=== PATIENT | male | born 1940 | race Caucasian/White ===

== ENCOUNTER 2023-01-17 09:03 | Outpatient (OUT) | payer MEDICARE, SELFPAY ==
--- NOTE | 2023-01-17 09:58 | CA_ITS ---
Patient: RADHA WISE Exam Date: 01/17/2023 : 1940 Gender:M Ordering : NUPUR MEJIA Admission #: [id number] Family : MARIBEL YU . Order #: [id number] CLICK HERE TO VIEW EXAM ECHOCARDIOGRAM REPORT PROCEDURE: CA ECHO DOPPLER COMPLETE INDICATIONS: Chronic systolic heart failure, CABGx5, pacemaker, watchman COMPARISON: None. DESCRIPTION: COMPLETE ECHOCARDIOGRAM Real-time transthoracic echocardiography with 2D, M-mode, spectral and color flow Doppler performed. QUALITY: Technical quality was good. LEFT VENTRICLE: Normal chamber size. Thickened septal wall. The septum is abnormal in motion consistent with right ventricular pressure/volume overload. Systolic function is mildly reduced. LV EF: Mildly reduced left ventricular ejection fraction, (45-50%). DIASTOLIC: ATRIAL SEPTUM: Visually appears intact. LEFT ATRIUM: Severe dilatation. RIGHT ATRIUM: Severe dilatation. RIGHT VENTRICLE: Moderate dilatation. Systolic function is mildly reduced. Pacer wire present. TRICUSPID VALVE: Normal mobility and thickness. No stenosis with mild to moderate regurgitation. Doppler studies reveal severely (>60) elevated right sided pressures. RVSP 83 mmHg MITRAL VALVE: Mildly thickened. No evidence of mitral valve stenosis. Mild mitral annular calcification. Mild mitral regurgitation. AORTIC VALVE: Bio-Prosthetic valve appears well seated in the aortic position with normal doppler flow. Mean gradient 9 mmHg. Trivial aortic regurgitation. AORTIC ROOT: Normal diameter and appearance. PULMONIC VALVE: Normal thickness and mobility. No stenosis. Mild regurgitation. PERICARDIUM: No evidence of pericardial effusion. IVC: IVC is dilated (2.6 cm) with no collapse. PLEURA: CONCLUSION: 1. Left ventricular systolic function is mildly reduced. LVEF is 45 to 50%. 2. Right ventricle is moderately dilated with mildly reduced systolic function. 3. Bioprosthetic aortic valve is well-seated with normal Doppler flows and no significant regurgitation. 4. Severe biatrial dilatation. 5. Mild mitral and mild to moderate tricuspid regurgitation. 6. Severely elevated right-sided pressures. RVSP is 83 mmHg. 7. No pericardial effusion. Adult Echocardiography Procedure Report Left Ventricle LVEDD (3.7 - 5.6 cm): 5.37 cm LVESD (2.2 - 4.0 cm): 4.84 cm LVIVS thickness (0.6 - 1.2 cm): 1.41 cm LVPW thickness (0.5 - 1.0 cm): 1.13 cm e': 0.11 m/s E - e': 10.27 LVOT Max Gradient: 1.60 mm[Hg] LVOT Area (cm2): 0.63 m/s Peak Velocity (LVOT): 0.63 m/s Mean Velocity (LVOT): 0.49 m/s LVOT Diameter 2.32 cm Left Atrium LA Volume Index (2D A2C): 61.08 ml/m2 Left Atrium Systolic Dimension: 5.28 cm Mitral Valve Mitral Valve E-Wave Peak Velocity: 1.10 m/s Right Ventricle Aorta AO Root Diam: 3.32 cm Ascending Ao Diam: 3.00 cm Aortic Valve AoV Area (Peak Kristian): 1.34 cm2, 1.34 cm2 AoV Area (VTI): 1.52 cm2, 1.52 cm2 Peak Velocity(Antegrade Flow): 2.00 m/s Peak Gradient(Antegrade Flow): 15.94 mm[Hg] Mean Velocity(Antegrade Flow): 1.45 m/s Mean Gradient(Antegrade Flow): 9.16 mm[Hg] Velocity Time Integral: 44.36 cm Tricuspid Valve Peak Velocity (Regurgitant Flow): 4.11 m/s, 3.23 m/s Pulmonic Valve Peak Velocity: 1.24 m/s Peak Gradient: 6.44 mm[Hg], 5.94 mm[Hg] Right Atrium Right Atrium Systolic Pressure: 88.35 ml, 88.35 ml Dictated by: Vikram Simeon M.D. on 01/17/2023 at 18:40 Approved by: Vikram Simeon M.D. on 01/17/2023 at 18:57
== END 2023-01-17 09:04 | disposition home or self-care (01) ==
PROVIDERS: PCP Family Medicine; Visit Provider Nurse Practitioner
DX: I50.22 Chronic systolic (congestive) heart failure (principal); Z95.2 Presence of prosthetic heart valve; I07.1 Rheumatic tricuspid insufficiency
CPT/HCPCS: 93306

== ENCOUNTER 2023-02-01 06:30 | Outpatient (OUT) | payer MEDICARE, SELFPAY ==
[2023-02-01 08:25] LABS: Anion Gap 14.6; BUN Creatinine Ratio 19.4; Calcium 8.5 mg/dL (8.5-10.1); Chloride 104 mmol/L (98-107); Estimated GFR (African America 45 (>=60); Estimated GFR (Non-African Ame 37 (>=60); Glucose 181 mg/dL (74-106); Potassium 3.6 mmol/L (3.5-5.1); Sodium 144 mmol/L (136-145)
== END 2023-02-01 06:31 | disposition home or self-care (01) ==
LOC: LAB 06:32
PROVIDERS: PCP Family Medicine; Visit Provider Internal Medicine Interventional Cardiology
DX: I50.22 Chronic systolic (congestive) heart failure (principal)
CPT/HCPCS: 36415; 80048

== ENCOUNTER 2023-04-23 07:03 | Outpatient (OUT) | payer MEDICARE, SELFPAY ==
--- OUTSIDE RECORDS SUMMARY | 2023-04-23 07:06 | XMS_ITS | CCD ---
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 Name Role Phone UNKNOWN, PROVIDER Admitting Unavailable UNKNOWN, PROVIDER Attending Unavailable MARIBEL HOGAN Referring Unavailable HOY, MARIBEL Primary Care Unavailable [facility] Procedure Practitioner Unavailab CODY Davis Surgeon Unavailable [facility] Procedure Practitioner Unavailab HANK Garcia Surgeon Unavailable [facility] Procedure Practitioner Unavailab le UNKNOWN, PROVIDER Surgeon Unavailable [place] Procedure Practitioner Unavailab KATHY Palma Surgeon Unavailable ASHLEY CRAIG Admitting Unavailable ASHLEY CRAIG Attending Unavailable MICKYROBIMARIBEL Referring Unavailable HOYMARIBEL Primary Care Unavailable UNKNOWN, PROVIDER Admitting Unavailable HOY, MARIBEL Referring Unavailable HOYMARIBEL Primary Care Unavailable RO LUCAS Attending Unavailable [facility] Procedure Practitioner Unavailab le UNKNOWN, PROVIDER Surgeon Unavailable YANIV, DR SU Admitting Unavailable MOUKARBEL, DR SU Attending Unavailable HOY ., DR LÓPEZ Primary Care Unavailable MOUKARBEL, DR SU Consulting Unavailable HOY ., DR LÓPEZ Admitting Unavailable HOY ., DR LÓPEZ Attending Unavailable HOY ., DR LPÓEZ Primary Care Unavailable HOY ., DR LÓPEZ Consulting Unavailable Cody Camara Consulting Unavailable HOY ., DR LÓPEZ Admitting Unavailable HOY ., DR LÓPEZ Attending Unavailable HOY ., DR LÓPEZ Primary Care Unavailable HOY ., DR LÓPEZ Consulting Unavailable LAURA HERNANDEZ Admitting Unavailable LAURA HERNANDEZ Attending Unavailable HOY ., DR LÓPEZ Primary Care Unavailable LAURA HERNANDEZ Consulting Unavailable LAURA HERNANDEZ Admitting Unavailable LAURA HERNANDEZ Attending Unavailable HOY ., DR LÓPEZ Primary Care Unavailable LAURA HERNANDEZ Consulting Unavailable HOY ., DR LÓPEZ Admitting Unavailable HOY ., DR LÓPEZ Attending Unavailable HOY ., DR LÓPEZ Primary Care Unavailable HOY ., DR ROSENBAUMLAS Consulting Unavailable HANK SMALLWOOD Referring Unavailable HANK SMALLWOOD Referring Unavailable NUPUR MEJIA Attending Unavailable HANK SMALLWOOD Referring Unavailable HANK SMALLWOOD Referring Unavailable GEORGES PURVIS Attending Unavailable Allergies Allergy Classification Reported Allergen(s) Allergy Type Date of Onset Reaction(s) Facility metFORMIN (1 source) metFORMIN Drug Allergy 9 [facility] Repository (1 source) metFORMIN; Translations: [METFORMIN] Drug Allergy 3 [facility] Repository (1 source) ALLERGIES NOT ON FILE; Translations: [ALLERGIES NOT ON FILE] Propensity to adverse reactions (disorder) [facility] Repository Problems Active Problems Problem Classification Problem Date Documented Date Episodic/Chronic Abdominal pain (4 sources) Epigastric pain; Translations: [EPIGASTRIC PAIN] Onset: 05-07-2022 Episodic Biliary tract disease (1 source) Calculus of gallbladder without cholecystitis without obstruction; Translations: [CALCU GB W/O CHOLECYST W/O OBST] Onset: 05-09-2022 Episodic Cardiac dysrhythmias (3 sources) Paroxysmal atrial fibrillation; Translations: [Unspecified atrial fibrillation] Onset: 06-06-2022 Chronic Cataract (8 sources) Age-related nuclear cataract, right eye; Translations: [Age-related nuclear cataract, left eye] Onset: 01-11-2022 Chronic Coagulation and hemorrhagic disorders (2 sources) Thrombocytopenia, unspecified; Translations: [Thrombocytopenia, unspecified] Onset: 06-06-2022 Chronic Conduction disorders (5 sources) Presence of cardiac pacemaker; Translations: [Encounter for adjustment and management of automatic implantable cardiac defibrillator] Onset: 01-17-2022 Chronic Congestive heart failure; nonhypertensive (9 sources) Acute systolic (congestive) heart failure; Translations: [Unspecified diastolic (congestive) heart failure] Onset: 08-09-2021 Chronic Coronary atherosclerosis and other heart disease (3 sources) Atherosclerotic heart disease of three affiliated coronary artery without angina pectoris; Translations: [ASHD [place] W/O ANGINA PECTORIS] Onset: 06-06-2022 Chronic Deficiency and other anemia (5 sources) Anemia, unspecified; Translations: [ANEMIA UNSPECIFIED] Onset: 08-09-2021 Episodic Diabetes mellitus with complications (3 sources) Type 2 diabetes mellitus with unspecified diabetic retinopathy without macular edema; Translations: [Diabetes mellitus due to underlying condition with hyperosmolarity without nonketotic hyperglycemic-hyperos molar coma (NKHHC)] Onset: 01-17-2022 Chronic Diabetes mellitus without complication (1 source) Type 2 diabetes mellitus without complications; Translations: [TYPE 2 DM WITHOUT COMPLICATIONS] Onset: 07-22-2022 Chronic Disorders of lipid metabolism (2 sources) Pure hypercholesterolemia, unspecified; Translations: [Hyperlipidemia, unspecified] Onset: 08-09-2021 Chronic Essential hypertension (3 sources) Essential (primary) hypertension; Translations: [ESSENTIAL PRIMARY HYPERTENSION] Onset: 01-17-2022 Chronic Heart valve disorders (7 sources) Presence of prosthetic heart valve; 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] Onset: 01-17-2022 Chronic Hypertension with complications and secondary hypertension (1 source) Hypertensive heart disease with heart failure; Translations: [HTN HEART DISEASE W/HEART FAIL] Onset: 08-09-2021 Chronic Other circulatory disease (2 sources) Presence of other cardiac implants and grafts; Translations: [Presence of other cardiac implants and grafts] Onset: 01-18-2023 Chronic Other nutritional; endocrine; and metabolic disorders (2 sources) Morbid (severe) obesity due to excess calories; Translations: [Morbid (severe) obesity due to excess calories] Onset: 06-06-2022 Chronic Pulmonary heart disease (2 sources) Pulmonary hypertension, unspecified; Translations: [Pulmonary hypertension, unspecified] Onset: 06-06-2022 Chronic Thyroid disorders (5 sources) Hypothyroidism, unspecified; Translations: [HYPOTHYROIDISM UNSPECIFIED] Onset: 08-04-2021 Chronic Past or Other Problems Problem Classification Problem Date Documented Da te Episodic/Chronic Allergic reactions (4 sources) Other urticaria; Translations: [Generalized skin eruption due to drugs and medicaments taken internally] Onset: 06-06-2022 Episodic Diabetes mellitus without complication (1 source) Other abnormal glucose; Translations: [OTHER ABNORMAL GLUCOSE] Onset: 08-09-2021 Episodic Other aftercare (1 source) USP (current) use of oral hypoglycemic drugs; Translations: [SUPPLY CHAIN SPECIALIST USE ORAL HYPOGLYCEMIC DX] Onset: 01-17-2022 Episodic Other screening for suspected conditions (not mental disorders or infectious disease) (2 sources) Encounter for screening for malignant neoplasm of prostate; Translations: [Encounter for screening for malignant neoplasm of rectum] Onset: 08-09-2021 Episodic Kendal-; endo-; and myocarditis; cardiomyopathy (except that caused by tuberculosis or sexually transmitted disease) (2 sources) Viral cardiomyopathy; 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] Onset: 06-06-2022 Episodic Results Test Name Value Interpretation Reference Range Facility Office Visiton 01-18-2023 Follow-up visit [id number] Tyler Brown 1940 M Date Provider Department Center 01/18/2023 GEORGES JONES [facility] Family History Problem Relation Age of Onset Hypertension Mother Family Status - Relation Status Age at Mother Level of Service:94261 [facility] OFFICE/OUTPATIENT ESTABLISHED MOD MDM 30-39 MIN Reason for Visit and Comments: Valve Disorder [3372] Congestive Heart Failure [127] Pulmonary Hypertension [818] Normal [facility] INSULINon 07-14-2022 Insulin 7.9 uIU/mL Normal 2.6-24.9 [facility] Comment on above: Performed By: #### A 1C #### [facility] [address] [address] [address] Pattie Torres CBC AUTO DIFFon 07-13-2022 BASO # 0.0 103/ul Normal 0.0-0.1 [facility] Comment on above: Performed By: #### C BC ####[facility] [address] [place] [address] [address]Dr. Pattie Torres Basophils/100 WBC (Bld) 0.5 % Normal 0.2-2.0 [facility] Comment on above: Performed By: #### C BC ####[facility] [address] [address]DrLeticia Torres EO # 0.4 103/ul Normal 0.0-0.7 [facility] Comment on above: Performed By: #### C BC ####[facility] [address] [address]DrLeticia Torres Eosinophils/100 WBC (Bld) 5.5 % Normal 0.9-7.0 [facility] Comment on above: Performed By: #### C BC ####[facility] [address] [place], [place] [address]Dr. Pattie Torres Erythrocyte distribution width (RBC) [Ratio] 13.0 % Normal 11.0-15.0 [facility] Comment on above: Performed By: #### C BC ####[facility] [address] [place], [place] [address]Dr. Pattie Torres Hematocrit (Bld) [Volume fraction] 36.1 % Critically low 42.0-54.0 [facility] Comment on above: Performed By: #### C BC ####[facility] [address] [place], [place] [address]Dr. Pattie Torres Hemoglobin (Bld) [Mass/Vol] 11.8 g/dL Critically low 14.0-18.0 [facility] Comment on above: Performed By: #### C BC ####[facility] [address] [place], [place] [address]Dr. Pattie Torres IG # 0.02 10e3/ul Normal 0.00-0.03 [facility] Comment on above: Performed By: #### C BC ####[facility] [address] [place], [place] [address]Dr. Pattie Brian IG % 0.3 % Normal 0.0-0.5 [facility] Comment on above: Performed By: #### C BC ####[facility] [address] [place], [place] [address]Dr. Pattie Torres LYMPH # 1.8 103/ul Normal 1.2-3.8 [facility] Comment on above: Performed By: #### C BC ####[facility] [address] [place], [place] [address]Dr. Merlenery Torres Lymphocytes/100 WBC (Bld) 23.5 % Normal 20.5-60.0 [facility] Comment on above: Performed By: #### C BC ####[facility] [address] [place], [place] [address]Dr. Merlenery Torres MANUAL DIFF REQ NO Normal [facility] Comment on above: Performed By: #### C BC ####[facility] [address] [place], [place] [address]Dr. Pattie Torres MCH (RBC) [Entitic mass] 30.3 pg Normal 25.9-34.0 [facility] Comment on above: Performed By: #### C BC ####[facility] [address] [address]Dr. Pattie Torres MCHC (RBC) [Mass/Vol] 32.7 g/dL Normal 29.9-35.2 [facility] Comment on above: Performed By: #### C BC ####[facility] [address] [address]Dr. Pattie Torres MCV (RBC) [Entitic vol] 92.6 fL Normal 80.0-94.0 [facility] Comment on above: Performed By: #### C BC ####[facility] [address] [address]Dr. Pattie Brian MONO # 0.6 103/ul Normal 0.3-0.8 [facility] Comment on above: Performed By: #### C BC ####[facility] [address] [address]Dr. Pattie Brian Monocytes/100 WBC (Bld) 8.0 % Normal 1.7-12.0 [facility] Comment on above: Performed By: #### C BC ####[facility] [address] [address]Dr. Pattie Torres NEUT # 4.7 103/ul Normal 1.4-6.5 [facility] Comment on above: Performed By: #### C BC ####[facility] [address] [address]Dr. Pattie Brian Neutrophils/100 WBC (Bld) 62.2 % Normal 43.0-75.0 [facility] Comment on above: Performed By: #### C BC ####[facility] [address] [address]Dr. Pattie Brian Platelet mean volume (Bld) [Entitic vol] 12.9 fL Normal 9.5-13.5 [facility] Comment on above: Performed By: #### C BC ####[facility] [address] [place], [place] [address]Da. Pattie Torres PLT 127 103/ul Critically low 150-[address] [facility] Comment on above: Performed By: #### C BC ####[facility] [address] [place], [place] [address]Pm. Pattie Torres RBC 3.90 106/ul Critically low 4.70-6.10 [facility] Comment on above: Performed By: #### C BC ####[facility] [address] [place], [place] [address]Zd. Pattie Torres WBC 7.6 103/ul Normal 4.0-11.0 [facility] Comment on above: Performed By: #### C BC ####[facility] [address] [place], [place] [address]Ox. Pattie Torres FREE THYROXINE INDEX T7on FTI 3.66 Normal 1.30-4.50 [facility] Comment on above: Performed By: #### T 7, CMP, LIPID, TSH ####[facility] [address] [place], [place] [address]Sa. Pattie Torres T3U 37.0 % Normal 33.0-40.0 [facility] Comment on above: Performed By: #### T 7, CMP, LIPID, TSH ####[facility] [address] [place], [place] [address]QbLeticia Torres T4 [Mass/Vol] 9.90 ug/dL Normal 4.50-12.[address] [facility] Comment on above: Performed By: #### T 7, CMP, LIPID, TSH ####[facility] [address] [place], [place] [address]FuLeticia Torres GLYCOHEMOGLOBIN A1Con 2022 ADA RECOMMENDATION SEE BELOW Normal [facility] Comment on above: Result Comment: ADA RECOMMENDED LIMIT 4.0 - 6.0 ADA THERAPEUTIC TARGET < 7.0 ACTION SUGGESTED > 7.0 Performed By: #### A 1C #### [facility] [address] [place], [place] [address] Dr. Pattie Torres Glucose [Mass/Vol] 148 mg/dL Normal [facility] Comment on above: Performed By: #### A 1C #### [facility] [address] [place], [place] [address] Dr. Pattie Torres HbA1c (Bld) [Mass fraction] 6.8 % Critically high 4.5-6.2 [facility] Comment on above: Performed By: #### A 1C #### [facility] [address] [place], [place] [address] Dr. Pattie Torres LIPID PROFILEon 07-13-2022 CHOL-HDL RATIO NORM SEE BELOW Normal [facility] Comment on above: Result Comment: 3.3 - 4.4 LOW RISK 4.4 - 7.1 AVERAGE RISK 7.1 - 11.0 MODERATE RISK >11.0 HIGH RISK Performed By: #### T 7, CMP, LIPID, TSH ####[facility] [address] [place] [address]DrLeticia Torres Cholesterol [Mass/Vol] 114 mg/dL Normal <=200 [facility] Comment on above: Performed By: #### T 7, CMP, LIPID, TSH ####[facility] [address] [place] [address]DrLeticia Torres Cholesterol in HDL [Mass/Vol] 32 mg/dL Critically low 40-60 [facility] Comment on above: Performed By: #### T 7, CMP, LIPID, TSH ####[facility] [address] [place], [place] [address]QxLeticia Torres Cholesterol in LDL [Mass/Vol] 60.0 mg/dL Normal [facility] Comment on above: Performed By: #### T 7, CMP, LIPID, TSH ####[facility] [address] [place], [place] [address]AiLeticia Torres Cholesterol.total/Cho lesterol in HDL [Mass ratio] 3.6 {ratio} Normal [facility] Comment on above: Performed By: #### T 7, CMP, LIPID, TSH ####[facility] [address] [place], [place] [address]MsLeticia Torres HDL NORMAL > or = 60 mg/dl - LO W CARDIOVASCULAR RISK <40 mg/dl - HIGH CARDIOVASCULAR RISK Normal [facility] Comment on above: Performed By: #### T 7, CMP, LIPID, TSH ####[facility] [address] [place] [address] [address]Dr. Pattie Torres LDL CALC NORMAL SEE BELOW Normal [facility] Comment on above: Result Comment: <100 mg/dl OPTIMAL 100 - 129 mg/dl NEAR OR ABOVE OPTIMAL 130 - 159 mg/dl BORDERLINE HIGH 160 - 189 mg/dl HIGH >190 mg/dl VERY HIGH Performed By: #### T 7, CMP, LIPID, TSH ####[facility] [address] [place] [address] [address]Dr. Pattie Torres Triglyceride [Mass/Vol] 110 mg/dL Normal <=150 [facility] Comment on above: Performed By: #### T 7, CMP, LIPID, TSH ####[facility] [address] [address]Dr. Pattie Torres VLDL CALC 22.0 mg/dL Normal [facility] Comment on above: Performed By: #### T 7, CMP, LIPID, TSH ####[facility] [address] [place] [address]Dr. Pattie Torres PROF 14(COMP METB)on 023 Albumin [Mass/Vol] 3.4 g/dL Normal 3.4-5.0 [facility] Comment on above: Performed By: #### T 7, CMP, LIPID, TSH ####[facility] [address] [address]Dr. Pattie Torres Albumin/Globulin [Mass ratio] 0.9 {ratio} Normal [facility] Comment on above: Performed By: #### T 7, CMP, LIPID, TSH ####[facility] [address] [address]Dr. Pattie Torres ALP [Catalytic activity/Vol] 68 U/L Normal 46-116 [facility] Comment on above: Performed By: #### T 7, CMP, LIPID, TSH ####[facility] [address] [place] [address]Dr. Pattie Torres ALT [Catalytic activity/Vol] 20 U/L Normal 16-63 [facility] Comment on above: Performed By: #### T 7, CMP, LIPID, TSH ####[facility] [address] [place] [address]Dr. Pattie Torres Anion gap [Moles/Vol] 11.0 mmol/L Normal [facility] Comment on above: Performed By: #### T 7, CMP, LIPID, TSH ####[facility] [address] [place] [address]Dr. Pattie Torres AST [Catalytic activity/Vol] 12 U/L Critically low 15-37 [facility] Comment on above: Performed By: #### T 7, CMP, LIPID, TSH ####[facility] [address] [address]Dr. Pattie Torres Bilirubin [Mass/Vol] 1.0 mg/dL Normal 0.2-1.0 [facility] Comment on above: Performed By: #### T 7, CMP, LIPID, TSH ####[facility] [address] [place] [address]Dr. Pattie Torres Calcium [Mass/Vol] 8.6 mg/dL Normal 8.5-10.1 [facility] Comment on above: Performed By: #### T 7, CMP, LIPID, TSH ####[facility] [address] [place] [address]Dr. Pattie Torres Chloride [Moles/Vol] 107 mmol/L Normal 98-107 [facility] Comment on above: Performed By: #### T 7, CMP, LIPID, TSH ####[facility] [address] [place] [address]Dr. Pattie Torres CO2 [Moles/Vol] 28.6 mmol/L Normal 21.0-32.0 [facility] Comment on above: Performed By: #### T 7, CMP, LIPID, TSH ####[facility] [address] [place] [address]Dr. Pattie Torres Creatinine [Mass/Vol] 1.25 mg/dL Normal 0.70-1.30 [facility] Comment on above: Performed By: #### T 7, CMP, LIPID, TSH ####[facility] [address] [address]Dr. Pattie Torres EGFR-AF MALAYSIAN >60 Normal >=60 [facility] Comment on above: Performed By: #### T 7, CMP, LIPID, TSH ####[facility] [address] [place] [address]Dr. Pattie Torres EGFR-NON AF MALAYSIAN 55 mL/min/1.73m2 Critically low >=60 [facility] Comment on above: Performed By: #### T 7, CMP, LIPID, TSH ####[facility] [address] [place] [address]Dr. Pattie Torres Globulin (S) [Mass/Vol] 3.7 g/dL Normal [facility] Comment on above: Performed By: #### T 7, CMP, LIPID, TSH ####[facility] [address] [address]Dr. Merlenrey Brian Glucose [Mass/Vol] 151 mg/dL Critically high 74-106 [facility] Comment on above: Performed By: #### T 7, CMP, LIPID, TSH ####[facility] [address] [place], [place] [address]Dr. Merlenery Torres Potassium [Moles/Vol] 3.6 mmol/L Normal 3.5-5.1 [facility] Comment on above: Performed By: #### T 7, CMP, LIPID, TSH ####[facility] [address] [address]Dr. Pattie Torres Protein [Mass/Vol] 7.1 g/dL Normal 6.4-8.2 [facility] Comment on above: Performed By: #### T 7, CMP, LIPID, TSH ####[facility] [address] [place], [place] [address]Dr. Pattie Torres Sodium [Moles/Vol] 143 mmol/L Normal 136-145 [facility] Comment on above: Performed By: #### T 7, CMP, LIPID, TSH ####[facility] [address] [place], [place] [address]Dr. Pattie Torres Urea nitrogen [Mass/Vol] 22.0 mg/dL Critically high 7.0-18.0 [facility] Comment on above: Performed By: #### T 7, CMP, LIPID, TSH ####[facility] [address] [place], [place] [address]Bg. Pattie Torres Urea nitrogen/Creatinine [Mass ratio] 17.6 mg/mg Normal [facility] Comment on above: Performed By: #### T 7, CMP, LIPID, TSH ####[facility] [address] [place], [place] [address]Zj. Pattie Torres TSHon 07-13-2022 TSH 1.869 uIU/mL Normal 0.358-3.740 [facility] Comment on above: Performed By: #### T 7, CMP, LIPID, TSH ####[facility] [address] [place], [place] [address]Xw. Pattie Torres Orders Onlyon 06-08-2022 Orders Only [id number] Tyler Brown 1940 M Date Provider Department Center 06/08/2022 GONSALO MALONE SAWYER [facility] Family History Problem Relation Age of Onset Hypertension Mother Family Status - Relation Status Age at Mother Normal [facility] Office Visiton 06-06-2022 Follow-up visit [id number] Tyler Brown 1940 M Date Provider Department Center 06/06/2022 NUPUR GEORGE SAWY[facility] Family History Problem Relation Age of Onset Hypertension Mother Family Status - Relation Status Age at Mother Level of Service:52013 [facility] OFFICE/OUTPATIENT ESTABLISHED LOW MDM 20-29 MIN Reason for Visit and Comments: Follow-up [059420] - 6 month follow up Normal [facility] US SINGLE QUAD RT UPPERon US SINGLE QUAD RT UPPER EXAMINATION: US SINGLE QUAD RT UPPER HISTORY: Epigastric pain , occasional vomiting COMPARISON: No relevant comparison available. TECHNIQUE: Transabdominal evaluation of the right upper quadrant. FINDINGS: LIVER: Normal size and echotexture. Color Doppler demonstrates patent hepatic veins. PORTAL VEIN: Duplex Doppler demonstrates normal hepatopetal flow pattern with flow velocity averaging 20 cm/s. GALLBLADDER: Contains multiple stones up to 1.8 cm in size. No gallbladder wall thickening or free fluid. Negative sonographic Sahni's sign. BILIARY: No abnormal dilation or stones. Common bile duct diameter is within normal limits. PANCREASE: No visible mass, abnormal atrophy, or duct dilation. KIDNEY: No hydronephrosis. No visible mass or stones. Size: 11.9 x 5.0 x 5.2 cm IMPRESSION: 1. Cholelithiasis without ultrasound evidence of acute cholecystitis. Electronically authenticated by: CODY CAMARA Date: 2022-05-07 16:34 Normal [facility] ECHOCARDIO M/2D COMPLETEon 0 10-11-2021 ECHOCARDIO M/2D COMPLETE Patient: RADHA BROWN Exam Date: 10/11/2021 : 1940 Gender:M Ordering : DR GEORGES PURVIS M.D. Admission #: [id number] Family : Order #: [id number] CLICK HERE TO VIEW EXAM ECHOCARDIOGRAM REPORT PROCEDURE: CARDIO PULMONARY ECHOCARDIO M/2D COMP INDICATIONS: Acute systolic heart failure, S/P TAVR; 29 mm Coby S3 (10/11/2020), H/O CABG AND Pacemaker 2020 COMPARISON: None. DESCRIPTION: COMPLETE ECHOCARDIOGRAM Real-time transthoracic echocardiography with 2D, M-mode, spectral and color flow Doppler performed. QUALITY: Technical quality was adequate. 74 285# 128/82 HR 68 LEFT VENTRICLE: Mild dilatation. Mild eccentric left ventricular hypertrophy. The interventricular septum is abnormal in it's mobility as commonly seen in open heart patients. Left ventricular systolic function is at lower limits of normal. LV EF: Lower limits of normal left ventricular ejection fraction, (50-55%). DIASTOLIC: ATRIAL SEPTUM: LEFT ATRIUM: Severe dilatation. RIGHT ATRIUM: Severe dilatation. RIGHT VENTRICLE: Mild dilatation. Normal right ventricular systolic function. Pacer wire present. TRICUSPID VALVE: Normal mobility and thickness. No stenosis with trivial regurgitation. Doppler studies reveal moderately (45-60) elevated right sided pressures. RVSP is 48 mmHg MITRAL VALVE: No evidence of mitral valve stenosis. Moderate mitral annular calcification. Trivial mitral regurgitation.The mitral valve opens well. AORTIC VALVE: Bio-Prosthetic valve appears well seated in the aortic position with normal doppler flow. Mean gradient 11 mmHg. Peak gradient 21 mmHg. Normal leaflet mobility. Mild perivalvular insufficiency. No aortic regurgitation. AORTIC ROOT: Aortic sinuses are normal in size for BSA. The ascending aorta is mildly enlarged measuring 3.7 cm. PULMONIC VALVE: Normal thickness and mobility. No stenosis. Trivial regurgitation. PERICARDIUM: No evidence of pericardial effusion. IVC: Collapses with inspirations. IVC is dilated. PLEURA: CONCLUSION: 1. The left ventricle is mildly dilated with mild eccentric hypertrophy. Left ventricular systolic function is at the lower limits of normal, LVEF is 50 to 55%. 2. Normal right ventricular systolic function. 3. Severe biatrial dilatation. 4. Bioprosthetic aortic valve is seen with normal Doppler flows, no valvular or perivalvular regurgitation seen. 5. Moderately dilated right-sided pressures. 6. No pericardial effusion. 7. The ascending aorta is mildly enlarged. Adult Echocardiography Procedure Report Left Ventricle Left Atrium Mitral Valve Right Ventricle Aorta Aortic Valve Peak Velocity (Antegrade Flow): 2.29 m/s, 2.29 m/s AoV Area (Peak Kristian): 1.83 cm2, 1.83 cm2, 1.83 cm2, 1.83 cm2, 1.83 cm2, 1.83 cm2, 1.83 cm2, 1.83 cm2 AoV Area (VTI): 1.72 cm2, 1.72 cm2 Peak Velocity(Antegrade Flow): 2.29 m/s, 2.29 m/s Peak Gradient(Antegrade Flow): 20.90 mm[Hg], 20.90 mm[Hg] Mean Velocity(Antegrade Flow): 1.57 m/s Mean Gradient(Antegrade Flow): 11.22 mm[Hg] Velocity Time Integral: 56.91 cm Tricuspid Valve Peak Velocity (Regurgitant Flow): 3.12 m/s, 3.12 m/s, 3.15 m/s Peak Velocity: 0.57 m/s Pulmonic Valve PV Max Kristian (0.6 - 0.9 m per sec): 1.16 m/s PV Max Gradient: 5.37 mm[Hg] Right Atrium Dictated by: Georges Purvis M.D. on 10/11/2021 at 20:27 Approved by: Georges Purvis M.D. on 10/11/2021 at 20:32 Normal [facility] INSULINon 08-05-2021 Insulin 12.2 uIU/mL Normal 2.6-24.9 [facility] Comment on above: Performed By: #### I NSULIN ####[facility] [address] [place] [address]DrLeticia Torres BNPon 08-04-2021 Natriuretic peptide B (Bld) [Mass/Vol] 1018.0 pg/mL Normal <=1,800.0 [facility] Comment on above: Performed By: #### B RACKING MACHINE OPERATOR, URIC, TSH, T7, LIPID, CMP #### [facility] [address] [address] [address] Pattie Torres CBC AUTO DIFFon 08-04-2021 BASO # 0.0 103/ul Normal 0.0-0.1 [facility] Comment on above: Performed By: #### C BC ####[facility] [address] [place], [place] [address]DrLeticia Torres Basophils/100 WBC (Bld) 0.4 % Normal 0.2-2.0 [facility] Comment on above: Performed By: #### C BC ####[facility] [address] [place] [address] [address]DrLeticia Torres EO # 0.5 103/ul Normal 0.0-0.7 [facility] Comment on above: Performed By: #### C BC ####[facility] [address] [place] [address]DrLeticia Torres Eosinophils/100 WBC (Bld) 7.1 % Critically high 0.9-7.0 [facility] Comment on above: Performed By: #### C BC ####[facility] [address] [place], [place] [address]DrLeticia Torres Erythrocyte distribution width (RBC) [Ratio] 13.1 % Normal 11.0-15.0 [facility] Comment on above: Performed By: #### C BC ####[facility] [address] [place], [place] [address]DrLeticia Torres Hematocrit (Bld) [Volume fraction] 39.2 % Critically low 42.0-54.0 [facility] Comment on above: Performed By: #### C BC ####[facility] [address] [place] [id number]. Pattie Torres Hemoglobin (Bld) [Mass/Vol] 12.6 g/dL Critically low 14.0-18.0 [facility] Comment on above: Performed By: #### C BC ####[facility] [address] [place] [id number]. Pattie Torres IG # 0.03 10e3/ul Normal 0.00-0.03 [facility] Comment on above: Performed By: #### C BC ####[facility] [address] [place] [id number]. Pattie Torres IG % 0.4 % Normal 0.0-0.5 [facility] Comment on above: Performed By: #### C BC ####[facility] [address] [place], [place] [address]Dr. Pattie Torres LYMPH # 2.3 103/ul Normal 1.2-3.8 [facility] Comment on above: Performed By: #### C BC ####[facility] [address] [place] [id number]. Pattie Torres Lymphocytes/100 WBC (Bld) 31.7 % Normal 20.5-60.0 [facility] Comment on above: Performed By: #### C BC ####[facility] [address] [place] [id number]. Pattie Torres MANUAL DIFF REQ NO Normal [facility] Comment on above: Performed By: #### C BC ####[facility] [address] [place] [id number]. Pattie Torres MCH (RBC) [Entitic mass] 30.5 pg Normal 25.9-34.0 [facility] Comment on above: Performed By: #### C BC ####[facility] [address] [place] [id number]. Pattie Torres MCHC (RBC) [Mass/Vol] 32.1 g/dL Normal 29.9-35.2 [facility] Comment on above: Performed By: #### C BC ####[facility] [address] [place] [id number]. Pattie Torres MCV (RBC) [Entitic vol] 94.9 fL Critically high 80.0-94.0 [facility] Comment on above: Performed By: #### C BC ####[facility] [address] [place] [id number]. Pattie Torres MONO # 0.6 103/ul Normal 0.3-0.8 [facility] Comment on above: Performed By: #### C BC ####[facility] [address]vir[address] [place] [id number]. Pattie Torres Monocytes/100 WBC (Bld) 9.0 % Normal 1.7-12.0 [facility] Comment on above: Performed By: #### C BC ####[facility] [address] [place], [place] [address]Dr. Pattie Torres NEUT # 3.7 103/ul Normal 1.4-6.5 [facility] Comment on above: Performed By: #### C BC ####[facility] [address] [place] [id number]. Pattie Torres Neutrophils/100 WBC (Bld) 51.4 % Normal 43.0-75.0 [facility] Comment on above: Performed By: #### C BC ####[facility] [address] [place], [place] [id number]. Pattie Torres Platelet mean volume (Bld) [Entitic vol] 12.3 fL Normal 9.5-13.5 [facility] Comment on above: Performed By: #### C BC ####[facility] [address] [place] [id number]. Pattie Torres PLT 143 103/ul Critically low 150-[address] [facility] Comment on above: Performed By: #### C BC ####[facility] [address] [place] [id number]. Pattie Brian RBC 4.13 106/ul Critically low 4.70-6.10 [facility] Comment on above: Performed By: #### C BC ####[facility] [address] [place], [place] [address]XsDr. Pattie Torres WBC 7.1 103/ul Normal 4.0-11.0 [facility] Comment on above: Performed By: #### C BC ####[facility] [address] [place], [place] [address]Dr. Pattie Torres FREE THYROXINE INDEX T7on FTI 3.33 Normal [facility] Comment on above: Performed By: #### B RACKING MACHINE OPERATOR, URIC, TSH, T7, LIPID, CMP #### [facility] [address] [address] [address] Pattie Torres T3U 35.0 % Normal 23.5-40.5 [facility] Comment on above: Performed By: #### B RACKING MACHINE OPERATOR, URIC, TSH, T7, LIPID, CMP #### [facility] [address] [place] [address] Dr. Pattie Torres T4 [Mass/Vol] 9.50 ug/dL Normal 4.50-12.[address] [facility] Comment on above: Performed By: #### B RACKING MACHINE OPERATOR, URIC, TSH, T7, LIPID, CMP #### [facility] [address] [place] [address] Dr. Pattie Torres GLYCOHEMOGLOBIN A1Con 2021 ADA RECOMMENDATION SEE BELOW Normal [facility] Comment on above: Result Comment: ADA RECOMMENDED LIMIT 4.0 - 6.0 ADA THERAPEUTIC TARGET < 7.0 ACTION SUGGESTED > 7.0 Performed By: #### A 1C #### [facility] [address] [place] [address] Dr. Pattie Torres Glucose [Mass/Vol] 140 mg/dL Normal [facility] Comment on above: Performed By: #### A 1C #### [facility] [address] [place] [address] Dr. Pattie Torres HbA1c (Bld) [Mass fraction] 6.5 % Critically high 4.5-6.2 [facility] Comment on above: Performed By: #### A 1C #### [facility] [address] [place] [address] Dr. Pattie Torres LIPID PROFILEon 08-04-2021 CHOL-HDL RATIO NORM SEE BELOW Normal [facility] Comment on above: Result Comment: 3.3 - 4.4 LOW RISK 4.4 - 7.1 AVERAGE RISK 7.1 - 11.0 MODERATE RISK >11.0 HIGH RISK Performed By: #### B RACKING MACHINE OPERATOR, URIC, TSH, T7, LIPID, CMP #### [facility] [address] [address] [address] Pattie Torres Cholesterol [Mass/Vol] 143 mg/dL Normal <=200 [facility] Comment on above: Performed By: #### B RACKING MACHINE OPERATOR, URIC, TSH, T7, LIPID, CMP #### [facility] [address] [place] [address] Dr. Pattie Torres Cholesterol in HDL [Mass/Vol] 42 mg/dL Normal 40-60 [facility] Comment on above: Performed By: #### B RACKING MACHINE OPERATOR, URIC, TSH, T7, LIPID, CMP #### [facility] [address] [place] [address] Dr. Pattie Torres Cholesterol in LDL [Mass/Vol] 76.0 mg/dL Normal [facility] Comment on above: Performed By: #### B RACKING MACHINE OPERATOR, URIC, TSH, T7, LIPID, CMP #### [facility] [address] [place] [address] Dr. Pattie Torres Cholesterol.total/Cho lesterol in HDL [Mass ratio] 3.4 {ratio} Normal [facility] Comment on above: Performed By: #### B RACKING MACHINE OPERATOR, URIC, TSH, T7, LIPID, CMP #### [facility] [address] [place] [address] Dr. Pattie Torres HDL NORMAL > or = 60 mg/dl - LO W CARDIOVASCULAR RISK <40 mg/dl - HIGH CARDIOVASCULAR RISK Normal [facility] Comment on above: Performed By: #### B RACKING MACHINE OPERATOR, URIC, TSH, T7, LIPID, CMP #### [facility] [address] [place] [address] Dr. Pattie Torres LDL CALC NORMAL SEE BELOW Normal [facility] Comment on above: Result Comment: <100 mg/dl OPTIMAL 100 - 129 mg/dl NEAR OR ABOVE OPTIMAL 130 - 159 mg/dl BORDERLINE HIGH 160 - 189 mg/dl HIGH >190 mg/dl VERY HIGH Performed By: #### B RACKING MACHINE OPERATOR, URIC, TSH, T7, LIPID, CMP #### [facility] [address] [address] [address] Pattie Torres Triglyceride [Mass/Vol] 125 mg/dL Normal <=150 [facility] Comment on above: Performed By: #### B RACKING MACHINE OPERATOR, URIC, TSH, T7, LIPID, CMP #### [facility] [address] [address] [address] Pattie Torres VLDL CALC 25.0 mg/dL Normal [facility] Comment on above: Performed By: #### B RACKING MACHINE OPERATOR, URIC, TSH, T7, LIPID, CMP #### [facility] [address] [place] [address] Dr. Pattie Torres PROF 14(COMP METB)on 022 Albumin [Mass/Vol] 3.8 g/dL Normal 3.4-5.0 [facility] Comment on above: Performed By: #### B RACKING MACHINE OPERATOR, URIC, TSH, T7, LIPID, CMP #### [facility] [address] [address] [address] Pattie Torres Albumin/Globulin [Mass ratio] 1.0 {ratio} Normal [facility] Comment on above: Performed By: #### B RACKING MACHINE OPERATOR, URIC, TSH, T7, LIPID, CMP #### [facility] [address] [address] [address] Pattie Torres ALP [Catalytic activity/Vol] 86 U/L Normal 46-116 [facility] Comment on above: Performed By: #### B RACKING MACHINE OPERATOR, URIC, TSH, T7, LIPID, CMP #### [facility] [address] [address] [address] Pattie Torres ALT [Catalytic activity/Vol] 28 U/L Normal 16-63 [facility] Comment on above: Performed By: #### B RACKING MACHINE OPERATOR, URIC, TSH, T7, LIPID, CMP #### [facility] [address] [address] [address] Pattie Torres Anion gap [Moles/Vol] 8.8 mmol/L Normal [facility] Comment on above: Performed By: #### B RACKING MACHINE OPERATOR, URIC, TSH, T7, LIPID, CMP #### [facility] [address] [place] [address] Dr. Pattie Torres AST [Catalytic activity/Vol] 16 U/L Normal 15-37 [facility] Comment on above: Performed By: #### B RACKING MACHINE OPERATOR, URIC, TSH, T7, LIPID, CMP #### [facility] [address] [place] [address] Dr. Pattie Torres Bilirubin [Mass/Vol] 1.0 mg/dL Normal 0.2-1.0 [facility] Comment on above: Performed By: #### B RACKING MACHINE OPERATOR, URIC, TSH, T7, LIPID, CMP #### [facility] [address] [place] [address] Dr. Pattie Torres Calcium [Mass/Vol] 8.4 mg/dL Critically low 8.5-10.1 [facility] Comment on above: Performed By: #### B RACKING MACHINE OPERATOR, URIC, TSH, T7, LIPID, CMP #### [facility] [address] [place] [address] Dr. Pattie Torres Chloride [Moles/Vol] 101 mmol/L Normal 98-107 [facility] Comment on above: Performed By: #### B RACKING MACHINE OPERATOR, URIC, TSH, T7, LIPID, CMP #### [facility] [address] [place] [address] Dr. Pattie Torres CO2 [Moles/Vol] 31.5 mmol/L Normal 21.0-32.0 [facility] Comment on above: Performed By: #### B RACKING MACHINE OPERATOR, URIC, TSH, T7, LIPID, CMP #### [facility] [address] [place] [address] Dr. Pattie Torres Creatinine [Mass/Vol] 1.60 mg/dL Critically high 0.70-1.30 [facility] Comment on above: Performed By: #### B RACKING MACHINE OPERATOR, URIC, TSH, T7, LIPID, CMP #### [facility] [address] [place] [address] Dr. Pattie Torres EGFR-AF MALAYSIAN 50 mL/min/1.73m2 Critically low >=60 [facility] Comment on above: Performed By: #### B RACKING MACHINE OPERATOR, URIC, TSH, T7, LIPID, CMP #### [facility] [address] [place] [address] Dr. Pattie Torres EGFR-NON AF MALAYSIAN 42 mL/min/1.73m2 Critically low >=60 [facility] Comment on above: Performed By: #### B RACKING MACHINE OPERATOR, URIC, TSH, T7, LIPID, CMP #### [facility] [address] [place] [address] Dr. Pattie Torres Globulin (S) [Mass/Vol] 3.8 g/dL Normal [facility] Comment on above: Performed By: #### B RACKING MACHINE OPERATOR, URIC, TSH, T7, LIPID, CMP #### [facility] [address] [place] [address] Dr. Pattie Torres Glucose [Mass/Vol] 143 mg/dL Critically high 74-106 [facility] Comment on above: Performed By: #### B RACKING MACHINE OPERATOR, URIC, TSH, T7, LIPID, CMP #### [facility] [address] [place] [address] Dr. Pattie Torres Potassium [Moles/Vol] 4.3 mmol/L Normal 3.5-5.1 [facility] Comment on above: Performed By: #### B RACKING MACHINE OPERATOR, URIC, TSH, T7, LIPID, CMP #### [facility] [address] [place] [address] Dr. Pattie Torres Protein [Mass/Vol] 7.6 g/dL Normal 6.1-8.2 [facility] Comment on above: Performed By: #### B RACKING MACHINE OPERATOR, URIC, TSH, T7, LIPID, CMP #### [facility] [address] [place] [address] Dr. Pattie Torres Sodium [Moles/Vol] 137 mmol/L Normal 136-145 [facility] Comment on above: Performed By: #### B RACKING MACHINE OPERATOR, URIC, TSH, T7, LIPID, CMP #### [facility] [address] [place] [address] Dr. Pattie Torres Urea nitrogen [Mass/Vol] 28.0 mg/dL Critically high 7.0-18.0 [facility] Comment on above: Performed By: #### B RACKING MACHINE OPERATOR, URIC, TSH, T7, LIPID, CMP #### [facility] [address] [place] [address] Dr. Pattie Torres Urea nitrogen/Creatinine [Mass ratio] 17.5 mg/mg Normal [facility] Comment on above: Performed By: #### B RACKING MACHINE OPERATOR, URIC, TSH, T7, LIPID, CMP #### [facility] [address] [place] [address] Dr. Pattie Torres TSHon 08-04-2021 TSH 3.729 uIU/mL Normal 0.470-4.[address] [facility] Comment on above: Performed By: #### B RACKING MACHINE OPERATOR, URIC, TSH, T7, LIPID, CMP #### [facility] [address] [place] [address] Dr. Pattie Torres TSH RANGE SEE BELOW Normal [facility] Comment on above: Result Comment: <0.3 4 UIU/ml HYPERTHYROID 0.34-5.60 UIU/ml EUTHYROID >5.60 UIU/ml HYPOTHYROID Performed By: #### B RACKING MACHINE OPERATOR, URIC, TSH, T7, LIPID, CMP #### [facility] [address] [place] [address] Dr. Pattie Torres URIC ACID SERUMon 08-04-2021 Urate [Mass/Vol] 8.3 mg/dL Normal 3.5-8.5 [facility] Comment on above: Performed By: #### B RACKING MACHINE OPERATOR, URIC, TSH, T7, LIPID, CMP #### [facility] [address] [place] [address] Dr. Pattie Torres Coding Summary.on 11-22-2020 Coding Summary. CD:[id number] G h0bWw+PGhlYWQ+EZ2COAN tW53tvPUsoX8TO6yCNR1C MSRXXQEJVV8XNP9leGF2Z OxdS3DqndPu WicaiXIuLQ94VOu2RMB3j IisOBnctL6vfCRcE6s3Bt GrBL98xC04IGtvQEGfRhZ 3LjZpbjsgbWFy V8cqZbMfoFSzTdk+PHRhY mxlIHdpZHRoPScxMDAlJy XadDajRQ6pOs7iSZHgLBW vbGxhcHNlOiBj u5sgHOWlKSpiAU0kxXjfK 5UyeAA1BHGuf3g4Ib23cR I+WSUcIPU4vCqvBOinn37 5BfUez9ekVFB0 nXVnMRgcESX2X64jl3O5F TFfRENvXQA8jMH5pW6hqH meqqukK2MsaQZjMhU6PHD 9wDQlhD7zjOdd cmpdgO9mGks+Q39VRL4XL MWZPU4ODeu6Q3NzAunkjY I+IJ94NULeVY42sQBghZU vr9qqkNx4FjFp TJXiZEZ4vXckNIsct9NjF WYbD08xjVCpc4X4ESOazC kwiIYbUfNorMG5xO2nITw jhtoqw5cvyhnt Rlshj3nxqx34cM00X32wS NxuJJLoPKS2PLBsPOUodT ltag1jfD1eDa4+BNiuo1z fa1gfoYa0MdBl SFHfyyWdqLsnBEL6o6WtO r50J9GonRzsm9TrZhx1mq 90nWUmi4X5fUQ9NXsoMYJ xoC0sPGgkHpK6 IXUhZiTkiC88sCCcXKvaI b7twQuniOpeIG0cAKEqih cqCPBslL0tCRGvjMBvlLi sLJ1tKVCyffwr j388WpBgETG7INMcmRHsN 3WiuC7bPoNbRMYmXIDpP0 NmvKFaJVzcA334YTkyEcB 9NKTeezXoO1Qp ZGPykEtqAeQ8i5E5Io3Tt 3OrjxmlEIG6SUltDCM0Qk E2UdEmHlU7D7QxAfe4ZSC bdAofFI5pO1Lo WZXifpayvlgpfWW6CMTrC NQgbJ22nVUyVVneVv9in6 G4v357UWPxSQRpeF83Pu3 udDogMTBwdCBU xV5fuavkt0mubadlSvKtU EKwIUr7LVn4NHVflNziUi CxUWZ2SjF6KYG1rGJpxX6 tzYbiujqcuW4o Oyc+Y82erB9fUAU9XQN0f gssUMIlzbLlDC02PQ93A5 RyPjwvdGFibGU+PGRpdiB muOdbQY2cAbDh u4gfw2MqMVvkG0BuOFJoY PmaJnq9IFGyRWV8yPK1oV 4sTFUnZNobk8J7rES4P4C sunFrcc3gk9yo ZLSuBRyfL00kpYSma2S4G NDmnRX3FAYngDozUrHriK 93Oyc+QQZhjZolr3ByCqt gd4mui6xdiZt7 XaOpKVJfrnQpeWdnIQU7c 4RiIl82G54oWIixZREdXM XaMHLdQAHooYciaz9loX7 wIi8+PGNvbCB3 pCV2rP0zTSShOvE4WXenV 792OqPbjSDeBhfia0peb3 akqVa4AfImSVTxycIedZj vXMK2v9SwIu94 V90eRJqfCKJfUCHfQLApK EHdmYixvj8jmK0uOa6+PC 6iw3kkab79jO03rDK+PHR gNRN0mBmnGLmc TTPczK8xPQbfCmB9WPBbM lThwH74aSKiTWepNl2voM mtrHcmKW1lHTKwlsnhm51 6GwQyw9blCWFd uJWqTDajDBM0X55vp9S3G XDrZUQuPFZ5oFD3zW6hgL lnbjogbGVmdDsgdmVydGl xLVneOMkeF738 IHRvcDsnPlBhdGllbnQgT mRjDWc7A7SkMho1DKSahD tjBC5mqAGxOOqwCs7kcRy liWloGM8yMEUh zqzdo468AgByl4icUFXux BYkHLvhPNY9O21vt7N4LD TtBOPdHEN4qDM7bG0hlCu nbjogbGVmdDsg tiUldNacCTgkVFosK637A HRvcDsnPkJpcnRoIERhdG Z4FT90SF27nTRix6G9gEO 6D3PeDAYktbyj umdanFQ0JINrWJMwvA91Y q1jhVjzWd0zJXXdAPR3DM YpbTQgU6VwbB6eVbTrRJL pXXOdC5JulQWu IXzaW403RIzeTrB4EFFii lIqJ1NbICOddIpjPiB7m6 W9Dl3PV9F5LC80XY67lNE ny5J3uEB4Q9Rc BJJwnjphffjgqUD1XVZfF RFcvV79Xp3ydXkgKp9aJS OrRYH8QYPeuUEyH2XxqG3 yOiAjMDAwMDAw A7AnvNRuYBruQ961JIooV rF0PDLsuzObR0QzBOCxlS rhLuV7g7V3Yv6FKEq0OB1 5YJ77qMFfp5Y0 aUA2P2IpTEHqirdlhdrjt VT3WNDhXPEliO29My5ocW jhUu7oWAUkJAE9IHWziNE tV2PobE1sLtMf BUKgHAYoS9RaoANeSFxzJ 097BZzuLeH6BVJjevDqT8 CiHFBwbMorMtA2m8X8Ko9 UTDPbUT86NPI5 mCG6RN05WB50T1PuCuvnu GFibGU+PHRhYmxlIHdpZH RoPScxMDAlJyBzdHlsZT0 uLn6zPFHwIMTp iRlijZPgNsAkk3pcMVSyD QduLS1ugYorV1EdpHC5RH Caf8i8Jt56P80xA3FmzBH +GLWhhDJ7zQJ4 mW0kTvTfKzT3ODesV643I sDxqNDoTghkg4vqf8qpuF f4SbM9VUFivkJysVfrTQE 9i5BiFf37Y38i IHdpZHRoPSIxNSUiIHZhb Kofsr8clB1xQw4+PGNvbC R3eQR7cF2mHkYjVmI1VOe aY699BtKxsPAy Tyeay4too4ifsVy2CnRsV YBrnsWxuJsnFAI8z1FoEt 26W6YnbQbyk2KmPle7pq0 8bZDmz2H4dCN1 E6CbQWLzxsswtSKstKzyA X7bDUAqmvdyCPWfaT0eGB QiJ6x3HpJfDhW5NTiaD4G txvT4YYDufVAc HDuwWNJ8Z90ei2S0YNBwV XEtNYF8kHB4bX0qoJoele ogbGVmdDsgdmVydGljYWw xAVylS670ACVy oEejNAApuD1jPBVglABtl SvmZT9sXDMutlptOnNZOt DHNFMNO4TDPgK9V0EeXzs 3UWKvfMxxNS6h lEToLPvnLk6dwXlryQpkX I5yBDWkveuqZVKrtC8oBU HwzODacWycXB4tUPBoicl ff163EtEvJDO9 CUPsrXWpS5SlzE7vGyRxM VVeIQYaS5XxlEAlZMtmF3 26ELdoAkW7EKKzfrIkZ9A sLWFsaWduOiB0 s4G1Bd8aNJ2zZV8nNQZ9N K00SN78bZYmu7X7vAD6K9 PwNZLtxznsiawrbWO7GEN wDFNmsN57sSRx VAxoSn7wz9B4w842SHKdX DNbhP16Tz5xlHapZHWjzM XEcQ0hacrci7hjehxsFtI uPXPgXVk0EQq3 BLUqhWiyEyNfMLX8ExS7N KF0fCIvuT7nnPiiudbwnG 9wOyc+DIVyDRVmsbP6M7T dXxs2POBwiAzd HO1wjEFjPSqaDa3srPoog OhoCO9sLLXoibzoESYlvY 6tOOGniSAdsOjbGO5pASZ vplvzm541VqKg TFX5VTYadVDvL5HjiT5hY oQvTQOiSERyY5WmuQDwDZ xoX332QUvhOpZ8LSFoqcD aF0YdEOIvrGfe NzH3h8Y3Pd1NCYfwUZ10N A03oBGzd1C2gND7K8UdOB DrrtcthtxytBD2XZPgATZ sxT06oIHuMExa Na1ch6M9z831EJWtLOSym D90Tx9caGvqXXNyuUTRxA 4hlcozc6rzlmxdTnPeRIC dDLk0HWr3PWJg bSimReXbFOK5UqB0SYI5p LEnnE8lvZppyddyvR3uTj c+P5H8iBA9dSOlrGxigYT +AI77wz11E0Vp IoolGjx4FALlBOL0fOV0z H6iOUDiZPrhm6M0mRY5T1 ParfWbwg0mf2uhVTCvKBw xW50coBZak7W4 POIdaRE1QDIfmMjhWdJkd G93Oyc+GZHqiUotz9ThAr qxa8otj0saiGa5TcIkZDB gdmFsaWduPSJ0 q1AzJl11K62zCTdxRQKsQ EGuTWVyMALzoPznjm1rqW 9wIi8+VINtfPK1yLS9oC7 yGdEjReG4CUhf Q066UcCugMAtNanhz5ydk 6yvbDw7CrPvOMBaycSpmL nsPIR4m7XlHc07H6LsqEc wg2NfKzw0dt17 tSYbj1Q2vMO8V1JvCRPfb ampuFIdqDvpUF8wWTTxqo fcMKRpdC9aKPErQ2c2BtL sOmW9SXydW9Jo pmL8LWAkvFUxQALaxEYOn T0qvhhqc6rmojeuQwPgWT WzCXj7NJl6JUPsnHdeFnE jABU1ZeS7RTL7 mJMpmV6ziGcelewtmA5sJ yc+KEj9r5btcDFwDU5rsK P4JS98ZF96mVAqu1X5uZZ 9B4WjTGCnfeom oteboNU7HSJsIMRhwD59O h0hvJftEf4kUPMhPWO2FP GchCHxC8JvuH5lJhApOGT rQWYtC9SkbKJr OXewY129NWrjZeO9SDQju lLlQ9QlESVbeXvhMrF0n1 L6Wv2VJQ94CO87LD25cFP ih5C2bPB5G5Pg TKSwnndxlefagNK7RLNvH ZUckV93Bk6bgKsbPd1dFI PdKRL1KMCinJBrM5QkwA8 yOiAjMDAwMDAw X5GtsQEoTFgnT939ATerM iX1ZEQxulWrA1KoWJKdqR rlUpH2l6V1Yu2PJg64UP2 4JP61cSKqn1N9 zPG8B3BhWVJtlrvismkca XT7BGUyARSzaW70Fe6qeB blTz6oDEVfCBB5MDRlbBC vG9KgoJ4iPdCp KAZcBFCiB5MwzKCgUXvhB 363IUmqXiR7FOIpeoTpV6 FjGJVnaSlxQdK6v5G2Kb5 JEVbxuiy5E5Al PjwvdHI+DW53PCWxKQ28o DOwnUPsi1vohFs8DsTfVV UsQGM0dFfyYMcdk7QdXVD xB41fkYYxo6Q3 IGNv (more content not included)... Normal [facility] 11-21-2020 Consent [id number]# 1.00CD:127 [facility] Consent for Treatmenton 11-06 Consent for Treatment [id number]#1 .00CD:127 [facility] Insurance Correspondenceon 0 11-21-2020 Insurance Correspondence [id number]# 1.00CD:127 [facility] Oncology Noteon 11-21-2020 Oncology Note Oncology [facility] [place] Office Visit/Treatment Note Current Patient Status/Reason: here for initial outpt visit with Dr. Belcher. Doing pretty well- recent inpatient stay at [facility] for several cardiac procedures. Dr Hogan is his PCP and he was seen by Dr. Marcelino while inpt at [place]. We will obtain those records. His dtr is present for visit- Treatment Plan: Follow-Up Appointment Info/Referrals: will plan to see him back in 3-4 months- he would prefer to followup in [facility] as he lives there Resources Offered: [facility] Comment on above: Result Comment: Elec tronically Signed By: Shelby MENDEZ, Marj\.br\Date and Time Signed: 11/21/20 10:16 EDT Oncology Progress Noteon Oncology Progress Note Patient: RADHA BROWN Age: 79 years Sex: Male : 1940 Associated Diagnoses: None Author: Ye ZULUAGA, Puneet Reece History of Present Illness This is a review of the medical record from [facility] admission date October 11 through October 18, 2020. He has severe aortic stenosis and underwent TAVR procedure. His platelet count worsened and his Januvia and Plavix were held. A MARÍA ELENA ElLISA assay was sent and was positive. Serotonin release assay was sent and the results were negative. Lab work from October 11 showed a platelet count of 132. On October 17 it was 61 and on October 18 it was 80. Nothing else was done hematologically. Health Status Allergies: Allergic Reactions (Selected) Severity Not Documented MetFORMIN- Rash. Current medications: Home Medications (8) Active Fish Oil 500 mg oral capsule 1,000 mg = 2 cap(s), Oral, BID furosemide 20 mg Tab 20 mg = 1 tab(s), Oral, Daily hydrOXYzine Iron Chews 15 mg oral tablet, chewable 15 mg = 1 tab(s), Oral, Daily levothyroxine 25 mcg (0.025 mg) Tab 25 mcg = 1 tab(s), Oral, Daily metoprolol 100 mg ER Tab 100 mg = 1 tab(s), Oral, BID Potassium Chloride (Eqv-K-Tab) simvastatin , No qualifying data available Problem list: All Problems Thrombocytopenia / SNOMED CT 0268777888 / Confirmed Anemia / SNOMED CT 791204667 / Confirmed Histories Past Medical History: No active or resolved past medical history items have been selected or recorded. Family History: No family history items have been selected or recorded. Procedure history: No active procedure history items have been selected or recorded. Social History Social & Psychosocial Habits No Data Available . Physical Examination Vital Signs (last 24 hrs) Last Charted Temp Oral 36.5 DegC (NOV 21:39) SBP H 168mmHg (NOV 21:39) DBP 85 mmHg (NOV 21:39) SpO2 94 % (NOV 21:39) Weight 134.5 kg (NOV 21:00) Height 185.5 cm (NOV 21:) Review / Management Results review: No qualifying data available . Normal [facility] Oncology Progress Note Patient: RADHA BROWN Age: 79 years Sex: Male : 1940 Associated Diagnoses: None Author: Ye ZULUAGA, Puneet Reece History of Present Illness This is very nice gentleman referred by Dr. Robi Hogan who is currently 79 years old referred here with mild anemia and thrombocytopenia. He has had a number of cardiac procedures and was at [facility] for a time recently. Available lab work shows a normal white count, hemoglobin 11.7 with a platelet count of 110. He is diabetic. His ALT is low at 14 with a serum albumin 3.4. B12 and folate are normal. Methylmalonic acid is mildly elevated at 400 with a normal range of 378. Serum protein electrophoresis is normal. He denies bleeding issues. He denies any hx of DVTs etc. He was seen by warning analyst at [facility] and told to follow-up with hematology. Review of Systems Constitutional: Negative. Eye: Negative. Ear/Nose/Mouth/Throat : Negative. Respiratory: Negative. Cardiovascular: Negative. Gastrointestinal: Negative. Genitourinary: Negative. Hematology/Lymphatics : Negative. Endocrine: Negative. Immunologic: Negative. Musculoskeletal: Negative. Integumentary: Negative. Neurologic: Negative. Psychiatric: Negative. All other systems are negative Health Status Allergies: Allergic Reactions (Selected) Severity Not Documented MetFORMIN- Rash. Current medications: Home Medications (8) Active Fish Oil 500 mg oral capsule 1,000 mg = 2 cap(s), Oral, BID furosemide 20 mg Tab 20 mg = 1 tab(s), Oral, Daily hydrOXYzine Iron Chews 15 mg oral tablet, chewable 15 mg = 1 tab(s), Oral, Daily levothyroxine 25 mcg (0.025 mg) Tab 25 mcg = 1 tab(s), Oral, Daily metoprolol 100 mg ER Tab 100 mg = 1 tab(s), Oral, BID Potassium Chloride (Eqv-K-Tab) simvastatin , No qualifying data available Histories Past Medical History: No active or resolved past medical history items have been selected or recorded. Family History: No family history items have been selected or recorded. Procedure history: No active procedure history items have been selected or recorded. Social History Social & Psychosocial Habits No Data Available . Physical Examination Vital Signs (last 24 hrs) Last Charted Temp Oral 36.5 DegC (NOV 21:39) SBP H 168mmHg (NOV 21:39) DBP 85 mmHg (NOV 21:39) SpO2 94 % (NOV 21:39) Weight 134.5 kg (NOV 21:00) Height 185.5 cm (NOV 21:) General: Alert and oriented, No acute distress. Eye: Pupils are equal, round and reactive to light, Extraocular movements are intact, Normal conjunctiva. HENT: Normocephalic, Normal hearing. Neck: Supple, No jugular venous distention, No thyromegaly. Respiratory: Good air exchange. Cardiovascular: Normal rate. Lymphatics: negative. Musculoskeletal Normal range of motion. Normal strength. Normal gait. Neurologic: Alert, Oriented, Normal sensory, Normal motor function, No focal deficits, Cranial Nerves II-XII are grossly intact. Cognition and Speech: Oriented, Speech clear and coherent, Functional cognition intact. Psychiatric: Cooperative, Appropriate mood & affect. Integumentary: Chronic stasis dermatitis and chronic lower extremity edema in both ankles and legs, Not warm. Review / Management Results review: No qualifying data available . Impression and Plan Diagnosis Anemia (KSH94-KI D64.9, Working, Medical). Thrombocytopenia (LAV94-MN D69.6, Working, Medical). The patient has very mild anemia and thrombocytopenia. I reviewed the potential causes and common causes that we see in many patients in his age group. This could very well be reactive, or potentially medication related. It is very mild and at this time I will recommend observation. There could be from a variety of causes associated with his thrombocytopenia including pulmonary hypertension from chronic right-sided heart failure with resultant splenomegaly, medication effect, endocrinopathy given that he is on thyroid medication and of course other potential causes including immune thrombocytopenia. The anemia itself is very mild and many times this ends up being from causes such as age-related, medication effect, anemia of chronic disease, etc. Given how mild it is I would recommend observation only at this point. Dr. Hogan has ordered a variety of blood tests which are pretty much overall negative. At this time I would like to see him back in 3 to 4 months at the [facility] in [facility]. I will recommend observation only at this point.. Education and Follow-up: Discharge Planning: Puneet Belcher NO FOLLOW UP NEEDED PATIENT WILL FOLLOW UP IN [place] IN 3-4 MONTHS. Professional Services CC: Dr Hogan in [facility] Outside Recordson 11-21-2020 Outside Records [id number] 1.00CD:127 Normal [facility] Outside Labson 11-18-2020 Outside Labs [id number] .00CD:127 Normal [facility] BASIC METABOLIC PANELon 10-06 Calcium [Mass/Vol] 8.9 mg/dL Normal 8.6-10.3 [facility] Comment on above: Order Comment: No: D o not add to previous draw Performed By: #### 0 0071, 66512, 02691 #### [facility] [address] [place] [address], [place] Chloride [Moles/Vol] 107 mmol/L Normal 98-107 [facility] Comment on above: Order Comment: No: D o not add to previous draw Performed By: #### 0 0071, 55024, 86363 #### [facility] [address] [place] [address], [place] CO2 [Moles/Vol] 26 mmol/L Normal 21-31 The [facility] Comment on above: Order Comment: No: D o not add to previous draw Performed By: #### 0 0071, 24016, 42468 #### [facility] [address] [place] [address], [place] Creatinine [Mass/Vol] 0.97 mg/dL Normal 0.70-1.30 [facility] Comment on above: Order Comment: No: D o not add to previous draw Performed By: #### 0 0071, 74964, 31911 #### [facility] [address] [place] [address], [place] GFR/1.73 sq M.predicted among blacks MDRD (S/P/Bld) [Vol rate/Area] mL/min/{1.73_m2} Normal >60 [facility] Comment on above: Order Comment: No: D o not add to previous draw Result Comment: Calc ulation may not be valid for patients over 70 years Performed By: #### 0 0071, 64686, 90613 #### [facility] [address] [place] [address], [place] GFR/1.73 sq M.predicted among non-blacks MDRD (S/P/Bld) [Vol rate/Area] mL/min/{1.73_m2} Normal >60 [facility] Comment on above: Order Comment: No: D o not add to previous draw Result Comment: Calc ulation may not be valid for patients over 70 years Performed By: #### 0 0071, 57077, 92450 #### [facility] [address] [place] [address], [place] Glucose [Mass/Vol] 178 mg/dL High 70-100 The [facility] Comment on above: Order Comment: No: D o not add to previous draw Performed By: #### 0 0071, 39863, 63508 #### [facility] [address] [place] [address], [place] Potassium [Moles/Vol] 3.7 mmol/L Normal 3.5-5.1 [facility] Comment on above: Order Comment: No: D o not add to previous draw Performed By: #### 0 0071, 08110, 66125 #### [facility] [address] [place] [address], [place] Sodium [Moles/Vol] 140 mmol/L Normal 136-145 [facility] Comment on above: Order Comment: No: D o not add to previous draw Performed By: #### 0 0071, 90350, 56242 #### [facility] [address] [place] [address], [place] Urea nitrogen [Mass/Vol] 25 mg/dL Normal 7-25 [facility] Comment on above: Order Comment: No: D o not add to previous draw Performed By: #### 0 0071, 79366, 72254 #### [facility] [address] [place] [address], [place] CBC COMPLETE BLOOD COUNTon 0 7- Erythrocyte distribution width (RBC) [Ratio] 12.7 % Normal 11.5-15.0 [facility] Comment on above: Order Comment: No: D o not add to previous draw Performed By: #### 1 0070, 67551 #### [facility] [address] [place] [address], [place] Hematocrit (Bld) [Volume fraction] 32.9 % Low 39.0-50.0 [facility] Comment on above: Order Comment: No: D o not add to previous draw Performed By: #### 1 69, 43073 #### [facility] [address] [place] [address], [facility] Hemoglobin (Bld) [Mass/Vol] 10.8 g/dL Low 13.0-17.0 [facility] Comment on above: Order Comment: No: D o not add to previous draw Performed By: #### 1 69, 97093 #### [facility] [address] [place] [address], [facility] IMM PLATELET FRAC 8.3 % High 0.8-6.3 The [facility] Comment on above: Order Comment: No: D o not add to previous draw Performed By: #### 1 69, 60658 #### [facility] [address] [facility] [place] [id number], [facility] MCH (RBC) [Entitic mass] 31.1 pg Normal 27.0-33.0 [facility] Comment on above: Order Comment: No: D o not add to previous draw Performed By: #### 1 69, 87101 #### [facility] [address] [facility] [place] [address], [facility] MCHC (RBC) [Mass/Vol] 32.8 g/dL Normal 32.0-35.0 [facility] Comment on above: Order Comment: No: D o not add to previous draw Performed By: #### 1 69, 91108 #### [facility] [address] [place] [address], [facility] MCV (RBC) [Entitic vol] 94.8 fL Normal 82.0-98.0 [facility] Comment on above: Order Comment: No: D o not add to previous draw Performed By: #### 1 69, 56847 #### [facility] [address] [place] [id number], [facility] Nucleated RBC/100 WBC (Bld) [Ratio] 0 % Normal 0-0 [facility] Comment on above: Order Comment: No: D o not add to previous draw Performed By: #### 1 0, 12325 #### [address] PLAT CNT 80 10*3/uL Low 150-400 [facility] Comment on above: Order Comment: No: D o not add to previous draw Performed By: #### 1 0, 85800 #### [address] RBC (Bld) [#/Vol] 3.47 10*6/uL Low 4.20-5.70 The [facility] Comment on above: Order Comment: No: D o not add to previous draw Performed By: #### 1 0, 79773 #### [address] WBC (Bld) [#/Vol] 6.75 10*3/uL Normal 4.00-10.60 The [facility] Comment on above: Order Comment: No: D o not add to previous draw Performed By: #### 1 69, 74462 #### [address] CHEST AND LATERALon 10-19-19 CHEST AND LATERAL [facility] Department of Radiology [address] [place] [id number] Patient Name: RADHA BROWN : 1940 Sex: M Age: Race: White Pt. Location: [place] [address] Patient Status: I Ordered Date: 10/18/2020 2:00:00 PM Completed Date: 10/18/2020 03:03 PM Requesting Provider: SOLANGE ALAN Attending Provider: GEORGES PURVIS V Report Copy To: Signs & Symptoms: Shortness of Breath History: Comments: evaluate for Cardiomegaly, post device Exam: CHEST AND LATERAL CHEST AND LATERAL 10/18/2020 3:03 PM CLINICAL INDICATIONS: Shortness of Breath TECHNOLOGIST COMMENTS: Patient states pace maker was placed yesterday. QUESTION FOR THE RADIOLOGIST: evaluate for Cardiomegaly, post device PROTOCOL: AP(PA) and Lateral views were obtained. COMPARISON: August 11, 2020 FINDINGS: Single lead pacemaker projects over the left chest. Mediastinal wires in place. Aortic valve replacement. Calcifications of the aortic arch. The trachea is midline. Cardiomediastinal silhouette is within normal limits. No pleural effusion, pneumothorax or subdiaphragmatic free air. IMPRESSION: Interval placement of a single lead cardiac pacemaker. No acute pulmonary abnormality. Approved by:Kristen Irving10/18/2020 3:10 PM. I, Naz Mcgraw,have reviewed the image(s) and agree with the findings in this report. Electronically signed: Naz Mcgraw. Transcribed by: [email or web address], User Resident: KRISTEN PERSON Electronically Signed by: NAZ MCGRAW @ 10/18/2020 03:33 PM I personally read this/these film(s) with this resident Normal [facility] Comment on above: Order Comment: No: D o not add to previous draw HEPARIN PLATELET ANTIBODYon 10-18-2020 HEP PLAT ANTIB Normal The [facility] Comment on above: Order Comment: Yes: Add to Previous draw if able Result Comment: POSI TIVE BY PF4/HEPARIN AKBAR METHOD. A SEROTONIN RELEASE ASSAY WILL BE SENT OUT AN ALTERNATIVE METHOD OF TESTING ON THIS PATIENT. Results called. Accurately read back by Shawn Hutchison RN at 0932 Performed By: #### 8 5499 #### [facility] [address] [place] [id number], [facility] MAGNESIUM BLOODon 10-18-2020 Magnesium [Mass/Vol] 2.1 mg/dL Normal 1.9-2.7 [facility] Comment on above: Order Comment: No: D o not add to previous draw Performed By: #### 0 0071, 03762, 73354 #### [facility] [address] [place] [address], [facility] PHOSPHORUS BLOODon Phosphate [Mass/Vol] 2.8 mg/dL Normal 2.5-5.0 [facility] Comment on above: Order Comment: No: D o not add to previous draw Performed By: #### 0 0071, 47489, 24492 #### [facility] [address] [facility] [address] SEROTONIN REL ASSAY, UFH 200 5631on 10-18-2020 SEROTONIN RELEASE ASSAY UFH Negative Normal Negative [facility] MARIE UFH HIGH DOSE 0 % Normal The [facility] MARIE UFH INTERP See Note Normal [facility] Comment on above: Result Comment: This patient's specimen demonstrates a negative result in the serotonin release assay. A diagnosis of heparin-induced thrombocytopenia (HIT) is unlikely, but not completely excluded. A positive result would demonstrate >= 20% serotonin release from reagent platelets in the presence of patient specimen and low-dose heparin (0.1 U/mL) and <20% serotonin release from reagent platelets (inhibition of the reaction) in the presence of patient specimen and high-dose heparin (100 U/mL). Additional information regarding diagnosis of HIT is available at [email or web address]. INTERPRETIVE INFORMATION: MARIE, Unfractionated Heparin This test was developed and its performance characteristics determined by [facility]. It has not been cleared or approved by the [place] Food and Drug Administration. This test was performed in a CLIA certified laboratory and is intended for clinical purposes. Performed By: [facility] [address] [place] [address] Pneumatic Hoist Operator: Kelly Su MD MARIE UFH LOW DOSE 0 % Normal [facility] BASIC METABOLIC PANELon 10-06 Calcium [Mass/Vol] 8.5 mg/dL Low 8.6-10.3 The [facility] Comment on above: Order Comment: No: D o not add to previous draw Performed By: #### 0 0071, 15317, 12981 #### [facility] [address] [place] [address], [place] Chloride [Moles/Vol] 104 mmol/L Normal 98-107 [facility] Comment on above: Order Comment: No: D o not add to previous draw Performed By: #### 0 0071, 04108, 67048 #### [facility] [address] [place] [address], [place] CO2 [Moles/Vol] 25 mmol/L Normal 21-31 The [facility] Comment on above: Order Comment: No: D o not add to previous draw Performed By: #### 0 0071, 15308, 58631 #### [facility] [address] [place] [address], [place] Creatinine [Mass/Vol] 1.42 mg/dL High 0.70-1.30 [facility] Comment on above: Order Comment: No: D o not add to previous draw Performed By: #### 0 0071, 41185, 00850 #### [facility] [address] [place] [address], [place] eGFR- 58 ml/min/1.73sq m Abnormal >60 The [facility] Comment on above: Order Comment: No: D o not add to previous draw Result Comment: Calc ulation may not be valid for patients over 70 years Performed By: #### 0 0071, 97720, 20454 #### [facility] [address] [place] [address], [place] eGFR- non- 48 ml/min/1.73sq m Abnormal >60 [facility] Comment on above: Order Comment: No: D o not add to previous draw Result Comment: Calc ulation may not be valid for patients over 70 years Performed By: #### 0 0071, 38659, 08041 #### [facility] [address] [place] [address], [place] Glucose [Mass/Vol] 154 mg/dL High 70-100 [facility] Comment on above: Order Comment: No: D o not add to previous draw Performed By: #### 0 0071, 95557, 03124 #### [facility] [address] [place] [address], [place] Potassium [Moles/Vol] 4.8 mmol/L Normal 3.5-5.1 [facility] Comment on above: Order Comment: No: D o not add to previous draw Performed By: #### 0 0071, 15502, 68796 #### [facility] [address] [place] [address], [place] Sodium [Moles/Vol] 139 mmol/L Normal 136-145 [facility] Comment on above: Order Comment: No: D o not add to previous draw Performed By: #### 0 0071, 66952, 54954 #### [facility] [address] [place] [address], [place] Urea nitrogen [Mass/Vol] 34 mg/dL High 7-25 [facility] Comment on above: Order Comment: No: D o not add to previous draw Performed By: #### 0 0071, 75749, 87680 #### [facility] [address] [place] [address], [place] CBC COMPLETE BLOOD COUNTon 0 10-17-2020 Erythrocyte distribution width (RBC) [Ratio] 12.9 % Normal 11.5-15.0 [facility] Comment on above: Order Comment: No: D o not add to previous draw Performed By: #### 8 5499 #### [facility] [address] [place] [address], [facility] Hematocrit (Bld) [Volume fraction] 33.8 % Low 39.0-50.0 [facility] Comment on above: Order Comment: No: D o not add to previous draw Performed By: #### 8 5499 #### [facility] [address] [place] [address], [facility] Hemoglobin (Bld) [Mass/Vol] 10.8 g/dL Low 13.0-17.0 [facility] Comment on above: Order Comment: No: D o not add to previous draw Performed By: #### 8 5499 #### [facility] [address] [place] [address], [facility] IMM PLATELET FRAC 8.9 % High 0.8-6.3 The [facility] Comment on above: Order Comment: No: D o not add to previous draw Performed By: #### 8 5499 #### [facility] [address] [place] [address], [facility] MCH (RBC) [Entitic mass] 30.6 pg Normal 27.0-33.0 [facility] Comment on above: Order Comment: No: D o not add to previous draw Performed By: #### 8 5499 #### [facility] [address] [place] [address], [facility] MCHC (RBC) [Mass/Vol] 32.0 g/dL Normal 32.0-35.0 [facility] Comment on above: Order Comment: No: D o not add to previous draw Performed By: #### 8 5499 #### [facility] [address] [place] [address], [facility] MCV (RBC) [Entitic vol] 95.8 fL Normal 82.0-98.0 [facility] Comment on above: Order Comment: No: D o not add to previous draw Performed By: #### 8 5499 #### [facility] [address] [place] [address], [facility] Nucleated RBC/100 WBC (Bld) [Ratio] 0 % Normal 0-0 [facility] Comment on above: Order Comment: No: D o not add to previous draw Performed By: #### 8 5499 #### [facility] [address] [facility] [address], [facility] PLAT CNT 61 10*3/uL Low 150-400 [facility] Comment on above: Order Comment: No: D o not add to previous draw Performed By: #### 8 5499 #### [facility] [address] [place] [address], [facility] RBC (Bld) [#/Vol] 3.53 10*6/uL Low 4.20-5.70 The [facility] Comment on above: Order Comment: No: D o not add to previous draw Performed By: #### 8 5499 #### [facility] [address] [place] [address], [facility] WBC (Bld) [#/Vol] 6.51 10*3/uL Normal 4.00-10.60 [facility] Comment on above: Order Comment: No: D o not add to previous draw Performed By: #### 8 5499 #### [facility] [address] Cardiovascular Lab Reporton 10-17-2020 Cardiovascular Lab Report [facility] Patient Name: Radha Brown MR #: [id number] [facility] Physician: Hank Smallwood MD Service Date: 10/17/2020 Department of Birthdate: 1940 Medicine Room #: CINDY [id number] Division of Cardiology Adult Cardiovascular Services [place] [address] Cardiovascular Laboratory Report PACEMAKER IMPLANT PROCEDURE NOTE DATE OF PROCEDURE: 10/17/2020 PERFORMING PHYSICIAN: Dr. Hank Smallwood CONSENT: Patient LOCATION: EP Lab PROCEDURE PERFORMED: 1. Implantation of pacemaker ([employer]) 2. Ultrasound guided venous access INDICATIONS: 1. Afib with slow ventricular response of <40bpm 2. Post TAVR worsening LBBB. PROCEDURAL SEDATION: Versed and Fentanyl. Moderate sedation was administered by the sedation nurse under my supervision and noted in the CVL log. Intraprocedural face to face sedation time: 44min. Monitoring: Cardiac telemetry, Blood pressure, continuous pulse oxymetry. FLUOROSCOPY TIME: 2min 36sec /30mGray PREPARATION: 79-year-old gentleman, who had undergone TAVR procedure for aortic stenosis. Subsequent to that, he was noted to have a left bundle branch block with a QRS interval of 170. He has underlying chronic atrial fibrillation with a ventricular rate of 30 to 40 beats per minute. Post TAVR, he had a temporary lead placed, which was pacing occasionally. However, during many of the times when the heart rate was below 40, he would require pacing. Given the fact that his QRS width had long from the 150 baseline to 176 with an underlying slow ventricular response rate less than 40 beats per minute, decision was made to proceed with a single-chamber pacemaker. Patient was brought to the EP lab in the post absorptive state. A procedural pause was performed identifying the patient, the procedure to be performed and the site of implant. The left chest was prepped and draped in the usual sterile fashion. Preoperative antibiotics IV Ancef was administered. PROCEDURAL DETAILS: Patient was placed in trendelenberg position and ultrasound was used to evaluate the patency of left axillary vein and for venous access. Left axillary venous access was obtained using modified seldinger technique using a 5 Turkmen micro-puncture needle on one occasion and 0.35 wire was placed. Local infiltration of 1% Lidocaine was performed, and an incision was created in the left upper chest. Dissection was then performed using cautery down to the fascial plane above the muscle. 6 [employer] Safesheath was placed over the wire. An active fixation [employer] pacing lead was then delivered through the 6Fsheath to the right ventricle. After confirmation of lead position on orthogonal views (BRICE and [place]) to confirm septal position, the screw was activated, and the lead was placed in the right ventricular mid cavity towards the septum. After confirmation of good sensing parameters, injury pattern and pacing thresholds, 10V pacing was done and no diaphragmatic stimulation was noted. It was then secured in the pocket using three 1-0 Silk sutures. Pocket hemostasis was secured, and it was then copiously and vigorously irrigated with antibiotic solution. The leads were attached to the generator and then wrapped under the device and the device was tacked to underlying muscle and placed in the pocket. The pocket was closed in layers: muscle and subcutaneous layer using 2-0 Vicryl; skin using 3-0 absorbable monofilament suture. Glue was applied and Tegaderm dressing was placed on top. Lead parameters were then rechecked through the device as noted below. The patient was returned to the short stay room for post procedural observation. No immediate procedural complications were noted. Device info: [employer] Accolade MRI DR IS1 Model# L310 Serial# [id number] RV lead: Model# [id number] (59cms) Serial# [id number] Sensin.2mV Threshold: 0.7V@0.4ms Impedance: 562 Ohms POST PROCEDURE EXAM: Patient was hemodynamically stable. COMPLICATIONS: None. ESTIMATED BLOOD LOSS: 5cc IMPRESSION: 1. Successful single chamber pacemaker with excellent pacing and sensing parameters. RECOMMENDATIONS: 1. Occlusive dressing to be removed after 2 weeks. 2. Do not wet the incision for 7 days. 3. No lifting heavy weights using arm on the same side x 3weeks 4. Do not lift elbow above the shoulder on the same side for 4-6 weeks. 5. No driving for 1 month. 6. F/u in device clinic 2 weeks from discharge or sooner for any concerns. Hank Smallwood MD Cardiac Electrophysiology Electronically Signed by: Hank Smallwood MD 10/18/2020 10:58 P Hank Smallwood MD Date Dict: 10/17/2020/02:05 P/Hank Smallwood MD Date Trans: 10/17/2020 03:06 P/julio cesar [id number] cc: Maribel Hogan M.D. [place] [id number] [facility] [place]., Joe Rapp (more content not included)... Normal [facility] MAGNESIUM BLOODon 10-17-2020 Magnesium [Mass/Vol] 2.1 mg/dL Normal 1.9-2.7 [facility] Comment on above: Order Comment: No: D o not add to previous draw Performed By: #### 0 0071, 97814, 96027 #### [facility] [address] [place] [address], [facility] PHOSPHORUS BLOODon Phosphate [Mass/Vol] 3.9 mg/dL Normal 2.5-5.0 [facility] Comment on above: Order Comment: No: D o not add to previous draw Performed By: #### 0 0071, 53018, 34513 #### [facility] [address] [place] [address], [facility] BASIC METABOLIC PANELon 10-06 Calcium [Mass/Vol] 8.8 mg/dL Normal 8.6-10.3 [facility] Comment on above: Order Comment: No: D o not add to previous draw Performed By: #### 4 1000, 36149, 75124 #### [facility] [address] [place] [address], [place] Chloride [Moles/Vol] 106 mmol/L Normal 98-107 [facility] Comment on above: Order Comment: No: D o not add to previous draw Performed By: #### 4 1000, 68365, 97287 #### [facility] [address] [place] [address], [place] CO2 [Moles/Vol] 26 mmol/L Normal 21-31 [facility] Comment on above: Order Comment: No: D o not add to previous draw Performed By: #### 4 1000, 11151, 28088 #### [facility] [address] [place] [address], [place] Creatinine [Mass/Vol] 1.20 mg/dL Normal 0.70-1.30 [facility] Comment on above: Order Comment: No: D o not add to previous draw Performed By: #### 4 1000, , 50826 #### [facility] [address] [place] [address], [place] eGFR- non- 58 ml/min/1.73sq m Abnormal >60 [facility] Comment on above: Order Comment: No: D o not add to previous draw Result Comment: Calc ulation may not be valid for patients over 70 years Performed By: #### 4 1000, , 45480 #### [facility] [address] [place] [address], [place] GFR/1.73 sq M.predicted among blacks MDRD (S/P/Bld) [Vol rate/Area] mL/min/{1.73_m2} Normal >60 [facility] Comment on above: Order Comment: No: D o not add to previous draw Result Comment: Calc ulation may not be valid for patients over 70 years Performed By: #### 4 1000, , 99002 #### [facility] [address] [place] [address], [place] Glucose [Mass/Vol] 162 mg/dL High 70-100 [facility] Comment on above: Order Comment: No: D o not add to previous draw Performed By: #### 4 1000, , 74132 #### [facility] [address] [place] [address], [place] Potassium [Moles/Vol] 3.8 mmol/L Normal 3.5-5.1 [facility] Comment on above: Order Comment: No: D o not add to previous draw Performed By: #### 4 1000, , 52370 #### [facility] [address] [place] [address], [place] Sodium [Moles/Vol] 140 mmol/L Normal 136-145 [facility] Comment on above: Order Comment: No: D o not add to previous draw Performed By: #### 4 1000, , 03943 #### [facility] [address] [place] [address], [facility] Urea nitrogen [Mass/Vol] 29 mg/dL High 7-25 [facility] Comment on above: Order Comment: No: D o not add to previous draw Performed By: #### 4 1000, 96125, 53785 #### [facility] [address] [place] [address], [facility] CBC COMPLETE BLOOD COUNTon 0 10-16-2020 Erythrocyte distribution width (RBC) [Ratio] 12.9 % Normal 11.5-15.0 [facility] Comment on above: Order Comment: No: D o not add to previous draw Performed By: #### 8 5499 #### [facility] [address] [place] [address], [facility] Hematocrit (Bld) [Volume fraction] 32.2 % Low 39.0-50.0 [facility] Comment on above: Order Comment: No: D o not add to previous draw Performed By: #### 8 5499 #### [facility] [address] [place] [address], [facility] Hemoglobin (Bld) [Mass/Vol] 10.6 g/dL Low 13.0-17.0 [facility] Comment on above: Order Comment: No: D o not add to previous draw Performed By: #### 8 5499 #### [facility] [address] [place] [address], [facility] IMM PLATELET FRAC 8.2 % High 0.8-6.3 [facility] Comment on above: Order Comment: No: D o not add to previous draw Performed By: #### 8 5499 #### [facility] [address] [place] [id number], [facility] MCH (RBC) [Entitic mass] 31.4 pg Normal 27.0-33.0 [facility] Comment on above: Order Comment: No: D o not add to previous draw Performed By: #### 8 5499 #### [facility] [address] [place] [address], [facility] MCHC (RBC) [Mass/Vol] 32.9 g/dL Normal 32.0-35.0 [facility] Comment on above: Order Comment: No: D o not add to previous draw Performed By: #### 8 5499 #### [facility] [address] [place] [id number], [facility] MCV (RBC) [Entitic vol] 95.3 fL Normal 82.0-98.0 [facility] Comment on above: Order Comment: No: D o not add to previous draw Performed By: #### 8 5499 #### [facility] [address] [place] [address], [facility] Nucleated RBC/100 WBC (Bld) [Ratio] 0 % Normal 0-0 [facility] Comment on above: Order Comment: No: D o not add to previous draw Performed By: #### 8 5499 #### [facility] [address] [place] [id number], [place] PLAT CNT 80 10*3/uL Low 150-400 [facility] Comment on above: Order Comment: No: D o not add to previous draw Result Comment: pre 82 Performed By: #### 8 5499 #### [facility] [address] [place] [id number], [facility] RBC (Bld) [#/Vol] 3.38 10*6/uL Low 4.20-5.70 [facility] Comment on above: Order Comment: No: D o not add to previous draw Performed By: #### 8 5499 #### [facility] [address] [place] [id number], [place] WBC (Bld) [#/Vol] 7.04 10*3/uL Normal 4.00-10.60 [facility] Comment on above: Order Comment: No: D o not add to previous draw Performed By: #### 8 5499 #### [facility] [address] [place] [address], [place] MAGNESIUM BLOODon 10-16-2020 Magnesium [Mass/Vol] 2.0 mg/dL Normal 1.9-2.7 [facility] Comment on above: Order Comment: No: D o not add to previous draw Performed By: #### 8 5499 #### [facility] [address] [place] [address], [place] PHOSPHORUS BLOODon Phosphate [Mass/Vol] 3.4 mg/dL Normal 2.5-5.0 [facility] Comment on above: Order Comment: No: D o not add to previous draw Performed By: #### 4 1000, 80170, 01287 #### [facility] [address] [place] [address], [place] BASIC METABOLIC PANELon 10-06 Calcium [Mass/Vol] 8.6 mg/dL Normal 8.6-10.3 [facility] Comment on above: Order Comment: No: D o not add to previous draw Performed By: #### 1 69, 80044 #### [facility] [address] [place] [address], [place] Chloride [Moles/Vol] 106 mmol/L Normal 98-107 [facility] Comment on above: Order Comment: No: D o not add to previous draw Performed By: #### 1 69, 92647 #### [facility] [address] [place] [address], [place] CO2 [Moles/Vol] 27 mmol/L Normal 21-31 [facility] Comment on above: Order Comment: No: D o not add to previous draw Performed By: #### 1 69, 37083 #### [facility] [address] [place] [address], [place] Creatinine [Mass/Vol] 1.33 mg/dL High 0.70-1.30 [facility] Comment on above: Order Comment: No: D o not add to previous draw Performed By: #### 1 69, 58304 #### [facility] [address] [place] [address], [place] eGFR- non- 52 ml/min/1.73sq m Abnormal >60 [facility] Comment on above: Order Comment: No: D o not add to previous draw Result Comment: Calc ulation may not be valid for patients over 70 years Performed By: #### 1 69, 33221 #### [facility] [address] [place] [address], [facility] GFR/1.73 sq M.predicted among blacks MDRD (S/P/Bld) [Vol rate/Area] mL/min/{1.73_m2} Normal >60 [facility] Comment on above: Order Comment: No: D o not add to previous draw Result Comment: Calc ulation may not be valid for patients over 70 years Performed By: #### 1 69, 06400 #### [facility] [address] [place] [address], [place] Glucose [Mass/Vol] 166 mg/dL High 70-100 [facility] Comment on above: Order Comment: No: D o not add to previous draw Performed By: #### 1 69, 96137 #### [facility] [address] [place] [address], [place] Potassium [Moles/Vol] 3.8 mmol/L Normal 3.5-5.1 [facility] Comment on above: Order Comment: No: D o not add to previous draw Performed By: #### 1 69, 80081 #### [facility] [address] [place] [address], [place] Sodium [Moles/Vol] 140 mmol/L Normal 136-145 [facility] Comment on above: Order Comment: No: D o not add to previous draw Performed By: #### 1 69, 84857 #### [facility] [address] [place] [address], [facility] Urea nitrogen [Mass/Vol] 29 mg/dL High 7-25 [facility] Comment on above: Order Comment: No: D o not add to previous draw Performed By: #### 1 0070, 46965 #### [facility] [address] [place] [id number], [facility] CBC COMPLETE BLOOD COUNTon 0 10-15-2020 Erythrocyte distribution width (RBC) [Ratio] 13.0 % Normal 11.5-15.0 [facility] Comment on above: Order Comment: No: D o not add to previous draw Performed By: #### 8 5499 #### [facility] [address] [place] [address], [facility] Hematocrit (Bld) [Volume fraction] 33.6 % Low 39.0-50.0 [facility] Comment on above: Order Comment: No: D o not add to previous draw Performed By: #### 8 5499 #### [facility] [address] [place] [id number], [facility] Hemoglobin (Bld) [Mass/Vol] 11.0 g/dL Low 13.0-17.0 [facility] Comment on above: Order Comment: No: D o not add to previous draw Performed By: #### 8 5499 #### [facility] [address] [place] [address], [facility] IMM PLATELET FRAC 9.8 % High 0.8-6.3 [facility] Comment on above: Order Comment: No: D o not add to previous draw Performed By: #### 8 5499 #### [facility] [address] [place] [address], [facility] MCH (RBC) [Entitic mass] 31.1 pg Normal 27.0-33.0 [facility] Comment on above: Order Comment: No: D o not add to previous draw Performed By: #### 8 5499 #### [facility] [address] [place] [address], [facility] MCHC (RBC) [Mass/Vol] 32.7 g/dL Normal 32.0-35.0 [facility] Comment on above: Order Comment: No: D o not add to previous draw Performed By: #### 8 5499 #### [facility] [address] [place] [id number], [facility] MCV (RBC) [Entitic vol] 94.9 fL Normal 82.0-98.0 [facility] Comment on above: Order Comment: No: D o not add to previous draw Performed By: #### 8 5499 #### [facility] [address] [place] [address], [facility] Nucleated RBC/100 WBC (Bld) [Ratio] 0 % Normal 0-0 [facility] Comment on above: Order Comment: No: D o not add to previous draw Performed By: #### 8 5499 #### [facility] [address] [place] [address], [facility] PLAT CNT 82 10*3/uL Low 150-400 [facility] Comment on above: Order Comment: No: D o not add to previous draw Performed By: #### 8 5499 #### [facility] [address] [place] [id number], [facility] RBC (Bld) [#/Vol] 3.54 10*6/uL Low 4.20-5.70 [facility] Comment on above: Order Comment: No: D o not add to previous draw Performed By: #### 8 5499 #### [facility] [address] [place] [id number], [facility] WBC (Bld) [#/Vol] 6.50 10*3/uL Normal 4.00-10.60 [facility] Comment on above: Order Comment: No: D o not add to previous draw Performed By: #### 8 5499 #### [facility] [address] [place] [address], [facility] MAGNESIUM BLOODon 10-15-2020 Magnesium [Mass/Vol] 2.1 mg/dL Normal 1.9-2.7 [facility] Comment on above: Order Comment: No: D o not add to previous draw Performed By: #### 1 69, 99774 #### [facility] [address] [place] [address], [facility] PHOSPHORUS BLOODon Phosphate [Mass/Vol] 3.7 mg/dL Normal 2.5-5.0 [facility] Comment on above: Order Comment: No: D o not add to previous draw Performed By: #### 1 69, 61749 #### [facility] [address] [place] [address], [facility] BASIC METABOLIC PANELon Calcium [Mass/Vol] 8.8 mg/dL Normal 8.6-10.3 [facility] Comment on above: Order Comment: No: D o not add to previous draw Performed By: #### 1 69, 65171 #### [facility] [address] [place] [address], [place] Chloride [Moles/Vol] 105 mmol/L Normal 98-107 [facility] Comment on above: Order Comment: No: D o not add to previous draw Performed By: #### 1 69, 67485 #### [facility] [address] [place] [address], [place] CO2 [Moles/Vol] 26 mmol/L Normal 21-31 [facility] Comment on above: Order Comment: No: D o not add to previous draw Performed By: #### 1 69, 69467 #### [facility] [address] [place] [address], [place] Creatinine [Mass/Vol] 1.15 mg/dL Normal 0.70-1.30 [facility] Comment on above: Order Comment: No: D o not add to previous draw Performed By: #### 1 69, 83776 #### [facility] [address] [place] [address], [place] GFR/1.73 sq M.predicted among blacks MDRD (S/P/Bld) [Vol rate/Area] mL/min/{1.73_m2} Normal >60 [facility] Comment on above: Order Comment: No: D o not add to previous draw Result Comment: Calc ulation may not be valid for patients over 70 years Performed By: #### 1 69, 48807 #### [facility] [address] [place] [address], [place] GFR/1.73 sq M.predicted among non-blacks MDRD (S/P/Bld) [Vol rate/Area] mL/min/{1.73_m2} Normal >60 [facility] Comment on above: Order Comment: No: D o not add to previous draw Result Comment: Calc ulation may not be valid for patients over 70 years Performed By: #### 1 69, 32428 #### [facility] [address] [place] [address], [place] Glucose [Mass/Vol] 144 mg/dL High 70-100 [facility] Comment on above: Order Comment: No: D o not add to previous draw Performed By: #### 1 69, 48654 #### [facility] [address] [place] [address], [place] Potassium [Moles/Vol] 4.1 mmol/L Normal 3.5-5.1 [facility] Comment on above: Order Comment: No: D o not add to previous draw Performed By: #### 1 69, 62887 #### [facility] [address] [place] [address], [place] Sodium [Moles/Vol] 139 mmol/L Normal 136-145 [facility] Comment on above: Order Comment: No: D o not add to previous draw Performed By: #### 1 69, 29600 #### [facility] [address] [facility]. [address] Urea nitrogen [Mass/Vol] 17 mg/dL Normal 7-25 [facility] Comment on above: Order Comment: No: D o not add to previous draw Performed By: #### 1 69, 60924 #### [facility] [address] [facility] [place] [address], [facility] CBC W/DIFFon 10-13-2020 ABS IMM GRANS 0.0 10*3/uL Normal 0.0-0.2 [facility] Comment on above: Order Comment: No: D o not add to previous draw Performed By: #### 1 69, 10149 #### [facility] [address] [place] [address], [facility] ABS NEUTROPHILS 5.0 10*3/uL Normal 1.6-7.6 [facility] Comment on above: Order Comment: No: D o not add to previous draw Performed By: #### 1 69, 09408 #### [facility] [address] [facility] [place] [address], [facility] Basophils (Bld) [#/Vol] 0.0 10*3/uL Normal 0.0-0.2 [facility] Comment on above: Order Comment: No: D o not add to previous draw Performed By: #### 1 69, 86926 #### [facility] [address] [facility] [place] [address], [facility] Basophils/100 WBC (Bld) 0.3 % Normal 0.0-1.0 [facility] Comment on above: Order Comment: No: D o not add to previous draw Performed By: #### 1 69, 61346 #### [facility] [address] [facility] [address], [facility] Eosinophils (Bld) [#/Vol] 0.3 10*3/uL Normal 0.0-0.5 [facility] Comment on above: Order Comment: No: D o not add to previous draw Performed By: #### 1 69, 24039 #### [facility] [address] [facility] [place] [address], [facility] Eosinophils/100 WBC (Bld) 4.2 % Normal 0.0-6.0 [facility] Comment on above: Order Comment: No: D o not add to previous draw Performed By: #### 1 69, 20352 #### [facility] [address] [facility]. [address] Erythrocyte distribution width (RBC) [Ratio] 13.0 % Normal 11.5-15.0 [facility] Comment on above: Order Comment: No: D o not add to previous draw Performed By: #### 1 69, 23705 #### [facility] [address] [facility]. [address] Hematocrit (Bld) [Volume fraction] 33.0 % Low 39.0-50.0 [facility] Comment on above: Order Comment: No: D o not add to previous draw Performed By: #### 1 69, 32395 #### [facility] [address] [facility]. [address] Hemoglobin (Bld) [Mass/Vol] 11.0 g/dL Low 13.0-17.0 [facility] Comment on above: Order Comment: No: D o not add to previous draw Performed By: #### 1 69, 97274 #### [facility] [address] [facility] [place] [address], [facility] IMM PLATELET FRAC 7.2 % High 0.8-6.3 [facility] Comment on above: Order Comment: No: D o not add to previous draw Performed By: #### 1 69, 07700 #### [facility] [address] [place] [address], [facility] IMMATURE GRANS 0.3 % Normal 0.0-1.0 [facility] Comment on above: Order Comment: No: D o not add to previous draw Performed By: #### 1 69, 98438 #### [facility] [address] [place] [address], [facility] Lymphocytes (Bld) [#/Vol] 1.4 10*3/uL Normal 1.2-4.0 [facility] Comment on above: Order Comment: No: D o not add to previous draw Performed By: #### 1 69, #### [facility] [address] [place] [address], [facility] Lymphocytes/100 WBC (Bld) 18.3 % Low 20.0-45.0 [facility] Comment on above: Order Comment: No: D o not add to previous draw Performed By: #### 1 69, 99651 #### [facility] [address] [facility] [place] [address], [facility] MCH (RBC) [Entitic mass] 31.3 pg Normal 27.0-33.0 [facility] Comment on above: Order Comment: No: D o not add to previous draw Performed By: #### 1 69, 29100 #### [facility] [address] MCHC (RBC) [Mass/Vol] 33.3 g/dL Normal 32.0-35.0 [facility] Comment on above: Order Comment: No: D o not add to previous draw Performed By: #### 1 69, 55170 #### [facility] [address] [place] [address], [facility] MCV (RBC) [Entitic vol] 94.0 fL Normal 82.0-98.0 [facility] Comment on above: Order Comment: No: D o not add to previous draw Performed By: #### 1 69, 66226 #### [facility] [address] [place] [address], [facility] Monocytes (Bld) [#/Vol] 0.7 10*3/uL Normal 0.1-1.0 [facility] Comment on above: Order Comment: No: D o not add to previous draw Performed By: #### 1 69, 35199 #### [facility] [address] [place] [address], [place] MONOS 10.0 % Normal 5.0-12.0 [facility] Comment on above: Order Comment: No: D o not add to previous draw Performed By: #### 1 69, 29120 #### [facility] [address] [place] [id number], [facility] Neutrophils/100 WBC (Bld) 66.9 % Normal 40.0-72.0 [facility] Comment on above: Order Comment: No: D o not add to previous draw Performed By: #### 1 69, 81054 #### [facility] [address] [place] [id number], [place] Nucleated RBC/100 WBC (Bld) [Ratio] 0 % Normal 0-0 [facility] Comment on above: Order Comment: No: D o not add to previous draw Performed By: #### 1 69, 85464 #### [facility] [address] [place] [id number], [place] PLAT CNT 95 10*3/uL Low 150-400 [facility] Comment on above: Order Comment: No: D o not add to previous draw Performed By: #### 1 69, 43772 #### [facility] [address] [place] [address], [place] RBC (Bld) [#/Vol] 3.51 10*6/uL Low 4.20-5.70 [facility] Comment on above: Order Comment: No: D o not add to previous draw Performed By: #### 1 69, 81322 #### [facility] [address] [place] [address], [facility] WBC (Bld) [#/Vol] 7.39 10*3/uL Normal 4.00-10.60 [facility] Comment on above: Order Comment: No: D o not add to previous draw Performed By: #### 1 69, 65983 #### [facility] [address] [place] [address], [facility] MAGNESIUM BLOODon 10-13-2020 Magnesium [Mass/Vol] 2.5 mg/dL Normal 1.9-2.7 [facility] Comment on above: Order Comment: No: D o not add to previous draw Performed By: #### 1 69, 65860 #### [facility] [address] [place] [address], [facility] PHOSPHORUS BLOODon Phosphate [Mass/Vol] 2.6 mg/dL Normal 2.5-5.0 [facility] Comment on above: Order Comment: No: D o not add to previous draw Performed By: #### 1 69, 26026 #### [facility] [address] [place] [address], [facility] CBC COMPLETE BLOOD COUNTon 0 10-12-2020 Erythrocyte distribution width (RBC) [Ratio] 13.0 % Normal 11.5-15.0 [facility] Comment on above: Order Comment: No: D o not add to previous draw Performed By: #### 1 69, 34686 #### [facility] [address] [place] [address], [facility] Hematocrit (Bld) [Volume fraction] 32.4 % Low 39.0-50.0 [facility] Comment on above: Order Comment: No: D o not add to previous draw Performed By: #### 1 69, 14562 #### [facility] [address] [place] [id number], [facility] Hemoglobin (Bld) [Mass/Vol] 10.6 g/dL Low 13.0-17.0 [facility] Comment on above: Order Comment: No: D o not add to previous draw Performed By: #### 1 69, 83234 #### [facility] [address] [place] [address], [facility] MCH (RBC) [Entitic mass] 31.3 pg Normal 27.0-33.0 [facility] Comment on above: Order Comment: No: D o not add to previous draw Performed By: #### 1 69, 94900 #### [facility] [address] [place] [address], [facility] MCHC (RBC) [Mass/Vol] 32.7 g/dL Normal 32.0-35.0 [facility] Comment on above: Order Comment: No: D o not add to previous draw Performed By: #### 1 69, #### [facility] [address] [facility] [place] [address], [facility] MCV (RBC) [Entitic vol] 95.6 fL Normal 82.0-98.0 [facility] Comment on above: Order Comment: No: D o not add to previous draw Performed By: #### 1 69, #### [facility] [address] [facility]. [address] Nucleated RBC/100 WBC (Bld) [Ratio] 0 % Normal 0-0 [facility] Comment on above: Order Comment: No: D o not add to previous draw Performed By: #### 1 69, 92323 #### [facility] [address] [facility] [place] [address], [facility] PLAT CNT 104 10*3/uL Low 150-400 [facility] Comment on above: Order Comment: No: D o not add to previous draw Performed By: #### 1 69, 61094 #### [facility] [address] [place] [address], [facility] RBC (Bld) [#/Vol] 3.39 10*6/uL Low 4.20-5.70 [facility] Comment on above: Order Comment: No: D o not add to previous draw Performed By: #### 1 69, 08548 #### [facility] [address] [place] [address], [facility] WBC (Bld) [#/Vol] 8.55 10*3/uL Normal 4.00-10.60 [facility] Comment on above: Order Comment: No: D o not add to previous draw Performed By: #### 1 69, 26087 #### [facility] [address] [place] [address], [facility] COMP METABOLIC PANELon 10-12 Albumin [Mass/Vol] 3.5 g/dL Normal 3.5-5.7 [facility] Comment on above: Order Comment: No: D o not add to previous draw Performed By: #### 1 69, 96874 #### [facility] [address] [place] [id number], [facility] ALKALINE PHOSPH 61 IU/L Normal 34-104 [facility] Comment on above: Order Comment: No: D o not add to previous draw Performed By: #### 1 69, 22009 #### [facility] [address] [place] [address], [place] ALT [Catalytic activity/Vol] 9 U/L Normal 7-52 [facility] Comment on above: Order Comment: No: D o not add to previous draw Performed By: #### 1 69, 84657 #### [facility] [address] [place] [address], [place] AST [Catalytic activity/Vol] 12 U/L Low 13-39 [facility] Comment on above: Order Comment: No: D o not add to previous draw Performed By: #### 1 69, 72265 #### [facility] [address] [place] [id number], [place] Bilirubin [Mass/Vol] 1.0 mg/dL Normal 0.3-1.0 [facility] Comment on above: Order Comment: No: D o not add to previous draw Performed By: #### 1 69, 08377 #### [facility] [address] [place] [address], [place] Calcium [Mass/Vol] 8.6 mg/dL Normal 8.6-10.3 [facility] Comment on above: Order Comment: No: D o not add to previous draw Performed By: #### 1 69, 65622 #### [facility] [address] [place] [address], [place] Chloride [Moles/Vol] 106 mmol/L Normal 98-107 [facility] Comment on above: Order Comment: No: D o not add to previous draw Performed By: #### 1 69, 94223 #### [facility] [address] [place] [address], [place] CO2 [Moles/Vol] 26 mmol/L Normal 21-31 [facility] Comment on above: Order Comment: No: D o not add to previous draw Performed By: #### 1 69, 77385 #### [facility] [address] [place] [address], [place] Creatinine [Mass/Vol] 1.19 mg/dL Normal 0.70-1.30 [facility] Comment on above: Order Comment: No: D o not add to previous draw Performed By: #### 1 69, 14734 #### [facility] [address] [place] [address], [place] eGFR- non- 59 ml/min/1.73sq m Abnormal >60 [facility] Comment on above: Order Comment: No: D o not add to previous draw Result Comment: Calc ulation may not be valid for patients over 70 years Performed By: #### 1 69, 60977 #### [facility] [address] [place] [address], [place] GFR/1.73 sq M.predicted among blacks MDRD (S/P/Bld) [Vol rate/Area] mL/min/{1.73_m2} Normal >60 [facility] Comment on above: Order Comment: No: D o not add to previous draw Result Comment: Calc ulation may not be valid for patients over 70 years Performed By: #### 1 69, 80543 #### [facility] [address] [place] [address], [place] Glucose [Mass/Vol] 157 mg/dL High 70-100 [facility] Comment on above: Order Comment: No: D o not add to previous draw Performed By: #### 1 69, 23026 #### [facility] [address] [place] [address], [place] Potassium [Moles/Vol] 3.8 mmol/L Normal 3.5-5.1 [facility] Comment on above: Order Comment: No: D o not add to previous draw Performed By: #### 1 69, 88126 #### [facility] [address] [place] [address], [place] Protein [Mass/Vol] 5.9 g/dL Low 6.0-8.3 [facility] Comment on above: Order Comment: No: D o not add to previous draw Performed By: #### 1 69, 78018 #### [facility] [address] [place] [address], [place] Sodium [Moles/Vol] 140 mmol/L Normal 136-145 [facility] Comment on above: Order Comment: No: D o not add to previous draw Performed By: #### 1 69, 88925 #### [facility] [address] [place] [address], [place] Urea nitrogen [Mass/Vol] 19 mg/dL Normal 7-25 [facility] Comment on above: Order Comment: No: D o not add to previous draw Performed By: #### 1 0070, 22530 #### [facility] [address] [place] [address], [facility] MAGNESIUM BLOODon 10-12-2020 Magnesium [Mass/Vol] 2.1 mg/dL Normal 1.9-2.7 [facility] Comment on above: Order Comment: No: D o not add to previous draw Performed By: #### 1 0070, 63064 #### [facility] [address] Operative Reporton Operative Report MR#: [id number] [facility] Pt. Name: Radha Brown Room #: CINDY [id number] Discharge Date: Birthdate: 1940 OPERATIVE REPORT DATE OF SURGERY: 10/11/2020 SURGEON: Cody Castaneda MD PREOPERATIVE DIAGNOSIS: Severe aortic stenosis. POSTOPERATIVE DIAGNOSIS: Severe aortic stenosis. OPERATION: Transfemoral transcatheter aortic valve replacement with 29 mm Coby S3 valve. CO-SURGEON: Georges Purvis M.D. ANESTHESIA: MAC and 1% lidocaine local anesthetic. INDICATIONS: This is an 79-year-old male with previous coronary artery bypass grafting and severe aortic stenosis. The patient was noted to have patent bypass grafts and it was recommended TAVR. PROCEDURE IN DETAIL: The patient was brought to the operating room and prepped and draped in the routine fashion. A percutaneous trans temporary pacemaker inserted through the right internal jugular vein and tested for later use. Percutaneous access was achieved with ultrasound guidance to left radial artery and right femoral artery after infiltrating 0.25% Marcaine locally. A 6-Turkmen sheath was entered through the left radial artery and an 8-Turkmen sheath was introduced in right femoral artery. Through the radial artery, a pigtail catheter was inserted into the ascending aorta and root angiogram was performed. Through the right femoral artery, a Lunderquist wire was inserted through the pigtail catheter. The patient was heparinized and the sheath was upsized over the Lunderquist wire to a 16-Turkmen German sheath. Through the sheath, a GR catheter was inserted into the ascending aorta through which a straight wire was used to cross the aortic valve. The JR catheter was inserted in the left ventricle through which an extra stiff Amplatz wire was inserted into left ventricle successfully. At this time, we were ready for deployment of the valve. Coplanar and other root angiograms were performed to better clarify the anatomy. Then, a 29 mm Coby S3 valve was inserted into the descending aorta with a valve was mounted on the balloon and then advanced into the aortic root. Under rapid ventricular pacing, the Coby S3 valve was deployed successfully with 2 mL less than nominal balloon filling. The valve seated quite well. Transthoracic echocardiogram showed no paravalvular leaks. The completion angiogram showed minimal central leak, but no paravalvular leaks. There was minimal gradient across the valve. The delivery system was withdrawn and the right femoral arterial sheath was removed and artery was closed with ProGlide stitches successfully. Protamine was given. Radial sheath was removed and a TR band was applied. The EKG showed no significant changes. Therefore, the pacemaker was also removed. The patient was taken to the recovery room in stable condition. Electronically Signed by: Cody Castaneda MD 10/13/2020 04:16 P Cody Castaneda MD Date Dict: 10/11/2020/03:11 P/Cody Castaneda MD Date Trans: 10/12/2020 12:21 A/julio cesar [id number] cc: Maribel Hogan M.D. [address] [id number] Normal [facility] CBC COMPLETE BLOOD COUNTon 0 10-11-2020 Erythrocyte distribution width (RBC) [Ratio] 13.1 % Normal 11.5-15.0 [facility] Comment on above: Performed By: #### 1 0070, 87275 #### [facility] [address] [facility] [place] [address], [facility] Hematocrit (Bld) [Volume fraction] 37.7 % Low 39.0-50.0 [facility] Comment on above: Performed By: #### 1 0070, 26833 #### [facility] [address] [place] [address], [facility] Hemoglobin (Bld) [Mass/Vol] 12.3 g/dL Low 13.0-17.0 [facility] Comment on above: Performed By: #### 1 #### [facility] [address] [place] [address], [facility] MCH (RBC) [Entitic mass] 31.0 pg Normal 27.0-33.0 [facility] Comment on above: Performed By: #### 1 69, 32768 #### [facility] [address] [facility] [place] [address], [facility] MCHC (RBC) [Mass/Vol] 32.6 g/dL Normal 32.0-35.0 [facility] Comment on above: Performed By: #### 1 69, #### [facility] [address] [facility] [place] [address], [facility] MCV (RBC) [Entitic vol] 95.0 fL Normal 82.0-98.0 [facility] Comment on above: Performed By: #### 1 69, 66347 #### [facility] [address] [facility] [place] [address], [facility] Nucleated RBC/100 WBC (Bld) [Ratio] 0 % Normal 0-0 [facility] Comment on above: Performed By: #### 1 69, 53672 #### [facility] [address] [place] [address], [facility] PLAT CNT 132 10*3/uL Low 150-400 [facility] Comment on above: Performed By: #### 1 69, 68573 #### [facility] [address] [place] [id number], [facility] RBC (Bld) [#/Vol] 3.97 10*6/uL Low 4.20-5.70 [facility] Comment on above: Performed By: #### 1 0070, 29550 #### [facility] [address] [facility]. [address] WBC (Bld) [#/Vol] 7.96 10*3/uL Normal 4.00-10.60 [facility] Comment on above: Performed By: #### 1 0070, 02958 #### [facility] [address] Cardiovascular Lab Reporton 10-11-2020 Cardiovascular Lab Report [facility] Patient Name: Radha Brown MR #: [id number] [facility] Physician: Georges Pruvis M.D. Department of Service Date: 10/11/2020 Medicine Birthdate: 1940 Division of Room #: 3AB 777255 Cardiology Adult Cardiovascular Services [place] [address] Cardiovascular Laboratory Report INDICATION: The patient is an 79-year-old man with complex prior medical history including prior coronary artery bypass surgery many years ago, chronic atrial fibrillation status post Watchman left atrial appendage occlusion due to intolerance to anticoagulation, chronic kidney disease, chronic diastolic heart failure. He also has aortic stenosis that has become severe and symptomatic and recently he was admitted with acutely decompensated diastolic heart failure and managed in the hospital. He was evaluated in Cardiology and Cardiothoracic Surgery Clinics for management of his severe symptomatic aortic valve stenosis stage G1 and he was recommended TAVR. He had a shared decision making with Cardiology and Cardiothoracic Surgery and agreed to the procedure. He is presenting today for TAVR via transfemoral approach. PROCEDURE: 1. Successful transcatheter aortic valve replacement using a Coby S3 29 mm transcatheter heart valve deployed at nominal volume -2 mL. 2. Placement of a temporary pacemaker wire from the right internal jugular vein access. 3. Access into the right internal jugular vein under ultrasound guidance. 4. Aortic root angiography and left heart catheterization. 5. Access into the left radial artery under ultrasound guidance. 6. Access in the right common femoral artery under ultrasound guidance. 7. Limited right common femoral angiography. 8. Preclosure in the right common femoral artery using two 6-Turkmen ProGlide devices. INTERVENTIONAL CARDIOLOGY SIGN LANGUAGE INTERPRETER: Georges Purvis M.D. CARDIAC SURGERY SIGN LANGUAGE INTERPRETER: Cody Castaneda MD. METHODS: Procedure was explained to the patient with risks and benefits. He signed informed consent. He was brought to r&d lab technician in a fasting state. The left wrist area was prepped and draped in usual fashion. Using micropuncture technique and ultrasound guidance, access was obtained in the left radial artery and a 6-Turkmen x 11 cm Hydrophilic sheath was advanced. Verapamil was given through the sheath. The right neck area was prepped and draped in usual fashion. Using ultrasound guidance and micropuncture technique, the right internal jugular vein was accessed and a 6-Turkmen x 11 cm introducer sheath was secured in place. Using micropuncture technique and ultrasound guidance, access was obtained in the right common femoral artery. Inner cannula angiography confirmed access at a good location, this was upsized to a 6-Turkmen x 11 cm sheath. Initial heparin 2000 units were administered intravenously. Note that the procedure was performed under conscious sedation in the cardiac r&d lab technician. Preclosure was performed in the right common femoral artery using 2 crossing 6-Turkmen ProGlide devices and the access was upsized to a 10-Turkmen x 11 cm sheath. Full heparinization was given and therapeutic ACT confirmed during the rest of the procedure. A 6-Turkmen angled pigtail catheter was advanced over a Avendano wire from the left radial artery into the ascending aorta and aortic root angiography was performed in the coplanar view. A 5-Turkmen balloon tipped temporary pacemaker wire was advanced through the internal jugular vein access and into the right ventricular cavity and positioned across the apical right ventricular septum was confirmed by fluoroscopy in different views. Adequate capture was confirmed with threshold of about 1 milliamps. Pacing was then put as backup at 20 milliamps. A 6-Turkmen multipurpose catheter was advanced over a J-tipped wire to the descending aorta and used to place a Lunderquist wire over which the right common femoral access was upsized serially to the 16-Turkmen German eSheath, which was secured in place. The aortic valve was then crossed initially using an AL1 diagnostic catheter and a straight Glidewire, however, due to the height of the patient, the AL1 catheter could not reach into the ventricular cavity. Therefore, we exchanged it to a 125 cm 6-Turkmen JR4 guiding catheter, which was able to be advanced to the left ventricular cavity after recrossing with a Glidewire and this was then used to place the Amplatz extra stiff wire in the left ventricular cavity. The catheter was removed. A 29 mm Coby S3 transcatheter heart valve was prepped at nominal volume -[address] angiography performed prior to the procedure. The assembly was then advanced over the wire to the descending aorta and the balloon and valve assembly was reconstituted using standard techniques. The valve was (more content not included)... Normal [facility] TYPE AND SCREENon 10-11-2020 ABO INTERPRETATION A Normal [facility] Comment on above: Performed By: #### 8 5499 #### [facility] [address] [facility]. [address] RH INTERPRETATION Positive Normal [facility] Comment on above: Performed By: #### 8 5499 #### [facility] [address] [facility]. [address] CTA ABDOMEN AND PELVISon CTA ABDOMEN AND PELVIS [facility] Department of Radiology [address] [place] [id number] Patient Name: RADHA BROWN : 1940 Sex: M Age: Race: White Pt. Location: Patient Status: D Ordered Date: 08/26/2020 12:30:00 PM Completed Date: 09/13/2020 03:02 PM Requesting Provider: ASHLEY CRAIG Attending Provider: ASHLEY CRAIG Report Copy To: MARIBEL HOGAN Signs & Symptoms: I35.0 Nonrheumatic aortic (valve) stenosis I10 History: Nadia Please call Ashley [phone] PC Auth via [employer] for CPT 33027 Auth#[id number] Valid 08/30/20-02/26/21 Med Nec-Passed 08/29 *SLA Comments: (TAVR) Protocol Exam: CTA ABDOMEN AND PELVIS CTA ABDOMEN AND PELVIS 09/13/2020 3:02 PM SIGNS AND SYMPTOMS: I35.0 Nonrheumatic aortic (valve) stenosis I10 TECHNOLOGIST COMMENTS: TAVR workup for nonrheumatic aortic (valve) stenosis. QUESTION FOR THE RADIOLOGIST: (TAVR) Protocol PROTOCOL: Axial CT angiography images were obtained with IV contrast. CONTRAST: TECHNIQUE: Multidetector CT angiography axial slices of the abdomen and pelvis were obtained with IV contrast. Multiplanar reformats, MIP, and volume rendered 3-D images were generated on a separate workstation and reviewed to further define anatomy and possible pathology. Appropriate CT dose lowering techniques were utilized. COMPARISON: 08/11/2020 FINDINGS: Lower Chest: Please refer to chest CT report from the same day for full details. ABDOMEN: Liver: Visualized part of the liver appeared unremarkable with normal enhancement. Bile Ducts: Normal caliber. Gallbladder: Gallbladder is filled with multiple calcified stones. No wall thickening or pericholecystic fluid collection in visualized part of the gallbladder Pancreas: Atrophic pancreas with no focal mass Spleen: Visualized part of the spleen appeared unremarkable Adrenals: Within normal limits. Kidneys: Symmetric nephrogram with cortical thinning and small cysts in the left kidney. Pelvis: Reproductive Organs: No pelvic masses. Ureters: Within normal limits. Bladder: Within normal limits. Bowel: Normal caliber small bowel loops. Uncomplicated diverticulosis in the left colon and sigmoid. Moderate amount of fecal residue mixed with air in the rectum which may represent constipation in proper clinical setting.. Mesenteric Lymph Nodes: No enlarged mesenteric lymph nodes. Peritoneum: No ascites or free air, no fluid collection. Vessels: Atherosclerotic changes with significant vascular calcification in the abdominal aorta and major branches. Retroperitoneum: Within normal limits. Abdominal Wall: Small umbilical hernia containing only omental fat. Bones: Severe bilateral degenerative sacroiliitis with complete fusion seen. Lower lumbar spondylosis. IMPRESSION: Uncomplicated colonic diverticulosis and large amount of gallstones filling the visualized part of the gallbladder. Small left renal cysts and cortical thinning bilaterally. Significant vascular calcifications and small umbilical hernia containing only omental fat. Severe bilateral degenerative sacroiliitis with bony fusion seen and lower lumbar spondylosis. No other acute abdominal or pelvic pathology is appreciated. All CT scans at this facility use dose modulation, iterative reconstruction, and/or weight based dosing when appropriate to reduce radiation dose to as low as reasonably achievable Electronically signed: Mika Hebert. Transcribed by: [email or web address], User Resident: Electronically Signed by: MIKA HEBERT @ 09/19/2020 09:30 AM Normal [facility] Comment on above: Order Comment: No: D o not add to previous draw CTA CHESTon 09-13-2020 CTA CHEST [facility] Department of Radiology [address] [place] [id number] Patient Name: RADHA BROWN : 1940 Sex: M Age: Race: White Pt. Location: Patient Status: D Ordered Date: 08/26/2020 12:30:00 PM Completed Date: 09/13/2020 03:02 PM Requesting Provider: ASHLEY CRAIG Attending Provider: ASHLEY CRAIG Report Copy To: MARIBEL HOGAN Signs & Symptoms: I35.0 Nonrheumatic aortic (valve) stenosis I10 History: Nadia Please call Ashley [phone] Auth via [employer] for CPT 37911 Auth#[id number] Valid 08/30/20-02/26/21 Med Nec-Passed 08/29 *SLA Comments: EKG gated-TAVR protocol Exam: CTA CHEST CTA CHEST 09/13/2020 3:02 PM CLINICAL INDICATIONS: I35.0 Nonrheumatic aortic (valve) stenosis I10 TECHNOLOGIST COMMENTS: TAVR workup for nonrheumatic aortic (valve) stenosis. QUESTIONS PER RADIOLOGIST: EKG gated-TAVR protocol PROTOCOL: Axial CT angiography images were obtained with IV contrast. CONTRAST: Contrast: OMNIPAQUE 350 (LOCM), 130 milliliter, Intravenous TECHNIQUE: Multidetector CT axial slices of the chest were obtained with IV contrast. Multiplanar reformats were performed and viewed on a separate workstation and reviewed to further define anatomy and possible pathology. All CT scans at this facility use dose modulation, iterative reconstruction, and/or weight based dosing when appropriate to reduce radiation dose to as low as reasonably achievable. COMPARISON: None. FINDINGS: Gated noncontrast calcium scoring part of the study revealed significant coarse calcifications at the aortic valve cusps with total calcium scoring of 4838. The findings are suggestive of grade 3 valve calcification. There is also significant vascular calcification seen in the left main, LAD, RCA and left circumflex arteries as well as the descending thoracic aorta T aVR measurements: 3-D volume rendered evaluation of the aortic valve and root as well as the origin of the coronary arteries is obtained. Localization of the left, right and noncoronary cusps was also performed. The esophagus was also localized. 3 Cusped view, anterior view and no [employer] CAU view were also obtained in 3-D volume rendered images aortic annulus measures 35.8 x 24.7 mm. The surface area is 4.74 sq cm. The perimeter is 88.8 mm. Embedded geometric suggests a valve size of 26 mm. The height of the left coronary artery is 20.2 mm from the annulus. The right coronary artery height is 19.1 mm from the aortic annulus. The left coronary sinus diameter is 35.6 mm, the right sinus diameter is 33.4 mm and the noncoronary sinus diameter is 36.1 mm. Diameter of the sinotubular junction is 31.7 mm. Diameter of the ascending aorta is 33.5 mm. Diameter of the infrarenal descending abdominal aorta is 19 mm due to presence of vascular calcification along the aortic wall. Diameter of the right common iliac artery is 9.7 mm due to significant vascular calcification, diameter of the right external iliac artery is 10 mm and 8.3 diameter in the right common femoral artery Diameter of the left common iliac artery is 8.4 mm due to presence of heavy atherosclerotic calcification. Diameter of the left external iliac artery is 9.1 mm and diameter of the left common femoral artery is 7.9 mm. Calculation ejection fraction of 38%. End-diastolic volume is 2 76 mL. End-systolic volume is 1 89 mL and stroke volume of 87 mL. Lower neck: Thyroid gland within normal limits, no supraclavicle adenopathy. Vessels: Pulmonary arteries appeared grossly unremarkable. Mild atherosclerotic changes in the aorta. and severe calcification in the coronary arteries. Short stent is seen in the left main coronary artery and another stent in the proximal RCA. Bypass grafts are seen from the anterior ascending aorta to the diagonal and obtuse marginal branch and [place]HE[place] graft which is patent is also visualized. Mediastinum and Beth: Within normal limits. Heart: Normal size. No pericardial effusion. Watchman device is seen in the left atrial appendage. There is also irregular low-attenuation area seen in the right atrium which is concerning for possible formation of right atrial blood clot. This could simply be mixing of noncontrast blood within the right atrium. Echo may be helpful in further evaluation. Airways: Within normal limits Lungs: Within normal limits. Pleura: Within normal limits. Chest Wall: Within normal limits. Upper Abdomen: Please refer to abdomen CT report from the same day. Bones: Mild bony spurring in the thoracic spine suggesting mild spondylosis. Sternotomy wires from prior CABG procedure. IMPRESSION: E (more content not included)... Normal [facility] Comment on above: Order Comment: EKG g ated-TAVR protocol BASIC METABOLIC PANELon 05-0 Calcium [Mass/Vol] 8.6 mg/dL Normal 8.6-10.3 [facility] Comment on [facility]: Order Comment: No: D o not add to previous draw Performed By: #### 8 [id number] #### [facility] [address] [place] [address], [place] Chloride [Moles/Vol] 107 mmol/L Normal 98-107 [facility] Comment on above: Order Comment: No: D o not add to previous draw Performed By: #### 8 5499 #### [facility] [address] [place] [address], [place] CO2 [Moles/Vol] 31 mmol/L Normal 21-31 [facility] Comment on above: Order Comment: No: D o not add to previous draw Performed By: #### 8 5499 #### [facility] [address] [place] [address], [place] Creatinine [Mass/Vol] 1.36 mg/dL High 0.70-1.30 [facility] Comment on above: Order Comment: No: D o not add to previous draw Performed By: #### 8 5499 #### [facility] [address] [place] [address], [place] eGFR- non- 50 ml/min/1.73sq m Abnormal >60 [facility] Comment on above: Order Comment: No: D o not add to previous draw Result Comment: Calc ulation may not be valid for patients over 70 years Performed By: #### 8 5499 #### [facility] [address] [place] [address], [place] GFR/1.73 sq M.predicted among blacks MDRD (S/P/Bld) [Vol rate/Area] mL/min/{1.73_m2} Normal >60 [facility] Comment on above: Order Comment: No: D o not add to previous draw Result Comment: Calc ulation may not be valid for patients over 70 years Performed By: #### 8 5499 #### [facility] [address] [place] [address], [place] Glucose [Mass/Vol] 129 mg/dL High 70-100 [facility] Comment on above: Order Comment: No: D o not add to previous draw Performed By: #### 8 5499 #### [facility] [address] [place] [address], [facility] Potassium [Moles/Vol] 3.7 mmol/L Normal 3.5-5.1 [facility] Comment on above: Order Comment: No: D o not add to previous draw Performed By: #### 8 5499 #### [facility] [address] [place] [address], [place] Sodium [Moles/Vol] 143 mmol/L Normal 136-145 [facility] Comment on above: Order Comment: No: D o not add to previous draw Performed By: #### 8 5499 #### [facility] [address] [place] [address], [place] Urea nitrogen [Mass/Vol] 44 mg/dL High 7-25 [facility] Comment on above: Order Comment: No: D o not add to previous draw Performed By: #### 8 5499 #### [facility] [address] [place] [address], [facility] CBC COMPLETE BLOOD COUNTon - Erythrocyte distribution width (RBC) [Ratio] 13.2 % Normal 11.5-15.0 [facility] Comment on above: Order Comment: No: D o not add to previous draw Performed By: #### 8 [id number] #### [facility] [address] [place] [address], [facility] Hematocrit (Bld) [Volume fraction] 36.5 % Low 39.0-50.0 [facility] Comment on above: Order Comment: No: D o not add to previous draw Performed By: #### 8 5499 #### [facility] [address] [place] [address], [facility] Hemoglobin (Bld) [Mass/Vol] 11.8 g/dL Low 13.0-17.0 [facility] Comment on above: Order Comment: No: D o not add to previous draw Performed By: #### 8 5499 #### [facility] [address] [place] [address], [facility] MCH (RBC) [Entitic mass] 31.2 pg Normal 27.0-33.0 [facility] Comment on above: Order Comment: No: D o not add to previous draw Performed By: #### 8 5499 #### [facility] [address] [place] [address], [facility] MCHC (RBC) [Mass/Vol] 32.3 g/dL Normal 32.0-35.0 [facility] Comment on above: Order Comment: No: D o not add to previous draw Performed By: #### 8 5499 #### [facility] [address] [place] [id number], [facility] MCV (RBC) [Entitic vol] 96.6 fL Normal 82.0-98.0 [facility] Comment on above: Order Comment: No: D o not add to previous draw Performed By: #### 8 5499 #### [facility] [address] [place] [id number], [facility] Nucleated RBC/100 WBC (Bld) [Ratio] 0 % Normal 0-0 [facility] Comment on above: Order Comment: No: D o not add to previous draw Performed By: #### 8 5499 #### [facility] [address] [place] [address], [facility] PLAT CNT 114 10*3/uL Low 150-400 [facility] Comment on above: Order Comment: No: D o not add to previous draw Performed By: #### 8 5499 #### [facility] [address] [place] [id number], [facility] RBC (Bld) [#/Vol] 3.78 10*6/uL Low 4.20-5.70 [facility] Comment on above: Order Comment: No: D o not add to previous draw Performed By: #### 8 5499 #### [facility] [address] [place] [address], [facility] WBC (Bld) [#/Vol] 7.88 10*3/uL Normal 4.00-10.60 [facility] Comment on above: Order Comment: No: D o not add to previous draw Performed By: #### 8 5499 #### [facility] [address] [place] [address], [facility] MAGNESIUM BLOODon 08-14-2020 Magnesium [Mass/Vol] 2.4 mg/dL Normal 1.9-2.7 [facility] Comment on above: Order Comment: No: D o not add to previous draw Performed By: #### 8 5499 #### [facility] [address] [place] [address], [facility] POC GLUCOSE LABon 08-14-2020 Glucose [Mass/Vol] 175 mg/dL High 70-100 [facility] Comment on above: Performed By: #### 0 0071, 65988, 80144 #### [facility] [address] [place] [address], [facility] BASIC METABOLIC PANELon Calcium [Mass/Vol] 8.7 mg/dL Normal 8.6-10.3 [facility] Comment on above: Order Comment: No: D o not add to previous draw Performed By: #### 0 0071, 26202, 13870 #### [facility] [address] [place] [address], [place] Chloride [Moles/Vol] 107 mmol/L Normal 98-107 [facility] Comment on above: Order Comment: No: D o not add to previous draw Performed By: #### 0 0071, 32994, 15008 #### [facility] [address] [place] [address], [place] CO2 [Moles/Vol] 30 mmol/L Normal 21-31 [facility] Comment on above: Order Comment: No: D o not add to previous draw Performed By: #### 0 0071, 16816, 92780 #### [facility] [address] [place] [address], [facility] Creatinine [Mass/Vol] 1.49 mg/dL High 0.70-1.30 [facility] Comment on above: Order Comment: No: D o not add to previous draw Performed By: #### 0 0071, 80661, 17904 #### [facility] [address] [place] [address], [facility] eGFR- 55 ml/min/1.73sq m Abnormal >60 [facility] Comment on above: Order Comment: No: D o not add to previous draw Result Comment: Calc ulation may not be valid for patients over 70 years Performed By: #### 0 0071, 69865, 02227 #### [facility] [address] [place] [address], [facility] eGFR- non- 45 ml/min/1.73sq m Abnormal >60 [facility] Comment on above: Order Comment: No: D o not add to previous draw Result Comment: Calc ulation may not be valid for patients over 70 years Performed By: #### 0 0071, 36807, 96612 #### [facility] [address] [place] [address], [place] Glucose [Mass/Vol] 136 mg/dL High 70-100 [facility] Comment on above: Order Comment: No: D o not add to previous draw Performed By: #### 0 0071, 66015, 79576 #### [facility] [address] [place] [address], [place] Potassium [Moles/Vol] 3.9 mmol/L Normal 3.5-5.1 [facility] Comment on above: Order Comment: No: D o not add to previous draw Performed By: #### 0 0071, 20025, 68576 #### [facility] [address] [place] [address], [facility] Sodium [Moles/Vol] 145 mmol/L Normal 136-145 [facility] Comment on above: Order Comment: No: D o not add to previous draw Performed By: #### 0 0071, 05174, 32713 #### [facility] [address] [place] [id number], [facility] Urea nitrogen [Mass/Vol] 55 mg/dL High 7-25 [facility] Comment on above: Order Comment: No: D o not add to previous draw Performed By: #### 0 0071, 40859, 48329 #### [facility] [address] [place] [address], [facility] CBC COMPLETE BLOOD COUNTon 0 - Erythrocyte distribution width (RBC) [Ratio] 13.5 % Normal 11.5-15.0 [facility] Comment on above: Order Comment: No: D o not add to previous draw Performed By: #### 1 69, 15899 #### [facility] [address] [place] [address], [facility] Hematocrit (Bld) [Volume fraction] 35.8 % Low 39.0-50.0 [facility] Comment on above: Order Comment: No: D o not add to previous draw Performed By: #### 1 69, 45031 #### [facility] [address] [place] [id number], [facility] Hemoglobin (Bld) [Mass/Vol] 11.4 g/dL Low 13.0-17.0 [facility] Comment on above: Order Comment: No: D o not add to previous draw Performed By: #### 1 69, 73741 #### [facility] [address] [place] [address], [place] MCH (RBC) [Entitic mass] 31.2 pg Normal 27.0-33.0 [facility] Comment on above: Order Comment: No: D o not add to previous draw Performed By: #### 1 69, 84137 #### [facility] [address] [place] [address], [facility] MCHC (RBC) [Mass/Vol] 31.8 g/dL Low 32.0-35.0 [facility] Comment on above: Order Comment: No: D o not add to previous draw Performed By: #### 1 69, 04407 #### [facility] [address] [place] [address], [facility] MCV (RBC) [Entitic vol] 98.1 fL High 82.0-98.0 [facility] Comment on above: Order Comment: No: D o not add to previous draw Performed By: #### 1 69, 26292 #### [facility] [address] [facility] [address] Nucleated RBC/100 WBC (Bld) [Ratio] 0 % Normal 0-0 [facility] Comment on above: Order Comment: No: D o not add to previous draw Performed By: #### 1 69, 63085 #### [facility] [address] [facility] [place] [address], [facility] PLAT CNT 111 10*3/uL Low 150-400 [facility] Comment on above: Order Comment: No: D o not add to previous draw Performed By: #### 1 69, 48154 #### [facility] [address] [facility] [place] [address], [facility] RBC (Bld) [#/Vol] 3.65 10*6/uL Low 4.20-5.70 [facility] Comment on above: Order Comment: No: D o not add to previous draw Performed By: #### 1 69, 53639 #### [facility] [address] [place] [address], [facility] WBC (Bld) [#/Vol] 7.40 10*3/uL Normal 4.00-10.60 [facility] Comment on above: Order Comment: No: D o not add to previous draw Performed By: #### 1 0070, 71078 #### [facility] [address] [place] [address], [place] MAGNESIUM BLOODon 08-13-2020 Magnesium [Mass/Vol] 2.4 mg/dL Normal 1.9-2.7 [facility] Comment on above: Order Comment: No: D o not add to previous draw Performed By: #### 0 0071, 29422, 89135 #### [facility] [address] [place] [address], [place] PHOSPHORUS BLOODon Phosphate [Mass/Vol] 3.7 mg/dL Normal 2.5-5.0 [facility] Comment on above: Order Comment: No: D o not add to previous draw Performed By: #### 0 0071, 42000, 74007 #### [facility] [address] [place] [address], [place] POC GLUCOSE LABon 08-13-2020 Glucose [Mass/Vol] 186 mg/dL High 70-100 [facility] Comment on above: Performed By: #### 0 0071, 38892, 18326 #### [facility] [address] [place] [address], [place] Glucose [Mass/Vol] 159 mg/dL High 70-100 [facility] Comment on above: Performed By: #### 8 5499 #### [facility] [address] [place] [address], [place] Glucose [Mass/Vol] 172 mg/dL High 70-100 [facility] Comment on above: Performed By: #### 8 5499 #### [facility] [address] [place] [address], [place] Glucose [Mass/Vol] 136 mg/dL High 70-100 [facility] Comment on above: Performed By: #### 8 5499 #### [facility] [address] [place] [address], [place] Glucose [Mass/Vol] 153 mg/dL High 70-100 [facility] Comment on above: Performed By: #### 8 5499 #### [facility] [address] [place] [address], [place] BASIC METABOLIC PANELon 05-0 -2020 Calcium [Mass/Vol] 8.9 mg/dL Normal 8.6-10.3 [facility] Comment on above: Order Comment: No: D o not add to previous draw Performed By: #### 1 0070, 69025 #### [facility] [address] [place] [address], [place] Chloride [Moles/Vol] 104 mmol/L Normal 98-107 [facility] Comment on above: Order Comment: No: D o not add to previous draw Performed By: #### 1 69, 84633 #### [facility] [address] [place] [address], [place] CO2 [Moles/Vol] 31 mmol/L Normal 21-31 [facility] Comment on above: Order Comment: No: D o not add to previous draw Performed By: #### 1 0, 03089 #### [facility] [address] [place] [address], [place] Creatinine [Mass/Vol] 1.73 mg/dL High 0.70-1.30 [facility] Comment on above: Order Comment: No: D o not add to previous draw Performed By: #### 1 0070, 33071 #### [facility] [address] [place] [address], [place] eGFR- 46 ml/min/1.73sq m Abnormal >60 [facility] Comment on above: Order Comment: No: D o not add to previous draw Result Comment: Calc ulation may not be valid for patients over 70 years Performed By: #### 1 69, 83191 #### [facility] [address] [place] [address], [facility] eGFR- non- 38 ml/min/1.73sq m Abnormal >60 [facility] Comment on above: Order Comment: No: D o not add to previous draw Result Comment: Calc ulation may not be valid for patients over 70 years Performed By: #### 1 69, 60713 #### [facility] [address] [place] [address], [place] Glucose [Mass/Vol] 168 mg/dL High 70-100 [facility] Comment on above: Order Comment: No: D o not add to previous draw Performed By: #### 1 69, 30378 #### [facility] [address] [place] [address], [place] Potassium [Moles/Vol] 3.8 mmol/L Normal 3.5-5.1 [facility] Comment on above: Order Comment: No: D o not add to previous draw Performed By: #### 1 69, 07057 #### [facility] [address] [place] [address], [place] Sodium [Moles/Vol] 145 mmol/L Normal 136-145 [facility] Comment on above: Order Comment: No: D o not add to previous draw Performed By: #### 1 69, 44148 #### [facility] [address] [place] [address], [place] Urea nitrogen [Mass/Vol] 51 mg/dL High 7-25 [facility] Comment on above: Order Comment: No: D o not add to previous draw Performed By: #### 1 69, 18977 #### [facility] [address] [place] [address], [place] CBC COMPLETE BLOOD COUNTon 0 - Erythrocyte distribution width (RBC) [Ratio] 13.6 % Normal 11.5-15.0 [facility] Comment on above: Order Comment: No: D o not add to previous draw Performed By: #### 1 69, 71312 #### [facility] [address] [place] [address], [facility] Hematocrit (Bld) [Volume fraction] 36.9 % Low 39.0-50.0 [facility] Comment on above: Order Comment: No: D o not add to previous draw Performed By: #### 1 69, 17449 #### [facility] [address] [place] [id number], [facility] Hemoglobin (Bld) [Mass/Vol] 12.1 g/dL Low 13.0-17.0 [facility] Comment on above: Order Comment: No: D o not add to previous draw Performed By: #### 1 69, 84889 #### [facility] [address] [place] [id number], [facility] MCH (RBC) [Entitic mass] 31.9 pg Normal 27.0-33.0 [facility] Comment on above: Order Comment: No: D o not add to previous draw Performed By: #### 1 69, #### [facility] [address] [place] [address], [facility] MCHC (RBC) [Mass/Vol] 32.8 g/dL Normal 32.0-35.0 [facility] Comment on above: Order Comment: No: D o not add to previous draw Performed By: #### 1 69, 64533 #### [facility] [address] [place] [address], [place] MCV (RBC) [Entitic vol] 97.4 fL Normal 82.0-98.0 [facility] Comment on above: Order Comment: No: D o not add to previous draw Performed By: #### 1 69, #### [facility] [address] [place] [id number], [place] Nucleated RBC/100 WBC (Bld) [Ratio] 0 % Normal 0-0 [facility] Comment on above: Order Comment: No: D o not add to previous draw Performed By: #### 1 0, 03757 #### [facility] [address] [place] [address], [facility] PLAT CNT 115 10*3/uL Low 150-400 [facility] Comment on above: Order Comment: No: D o not add to previous draw Performed By: #### 1 69, 15756 #### [facility] [address] [facility] [address], [facility] RBC (Bld) [#/Vol] 3.79 10*6/uL Low 4.20-5.70 [facility] Comment on above: Order Comment: No: D o not add to previous draw Performed By: #### 1 69, 77413 #### [facility] [address] [facility] [place] [address], [facility] WBC (Bld) [#/Vol] 8.71 10*3/uL Normal 4.00-10.60 [facility] Comment on above: Order Comment: No: D o not add to previous draw Performed By: #### 1 69, 21103 #### [facility] [address] [place] [address], [facility] MAGNESIUM BLOODon 08-12-2020 Magnesium [Mass/Vol] 2.4 mg/dL Normal 1.9-2.7 [facility] Comment on above: Order Comment: No: D o not add to previous draw Performed By: #### 1 0, 99438 #### [facility] [address] [facility] [place] [address], [facility] POC GLUCOSE LABon 08-12-2020 Glucose [Mass/Vol] 136 mg/dL High 70-100 [facility] Comment on above: Performed By: #### 0 0071, 07666, 27034 #### [facility] [address] [place] [address], [place] Glucose [Mass/Vol] 180 mg/dL High 70-100 [facility] Comment on above: Performed By: #### 0 0071, 18940, 47939 #### [facility] [address] [place] [address], [place] Glucose [Mass/Vol] 156 mg/dL High 70-100 [facility] Comment on above: Performed By: #### 8 5499 #### [facility] [address] [place] [address], [place] BASIC METABOLIC PANELon 05-0 -2020 Calcium [Mass/Vol] 9.4 mg/dL Normal 8.6-10.3 [facility] Comment on above: Order Comment: No: D o not add to previous draw Performed By: #### 1 69, 22309 #### [facility] [address] [place] [address], [place] Chloride [Moles/Vol] 101 mmol/L Normal 98-107 [facility] Comment on above: Order Comment: No: D o not add to previous draw Performed By: #### 1 69, 53432 #### [facility] [address] [place] [address], [place] CO2 [Moles/Vol] 29 mmol/L Normal 21-31 [facility] Comment on above: Order Comment: No: D o not add to previous draw Performed By: #### 1 69, 86090 #### [facility] [address] [place] [address], [place] Creatinine [Mass/Vol] 1.63 mg/dL High 0.70-1.30 [facility] Comment on above: Order Comment: No: D o not add to previous draw Performed By: #### 1 69, 46191 #### [facility] [address] [place] [address], [place] eGFR- 49 ml/min/1.73sq m Abnormal >60 The [facility] Comment on above: Order Comment: No: D o not add to previous draw Result Comment: Calc ulation may not be valid for patients over 70 years Performed By: #### 1 69, 23959 #### [facility] [address] [place] [address], [place] eGFR- non- 41 ml/min/1.73sq m Abnormal >60 [facility] Comment on above: Order Comment: No: D o not add to previous draw Result Comment: Calc ulation may not be valid for patients over 70 years Performed By: #### 1 69, 75317 #### [facility] [address] [place] [address], [place] Glucose [Mass/Vol] 198 mg/dL High 70-100 [facility] Comment on above: Order Comment: No: D o not add to previous draw Performed By: #### 1 69, 91830 #### [facility] [address] [place] [address], [place] Potassium [Moles/Vol] 4.0 mmol/L Normal 3.5-5.1 [facility] Comment on above: Order Comment: No: D o not add to previous draw Performed By: #### 1 69, 98446 #### [facility] [address] [place] [address], [place] Sodium [Moles/Vol] 144 mmol/L Normal 136-145 [facility] Comment on above: Order Comment: No: D o not add to previous draw Performed By: #### 1 69, 72885 #### [facility] [address] [place] [address], [place] Urea nitrogen [Mass/Vol] 38 mg/dL High 7-25 [facility] Comment on above: Order Comment: No: D o not add to previous draw Performed By: #### 1 69, 78984 #### [facility] [address] CBC COMPLETE BLOOD COUNTon 08-11-2020 Erythrocyte distribution width (RBC) [Ratio] 13.7 % Normal 11.5-15.0 [facility] Comment on above: Order Comment: No: D o not add to previous draw Performed By: #### 1 69, 51924 #### [facility] [address] [place] [address], [facility] Hematocrit (Bld) [Volume fraction] 40.0 % Normal 39.0-50.0 [facility] Comment on above: Order Comment: No: D o not add to previous draw Performed By: #### 1 69, 22264 #### [facility] [address] [place] [address], [facility] Hemoglobin (Bld) [Mass/Vol] 13.1 g/dL Normal 13.0-17.0 [facility] Comment on above: Order Comment: No: D o not add to previous draw Performed By: #### 1 69, 22185 #### [facility] [address] [facility] [place] [address], [facility] IMM PLATELET FRAC 8.4 % High 0.8-6.3 The [facility] Comment on above: Order Comment: No: D o not add to previous draw Performed By: #### 1 69, 86790 #### [facility] [address] [facility] [place] [address], [facility] MCH (RBC) [Entitic mass] 31.3 pg Normal 27.0-33.0 [facility] Comment on above: Order Comment: No: D o not add to previous draw Performed By: #### 1 69, 84381 #### [facility] [address] [place] [address], [facility] MCHC (RBC) [Mass/Vol] 32.8 g/dL Normal 32.0-35.0 [facility] Comment on above: Order Comment: No: D o not add to previous draw Performed By: #### 1 69, 04839 #### [facility] [address] [place] [address], [facility] MCV (RBC) [Entitic vol] 95.7 fL Normal 82.0-98.0 [facility] Comment on above: Order Comment: No: D o not add to previous draw Performed By: #### 1 69, 09762 #### [facility] [address] [place] [id number], [facility] Nucleated RBC/100 WBC (Bld) [Ratio] 0 % Normal 0-0 [facility] Comment on above: Order Comment: No: D o not add to previous draw Performed By: #### 1 69, 29859 #### [facility] [address] [place] [id number], [place] PLAT CNT 128 10*3/uL Low 150-400 [facility] Comment on above: Order Comment: No: D o not add to previous draw Performed By: #### 1 69, 41160 #### [facility] [address] [place] [id number], [facility] RBC (Bld) [#/Vol] 4.18 10*6/uL Low 4.20-5.70 The [facility] Comment on above: Order Comment: No: D o not add to previous draw Performed By: #### 1 69, 81231 #### [facility] [address] [place] [id number], [place] WBC (Bld) [#/Vol] 10.82 10*3/uL High 4.00-10.60 [facility] Comment on above: Order Comment: No: D o not add to previous draw Performed By: #### 1 69, 68681 #### [facility] [address] [place] [id number], [facility] CT ABDOMEN AND PELVIS WO CON TRASTon 08-11-2020 CT ABDOMEN AND PELVIS WO CONTRAST [facility] Department of Radiology [address] [place] [address] Patient Name: RADHA BROWN : 1940 Sex: M Age: Race: White Pt. Location: [id number] Patient Status: I Ordered Date: 08/11/2020 10:45:00 AM Completed Date: 08/11/2020 02:02 PM Requesting Provider: SCARLET VELAZQUEZ Attending Provider: RO LUCAS Report Copy To: Signs & Symptoms: Abdominal Pain(specify) History: See Comments Comments: Obstruction Exam: CT ABDOMEN AND PELVIS WO CONTRAST CT ABDOMEN AND PELVIS WO CONTRAST 08/11/2020 2:02 PM CLINICAL INDICATIONS: Abdominal Pain(specify) TECHNOLOGIST COMMENTS: C/o abdominal pain with nausea and vomiting blood x 1 day s/p Cath procedure QUESTION FOR THE RADIOLOGIST: Obstruction PROTOCOL: Axial CT images of the abdomen and pelvis were obtained without IV contrast. TECHNIQUE: Multidetector CT axial slices of the abdomen and pelvis without IV contrast. Multiplanar reformats were performed and viewed on a separate workstation and reviewed to further define anatomy and possible pathology. COMPARISON: Abdominal series August 10, 2020 FINDINGS: Linear scarring or atelectasis noted in the base of the left lower lobe. Coronary artery calcification appreciated. The liver, spleen, adrenals and pancreas appear unremarkable. Opaque calculi noted throughout the gallbladder lumen. The kidneys appear unremarkable. An NG tube has been placed with its tip in the body the stomach. The stomach is moderately distended with gas and fluid. The small bowel is distended with gas and fluid with a transition point present in the right lower quadrant. No pneumatosis or portal venous gas appreciated. Stool is present throughout the colon with a moderate fecal impaction in the rectum measuring 9.7 cm in its maximum direction. Uncomplicated diverticula are noted throughout the colon. The bladder, seminal vesicles and prostate appear unremarkable. No free intraperitoneal air or free fluid. The aorta is diffusely calcified but nonaneurysmal. No retroperitoneal adenopathy or hematoma. The study viewed at bone window shows disc space degeneration throughout the visualized spine. IMPRESSION: * Distention of stomach and small bowel with a transition point in the right lower quadrant consistent with small bowel obstruction. * Uncomplicated castillo colonic diverticulosis. Fecal impaction noted in rectum. * Cholelithiasis. All CT scans at this facility use dose modulation, iterative reconstruction, and/or weight based dosing when appropriate to reduce radiation dose to as low as reasonably achievable Electronically signed: Radha Walter. Transcribed by: [email or web address], User Resident: Electronically Signed by: RADHA WALTER @ 08/11/2020 02:18 PM Normal [facility] Comment on above: Order Comment: No: D o not add to previous draw MAGNESIUM BLOODon 08-11-2020 Magnesium [Mass/Vol] 2.2 mg/dL Normal 1.9-2.7 [facility] Comment on above: Order Comment: No: D o not add to previous draw Performed By: #### 1 0070, 76023 #### [facility] [address] [place] [address], [facility] POC GLUCOSE LABon 08-11-2020 Glucose [Mass/Vol] 155 mg/dL High 70-100 [facility] Comment on above: Performed By: #### 8 5499 #### [facility] [address] [place] [address], [place] Glucose [Mass/Vol] 161 mg/dL High 70-100 [facility] Comment on above: Performed By: #### 0 0071, 38087, 84895 #### [facility] [address] [place] [address], [place] Glucose [Mass/Vol] 206 mg/dL High 70-100 [facility] Comment on above: Performed By: #### 0 0071, 92984, 47556 #### [address] [place] [address], [facility] Glucose [Mass/Vol] 172 mg/dL High 70-100 [facility] Comment on above: Performed By: #### 8 5499 #### [facility] [address] [place] [address], [facility] PORTABLE CHEST 1 VIEWon PORTABLE CHEST 1 VIEW [facility] Department of Radiology [address] [place] [id number] Patient Name: RADHA BROWN : 1940 Sex: M Age: Race: White Pt. Location: [id number] Patient Status: I Ordered Date: 08/11/2020 11:10:00 AM Completed Date: 08/11/2020 12:01 PM Requesting Provider: RO LUCAS Attending Provider: RO LUCAS Report Copy To: Signs & Symptoms: Post NG Tube Placement History: See Comments Comments: Check NG Tube Position Exam: PORTABLE CHEST 1 VIEW PORTABLE CHEST 1 VIEW 08/11/2020 12:01 PM CLINICAL INDICATIONS: Post NG Tube Placement TECHNOLOGIST COMMENTS: Post NG tube placement QUESTION FOR THE RADIOLOGIST: Check NG Tube Position PROTOCOL: AP(PA) view was obtained. COMPARISON: October 28, 2018 FINDINGS: An NG tube is been placed with its tip present in the mid to lower esophagus. The heart is enlarged and sternotomy wires are present. Blunting of the left costophrenic angle pleural fluid and lower lobe consolidation. The lungs are otherwise clear. No pneumothorax. IMPRESSION: Tip of NG tube in the mid to lower esophagus and should be advanced approximately 10 cm. This finding was telephoned to the patient's nurse Edyta at 12:18 PM. Pleural fluid and consolidation suggested in left base. Electronically signed: Radha Walter. Transcribed by: [email or web address], User Resident: Electronically Signed by: RADHA WALTER @ 08/11/2020 12:19 PM Normal [facility] Comment on above: Order Comment: No: D o not add to previous draw ABDOMEN SERIES W CHESTon ABDOMEN SERIES W CHEST [facility] Department of Radiology [address] [place] [id number] Patient Name: RADHA BROWN : 1940 Sex: M Age: Race: White Pt. Location: [address] [place] [address] Patient Status: I Ordered Date: 08/10/2020 5:35:00 PM Completed Date: 08/10/2020 06:28 PM Requesting Provider: BRUCE SALGADO Attending Provider: RO LUCAS Report Copy To: Signs & Symptoms: Vomiting History: Comments: Evaluate for Obstruction Exam: ABDOMEN SERIES W CHEST ABDOMEN SERIES W CHEST 08/10/2020 6:28 PM CLINICAL INDICATIONS: Vomiting TECHNOLOGIST COMMENTS:patient states having abdomen pain , Vomiting . QUESTION FOR THE RADIOLOGIST: Evaluate for Obstruction COMPARISON: Chest radiograph 10/28/2018 FINDINGS: Chest: Borderline heart size. Stable distal silhouette and pulmonary vasculature. Midline sternotomy wires. No evidence for pneumothorax, focal consolidation, or pleural effusion. Abdomen: No evidence for free intraperitoneal air. Multiple dilated loops of small bowel throughout the abdomen measuring up to 6 cm in diameter, with air-fluid levels. The colon appears to be decompressed. Moderate stool in the rectum. IMPRESSION: 1. Findings consistent with small bowel obstruction. 2. No evidence for an acute cardiopulmonary process. Electronically signed: Jordi Frausto. Transcribed by: [email or web address], User Resident: Electronically Signed by: JORDI FRAUSTO @ 08/10/2020 06:37 PM Normal [facility] Comment on above: Order Comment: No: D o not add to previous draw BASIC METABOLIC PANELon 05 Calcium [Mass/Vol] 8.6 mg/dL Normal 8.6-10.3 [facility] Comment on above: Order Comment: No: D o not add to previous draw Performed By: #### 1 69, 55979 #### [facility] [address] [place] [address], [place] Chloride [Moles/Vol] 107 mmol/L Normal 98-107 [facility] Comment on above: Order Comment: No: D o not add to previous draw Performed By: #### 1 69, 19002 #### [facility] [address] [place] [address], [place] CO2 [Moles/Vol] 27 mmol/L Normal 21-31 [facility] Comment on above: Order Comment: No: D o not add to previous draw Performed By: #### 1 69, 12118 #### [facility] [address] [place] [address], [place] Creatinine [Mass/Vol] 1.24 mg/dL Normal 0.70-1.30 [facility] Comment on above: Order Comment: No: D o not add to previous draw Performed By: #### 1 69, 12524 #### [facility] [address] [place] [address], [facility] eGFR- non- 56 ml/min/1.73sq m Abnormal >60 [facility] Comment on above: Order Comment: No: D o not add to previous draw Result Comment: Calc ulation may not be valid for patients over 70 years Performed By: #### 1 69, 81163 #### [facility] [address] [place] [address], [facility] GFR/1.73 sq M.predicted among blacks MDRD (S/P/Bld) [Vol rate/Area] mL/min/{1.73_m2} Normal >60 [facility] Comment on above: Order Comment: No: D o not add to previous draw Result Comment: Calc ulation may not be valid for patients over 70 years Performed By: #### 1 69, 37740 #### [facility] [address] [place] [address], [place] Glucose [Mass/Vol] 108 mg/dL High 70-100 [facility] Comment on above: Order Comment: No: D o not add to previous draw Performed By: #### 1 69, 20593 #### [facility] [address] [place] [address], [place] Potassium [Moles/Vol] 3.8 mmol/L Normal 3.5-5.1 [facility] Comment on above: Order Comment: No: D o not add to previous draw Performed By: #### 1 69, 22269 #### [facility] [address] [place] [address], [place] Sodium [Moles/Vol] 142 mmol/L Normal 136-145 [facility] Comment on above: Order Comment: No: D o not add to previous draw Performed By: #### 1 69, 61783 #### [facility] [address] [facility] [place] [address], [facility] Urea nitrogen [Mass/Vol] 29 mg/dL High 7-25 [facility] Comment on above: Order Comment: No: D o not add to previous draw Performed By: #### 1 69, 78540 #### [facility] [address] [place] [address], [facility] CBC W/DIFFon 08-10-2020 ABS IMM GRANS 0.0 10*3/uL Normal 0.0-0.2 The [facility] Comment on above: Order Comment: No: D o not add to previous draw Performed By: #### 1 69, 51453 #### [facility] [address] [facility] [place] [address], [facility] ABS NEUTROPHILS 3.0 10*3/uL Normal 1.6-7.6 [facility] Comment on above: Order Comment: No: D o not add to previous draw Performed By: #### 1 69, 45151 #### [facility] [address] [place] [address], [facility] Basophils (Bld) [#/Vol] 0.0 10*3/uL Normal 0.0-0.2 [facility] Comment on above: Order Comment: No: D o not add to previous draw Performed By: #### 1 69, 68710 #### [facility] [address] [place] [address], [facility] Basophils/100 WBC (Bld) 0.4 % Normal 0.0-1.0 [facility] Comment on above: Order Comment: No: D o not add to previous draw Performed By: #### 1 69, 12984 #### [facility] [address] [place] [address], [facility] Eosinophils (Bld) [#/Vol] 0.4 10*3/uL Normal 0.0-0.5 [facility] Comment on above: Order Comment: No: D o not add to previous draw Performed By: #### 1 69, 66840 #### [facility] [address] [place] [address], [facility] Eosinophils/100 WBC (Bld) 7.7 % High 0.0-6.0 [facility] Comment on above: Order Comment: No: D o not add to previous draw Performed By: #### 1 69, 26011 #### [facility] [address] [place] [address], [facility] Erythrocyte distribution width (RBC) [Ratio] 13.8 % Normal 11.5-15.0 [facility] Comment on above: Order Comment: No: D o not add to previous draw Performed By: #### 1 69, 42649 #### [facility] [address] [place] [id number], [facility] Hematocrit (Bld) [Volume fraction] 33.3 % Low 39.0-50.0 [facility] Comment on above: Order Comment: No: D o not add to previous draw Performed By: #### 1 69, 27537 #### [facility] [address] [facility] [place] [address], [facility] Hemoglobin (Bld) [Mass/Vol] 10.9 g/dL Low 13.0-17.0 [facility] Comment on above: Order Comment: No: D o not add to previous draw Performed By: #### 1 69, 07025 #### [facility] [address] [place] [address], [place] IMM PLATELET FRAC 7.2 % High 0.8-6.3 [facility] Comment on above: Order Comment: No: D o not add to previous draw Performed By: #### 1 69, 37372 #### [facility] [address] [place] [address], [place] IMMATURE GRANS 0.2 % Normal 0.0-1.0 [facility] Comment on above: Order Comment: No: D o not add to previous draw Performed By: #### 1 69, 64460 #### [facility] [address] [facility] [place] [address], [facility] Lymphocytes (Bld) [#/Vol] 1.1 10*3/uL Low 1.2-4.0 [facility] Comment on above: Order Comment: No: D o not add to previous draw Performed By: #### 1 69, 09057 #### [facility] [address] [place] [address], [facility] Lymphocytes/100 WBC (Bld) 21.4 % Normal 20.0-45.0 [facility] Comment on above: Order Comment: No: D o not add to previous draw Performed By: #### 1 69, 53102 #### [facility] [address] [facility] [place] [address], [facility] MCH (RBC) [Entitic mass] 31.6 pg Normal 27.0-33.0 [facility] Comment on above: Order Comment: No: D o not add to previous draw Performed By: #### 1 69, 58530 #### [facility] [address] [facility] [place] [address], [facility] MCHC (RBC) [Mass/Vol] 32.7 g/dL Normal 32.0-35.0 [facility] Comment on above: Order Comment: No: D o not add to previous draw Performed By: #### 1 69, 59654 #### [facility] [address] [facility] [place] [address], [facility] MCV (RBC) [Entitic vol] 96.5 fL Normal 82.0-98.0 [facility] Comment on above: Order Comment: No: D o not add to previous draw Performed By: #### 1 69, 30997 #### [facility] [address] [place] [address], [facility] Monocytes (Bld) [#/Vol] 0.6 10*3/uL Normal 0.1-1.0 [facility] Comment on above: Order Comment: No: D o not add to previous draw Performed By: #### 1 69, 05281 #### [facility] [address] [place] [address], [place] MONOS 11.8 % Normal 5.0-12.0 [facility] Comment on above: Order Comment: No: D o not add to previous draw Performed By: #### 1 69, 37679 #### [facility] [address] [place] [address], [place] Neutrophils/100 WBC (Bld) 58.5 % Normal 40.0-72.0 [facility] Comment on above: Order Comment: No: D o not add to previous draw Performed By: #### 1 69, 69459 #### [facility] [address] [place] [address], [place] Nucleated RBC/100 WBC (Bld) [Ratio] 0 % Normal 0-0 [facility] Comment on above: Order Comment: No: D o not add to previous draw Performed By: #### 1 69, 04326 #### [facility] [address] [place] [address], [place] PLAT CNT 102 10*3/uL Low 150-400 [facility] Comment on above: Order Comment: No: D o not add to previous draw Performed By: #### 1 69, 16554 #### [facility] [address] [place] [address], [place] RBC (Bld) [#/Vol] 3.45 10*6/uL Low 4.20-5.70 [facility] Comment on above: Order Comment: No: D o not add to previous draw Performed By: #### 1 69, 02021 #### [facility] [address] [place] [address], [place] WBC (Bld) [#/Vol] 5.09 10*3/uL Normal 4.00-10.60 [facility] Comment on above: Order Comment: No: D o not add to previous draw Performed By: #### 1 0070, 11429 #### [facility] [address] [place] [address], [facility] Cardiovascular Lab Reporton 08-10-2020 Cardiovascular Lab Report [facility] Patient Name: Radha Brown MR #: [id number] [facility] Physician: Georges Purvis M.D. Department of Service Date: 08/09/2020 Medicine Birthdate: 1940 Division of Room #: 3AB 210521 Cardiology Adult Cardiovascular Services [facility] [address] [facility]. [place] [address] Cardiovascular Laboratory Report CARDIAC CATHETERIZATION REPORT INDICATION: The patient is an 79-year-old man with history of permanent atrial fibrillation, severe symptomatic aortic valve stenosis, diastolic heart failure, status post Watchman left atrial appendage occlusion, coronary artery disease status post bypass surgery in the past, who was evaluated recently in Cardiology Clinic because of worsening symptoms with aortic valve stenosis. He is referred now for a cardiac catheterization in preparation for transcatheter aortic valve replacement. PROCEDURES: 1. Right heart catheterization. 2. Bilateral selective coronary angiography. 3. Graft angiography. 4. Limited right common femoral angiography. METHOD: Procedure was explained to the patient with risks and benefits. He signed informed consent. He was brought to r&d lab technician in a fasting state. The right groin area was prepped and draped in usual fashion. Using micropuncture technique and ultrasound guidance, the right common femoral artery was accessed. The inner cannula angiography was performed followed by upsizing to a 6-Turkmen x 11 cm sheath. Access was obtained using same technique in the right common femoral vein and a 6-Turkmen x 11 cm sheath was placed. A 6-Turkmen Smalls catheter was used for heart catheterization with measurement of pressures and calculation of cardiac output using the estimated Lina method. Smalls catheter was removed. Bilateral selective coronary angiography was then performed using 6-Turkmen JL4 and AR2 diagnostic catheters. The AR2 diagnostic catheter was used for selectively engaging the saphenous venous graft to the PDA, saphenous venous graft to the diagonal, to the ramus, and to the OM3. Angiography was performed. Catheter was exchanged to a 6-Turkmen INDIGO catheter, which was used to selectively engage the left internal mammary artery. Angiography was performed. Catheter was removed. Procedure was concluded. Manual compression applied for hemostasis. He was transferred to the cardiovascular recovery area. TOTAL FLUORO TIME: 13.37 minutes. TOTAL AIR KERMA: 730 mGy. TOTAL CONTRAST VOLUME: 35 mL. HEMODYNAMICS: RA 11, RV 70/1, 10, PA 71/21, mean 42. Pulmonary capillary wedge pressure 25, AO 129/56, mean 81. Cardiac output 8.24. Cardiac index 3.12. PA sat 73%, AO sat 100%. CORONARY ANGIOGRAPHY: This is a right dominant circulation. 1. Left main: Left main arises from left coronary cusp. It bifurcates into left anterior descending and circumflex vessels. Left main has 50% stenosis. 2. Left anterior descending: This is occluded at its ostium. The distal LAD is seen filling via patent IRAHETA graft. The first diagonal branch is seen filling via patent saphenous venous graft. 3. Ramus vessel: This is large and occluded at the ostium. It is seen filling via a patent saphenous venous graft. 4. Circumflex vessel: This is a large size vessel, but is occluded in the mid segment. A 3rd obtuse marginal branch is seen filling via patent saphenous venous graft. 5. Right coronary artery. This arises from the right coronary cusp. It is a large and dominant vessel. It has a 50% ostial stenosis with diffuse disease in the mid segment. Following that, there is 100% occlusion. The distal RCA is seen filling via a patent saphenous venous graft to the PDA. GRAFT ANGIOGRAPHY: 1. IRAHETA to LAD, this graft is widely patent. 2. Saphenous venous graft to the diagonal branch. This graft is widely patent. 3. Saphenous venous graft to the ramus vessel. This graft is widely patent. 4. Saphenous venous graft to the third obtuse marginal branch. This graft is widely patent. 5. Saphenous venous graft to the PDA branch: This graft is widely patent with a 50% mid body stenosis. Limited right common femoral angiography. This showed access to be in the right common femoral artery with no obstructive lesions noted in the femoral artery or its proximal branches. SUMMARY OF THE FINDINGS: 1. Severe 3-vessel coronary artery disease. 2. Patent 5/5 bypass graft. 3. Severely elevated filling pressures. 4. Severe pulmonary hypertension. 5. Preserved cardiac output and cardiac index. 6. The above hemodynamics are consistent with acutely decompensated diastolic heart failure. RECOMMENDATIONS: 1. The patient will be admitted to the hospital for further management of his diastolic heart failure. 2. The patient will proceed with further evaluation for TAVR. 3. Medical therapy for coronary artery disease. Electronically Signed by: (more content not included)... Normal [facility] MAGNESIUM BLOODon 08-10-2020 Magnesium [Mass/Vol] 2.2 mg/dL Normal 1.9-2.7 [facility] Comment on above: Order Comment: No: D o not add to previous draw Performed By: #### 1 [id number], [id number] #### [facility] [address] [place] [address], [place] POC GLUCOSE LABon 08-10-2020 Glucose [Mass/Vol] 163 mg/dL High 70-100 [facility] Comment on above: Performed By: #### [id number] #### [facility] [address] [place] [address], [place] Glucose [Mass/Vol] 167 mg/dL High 70-100 [facility] Comment on above: Performed By: #### 0 [id number], [id number], [id number] #### [facility] [address] [place] [address], [place] Glucose [Mass/Vol] 126 mg/dL High 70-100 [facility] Comment on above: Performed By: #### [id number] #### [facility] [address] [place] [address], [place] Glucose [Mass/Vol] 113 mg/dL High 70-100 [facility] Comment on above: Performed By: #### 0 [id number], [id number], [id number] #### [facility] [address] [place] [address], [place] POC GLUCOSE LABon 08-09-2020 Glucose [Mass/Vol] 163 mg/dL High 70-100 [facility] Comment on above: Performed By: #### [id number] #### [facility] [address] [place] [address], [place] Glucose [Mass/Vol] 140 mg/dL High 70-100 [facility] Comment on above: Performed By: #### [id number] #### [facility] [address] [place] [address], [facility] Encounters Encounter Date Encounter Type Care Provider Facility Start: 03-12-2023 End: 03-12-2023 ambulatory [facility] Start: 01-18-2023 End: 01-18-2023 ambulatory GEORGES [facility] Start: 09-11-2022 End: 09-11-2022 ambulatory [facility] Start: 07-13-2022 End: 07-14-[address] MARIBEL HOGAN . Facility:[facility] Start: 06-06-2022 End: 06-06-2022 [facility] Start: 05-07-2022 End: 05-08-[address] MARIBEL HOGAN . Facility:[facility] Start: 04-18-2022 ambulatory [facility] Start: 03-20-2022 End: 03-20-2022 ambulatory [facility] Start: 02-08-2022 End: 02-08-2022 ambulatory LAURA HERNANDEZ Facility:[facility] Start: 01-11-2022 End: 01-11-2022 ambulatory LAURA HERNANDEZ Facility:[facility] Start: 10-11-2021 End: 10-12-[address] GEORGES PURVIS Facility:[facility] Start: 08-04-2021 End: 08-05-[address] MARIBEL HOGAN . Facility:[facility] Start: 10-11-2020 End: 10-18-2020 Evaluation and management of inpatient PROVIDER UNKNOWN Facility:[facility] Start: 09-13-2020 End: 09-14-2020 ambulatory ASHLEY CRAIG Facility:[facility] Start: 08-09-2020 End: 08-14-2020 Evaluation and management of inpatient PROVIDER UNKNOWN Facility:[facility] Procedures Date Procedure Procedure Detail Performing Clinician Start: 07-13-[address] GEORGES PURVIS Comment on above: Performed By: #### P [facility] ####[facility] [id number] [id number]. Pattie Torres Start: 08-04-[address] GEORGES PURVIS Comment on above: Performed By: #### P SAS ####[facility] [id number] [place], [place] [address]Ez. Pattie Torres Start: 10-17-2020 INSERT PACE, SINGL C HAM IN ABD SUBCU/FASCIA, OPEN HANK SMALLWOOD Start: 10-17-2020 INSERTION OF PACEMAK ER LEAD INTO R VENTRICLE, PERC APPROACH HANK SMALLWOOD Start: 10-12-2020 ULTRASONOGRAPHY OF R IGHT AND LEFT HEART, TRANSESOPHAGEAL KATHY LUA Start: 10-11-2020 Antibody screen PROVIDE R UNKNOWN Comment on above: Performed By: #### [id number] #### [facility] [address] [place] [address], [facility] Start: 10-11-2020 FLUOROSCOPY OF R LOW EXTREM ART USING L OSM CONTRAST GEORGES PURVIS Start: 10-11-2020 FLUOROSCOPY OF THORA CIC AORTA USING LOW OSMOLAR CONTRAST GEORGES PURVIS Start: 10-11-2020 MEASURE OF CARDIAC S AMPL \T\ PRESSURE, L HEART, PERC APPROACH GEORGES PURVIS Start: 10-11-2020 Performance of Cardi ac Pacing, Continuous GEORGES SANCHEZRBNICHOLE Start: 10-11-2020 REPLACEMENT OF AORTI C VALVE WITH ZOOPLASTIC, PERC APPROACH COYD CASTANEDA Start: 10-11-2020 Ultrasonography of R ight Jugular Veins, Guidance GEORGES PURVIS Start: 10-11-2020 ULTRASONOGRAPHY OF R IGHT LOWER EXTREMITY VEINS, GUIDANCE GEORGES PURVIS Start: 08-09-2020 FLUOROSCOPY OF MULT COR A GRAFT USING OTH CONTRAST GEORGES PURVIS Start: 08-09-2020 FLUOROSCOPY OF MULTI PLE CORONARY ARTERIES USING OTH CONTRAST GEORGES Garnica MOUKARBEL Start: 08-09-2020 FLUOROSCOPY OF RIGHT HEART USING OTHER CONTRAST GEORGES V YANIV Start: 08-09-2020 MEASURE OF CARDIAC S AMPL \T\ PRESSURE, R HEART, PERC APPROACH GEORGES Nahun PURVIS Payers Date Payer Category Payer Medicare [id number] 1940 Unknown [id number] 1940 Unknown [id number] [id number] 1940 Unknown [id number] 2.16.8 [id number] 1940 Unknown [id number] 2.16.84 [id number] 1938 Unknown [id number] 2.16.84 [id number] 1938 Unknown [id number] 2.16.84 [id number] 1938 Unknown [id number] 2.16.84 [id number] 1938 Unknown [id number] 2.16.84 [id number] 1940 Unknown [id number] [id number] [id number] Private Health Insurance [facility] [id number] Clinical Notes 08-15-2020 to 01-18-2023 Note Date & Type Note Facility 01-18-2023 Note [place] [facility] Subjective Radha Brown is a 82 y.o. year old male patient being seen for Valve Disorder, Congestive Heart Failure, and Pulmonary Hypertension Patient Active Problem List Diagnosis Thrombocytopenic disorder (CMS/HCC) Chronic combined systolic and diastolic heart failure (CMS/HCC) Pulmonary hypertension (CMS/HCC) Obesity Hypertensive disorder Eruption due to drug Diabetes mellitus (CMS/HCC) Coronary arteriosclerosis Cardiomyopathy (CMS/HCC) Atrial fibrillation (CMS/HCC) Aortic valve stenosis Acute urticaria Tricuspid valve regurgitation Pacemaker Family History Problem Relation Name Age of Onset Hypertension Mother Social History Tobacco Use Smoking status: Never Smokeless tobacco: Never Substance Use Topics Alcohol use: Never Drug use: Never HPI Radha is seen in follow-up. He is an 82-year-old man with complex medical history including atrial fibrillation that is permanent, status post watchman left atrial appendage closure 10/2018, aortic valve stenosis status post TAVR on 10/11/2020 using a COBY S3 29 mm valve, status post pacemaker placement [Single chamber post on RV lead] due to development of left bundle branch block and bradycardia post TAVR, coronary artery disease status post coronary artery bypass surgery, diabetes, hypertension, pulmonary hypertension, heart failure with mildly reduced ejection fraction. in addition to the above he had history of thrombocytopenia around the time of the TAVR procedure. On follow-up his platelet count improved. Today he reports that he has been doing well. He has no angina. He has no shortness of breath. His leg edema has been under good control. He feels good. No palpitations. No bleeding issues. Review of Systems All other systems reviewed and are negative. Objective Visit Vitals BP 158/77 (BP Location: Left arm, Patient Position: Sitting) Pulse 62 Wt 133 kg (293 lb) SpO2 98% BMI 37.62 kg/m??? Smoking Status Never BSA 2.64 m??? Physical Exam Constitutional: Appearance: He is well-developed. He is obese. He is not ill-appearing. HENT: Head: Normocephalic and atraumatic. Nose: Nose normal. Eyes: General: No scleral icterus. Pupils: Pupils are equal, round, and reactive to light. Neck: Thyroid: No thyromegaly. Vascular: No JVD. Cardiovascular: Rate and Rhythm: Normal rate and regular rhythm. Pulses: Radial pulses are 2+ on the right side and 2+ on the left side. Heart sounds: Normal heart sounds. No murmur heard. No friction rub. No gallop. Pulmonary: Effort: Pulmonary effort is normal. No respiratory distress. Breath sounds: Normal breath sounds. No wheezing or rales. Chest: Chest wall: No tenderness. Abdominal: General: Bowel sounds are normal. There is no distension. Palpations: Abdomen is soft. Tenderness: There is no abdominal tenderness. Musculoskeletal: General: No swelling. Cervical back: Neck supple. Right lower le+ Pitting Edema present. Left lower le+ Pitting Edema present. Skin: General: Skin is warm and dry. Neurological: General: No focal deficit present. Mental Status: He is alert and oriented to person, place, and time. Psychiatric: Mood and Affect: Mood normal. Behavior: Behavior is cooperative. Judgment: Judgment normal. Allergies Allergies Allergen Reactions Metformin Medications Current Outpatient Medications: aspirin 81 mg EC tablet, Take 81 mg by mouth., Disp: , Rfl: bumetanide (Bumex) 1 mg tablet, Take 1 mg by mouth in the morning and at bedtime., Disp: , Rfl: dapagliflozin propanediol (Farxiga) 10 mg, Take 1 tablet (10 mg) by mouth in the morning., Disp: 90 tablet, Rfl: 3 ferrous sulfate 325 (65 Fe) MG tablet, 1 (one) time each day at the same time., Disp: , Rfl: glimepiride (Amaryl) 4 mg tablet, Take 4 mg by mouth in the morning., Disp: , Rfl: hydrALAZINE (Apresoline) 100 mg tablet, Take 100 mg by mouth in the morning and at bedtime., Disp: , Rfl: irbesartan (Avapro) 300 mg tablet, Take 300 mg by mouth in the morning., Disp: , Rfl: isosorbide dinitrate (Isordil) 20 mg tablet, Take 20 mg by mouth in the morning and at bedtime., Disp: , Rfl: Januvia 100 mg tablet, Take 100 mg by mouth every other day., Disp: , Rfl: levothyroxine (Synthroid, Levoxyl) 125 mcg tablet, Take 125 mcg by mouth in the morning., Disp: , Rfl: metoprolol succinate XL (Toprol-XL) 100 mg 24 hr tablet, Take 100 mg by mouth in the morning., Disp: , Rfl: omega-3 acid ethyl esters (Lovaza) 1 gram capsule, 4 capsules in the morning., Disp: , Rfl: pantoprazole (ProtoNix) 40 mg EC tablet, Take 40 mg by mouth at bedtime. Do not crush, chew, or split., Disp: , Rfl: potassium chloride CR (Klor-Con) 10 mEq ER tablet, Take 10 mEq by mouth in the morning., Disp: , Rfl: simvastatin (Zocor) 20 mg tablet, Take 20 mg by mouth in the morning., Disp: , Rfl: spironolactone (Aldactone) (more content not included)... [facility] 06-13-2022 Note -single chamber pablo on RV lead -88% RV paced on recent device check -good thresholds and impedence -will need to monitor for pacing induced cardiomyopathy with yearly echo or sooner if symptoms warrant it [facility] 06-13-2022 Note Hypertension is stab le -ct medications [facility] 06-13-2022 Note CAD stable -hx CABG -no chest pain or dyspnea [facility] 06-13-2022 Note -NYHAIIb -compensated, mild LE edema bilaterally which is chronic -ct gdmt: toprol xl 100mg, irbesartan 300mg daily, hydralazine 100mg BID, isordil 20mg BID, bumex 1mg bid [facility] 06-13-2022 Note -permanent, slow paul tricular response -no episodes noted on device check 04/2022 -s/p watchmen 2018 -ct aspirin 81mg [facility] 06-13-2022 Note S/p TAVR 2020 -last echo 10/2021, normal EF, no paravalvular leak -will get repeat echo on follow up in appx 6 months [facility] 06-08-2022 Note [facility] 06-06-2022 Note [place] [facility] Reason for visit: 6 month follow up HPI: Radha Brown is a 81 y.o. year old with past medical history of atrial fibrillation with slow ventricular response, permanent, s/p watchman, aortic valve stenosis s/p TAVR, post TAVR LBBB s/p PPM, CAD s/p CABG, diabetes mellitus type II, HTN, Pulmonary HTN, systolic heart failure, thrombocytopenia, tricuspid regurgitation. He is here for 6 month follow up. He has been doing well with no complaints of chest pain, SOB, COLLAZO, orthopnea, or LE edema. Recent device check shows RV pacing 88% NO AT/AF -- --------- 10/2021 per HPI: Mr. Brown presents to clinic for routine follow up. PMHx: -Atrial fibrillation, permanent, s/p Watchman -Aortic valve stenosis s/p TAVR -Bradycardia s/p PPM -CAD s/p CABG -DM type II -HTN -Pulmonary HTN -Systolic heart failure -Thrombocytopenia -Tricupsid regurg 10/31/2021 -He states he has been feeling well -He is staying active with his gardening -Denies c/o CP, dyspnea, COLLAZO, orthopnea, PND, dizziness/LH, palpitations, bleeding issues -He has chronic LE edema, this is unchanged -- ----- Recent testing: Echo 10/11/2021 1. Left ventricle is mildly dilated with mild eccentric hypertrophy. Left ventricle systolic function is at the lower limits of normal, LVEF is 50 to 55% 2. Normal RV systolic function 3. Severe biatrial dilation 4. Bioprosthetic aortic valve is seen with normal Doppler flows, no valvular or perivalvular regurgitation seen 5. Moderately dilated right-sided pressures, RVSP 48 6. No pericardial effusion 7. The ascending aorta is mildly enlarged Device check 08/22/2021: Normal functioning device, about 8-second nonsustained event of RVR Labs 08/04/2021 CBC: Hemoglobin 12.6, platelet 143 CMP: Creatinine 1.6, BUN 28, K4.3, NA 137, GFR 42, ALT 28, AST 16 Lipids: Cholesterol 143, HDL 62, trig 125, LDL 76 NT proBNP: 1018 TSH: 3.729 Hemoglobin A1c 6.5 Prior testing: Cr 1.35 on 12/17/2018. Watchman procedure 10/27/2018: Successful left atrial appendage closure using a 27 mm Watchman appendage occluder device under echocardiographic and fluoroscopic guidance. SEAN 12/17/2018: Global left ventricular systolic function is normal (Visually estimated EF 55%). The left ventricle is normal size. No regional wall motion abnormality. Left ventricular wall thickness is normal. The left atrium appears enlarged. The right atrium appears enlarged. Moderate aortic cusp calcification is present Restricted opening movement of the aortic valve is present. Severe aortic valve stenosis. Mild aortic valve regurgitation. Mild-moderate tricuspid regurgitation. Doppler studies suggest moderately elevated right sided pressures (elevated pulmonary pressure). Severe atherosclerotic plaque is seen in the aorta. - Well-seated Watchman device seen in the left atrial appendage with no leak noted on color doppler. Small atrial septal defect noted on color doppler with left to right shunt caused by recent atrial septal puncture for Watchman device placement. - The peak instantaneous transvalvular aortic gradient = 47 mmHg with mean gradient = 30 mmHg and aortic valve area = 0.7 to 0.8 cm2. The dimensionless index = 0.2 (less than 0.25 is consistent with severe aortic stenosis.) Echocardiogram 04/16/2019: Global left ventricular systolic function is normal (Visually estimated EF 50-55%). Eccentric left ventricular hypertrophy. No regional wall motion abnormality. Grade 2, moderate diastolic dysfunction (pseudonormalized LV filling pattern). Mild mitral regurgitation. Moderate to severe aortic stenosis. Mean gradient 34 mmHg, peak gradient 65 mmHg, area 1.1 cm???. Mild tricuspid regurgitation. Doppler studies suggest mildly elevated right sided pressures. Echocardiogram 10/14/2019: Normal size left ventricle. Global left ventricular systolic function is normal. The EF is 55 % visually. Left ventricular wall thickness is mildly increased. The septum is abnormal in its motion; maybe due to bundle branch block. Unable to assess diastolic dysfunction. The right ventricle is normal in size. Normal right ventricular systolic function. Doppler studies suggest severely elevated right sided pressures. Severe aortic valve stenosis. Aortic Valve Measurements AV Vmean: 2.97 m/s. AV PGmean: 38.30 mmHg. AV Vmax, Curve: 4.18 m/s. FRANCISCO D (continuity eq. VTI): 1.0 cm???. Compared to the prior study of 04/16/2019 the aortic valve is now severely stenosed with mean gradient increased to 38 mmHg from 33 mmHg and area decreased to 1.0 sqcm and Vmax increased to 4.18 m/s. The RVSP has increased from 41 to 70 mmHg. Blood testing 03/23/2020: Hemoglobin 12.2, platelets 127, potassium 4.2, BUN 29, creatini (more content not included)... [facility] 06-06-2022 Note Patient is here toda y for a 6 month follow up. Review of Systems All other systems reviewed and are negative. [facility] 02-08-2022 Note HISTORY AND PHYSICAL EXAMINATION Date:02/07/2022 HISTORY: The patient is an 81-year-old white male with complaints of declining vision out of his right eye. He believes that over the last year, he has noticed a continued decline in his vision out of his right eye. He has noticed; however, more recently, a rapid decline over the past three months. He states that his far distance vision has been affected so that the television and road signs are not as easily seen. He also states at night time, while driving, headlights create glare and halo. PAST OCULAR HISTORY / PAST MEDICAL HISTORY / SOCIAL HISTORY / MEDICATIONS / ALLERGIES TO MEDICATIONS / REVIEW OF SYSTEMS and PHYSICAL EXAM: Unchanged from previously dictated. ASSESSMENT AND PLAN: 1. Visually significant cataract, right eye. After risks, benefits, alternatives, as well as expectations were delivered to the patient, he elected to go forward with cataract removal. He understands the risks include but not limited to infection, bleeding, loss of vision, loss of the eye itself. Secondly, he understands postoperatively he is likely to require spectacle correction for his best visual acuity. Finally, a complete ophthalmic exam was performed, there is not determined to be any other source of visual decline other than that of the cataract. 2. COVID-19, the patient was briefed in the office and consented for elective cataract surgery in the setting of the pandemic of coronavirus. He understands that he is at heightened risk going into a hospital setting; however, feels that his activities of daily living are depleted severe enough by his cataracts that he is willing to incur this risk and go forward with his elective procedure. [facility] 02-08-2022 Note OPERATIVE NOTE OPERATION DATE: 02/08/2022 SURGEON: Laura Hernandez M.D. PREOPERATIVE DIAGNOSIS: Nuclear sclerotic cataract right eye. POSTOPERATIVE DIAGNOSIS: Nuclear sclerotic cataract right eye. PROCEDURE: Cataract extraction with intraocular lens placed for the right eye. ANESTHESIA: Topical. ESTIMATED BLOOD LOSS: Zero. COMPLICATIONS: Dropped nucleus to the posterior pole right eye. PROCEDURE: The patient was brought to the Operating Room in supine position. After proper identification, the right eye was prepped and draped in a sterile ophthalmic fashion. A paracentesis was created at the 11 o'clock position. Approximately 1 mL of unpreserved Xylocaine was injected into the anterior chamber followed by Amvisc Plus. Using a 2.6 mm Keratome blade, a clear corneal incision was created at the 9 o'clock limbus. A cystotome was then used to begin a curvilinear capsulorrhexis that was continued for 360 degrees with the Utrata forceps. BSS on a 26 gauge cannula was injected beneath the anterior capsule to hydrodissect as well as hydrodelineate the lens. After ensuring mobility, phacoemulsification was instituted and this would be performed in a [id number]-type fashion. All four quadrants were capable of being cracked; however, as the last one was being cracked, it was evident that the lens was moving more posterior than what would be expected of the anterior chamber depth. Flow statuses of the phacoemulsification instrument and the quadrant removal program were decreased and the first quadrant was occluded and elevated. With second hand piece instrument gently bringing the pieces to the phaco unit, this nuclear fragment was removed without difficulty. However, it was seen that a posterior tear in the capsule was evident and two of the remaining three quadrants were right on the edge of falling posteriorly. The second hand piece instrument was removed from the eye with irrigation on and Amvisc Plus was inserted through the paracentesis site, and the posterior tear and its surrounding area was blanketed with Amvisc Plus to tamponade the forward evacuation of any vitreous. The second hand piece instrument was once again inserted into the anterior chamber, and it was used to elevate a second quadrant, that once again could be removed without difficulty. A third quadrant was attempted to be removed in a similar fashion; however, the posterior tear extended and further care was taken to tamponade any anterior movement of vitreous with the Amvisc Plus through the paracentesis site. This was done successfully while Viscoat elevating the third quadrant into the anterior portion of the anterior chamber. The phaco unit was gently used to remove the majority of this; however, several smaller fragments remained suspended in the anterior chamber, but vitreous could not be seen moving anteriorly. A vitrectomy unit was set up in a bimanual fashion, and the paracentesis site was expanded for the site of the irrigation port. This was inserted and a vitrectomy unit was then put through the temporal wound and, when activated, attempts were to remove vitreous seen moving anteriorly, as well as the small fragment that had just been created by the removal of the third quadrant. These had been removed without any being lost to the posterior pole; however, the final quadrant that sat subincisionally could be seen sliding to the posterior pole. Once out of the view, no attempts were made to push posteriorly and try to elevate it, as to a concern for possibly damaging the retina. Further vitrectomy was performed to eliminate what could be seen of any vitreous moving forward. Once it was believed that the anterior chamber had been cleaned out predominantly, the vitrectomy unit was removed from the eye and Amvisc Plus was injected into the anterior chamber to evaluate the status of the anterior capsule. A Kuglen hook was used to push back the iris in all quadrants of the sulcus to visualize the anterior capsule. It was believed that the capsule was intact for 360 degrees; however, there was a question of the integrity of the capsule at the 5 o'clock location, and this would have been the area where the original tear had occurred. The remainder of the anterior capsule was deemed intact. Further Amvisc Plus was injected into the anterior chamber with the focus on the sulcus space. A lens model [id number], 19.0 diopters was then inserted and dialed into the sulcus without difficulty. Attempts were made with the vitrectomy unit with the vacuum on high to evacuate as much of the Amvisc Plus as possible; however, this created the issue of the sulcus lens malpositioning. Once an adequate amount of Amvisc Plus was felt to be removed from the eye, Miochol was injected to bring the pupil down. There was an irregularity to the pupil at the temporal location constituting the likelihood of vitreous being present. Due (more content not included)... [facility] 01-11-2022 Note HISTORY AND PHYSICAL EXAMINATION Date:01/10/2022 HISTORY: The patient is an 81-year-old white male with complaints of declining vision out of his left eye. He states that he believes this has progressed over the last three months; however, knows that it has been difficult to see out of that eye over the last several years. He has difficulty watching television and is bothered by glare. He also has difficulty with reading. Finally, he states having difficulty at night time when driving with headlights creating glare. PAST OCULAR HISTORY: 1. Diabetic retinopathy bilaterally. 2. Cataracts. PAST MEDICAL HISTORY: 1. Coronary artery disease with a history of a coronary artery bypass graft x5 vessels. 2. He has had an aortic valve replacement and a pacemaker placement done. 3. Insulin dependent diabetes mellitus. 4. Hypertension. 5. Hypercholesterolemia. 6. Hypothyroidism. 7. Appendectomy. 8. Tonsillectomy. 9. Vasectomy. SOCIAL HISTORY: Denies tobacco, alcohol or recreational drug abuse. SYSTEMIC MEDICATIONS: Include Januvia, simvastatin, potassium chloride, metoprolol, levothyroxine, hydralazine, glimepiride and aspirin. ALLERGIES: Denies. REVIEW OF SYSTEMS: No pertinent positives. PHYSICAL EXAM: VITALS: Blood pressure measured 156/80 with a respiratory rate of 12 and pulse of 60. GENERAL: He is awake, alert and oriented x3, well developed, well nourished, in no acute distress. HEART: Regular rate and rhythm. LUNGS: Clear bilaterally. ABDOMEN: Soft, non-tender, non-distended. EXTREMITIES: No pitting edema. OPHTHALMIC EXAM: Revealed a visual acuity of 20/50 in the right eye that glared to 20/400 and 20/60 in the left eye that glared to 20/400. Pupils motility, muscle balance, confrontational visual elizabeth within normal limits bilaterally. Pressures measured at 16 bilaterally. Slit lamp exam revealed blepharitis with a severe decrease in tear film bilaterally. Conjunctiva, cornea, anterior chamber and iris were within normal limits bilaterally. Lens status demonstrated a 2+ nuclear sclerosis with 1+ cortical changes and 2+ PSC bilaterally. FUNDUS EXAM: Revealed poor view bilaterally. Optic discs, macula, vessels, periphery and vitreous were within normal limits bilaterally. ASSESSMENT AND PLAN: 1. Visually significant cataract, left eye. After risks, benefits, alternatives, as well as expectations were delivered to the patient, he elected to go forward with cataract removal. He understands the risks include but not limited to infection, bleeding, loss of vision, loss of the eye itself. Secondly, he understands postoperatively he is likely to require spectacle correction for his best visual acuity. Finally, a complete ophthalmic exam was performed, there is not determined to be any other source of visual decline other than that of the cataract. 2. COVID-19, the patient was briefed in the office and consented for elective cataract surgery in the setting of the pandemic of coronavirus. He understands that he is at heightened risk going into a hospital setting; however, feels that his activities of daily living are depleted severe enough by his cataracts that he is willing to incur this risk and go forward with his elective procedure. [facility] 01-11-2022 Note OPERATIVE NOTE OPERATION DATE: 01/11/2022 SURGEON: Laura Hernandez M.D. PREOPERATIVE DIAGNOSIS: Nuclear sclerotic cataract left eye. POSTOPERATIVE DIAGNOSIS: Nuclear sclerotic cataract left eye. PROCEDURE: Cataract extraction with intraocular lens placement of the left eye. ANESTHESIA: Topical ESTIMATED BLOOD LOSS: Zero. COMPLICATIONS: None. PROCEDURE: The patient was brought to the Operating Room in supine position. After proper identification, the left eye was prepped and draped in a sterile ophthalmic fashion. A paracentesis was created at the 5 o'clock position. Approximately 1 mL of unpreserved Xylocaine was injected into the anterior chamber followed by Amvisc Plus. Using a 2.6 mm Keratome blade, a clear corneal incision was created at the 3 o'clock limbus. A cystotome was then used to begin a curvilinear capsulorrhexis that was continued for 360 degrees with the Utrata forceps. BSS on a 26 gauge cannula was injected beneath the anterior capsule to hydrodissect as well as hydrodelineate the lens. After ensuring mobility, phacoemulsification was performed in a [id number]-type fashion. After all nuclear material had been removed from the eye, IA was introduced and all residual cortical material was cleaned up. Additional Amvisc Plus was injected into the posterior bag and a lens model [id number], 21.0 diopters was injected and dialed into position. After ensuring centration, IA was introduced into the anterior chamber and all residual Amvisc Plus was removed from the eye. BSS on a 30 gauge cannula was then injected into the stroma of both the clear corneal incision as well as paracentesis to hydrate the wounds. Additional BSS was injected into the anterior chamber to pressurize the eye at approximately 20 to 22 mmHg by finger tension. 0.1 mL of antibiotic was injected into the anterior chamber and Weck-Chelsi sponges were used to check the wounds to be watertight. One drop of apraclonidine and one drop of prednisolone acetate were placed into the eye and a shield was placed over top. The patient was sent to the postoperative area in satisfactory condition to follow up the following day for postoperative care. [facility] 10-19-2020 Note MR#: [id number] [facility] Pt. Name: Rdaha Brown Admitted: 10/11/2020 Discharged: 10/18/2020 Date of : 1940 Physician: Lemuel Brasher M.D. DISCHARGE SUMMARY PRIMARY DIAGNOSES: Severe Aortic stenosis S/P TAVR, . SECONDARY DIAGNOSES: Afib with slow ventricular response of <40bpm. baseline LBBB, Post TAVR worsening LBBB S/P single chamber Pacemaker ([employer]). Chronic atrial fibrillation s/p watchman, chronic kidney disease, non-insulin diabetes, hypertension, thrombocytopenia PROCEDURE PERFORMED TAVR Pacemaker ADMISSION DATE: Saturday10/11/20 DISCHARGE DATE: Saturday10/18/20 HOSPITAL COURSE: The patient admitted with severe aortic stenosis and underwent TAVR procedure. Due to preprocedure EKG LBBB we retained the temporary pacemaker in place for postop support. Postoperatively, he had worsening of QRS duration. We monitored him in an ICU during that time. He required intermittent backup pacing. The patient was evaluated by Electrophysiology team and they decided to place the pacemaker, which was done on Saturday10/17/20. During the hospital course, the patient developed worsening of his baseline thrombocytopenia. We held his Januvia and the Plavix. We also sent HIT AKBAR assay. We consulted Hematology team as well. They evaluated him in the hospital and they asked to see as outpatient. After stopping his Plavix and Januvia, his platelets went up to 80,000. 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 Serotonin release assay was sent. Hematology will re-evaluate in the outpatient setting. F/u appointment has been made. At the time of discharge, he remained asymptomatic, hemodynamically stable, and surgical sites were okay without any complications. PHYSICAL EXAMINATION: GENERAL: Alert, not in acute distress. NECK: Supple. CARDIOVASCULAR: Normal rate. RESPIRATORY: Lungs are clear to auscultation. GI: Soft, nontender. EXTREMITIES: No pitting edema. Chronic skin changes. DISCHARGE MEDICATIONS: Aspirin 325 mg daily, Bumex 1 mg b.i.d., , levothyroxine 25 mcg daily, Lopressor 50 mg b.i.d., potassium chloride 10 mEq daily, simvastatin 20 mg daily. DISPOSITION: The patient will be discharged home in stable condition. INSTRUCTIONS: His Januvia and Plavix were held due to thrombocytopenia. He will follow up with: 1- Dr Purvis, [place] [facility] for post TAVR f/u 2- EP for pacemaker check 3- Hematology for thrombocytopenia evaluation. F/u on serotonin release assay results in about 1 week. Reviewed By: Lolita Cole MD 10/19/2020 07:44 A Edited and Electronically Signed by: Lemuel Brasher M.D. 10/19/2020 10:38 A Lemuel Brasher M.D. I personally saw this patient on the day of the encounter, performed the langston portion(s) of the service and participated in the management and confirm the resident's documentation. Please note there may be an additional personal documentation from me. Date Dict: 10/18/2020/04:48 P/Lolita Cole MD Date Trans: 10/19/2020 05:10 A/julio cesar [id number] cc: Maribel Hogan M.D. [place] [id number] [facility] [place] [id number] Georges Purvis M.D. Heart Failure/ Transplant Mailstop [address] [facility] [address] [facility] 08-15-2020 Note MR#: [id number] I [facility] Pt. Name: Radha Brown Admitted: 08/09/2020 Discharged: 08/14/2020 Date of : 1940 Physician: Bruce Salgado MD DISCHARGE SUMMARY PRIMARY DIAGNOSES: Acute on chronic diastolic congestive heart failure, small bowel obstruction, acute kidney injury. SECONDARY DIAGNOSES: Chronic atrial fibrillation, chronic kidney disease, non-insulin diabetes, severe aortic stenosis, hypertension. HISTORY OF PRESENT ILLNESS: This patient is an 79-year-old male with past history of chronic atrial fibrillation, status post Watchman, severe aortic stenosis, chronic kidney disease, diastolic congestive heart failure, diabetes, who was admitted for elective left heart cath as a part of workup for TAVR. He was found to have a high wedge pressure of 25. Therefore, the patient was admitted for IV diuresis. HOSPITAL COURSE: 1. Acute on chronic diastolic congestive heart failure, status post right heart cath with wedge of 25. The patient was treated with IV Lasix and discharged on Bumex 1 mg twice a day. The patient is to followed with CHF clinic. We considered spironolactone, but it was deferred due to acute kidney injury. Please address as outpatient. 2. Small bowel obstruction with fecal impaction, status post enema, improved. The patient tolerated regular diet on discharge. 3. Acute kidney injury due to GI loss on overdiuresis, which has improved. Bumex was decreased to 1 mg b.i.d. The patient is to repeat BMP and follow up CHF. 4. Chronic atrial fibrillation, status Watchman device. The patient is not on anticoagulation due to nosebleed. 5. Non-insulin diabetes. We switched his Pioglitazone to Januvia to avoid fluid overload caused by Pioglitazone. 6. Severe aortic stenosis. The patient is schedule scheduled to have TAVR as an outpatient. PHYSICAL EXAMINATION: GENERAL: Alert, not in acute distress. NECK: Supple. CARDIOVASCULAR: Normal rate and irregular rhythm. Systolic murmur. RESPIRATORY: Lungs are clear to auscultation. GI: Soft, nontender. EXTREMITIES: No pitting edema. Chronic skin changes. DISCHARGE MEDICATIONS: Aspirin 325 mg daily, Bumex 1 mg b.i.d., hydralazine 100 mg b.i.d., irbesartan 150 mg daily, Januvia 100 mg daily, levothyroxine 25 mcg daily, Lopressor 50 mg b.i.d., potassium chloride 10 mEq daily, simvastatin 20 mg daily. DISPOSITION: The patient will be discharged home in stable condition. INSTRUCTIONS: His Bumex was reduced to 1 mg b.i.d. due to acute kidney injury. The patient is to repeat BMP next week and follow up with CHF. His. His Pioglitazone was switched to Januvia to avoid fluid overload cause by the Pioglitazone. TIME SPENT: 45 minutes spent with the patient working on discharge planning. Electronically Signed by: Bruce Salgado MD 08/24/2020 08:58 A Bruce Salgado MD Date Dict: 08/15/2020/02:42 P/Bruce Salgado MD Date Trans: 08/15/2020 03:14 P/mmo [id number] cc: Maribel Hogan M.D. [address], [facility] [id number] [facility] Summary Purpose Family History No Family History Records FoundNo Family History Records FoundNo Family History Records FoundNo Family History Records Found Advance Directives No Advanced Directives Records FoundNo Advanced Directives Records FoundNo Advanced Directives Records FoundNo Advanced Directives Records Found Additional Source Comments (unrecognized sect ion and content) No Status Records FoundNo Status Records FoundNo Status Records FoundNo Status Records Found INFORMATION SOURCE (unrecogn ized section and content) DATE CREATED AUTHOR 11/19/2020 [facility] DATE CREATED AUTHOR AUTHOR'S ORGANIZ ATION 11/23/[address] [facility] DATE CREATED AUTHOR AUTHOR'S ORGANIZ ATION 07/22/2022 [facility] DATE CREATED AUTHOR AUTHOR'S ORGANIZ ATION 03/14/2023 [facility] FOR RECORDS PERTAINING TO PATIENTS WHO ARE OR HAVE BEEN ENROLLED IN A CHEMICAL DEPENDENCY/SUBSTANCEABUSE PROGRAM, SOME INFORMATION MAY BE OMITTED. This clinical summary was aggregated from multiple sources. Caution should be exercised in using it in the provision of clinical care. This summary normalizes information from multiple sources, and as a consequence, information in this document may materially change the coding, format and clinical context of patient data. In addition, data may be omitted in some cases. CLINICAL DECISIONS SHOULD BE BASED ON THE PRIMARY CLINICAL RECORDS. [facility]. provides no warranty or guarantee of the accuracy or completeness of information in this document.
--- NOTE | 2023-04-23 08:08 | CA_ITS ---
Patient Name: RADHA WISE MR#: [id number] : 1940 Exam Date: 04/23/2023 Ordering Doctor: DR GEORGES PURVIS M.D. ECHOCARDIOGRAM REPORT PROCEDURE: CA ECHO DOPPLER COMPLETE INDICATIONS: Pulmonary Hypertension, s/p TAVR Luda S3 29 mm. COMPARISON: None. DESCRIPTION: COMPLETE ECHOCARDIOGRAM Real-time transthoracic echocardiography with 2D, M-mode, spectral and color flow Doppler performed. QUALITY: Technical quality was good. LEFT VENTRICLE: Normal chamber size. Mild concentric left ventricular hypertrophy. Global left ventricular systolic function is mildly decreased. LV EF: Visual estimation of left ventricular ejection fraction is 45-50% DIASTOLIC: Not adequately assessed due to heart rhythm. ATRIAL SEPTUM: LEFT ATRIUM: Severe dilatation. RIGHT ATRIUM: Severe dilatation. RIGHT VENTRICLE: Moderate dilatation. Normal right ventricular systolic function. Pacer wire present. TRICUSPID VALVE: Normal mobility and thickness. No stenosis with mild to moderate regurgitation. Mild pulmonary hypertension. RVSP 41 mmHg MITRAL VALVE: Normal mobility and thickness. No evidence of mitral valve stenosis. There is no mitral annular calcification. Trivial mitral regurgitation. AORTIC VALVE: Bio-Prosthetic valve appears well seated in the aortic position with normal doppler flow. Mean gradient 11 mmHg, Vmax 2.2 m/s. Trivial aortic regurgitation. AORTIC ROOT: Normal diameter and appearance. PULMONIC VALVE: Normal thickness and mobility. No stenosis. Trivial regurgitation. PERICARDIUM: No evidence of pericardial effusion. IVC: Collapses with inspirations. Mild dilatation measuring 2.4 cm PLEURA: CONCLUSION: 1. Mild concentric left ventricular hypertrophy with mildly reduced systolic function. LVEF is 45-50%. 2. Moderately dilated right ventricle with normal systolic function. 3. Bioprosthetic TAVR valve is well-seated with normal Doppler flows and trivial regurgitation. 4. Mild to moderate tricuspid regurgitation. 5. Mildly elevated right-sided pressures. RVSP is 41 mmHg. 6. No pericardial effusion. Adult Echocardiography Procedure Report Left Ventricle LVEDD (3.7 - 5.6 cm): 5.59 cm LVESD (2.2 - 4.0 cm): 4.56 cm LVIVS thickness (0.6 - 1.2 cm): 1.34 cm LVPW thickness (0.5 - 1.0 cm): 1.29 cm e': 0.15 m/s E - e': 6.31 LVOT Max Gradient: 3.44 mm[Hg] LVOT Area (cm2): 0.93 m/s Peak Velocity (LVOT): 0.93 m/s Mean Velocity (LVOT): 0.68 m/s LVOT Diameter 2.31 cm Left Ventricular Ejection Fraction: 45-50 % Left Atrium LA Volume Index (2D A2C): 50.18 ml/m2 Left Atrium Systolic Dimension: 5.36 cm Mitral Valve MV E to A Ratio: 153.40 Mitral Valve A-Wave Peak Velocity: 0.01 m/s Mitral Valve E-Wave Peak Velocity: 0.96 m/s Right Ventricle RV Internal Diastolic Dimension: 5.05 cm Aorta AO Root Diam: 3.48 cm Ascending Ao Diam: 3.03 cm Aortic Valve AoV Area (Peak Kristian): 1.90 cm2, 1.80 cm2 AoV Area (VTI): 2.09 cm2, 1.96 cm2 Peak Velocity(Antegrade Flow): 2.16 m/s, 1.80 m/s, 2.18 m/s Peak Gradient(Antegrade Flow): 18.73 mm[Hg], 12.98 mm[Hg], 19.04 mm[Hg] Mean Velocity(Antegrade Flow): 1.59 m/s, 1.27 m/s, 1.46 m/s Mean Gradient(Antegrade Flow): 11.14 mm[Hg], 7.34 mm[Hg], 9.77 mm[Hg] Velocity Time Integral: 52.61 cm, 45.50 cm, 49.71 cm Tricuspid Valve Peak Velocity (Regurgitant Flow): 2.59 m/s, 2.59 m/s, 2.87 m/s, 2.88 m/s Pulmonic Valve Mean Gradient: 2.08 mm[Hg], 2.28 mm[Hg] Mean Velocity: 0.66 m/s, 0.69 m/s Peak Velocity: 1.05 m/s Peak Gradient: 4.10 mm[Hg], 4.78 mm[Hg] Right Atrium Right Atrium Systolic Pressure: 117.99 ml, 117.99 ml Dictated by: Georges Purvis M.D. on 04/23/2023 at 18:11 Approved by: Georges Purvis M.D. on 04/23/2023 at 18:21
== END 2023-04-23 07:04 | disposition home or self-care (01) ==
LOC: CARD 07:03
PROVIDERS: PCP Family Medicine; Visit Provider Internal Medicine Interventional Cardiology
DX: I27.20 Pulmonary hypertension, unspecified (principal)
CPT/HCPCS: 93306; 93356

== ENCOUNTER 2023-05-01 11:08 | Outpatient (OUT) | payer MEDICARE, SELFPAY ==
--- OUTSIDE RECORDS SUMMARY | 2023-05-01 11:21 | XMS_ITS | CCD ---
Author Name Unknown Address [address] [facility] [address] [place] [address] Organization [facility] Care Team Providers Care Intranet Specialist Name Role Phone UNKNOWN, PROVIDER Admitting Unavailable UNKNOWN, PROVIDER Attending Unavailable MARIBEL HOGAN Referring Unavailable HOY, MARIBEL Primary Care Unavailable [place] Procedure Practitioner Unavailab CODY Davis Surgeon Unavailable [place] Procedure Practitioner Unavailab HANK Garcia Surgeon Unavailable [place] Procedure Practitioner Unavailab le UNKNOWN, PROVIDER Surgeon Unavailable [place] Procedure Practitioner Unavailab KATHY Palma Surgeon Unavailable ASHLEY CRAIG Admitting Unavailable ASHLEY CRAIG Attending Unavailable MICKYROBIMARIBEL Referring Unavailable HOYMARIBEL Primary Care Unavailable UNKNOWN, PROVIDER Admitting Unavailable HOY, MARIBEL Referring Unavailable HOYMARIBEL Primary Care Unavailable RO LUCAS Attending Unavailable [place] Procedure Practitioner Unavailab le UNKNOWN, PROVIDER Surgeon [...] (1 source) metFORMIN Drug Allergy 9 [facility] Repository (1 source) metFORMIN; Translations: [METFORMIN] Drug Allergy 3 [facility] Repository (1 source) ALLERGIES NOT ON FILE; Translations: [ALLERGIES NOT ON FILE] Propensity to adverse reactions (disorder) [facility] Repository Problems Active Problems Problem Classification Problem [...] disease (3 sources) Atherosclerotic heart disease of [place] coronary artery without angina pectoris; 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] Onset: 06-06-2022 Chronic [...] Onset: 08-09-2021 Episodic Other aftercare (1 source) retirement (current) use of oral hypoglycemic drugs; 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] Onset: 01-17-2022 Episodic [...] Range Facility Office Visiton 01-18-2023 Follow-up visit [id number] Tyler Brown 1940 M Date Provider Department Center 01/18/2023 GEORGES JONES [facility] Family History Problem Relation Age of Onset Hypertension Mother Family Status - Relation Status Age at Mother Level of Service:34985 [place] OFFICE/OUTPATIENT ESTABLISHED MOD MDM 30-39 MIN Reason for Visit and Comments: 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 Comment on above: Performed By: #### A 1C #### [facility] [address] [address] [address] Pattie Torres CBC AUTO DIFFon 07-13-2022 BASO # 0.0 103/ul Normal 0.0-0.1 [facility] Comment on above: Performed By: #### C BC ####[facility] [address] [address]Dr. Pattie Torres Basophils/100 WBC (Bld) 0.5 % Normal 0.2-2.0 [facility] Comment on above: Performed By: #### C BC ####[facility] [address] [address]DrLeticia Torres EO # 0.4 103/ul Normal 0.0-0.7 [facility] Comment on above: Performed By: #### C BC ####[facility] [address] [address]DrLeticia Torres Eosinophils/100 WBC (Bld) 5.5 % Normal 0.9-7.0 [facility] Comment on above: Performed By: #### C BC ####[facility] [address] [place], [place] [address]Dr. Pattie Torres Erythrocyte distribution width (RBC) [Ratio] 13.0 % Normal 11.0-15.0 [facility] Comment on above: Performed By: #### C BC ####[facility] Em[address]ev[address] [place], [place] [address]Dr. Pattie Torres Hematocrit (Bld) [Volume fraction] 36.1 % Critically low 42.0-54.0 [facility] Comment on above: Performed By: #### C BC ####[facility] V[address] [place], [place] [address]Dr. Pattie Torres Hemoglobin (Bld) [Mass/Vol] 11.8 g/dL Critically low 14.0-18.0 [facility] Comment on above: Performed By: #### C BC ####[facility] R[address] [place], [place] [address]Dr. Pattie Torres IG # 0.02 10e3/ul Normal 0.00-0.03 [facility] Comment on above: Performed By: #### C BC ####[facility] [address] [place], [place] [address]Dr. Pattie Brian IG % 0.3 % Normal 0.0-0.5 [facility] Comment on above: Performed By: #### C BC ####[facility] [address]fp[address]fr[address] [place], [place] [address]Dr. Pattie Torres LYMPH # 1.8 103/ul Normal 1.2-3.8 [facility] Comment on above: Performed By: #### C BC ####[facility] [address] [place], [place] [address]Dr. Merlenery Torres Lymphocytes/100 WBC (Bld) 23.5 % Normal 20.5-60.0 [facility] Comment on above: Performed By: #### C BC ####[facility] [address]up[address]su[address] [place], [place] [address]Dr. Merlenery Torres MANUAL DIFF REQ NO Normal [facility] Comment on above: Performed By: #### C BC ####[facility] [address] [place], [place] [address]Dr. Pattie Torres MCH (RBC) [Entitic mass] 30.3 pg Normal 25.9-34.0 [facility] Comment on above: Performed By: #### C BC ####[facility] [address] [address]Dr. Pattie Torres MCHC (RBC) [Mass/Vol] 32.7 g/dL Normal 29.9-35.2 [facility] Comment on above: Performed By: #### C BC ####[facility] [address] [address]Dr. Pattie Torres MCV (RBC) [Entitic vol] 92.6 fL Normal 80.0-94.0 [facility] Comment on above: Performed By: #### C BC ####[facility] [address] [address]Dr. Pattie Brian MONO # 0.6 103/ul Normal 0.3-0.8 [facility] Comment on above: Performed By: #### C BC ####[facility] [address] [address]Dr. Pattie Brian Monocytes/100 WBC (Bld) 8.0 % Normal 1.7-12.0 [facility] Comment on above: Performed By: #### C BC ####[facility] [address] [address]Dr. Pattie Torres NEUT # 4.7 103/ul Normal 1.4-6.5 [facility] Comment on above: Performed By: #### C BC ####[facility] [address] [address]Dr. Pattie Brian Neutrophils/100 WBC (Bld) 62.2 % Normal 43.0-75.0 [facility] Comment on above: Performed By: #### C BC ####[facility] [address] [address]Dr. Pattie Brian Platelet mean volume (Bld) [Entitic vol] 12.9 fL Normal 9.5-13.5 [facility] Comment on above: Performed By: #### C BC ####[facility] [address]imdoc[address] [place], [place] [address]Ra. Pattie Torres PLT 127 103/ul Critically low 150-450 [facility] Comment on above: Performed By: #### C BC ####[facility] [address]imfvv[address]pr8[address] [place], [place] [address]Qh. Pattie Torres RBC 3.90 106/ul Critically low 4.70-6.[address] [facility] Comment on above: Performed By: #### C BC ####[facility] Dbfx[address]obvzf67[address] [place], [place] [address]Ub. Pattie Torres WBC 7.6 103/ul Normal 4.0-11.0 [facility] Comment on above: Performed By: #### C BC ####[facility] Xxgayrbfoa0960 [place], [place] [address]Va. Pattie Torres FREE THYROXINE INDEX T7on FTI 3.66 Normal 1.30-4.50 [facility] Comment on above: Performed By: #### T 7, CMP, LIPID, TSH ####[facility] Cfmtslpgyp7768 [place], [place] [address]Rp. Pattie Torres T3U 37.0 % Normal 33.0-40.0 [facility] Comment on above: Performed By: #### T 7, CMP, LIPID, TSH ####[facility] Albccmmxas50[address] [place], [place] [address]CuLeticia Torres T4 [Mass/Vol] 9.90 ug/dL Normal 4.50-12.10 [facility] Comment on above: Performed By: #### T 7, CMP, LIPID, TSH ####[facility] [address]qnbmc[address]cl0139 [place], [place] [address]TgLeticia Torres GLYCOHEMOGLOBIN A1Con 2022 ADA RECOMMENDATION SEE BELOW Normal [facility] Comment on above: Result Comment: ADA RECOMMENDED LIMIT 4.0 - 6.0 ADA THERAPEUTIC TARGET < 7.0 ACTION SUGGESTED > 7.0 Performed By: #### A 1C #### [facility] [address] [place], [place] [address] Dr. Pattie Torres Glucose [Mass/Vol] 148 mg/dL Normal [facility] Comment on above: Performed By: #### A 1C #### [facility] [address] [place], [place] [address] Dr. Pattie Torres HbA1c (Bld) [Mass fraction] 6.8 % Critically high 4.5-6.2 [facility] Comment on above: Performed By: #### A 1C #### [facility] [address] [place], [place] [address] Dr. Pattie Torres LIPID PROFILEon 07-13-2022 CHOL-HDL RATIO NORM SEE BELOW Normal [facility] Comment on above: Result Comment: 3.3 - 4.4 LOW RISK 4.4 - 7.1 AVERAGE RISK 7.1 - 11.0 MODERATE RISK >11.0 HIGH RISK Performed By: #### T 7, CMP, LIPID, TSH ####[facility] [address] [address]DrLeticia Torres Cholesterol [Mass/Vol] 114 mg/dL Normal <=200 [facility] Comment on above: Performed By: #### T 7, CMP, LIPID, TSH ####[facility] [address] [address]DrLeticia Torres Cholesterol in HDL [Mass/Vol] 32 mg/dL Critically low 40-60 [facility] Comment on above: Performed By: #### T 7, CMP, LIPID, TSH ####[facility] Ifpgwuwffc2117 [place], [place] [address]PoLeticia Torres Cholesterol in LDL [Mass/Vol] 60.0 mg/dL Normal [facility] Comment on above: Performed By: #### T 7, CMP, LIPID, TSH ####[facility] Kbeeglrvlf6685 [place], [place] [address]OtLeticia Torres Cholesterol.total/Cho lesterol in HDL [Mass ratio] 3.6 {ratio} Normal [facility] Comment on above: Performed By: #### T 7, CMP, LIPID, TSH ####[facility] Ilyqoyexag08[address] [place], [place] [address]SaLeticia Torres HDL NORMAL > or = 60 mg/dl - LO W CARDIOVASCULAR RISK <40 mg/dl - HIGH CARDIOVASCULAR RISK Normal [facility] Comment on above: Performed By: #### T 7, CMP, LIPID, TSH ####[facility] [address] [address]Dr. Pattie Torres LDL CALC NORMAL SEE BELOW Normal [facility] Comment on above: Result Comment: <100 mg/dl OPTIMAL 100 - 129 mg/dl NEAR OR ABOVE OPTIMAL 130 - 159 mg/dl BORDERLINE HIGH 160 - 189 mg/dl HIGH >190 mg/dl VERY HIGH Performed By: #### T 7, CMP, LIPID, TSH ####[facility] [address] [address]Dr. Pattie Torres Triglyceride [Mass/Vol] 110 mg/dL Normal <=150 [facility] Comment on above: Performed By: #### T 7, CMP, LIPID, TSH ####[facility] [address] [address]Dr. Pattie Torres VLDL CALC 22.0 mg/dL Normal [facility] Comment on above: Performed By: #### T 7, CMP, LIPID, TSH ####[facility] [address] [address]Dr. Pattie Torres PROF 14(COMP METB)on 023 Albumin [Mass/Vol] 3.4 g/dL Normal 3.4-5.0 [facility] Comment on above: Performed By: #### T 7, CMP, LIPID, TSH ####[facility] [address]fr[address] [address]Dr. Pattie Torres Albumin/Globulin [Mass ratio] 0.9 {ratio} Normal [facility] Comment on above: Performed By: #### T 7, CMP, LIPID, TSH ####[facility] [address] [address]Dr. Pattie Torres ALP [Catalytic activity/Vol] 68 U/L Normal 46-116 [facility] Comment on above: Performed By: #### T 7, CMP, LIPID, TSH ####[facility] [address]ro[address]vmj[address] [address]Dr. Pattie Torres ALT [Catalytic activity/Vol] 20 U/L Normal 16-63 [facility] Comment on above: Performed By: #### T 7, CMP, LIPID, TSH ####[facility] [address]cemmpi[address] [address]Dr. Pattie Torres Anion gap [Moles/Vol] 11.0 mmol/L Normal [facility] Comment on above: Performed By: #### T 7, CMP, LIPID, TSH ####[facility] [address]gg[address] [address]Dr. Pattie Torres AST [Catalytic activity/Vol] 12 U/L Critically low 15-37 [facility] Comment on above: Performed By: #### T 7, CMP, LIPID, TSH ####[facility] [address]cukiy[address] [address]Dr. Pattie Torres Bilirubin [Mass/Vol] 1.0 mg/dL Normal 0.2-1.0 [facility] Comment on above: Performed By: #### T 7, CMP, LIPID, TSH ####[facility] [address]we[address]ae[address] [address]Dr. Pattie Torres Calcium [Mass/Vol] 8.6 mg/dL Normal 8.5-10.1 [facility] Comment on above: Performed By: #### T 7, CMP, LIPID, TSH ####[facility] [address]ty[address] [address]Dr. Pattie Torres Chloride [Moles/Vol] 107 mmol/L Normal 98-107 [facility] Comment on above: Performed By: #### T 7, CMP, LIPID, TSH ####[facility] [address] [address]Dr. Pattie Torres CO2 [Moles/Vol] 28.6 mmol/L Normal 21.0-32.0 [facility] Comment on above: Performed By: #### T 7, CMP, LIPID, TSH ####[facility] [address]up[address] [address]Dr. Pattie Torres Creatinine [Mass/Vol] 1.25 mg/dL Normal 0.70-1.30 [facility] Comment on above: Performed By: #### T 7, CMP, LIPID, TSH ####[facility] [address]spivec[address] [address]Dr. Pattie Torres EGFR-AF ANGUILLAN >60 Normal >=[address] [facility] Comment on above: Performed By: #### T 7, CMP, LIPID, TSH ####[facility] [address]ok[address] [address]Dr. Pattie Torres EGFR-NON AF ANGUILLAN 55 mL/min/1.73m2 Critically low >=60 [facility] Comment on above: Performed By: #### T 7, CMP, LIPID, TSH ####[facility] [address] [address]Dr. Pattie Torres Globulin (S) [Mass/Vol] 3.7 g/dL Normal [facility] Comment on above: Performed By: #### T 7, CMP, LIPID, TSH ####[facility] V[address]ewkgk[address] [address]Dr. Merlenery Brian Glucose [Mass/Vol] 151 mg/dL Critically high 74-106 [facility] Comment on above: Performed By: #### T 7, CMP, LIPID, TSH ####[facility] [address] [place], [place] [address]Dr. Merlenery Torres Potassium [Moles/Vol] 3.6 mmol/L Normal 3.5-5.1 [facility] Comment on above: Performed By: #### T 7, CMP, LIPID, TSH ####[facility] [address] [address]Dr. Pattie Torres Protein [Mass/Vol] 7.1 g/dL Normal 6.4-8.2 [facility] Comment on above: Performed By: #### T 7, CMP, LIPID, TSH ####[facility] Hy[address] [place], [place] [address]Dr. Pattie Torres Sodium [Moles/Vol] 143 mmol/L Normal 136-145 [facility] Comment on above: Performed By: #### T 7, CMP, LIPID, TSH ####[facility] [address]zutegs[address] [place], [place] [address]Dr. Pattie Torres Urea nitrogen [Mass/Vol] 22.0 mg/dL Critically high 7.0-18.0 [facility] Comment on above: Performed By: #### T 7, CMP, LIPID, TSH ####[facility] Gzeszmmtlp9055 [place], [place] [address]Wf. Pattie Torres Urea nitrogen/Creatinine [Mass ratio] 17.6 mg/mg Normal [facility] Comment on above: Performed By: #### T 7, CMP, LIPID, TSH ####[facility] Lmtfmycapq9068 [place], [place] [address]Ef. Pattie Torres TSHon 07-13-2022 TSH 1.869 uIU/mL Normal 0.358-3.740 [facility] Comment on above: Performed By: #### T 7, CMP, LIPID, TSH ####[facility] [address] [place], [place] [address]Om. Pattie Torres Orders Onlyon 06-08-2022 Orders Only [id number] Tyler Brown 1940 M Date Provider Department Center 06/08/2022 GONSALO MALONE SAWYER [facility] Family History Problem Relation Age of Onset Hypertension Mother Family Status - Relation Status Age at Mother Normal [facility] Office Visiton 06-06-2022 Follow-up visit [id number] Tyler Brown 1940 M Date Provider Department Center 06/06/2022 NUPUR GEORGE SAWYER [facility] Family History Problem Relation Age of Onset Hypertension Mother Family Status - Relation Status Age at Mother Level of Service:17312 [place] OFFICE/OUTPATIENT ESTABLISHED LOW MDM 20-29 MIN Reason for Visit and Comments: Follow-up [314516] - 6 month follow up Normal [facility] US SINGLE QUAD RT UPPERon US SINGLE [...] by: CODY CAMARA Date: 2022-05-07 16:[address] [facility] ECHOCARDIO M/2D COMPLETEon 0 10-11-2021 ECHOCARDIO M/2D COMPLETE Patient: RADHA BROWN Exam Date: 10/11/2021 : 1940 Gender:M Ordering : DR GEORGES PURVIS M.D. Admission #: [id number] Family : Order #: [id number] CLICK HERE TO VIEW EXAM ECHOCARDIOGRAM REPORT [...] Purvis M.D. on 10/11/2021 at 20:[address] [facility] INSULINon 08-05-2021 Insulin 12.2 uIU/mL Normal 2.6-24.9 [facility] Comment on above: Performed By: #### I NSULIN ####[facility] [address] [place] [address]DrLeticia Torres BNPon 08-04-2021 Natriuretic peptide B (Bld) [Mass/Vol] 1018.0 pg/mL Normal <=1,800.0 [facility] Comment on above: Performed By: #### B STAFF ANESTHESIOLOGIST, URIC, TSH, T7, LIPID, CMP #### [facility] [address] [address] [address] Pattie Torres CBC AUTO DIFFon 08-04-2021 BASO # 0.0 103/ul Normal 0.0-0.1 [facility] Comment on above: Performed By: #### C BC ####[facility] [address] [place], [place] [address]DrLeticia Torres Basophils/100 WBC (Bld) 0.4 % Normal 0.2-2.0 [facility] Comment on above: Performed By: #### C BC ####[facility] [address] [place] [address]DrLeticia Torres EO # 0.5 103/ul Normal 0.0-0.7 [facility] Comment on above: Performed By: #### C BC ####[facility] [address] [place] [address]DrLeticia Torres Eosinophils/100 WBC (Bld) 7.1 % Critically high 0.9-7.0 [facility] Comment on above: Performed By: #### C BC ####[facility] [address]sext[address] [place], [place] [address]DrLeticia Torres Erythrocyte distribution width (RBC) [Ratio] 13.1 % Normal 11.0-15.0 [facility] Comment on above: Performed By: #### C BC ####[facility] [address]cfus[address] [place], [place] [address]DrLeticia Torres Hematocrit (Bld) [Volume fraction] 39.2 % Critically low 42.0-54.0 [facility] Comment on above: Performed By: #### C BC ####[facility] [address] [place] [address]Dr. Pattie Torres Hemoglobin (Bld) [Mass/Vol] 12.6 g/dL Critically low 14.0-18.0 [facility] Comment on above: Performed By: #### C BC ####[facility] [address] [place] [address]Dr. Pattie Torres IG # 0.03 10e3/ul Normal 0.00-0.03 [facility] Comment on above: Performed By: #### C BC ####[facility] [address]maz[address]w36[address] [place] [address]Dr. Pattie Torres IG % 0.4 % Normal 0.0-0.5 [facility] Comment on above: Performed By: #### C BC ####[facility] [address]xfwds[address] [place], [place] [address]Dr. Pattie Torres LYMPH # 2.3 103/ul Normal 1.2-3.8 [facility] Comment on above: Performed By: #### C BC ####[facility] [address]reunltxe[address] [place] [address]Dr. Pattie Torres Lymphocytes/100 WBC (Bld) 31.7 % Normal 20.5-60.0 [facility] Comment on above: Performed By: #### C BC ####[facility] [address] [place] [address]Dr. Pattie Torres MANUAL DIFF REQ NO Normal [facility] Comment on above: Performed By: #### C BC ####[facility] [address]jxbulmzfk6[address] [place] [address]Dr. Pattie Torres MCH (RBC) [Entitic mass] 30.5 pg Normal 25.9-34.0 [facility] Comment on above: Performed By: #### C BC ####[facility] [address]ijl[address] [place] [address]Dr. Pattie Torres MCHC (RBC) [Mass/Vol] 32.1 g/dL Normal 29.9-35.2 [facility] Comment on above: Performed By: #### C BC ####[facility] [address]otrgqix[address] [place] [address]Dr. Pattie Torres MCV (RBC) [Entitic vol] 94.9 fL Critically high 80.0-94.0 [facility] Comment on above: Performed By: #### C BC ####[facility] [address]infibfgsz[address] [place] [address]Dr. Pattie Torres MONO # 0.6 103/ul Normal 0.3-0.8 [facility] Comment on above: Performed By: #### C BC ####[facility] Nmojhamnff23[address] [place] [address]Dr. Pattie Torers Monocytes/100 WBC (Bld) 9.0 % Normal 1.7-12.0 [facility] Comment on above: Performed By: #### C BC ####[facility] [address]ropistf[address] [place], [place] [address]Dr. Pattie Torres NEUT # 3.7 103/ul Normal 1.4-6.5 [facility] Comment on above: Performed By: #### C BC ####[facility] [address]yj[address]owm[address] [place] [address]Dr. Pattie Torres Neutrophils/100 WBC (Bld) 51.4 % Normal 43.0-75.0 [facility] Comment on above: Performed By: #### C BC ####[facility] [address] [place], [place] [address]Dr. Pattie Torres Platelet mean volume (Bld) [Entitic vol] 12.3 fL Normal 9.5-13.5 [facility] Comment on above: Performed By: #### C BC ####[facility] [address]xephg[address] [place] [address]Dr. Pattie Torres PLT 143 103/ul Critically low 150-450 [facility] Comment on above: Performed By: #### C BC ####[facility] Vrbrjsqznd[address] [place] [address]Dr. Pattie Brian RBC 4.13 106/ul Critically low 4.70-6.[address] [facility] Comment on above: Performed By: #### C BC ####[facility] Qrszgunivo2599 [place], [place] [address]YfDr. Pattie Torres WBC 7.1 103/ul Normal 4.0-11.0 [facility] Comment on above: Performed By: #### C BC ####[facility] Ejlklinugx9763 [place], [place] [address]ArDr. Pattie Torres FREE THYROXINE INDEX T7on FTI 3.33 Normal [facility] Comment on above: Performed By: #### B STAFF ANESTHESIOLOGIST, URIC, TSH, T7, LIPID, CMP #### [facility] [address] [address] [address] Pattie Torres T3U 35.0 % Normal 23.5-40.5 [facility] Comment on above: Performed By: #### B STAFF ANESTHESIOLOGIST, URIC, TSH, T7, LIPID, CMP #### [facility] [address] [place] [address] Dr. Pattie Torres T4 [Mass/Vol] 9.50 ug/dL Normal 4.50-12.10 [facility] Comment on above: Performed By: #### B STAFF ANESTHESIOLOGIST, URIC, TSH, T7, LIPID, CMP #### [facility] [address] [place] [address] Dr. Pattie Torres GLYCOHEMOGLOBIN A1Con 2021 ADA RECOMMENDATION SEE BELOW Normal [facility] Comment on above: Result Comment: ADA RECOMMENDED LIMIT 4.0 - 6.0 ADA THERAPEUTIC TARGET < 7.0 ACTION SUGGESTED > 7.0 Performed By: #### A 1C #### [facility] [address] [place] [address] Dr. Pattie Torres Glucose [Mass/Vol] 140 mg/dL Normal [facility] Comment on above: Performed By: #### A 1C #### [facility] [address] [place] [address] Dr. Pattie Torres HbA1c (Bld) [Mass fraction] 6.5 % Critically high 4.5-6.2 [facility] Comment on above: Performed By: #### A 1C #### [facility] [address] [place] [address] Dr. Pattie Torres LIPID PROFILEon 08-04-2021 CHOL-HDL RATIO NORM SEE BELOW Normal [facility] Comment on above: Result Comment: 3.3 - 4.4 LOW RISK 4.4 - 7.1 AVERAGE RISK 7.1 - 11.0 MODERATE RISK >11.0 HIGH RISK Performed By: #### B STAFF ANESTHESIOLOGIST, URIC, TSH, T7, LIPID, CMP #### [facility] [address] [address] [address] Pattie Torres Cholesterol [Mass/Vol] 143 mg/dL Normal <=200 [facility] Comment on above: Performed By: #### B STAFF ANESTHESIOLOGIST, URIC, TSH, T7, LIPID, CMP #### [facility] [address] [place] [address] Dr. Pattie Torres Cholesterol in HDL [Mass/Vol] 42 mg/dL Normal 40-60 [facility] Comment on above: Performed By: #### B STAFF ANESTHESIOLOGIST, URIC, TSH, T7, LIPID, CMP #### [facility] [address] [place] [address] Dr. Pattie Torres Cholesterol in LDL [Mass/Vol] 76.0 mg/dL Normal [facility] Comment on above: Performed By: #### B STAFF ANESTHESIOLOGIST, URIC, TSH, T7, LIPID, CMP #### [facility] [address] [place] [address] Dr. Pattie Torres Cholesterol.total/Cho lesterol in HDL [Mass ratio] 3.4 {ratio} Normal [facility] Comment on above: Performed By: #### B STAFF ANESTHESIOLOGIST, URIC, TSH, T7, LIPID, CMP #### [facility] [address] [place] [address] Dr. Pattie Torres HDL NORMAL > or = 60 mg/dl - LO W CARDIOVASCULAR RISK <40 mg/dl - HIGH CARDIOVASCULAR RISK Normal [facility] Comment on above: Performed By: #### B STAFF ANESTHESIOLOGIST, URIC, TSH, T7, LIPID, CMP #### [facility] [address] [place] [address] Dr. Pattie Torres LDL CALC NORMAL SEE BELOW Normal [facility] Comment on above: Result Comment: <100 mg/dl OPTIMAL 100 - 129 mg/dl NEAR OR ABOVE OPTIMAL 130 - 159 mg/dl BORDERLINE HIGH 160 - 189 mg/dl HIGH >190 mg/dl VERY HIGH Performed By: #### B STAFF ANESTHESIOLOGIST, URIC, TSH, T7, LIPID, CMP #### [facility] [address] [address] [address] Pattie Torres Triglyceride [Mass/Vol] 125 mg/dL Normal <=150 [facility] Comment on above: Performed By: #### B STAFF ANESTHESIOLOGIST, URIC, TSH, T7, LIPID, CMP #### [facility] [address] [address] [address] Pattie Torres VLDL CALC 25.0 mg/dL Normal [facility] Comment on above: Performed By: #### B STAFF ANESTHESIOLOGIST, URIC, TSH, T7, LIPID, CMP #### [facility] [address] [place] [address] Dr. Pattie Torres PROF 14(COMP METB)on 022 Albumin [Mass/Vol] 3.8 g/dL Normal 3.4-5.0 [facility] Comment on above: Performed By: #### B STAFF ANESTHESIOLOGIST, URIC, TSH, T7, LIPID, CMP #### [facility] [address] [address] [address] Pattie Torres Albumin/Globulin [Mass ratio] 1.0 {ratio} Normal [facility] Comment on above: Performed By: #### B STAFF ANESTHESIOLOGIST, URIC, TSH, T7, LIPID, CMP #### [facility] [address] [address] [address] Pattie Torres ALP [Catalytic activity/Vol] 86 U/L Normal 46-116 [facility] Comment on above: Performed By: #### B STAFF ANESTHESIOLOGIST, URIC, TSH, T7, LIPID, CMP #### [facility] [address] [address] [address] Pattie Torres ALT [Catalytic activity/Vol] 28 U/L Normal 16-63 [facility] Comment on above: Performed By: #### B STAFF ANESTHESIOLOGIST, URIC, TSH, T7, LIPID, CMP #### [facility] [address] [address] [address] Pattie Torres Anion gap [Moles/Vol] 8.8 mmol/L Normal [facility] Comment on above: Performed By: #### B STAFF ANESTHESIOLOGIST, URIC, TSH, T7, LIPID, CMP #### [facility] [address] [place] [address] Dr. Pattie Torres AST [Catalytic activity/Vol] 16 U/L Normal 15-37 [facility] Comment on above: Performed By: #### B STAFF ANESTHESIOLOGIST, URIC, TSH, T7, LIPID, CMP #### [facility] [address] [place] [address] Dr. Pattie Torres Bilirubin [Mass/Vol] 1.0 mg/dL Normal 0.2-1.0 [facility] Comment on above: Performed By: #### B STAFF ANESTHESIOLOGIST, URIC, TSH, T7, LIPID, CMP #### [facility] [address] [place] [address] Dr. Pattie Torres Calcium [Mass/Vol] 8.4 mg/dL Critically low 8.5-10.1 [facility] Comment on above: Performed By: #### B STAFF ANESTHESIOLOGIST, URIC, TSH, T7, LIPID, CMP #### [facility] [address] [place] [address] Dr. Pattie Torres Chloride [Moles/Vol] 101 mmol/L Normal 98-107 [facility] Comment on above: Performed By: #### B STAFF ANESTHESIOLOGIST, URIC, TSH, T7, LIPID, CMP #### [facility] [address] [place] [address] Dr. Pattie Torres CO2 [Moles/Vol] 31.5 mmol/L Normal 21.0-32.[address] [facility] Comment on above: Performed By: #### B STAFF ANESTHESIOLOGIST, URIC, TSH, T7, LIPID, CMP #### [facility] [address] [place] [address] Dr. Pattie Torres Creatinine [Mass/Vol] 1.60 mg/dL Critically high 0.70-1.30 [facility] Comment on above: Performed By: #### B STAFF ANESTHESIOLOGIST, URIC, TSH, T7, LIPID, CMP #### [facility] [address] [place] [address] Dr. Pattie Torres EGFR-AF ANGUILLAN 50 mL/min/1.73m2 Critically low >=60 [facility] Comment on above: Performed By: #### B STAFF ANESTHESIOLOGIST, URIC, TSH, T7, LIPID, CMP #### [facility] [address] [place] [address] Dr. Pattie Torres EGFR-NON AF ANGUILLAN 42 mL/min/1.73m2 Critically low >=60 [facility] Comment on above: Performed By: #### B STAFF ANESTHESIOLOGIST, URIC, TSH, T7, LIPID, CMP #### [facility] [address] [place] [address] Dr. Pattie Torres Globulin (S) [Mass/Vol] 3.8 g/dL Normal [facility] Comment on above: Performed By: #### B STAFF ANESTHESIOLOGIST, URIC, TSH, T7, LIPID, CMP #### [facility] [address] [place] [address] Dr. Pattie Torres Glucose [Mass/Vol] 143 mg/dL Critically high 74-106 [facility] Comment on above: Performed By: #### B STAFF ANESTHESIOLOGIST, URIC, TSH, T7, LIPID, CMP #### [facility] [address] [place] [address] Dr. Pattie Torres Potassium [Moles/Vol] 4.3 mmol/L Normal 3.5-5.1 [facility] Comment on above: Performed By: #### B STAFF ANESTHESIOLOGIST, URIC, TSH, T7, LIPID, CMP #### [facility] [address] [place] [address] Dr. Pattie Torres Protein [Mass/Vol] 7.6 g/dL Normal 6.1-8.2 [facility] Comment on above: Performed By: #### B STAFF ANESTHESIOLOGIST, URIC, TSH, T7, LIPID, CMP #### [facility] [address] [place] [address] Dr. Pattie Torres Sodium [Moles/Vol] 137 mmol/L Normal 136-145 [facility] Comment on above: Performed By: #### B STAFF ANESTHESIOLOGIST, URIC, TSH, T7, LIPID, CMP #### [facility] [address] [place] [address] Dr. Pattie Torres Urea nitrogen [Mass/Vol] 28.0 mg/dL Critically high 7.0-18.0 [facility] Comment on above: Performed By: #### B STAFF ANESTHESIOLOGIST, URIC, TSH, T7, LIPID, CMP #### [facility] [address] [place] [address] Dr. Pattie Torres Urea nitrogen/Creatinine [Mass ratio] 17.5 mg/mg Normal [facility] Comment on above: Performed By: #### B STAFF ANESTHESIOLOGIST, URIC, TSH, T7, LIPID, CMP #### [facility] [address] [place] [address] Dr. Pattie Torres TSHon 08-04-2021 TSH 3.729 uIU/mL Normal 0.470-4.680 [facility] Comment on above: Performed By: #### B STAFF ANESTHESIOLOGIST, URIC, TSH, T7, LIPID, CMP #### [facility] [address] [place] [address] Dr. Pattie Torres TSH RANGE SEE BELOW Normal [facility] Comment on above: Result Comment: <0.3 4 UIU/ml HYPERTHYROID 0.34-5.60 UIU/ml EUTHYROID >5.60 UIU/ml HYPOTHYROID Performed By: #### B STAFF ANESTHESIOLOGIST, URIC, TSH, T7, LIPID, CMP #### [facility] [address] [place] [address] Dr. Pattie Torres URIC ACID SERUMon 08-04-2021 Urate [Mass/Vol] 8.3 mg/dL Normal 3.5-8.[address] [facility] Comment on above: Performed By: #### B STAFF ANESTHESIOLOGIST, URIC, TSH, T7, LIPID, CMP #### [facility] [address] [place] [address] Dr. Pattie Torres Coding Summary.on 11-22-2020 Coding Summary. CD:[id number] G h0bWw+PGhlYWQ+FG7ZTKH nJ92dxMKsaV6KP9hCUF8Z SBDPLCUYEN0LBU5zeOC3Y KdeR7TtiyWw VkoucTAxJP41ZVg8IYF8w XfhLWeriY7tyKCbW4o8Ax EjFY84sC30FKjvHQToOlU 3LjZpbjsgbWFy Q1mxUkSetPHcZpz+PHRhY mxlIHdpZHRoPScxMDAlJy BilPsoGJ7fUq8jTRElPRR vbGxhcHNlOiBj i5zdTFAyUSbmNQ3vnMwvJ 3TnqGY3BXHja1o1Ls67hN I+YLZfLXZ9lLjnJQvoc65 2OyOgn6qjOSA9 dGFfHEaxAKK1P00rl1D1B JWbKFNyIYI3mIY3pU7rtV mzqlguN5TlnLBrQdD0SUC 0eMZyeP2vfZhn qxogtA8sEzq+U42AGY0TR DXQXK5ITjm9V8TdGmlmyY I+GH58IMLbGL07jLMinJW co3nwnQh5HvAg TOYmFTW1rJhxQZnvj0QwE TViM97djBImt8S5IHJvrU kvtNRvLbLxlZZ0qT2oRVk myhhlh3oudtle Bbehr6daii89mX83F42jP ZeeBRNiAZB1ODMeGGHvfF oxrx0mxR9xHp1+CNgvt6d oi5kowPb2XfJt FVIsgwSqtRkfHSS7a3JqQ s22S0GzwAgnh7QkVwz7ju 83fPQvm9D9iRU0RRrzYFU vkZ2jFHgoJfM5 HKYkUcBahR77iFCkVFqtL v3smYttoJryQH5eOJJndn yrPCWkuD9mKOFweQHiaBn lXA5gXWXjzmxc t872GrFsNJS5LBQoyPQdM 2ExmK7jJxUhXIRhJLFxR1 YaeYPtXCyeC105SLzlHaK 1NEXcifVhN7Wc EAOxmYimSdX6j2X0Mp3Kw 4QzsjznRKY1PBsyAGJ2Nu K1McGxCmZ6K3VdHer0XYT tpFmmDO9sL9Hj EINvobioqcaduGB1IEIlT GEvrJ63yYVhOYwlJa0ho8 Z8c364ZCZbJKBxoZ11Iu1 udDogMTBwdCBU sY9bzsrcy9wvpdayUrPgE FBaVYx4GHl8MVFjvTioJo YuKIQ3DzR1DEW1iJDwlS5 acInkldethX0g Oyc+Q36nmB3uJNV9KUE2h msqIXGragZnYY22TT09B0 RyPjwvdGFibGU+PGRpdiB jhKakYK6eLoUt c7lgm9KpVAtkB9LsQNDcB YtaPwv3PINbYJO2vWF4cQ 0aSJGiCZzqz5G3kBL1W9M qojLnth1tc1fz NYIuGYilF04tpZTdo6R0M JQooBG0KSEqeHyiYvBxfI 93Oyc+UXPdvVvvq2FkSfg wz0tiw6cjiLx4 AzKtCMRtpiRcrAqfMBR0d 6YpUz89Z18dKYolSGDiDH CfLOEzABQvyIzazi6bgN6 wIi8+PGNvbCB3 bPM3qU3zOZHdIsX5GAgzY 017ZxCimIFuLnpbl8iyi0 lxoDa0ZtTjFGOohqEjeCi gMOC7q1CdYm06 C79fSQudVFMaIMWiWLTfR BHmjCwxzj3auR8gNv1+PC 0py6vmqg61jX60mCI+PHR nPDE7sAcsSIsr FDDqsL1vUCymFtO6RZUhA pDcdE79xMGwEHlqJt7ksI llgDzjBU3wTUEtwrceb99 6LiPgr6ouVKUc uEAdCOpkWCE7Z87vz8U2Q EFfJEPnRRK3pGX4pZ3yoX lnbjogbGVmdDsgdmVydGl oEMfwUPslF901 IHRvcDsnPlBhdGllbnQgT uJzDEb9Z6UpAit0BAFruA ixCG7ivOMjORpyVk4utSb jrRbhMB3iMAFj reiwl691GfUup9spJPPel GRrIGaoMAK2W41sw3V4MF YeFAAlFUI5gCQ3nU4wzRx nbjogbGVmdDsg xtNrnTpeTPeaYCilS561C HRvcDsnPkJpcnRoIERhdG X0VS91BS21hSEzn0K7iEH 1B0IcZBQhhiii tlxapNR7ARVnVLWcgQ07J n9efNxlXn4uRUPuSTL7RU YzdHMsP6BjlB6aZzIlDFE kPYLfI0KopJTj YNdrO425JThzQaG3BZRmp sZuI2FqUCKaaEgdHnU0n2 K4Ig4FH1Y2KD91QQ36pOC qq5X5oYX3P5Ss HHOlabohxemmpJQ3GEFlQ MBcdJ97Oy2uoEqcBh8uTE KuAFP5GPHsnISjN2JitB7 yOiAjMDAwMDAw C8ThdDIzJNcdZ048TNfbV aZ8HVFuayVdH5LhZZPjoV xzGsB9f5V0Mg4YJXz8HN3 9MF46wEMyq6B2 gDE2J2EgOCFhdmqbyskdg MI2LVEoDYBrfJ04Ii3ddJ saCp7vJCKxECX5UYCwrFY yJ3TukS3hXwYb FBDnRKRkT5VcoXFvYHolX 386RBkoIfW1PMNrwvSoW9 EbTDOnyKpoMjV1i0R4Xt6 LGOLrGP38DEZ0 uLC9QU02JE91C6RlKuuah GFibGU+PHRhYmxlIHdpZH RoPScxMDAlJyBzdHlsZT0 oDj2qUGFiGPJy nNjvtUXsRjQkd3hnAWRmN SoiDU2akHbdX9HuxDT2AH Lxu6y8Xw17T41jM6StvRX +JNHorDY5rCU3 jB9kHjGrOkK6DIlrW708Z rMbvCVuUsuly4gfo3qnbV p9MoA6FDZrfkCdlTqlJHT 9c6CqOq64A97w IHdpZHRoPSIxNSUiIHZhb Eocck5raA1eRh7+PGNvbC E2gHZ9bN8hOhDdToP7CUg wH061HoWzzRCi Cbflg7iga4mnjWm3YtCrU AZwypSiaPscUYX5j8ZxVa 78B7BjgUudc6VpOel7va7 7sVVnj7E2eQL0 X9YwNDVttytorSBwrBogM H6dGUYzyxfbFXBhgO0nWX OmC3f6VdQtBbP5NFrfQ8A srsY7WNEllQQx QHwlJKT3Y37ju7Y8VAYlW UGrUJY9tYV4dS9lwGlpzm ogbGVmdDsgdmVydGljYWw rBVnmV725ESWd fFtfALGvkR5gQLQwiKQan OicUC4fHUJlltpeBnKVOt FEWFRHY6NEVsJ1I8FeJhr 9HZWhcEdqZE1q mUUuVMadNs9uhWihiIkfJ Y8pCCNqoqmzHIZehS1oLB YmeFCzfSejBB4yYPGhphs pn509MyEuPFK7 OLGyiHWzP8UjxU3cThGoP STcVWGuM9DhyFIwGYheO2 90NVhyFqN0CDNomdHnJ3B sLWFsaWduOiB0 m0Q1Hm0uOC6aEY7zFBJ0B O12CE92mZIpa3E2dMR9O5 VnQZIothwoqueveEL3QIS hANDntS87cBNy XNqtCb7jc5Z7i629YDVfF KEmzJ76Wx2bkNcfLSTvxD XAnV5zislue1tawxavOeH uJMBtJVi6NDp0 PRMyeIgiIfPyTFV8JnU7G JW2hYNvtN6ueFqkacrmfN 9wOyc+RVCrEZKbjuT3S8Q pWwb6UXBbmMcq IU1meIKxXGcmPw6zoApod HkhUV3pBAZqejiqCYSwsJ 4dCPNlgNRsqYzxHV2jXUZ aimzfe845DzDg YZL8BEFeeMZqS5VquH3zR eJoFPTlHFZfE1UuhQVdUO rzG020HCtgSpJ1XHYjwkV xY3VgWTDzwQjm QxH8a3R1Dy5PFIabEO31U M76pRStu7Q0fII6O9TpXR GwohzttssgbVI7JSVaFCO sxY23dEPuYSbh Gy9tm9V9g620ACTdVFRnk P88Ce4sgLpjVQMzlUXFwQ 3ptyboe8qjkqpmCdKzPSB tSQo4RIt8LHHf zSglDzGrQFX1QwC1XIU6a MMvmZ9rrWsjnmzlcD7wTt c+S1T2cVQ5nSIjbGxiiPF +HV55mo95H1Dj BngqWhh2FBTlBHE6dWB0e Q2lKCVeVPlcr8F3gFI0N1 JspfUrfe8dp7aqLXNmPRu sG79ueGZyp4R5 HGVsrRB4TECgmEngXhUch G93Oyc+LQUgzHlfa3HhSh wyp8ilc2yowBz5ZmAlWVL gdmFsaWduPSJ0 k2HmRo55I03oRTxcKAYyC BUjBQJuJIEopDioxd7mrF 9wIi8+QZTwdRJ0jQR7bB3 wMnZvOfL3TYcn F686UrLyaECvJovrj5emu 4sezHh5PkCyQPVumsUcdF esBLF2s8AcYe70T4BpvYd ic5OqKrs7gq30 hTDsg2L5nEK7W1IeOQRaq kmtyZMslKizWJ7yCKHlvz txBSDtrD5xHFHzP6o8IxI kYvD8PDtaX5Gx tbY3BDTxxYXdRVGywYYMe A9hycfba9bujuxqQzMzTB YuAOm5KFx4GGRztZnuUhX xIFD2CoE1NIR1 tQDstN4rmNojryysnO9rB yc+FBq9z3bjjEKmMV4gsN W3CP13CV69xIAhk9E6iPX 3L8AiNHMojgue stjieUB1ZMVxMKWhnM76Z y3ukLpsCr5iQRErSPD2QV VazWSuZ4UvqO8rVfDtDYL vEDBhN6JxoHUh ICbxW173XWqbRaP6LTXcp hNtA0LeZXQkfJtsKoB2w1 V1Jr7JNA35OL71TM75aXL jj4L7tOM6H4Qv JRZzswukbxfxbYE0KGLaI ZVaeP99Rj8xxVogPq6sMW GdCRD9VJXbpSNuN9RtiN8 yOiAjMDAwMDAw N5LzoJCoHKzbK100AMahT yQ8XNIgsaNrI8NuOGSqyW ohYpB8c7P3Qv2NLm67MM1 7KQ61gFFon4P1 bGX4E9XlQUXthguwsgxcj JH8TAVwWCLgxI80Po7vaC vwKs1mACQpRIF1MVWonBX iO0McxF3sJdFa DQDpWVGhE0NvjENbCEodI 875APsrVvK5PPQhenXsI9 RvAHQhjSmoPdF7a0H5Fm2 WLWigbvl1O4Fd PjwvdHI+VB19AHTqVH71q FIbxQVkx8uyoRp3DhFpMN NaOJO3qDmkIMqfb6VcZXA kM52rpMDfy8B2 IGNv (more content not included)... Normal [facility] Consenton 11-21-2020 Consent [id number]# 1.00CD:127 [facility] Consent for Treatmenton 11-06 Consent for Treatment [id number]#1 .00CD:127 [facility] Insurance Correspondenceon 0 11-21-2020 Insurance Correspondence [id number]# 1.00CD:127 [facility] Oncology Noteon 11-21-2020 Oncology Note On[address] Right [employer] [address] Appraiser Office Visit/Treatment Note Current Patient Status/Reason: here for initial outpt visit with Dr. Belcher. Doing pretty well- recent inpatient stay at [facility] for several cardiac procedures. Dr Hogan is his PCP and he was seen by Dr. Marcelino while inpt at [facility]. We will obtain those records. His dtr is present for visit- Treatment Plan: Follow-Up Appointment Info/Referrals: will plan to see him back in 3-4 months- he would prefer to followup in [facility] as he lives there Resources Offered: [facility] Comment on above: Result Comment: Elec tronically Signed By: Shelby MENDEZ, Marj\.br\Date and Time Signed: 11/21/20 10:16 EDT Oncology Progress Noteon Oncology Progress Note Patient: RADHA BROWN Age: 79 years Sex: Male : 1940 Associated Diagnoses: None Author: Ye ZULUAGA, Puneet Reece History of Present Illness This is a review of the medical record from [facility] admission date October 11 through October [...] list: All Problems Thrombocytopenia / SNOMED CT 8813195043 / Confirmed Anemia / SNOMED CT 360815073 / Confirmed Histories Past Medical History: No [...] review: No qualifying data available . Normal [facility] Oncology Progress Note Patient: RADHA BROWN Age: 79 years Sex: Male : 1940 Associated Diagnoses: None Author: Ye ZULUAGA, Puneet Reece History of Present Illness This is very nice gentleman referred by Dr. Robi Hogan who is currently 79 years old referred here with mild anemia and thrombocytopenia. He has had a number of cardiac procedures and was at [facility] for a time recently. Available lab work [...] of DVTs etc. He was seen by button pusher at [facility] and told to follow-up with hematology. Review [...] available . Impression and Plan Diagnosis Anemia (ZPF67-CW D64.9, Working, Medical). Thrombocytopenia (SNY62-DA D69.6, Working, Medical). The patient has very [...] in 3 to 4 months at the [facility] in [facility]. I will recommend observation only at this point.. Education and Follow-up: Discharge Planning: Puneet Belcher NO FOLLOW UP NEEDED PATIENT WILL FOLLOW UP IN [place] IN 3-4 MONTHS. Professional Services CC: Dr Hogan in [facility] Outside Recordson 11-21-2020 Outside Records [id number]# 1.00CD:[address] [facility] Outside Labson 11-18-2020 Outside Labs [id number]#1 .00CD:[address] [facility] BASIC METABOLIC PANELon 10-06 Calcium [Mass/Vol] 8.9 mg/dL Normal 8.6-10.3 [facility] Comment on above: Order Comment: No: D o not add to previous draw Performed By: #### 0 0071, [id number], [id number] #### [facility] [address] [place] [address], [place] Chloride [Moles/Vol] 107 mmol/L Normal 98-107 [facility] Comment on above: Order Comment: No: D o not add to previous draw Performed By: #### 0 0071, [id number], 52832 #### [facility] [address] [place] [address], [place] CO2 [Moles/Vol] 26 mmol/L Normal 21-[address] [facility] Comment on above: Order Comment: No: D o not add to previous draw Performed By: #### 0 0071, 10655, 80997 #### [facility] [address] [place] [address], [place] Creatinine [Mass/Vol] 0.97 mg/dL Normal 0.70-1.30 [facility] Comment on above: Order Comment: No: D o not add to previous draw Performed By: #### 0 0071, 67386, 45562 #### [facility] [address] [place] [address], [place] GFR/1.73 sq M.predicted among blacks MDRD (S/P/Bld) [Vol rate/Area] mL/min/{1.73_m2} Normal >60 [facility] Comment on above: Order Comment: No: D o not add to previous draw Result Comment: Calc ulation may not be valid for patients over 70 years Performed By: #### 0 0071, 74298, 10300 #### [facility] [address] [place] [address], [place] GFR/1.73 sq M.predicted among non-blacks MDRD (S/P/Bld) [Vol rate/Area] mL/min/{1.73_m2} Normal >60 [facility] Comment on above: Order Comment: No: D o not add to previous draw Result Comment: Calc ulation may not be valid for patients over 70 years Performed By: #### 0 0071, 88561, 05248 #### [facility] [address] [place] [address], [place] Glucose [Mass/Vol] 178 mg/dL High 70-100 [facility] Comment on above: Order Comment: No: D o not add to previous draw Performed By: #### 0 0071, 54967, 72578 #### [facility] [address] [place] [address], [place] Potassium [Moles/Vol] 3.7 mmol/L Normal 3.5-5.1 [facility] Comment on above: Order Comment: No: D o not add to previous draw Performed By: #### 0 0071, 94548, 57798 #### [facility] [address] [place] [address], [place] Sodium [Moles/Vol] 140 mmol/L Normal 136-145 [facility] Comment on above: Order Comment: No: D o not add to previous draw Performed By: #### 0 0071, 41141, 27470 #### [facility] [address] [place] [address], [place] Urea nitrogen [Mass/Vol] 25 mg/dL Normal 7-25 [facility] Comment on above: Order Comment: No: D o not add to previous draw Performed By: #### 0 0071, 32522, 06407 #### [facility] [address] [place] [address], [place] CBC COMPLETE BLOOD COUNTon 0 7- Erythrocyte distribution width (RBC) [Ratio] 12.7 % Normal 11.5-15.0 [facility] Comment on above: Order Comment: No: D o not add to previous draw Performed By: #### 1 0070, 12106 #### [facility] [address] [place] [address], [place] Hematocrit (Bld) [Volume fraction] 32.9 % Low 39.0-50.0 [facility] Comment on above: Order Comment: No: D o not add to previous draw Performed By: #### 1 69, 76021 #### [facility] [address] [place] [address], [facility] Hemoglobin (Bld) [Mass/Vol] 10.8 g/dL Low 13.0-17.0 [facility] Comment on above: Order Comment: No: D o not add to previous draw Performed By: #### 1 69, 06100 #### [facility] [address] [place] [address], [facility] IMM PLATELET FRAC 8.3 % High 0.8-6.3 [facility] Comment on above: Order Comment: No: D o not add to previous draw Performed By: #### 1 69, 11805 #### [facility] [address] [place] [id number], [facility] MCH (RBC) [Entitic mass] 31.1 pg Normal 27.0-33.0 [facility] Comment on above: Order Comment: No: D o not add to previous draw Performed By: #### 1 69, [id number] #### [facility] [address] [place] [place] [address], [facility] MCHC (RBC) [Mass/Vol] 32.8 g/dL Normal 32.0-35.0 [facility] Comment on above: Order Comment: No: D o not add to previous draw Performed By: #### 1 69, 88423 #### [facility] [address] [place] [address], [facility] MCV (RBC) [Entitic vol] 94.8 fL Normal 82.0-98.0 [facility] Comment on above: Order Comment: No: D o not add to previous draw Performed By: #### 1 69, 24982 #### [facility] [address] [place] [id number], [facility] Nucleated RBC/100 WBC (Bld) [Ratio] 0 % Normal 0-0 [facility] Comment on above: Order Comment: No: D o not add to previous draw Performed By: #### 1 0, 10141 #### [address] PLAT CNT 80 10*3/uL Low 150-400 [facility] Comment on above: Order Comment: No: D o not add to previous draw Performed By: #### 1 0, 83498 #### [address] RBC (Bld) [#/Vol] 3.47 10*6/uL Low 4.20-5.70 [facility] Comment on above: Order Comment: No: D o not add to previous draw Performed By: #### 1 0, 73274 #### [address] WBC (Bld) [#/Vol] 6.75 10*3/uL Normal 4.00-10.60 [facility] Comment on above: Order Comment: No: D o not add to previous draw Performed By: #### 1 69, [address]1162 #### [address] CHEST AND LATERALon 10-19-19 CHEST AND LATERAL [facility] Department of Radiology [address] [place] [id number] Patient Name: RADHA BROWN : 1940 Sex: M Age: Race: White Pt. Location: [place] [address] Patient Status: I Ordered Date: 10/18/2020 2:00:00 [...] report. Electronically signed: Naz Mcgraw. Transcribed by: [email or web address], User Resident: KRISTEN PERSON Electronically Signed by: NAZ MCGRAW @ 10/18/2020 03:33 PM I personally read this/these film(s) with this resident Normal [facility] Comment on above: Order Comment: No: D o not add to previous draw HEPARIN PLATELET ANTIBODYon 10-18-2020 HEP PLAT ANTIB Normal [facility] Comment on above: Order Comment: Yes: Add to Previous draw if able Result Comment: POSI TIVE BY PF4/HEPARIN AKBAR METHOD. A SEROTONIN RELEASE ASSAY WILL BE SENT OUT AN ALTERNATIVE METHOD OF TESTING ON THIS PATIENT. Results called. Accurately read back by Shawn Hutchison RN at 0932 Performed By: #### 8 [id number] #### [facility] [address] [place] [id number], [facility] MAGNESIUM BLOODon 10-18-2020 Magnesium [Mass/Vol] 2.1 mg/dL Normal 1.9-2.7 [facility] Comment on above: Order Comment: No: D o not add to previous draw Performed By: #### 0 0071, 63587, 54712 #### [facility] [address] [place] [address], [facility] PHOSPHORUS BLOODon Phosphate [Mass/Vol] 2.8 mg/dL Normal 2.5-5.0 [facility] Comment on above: Order Comment: No: D o not add to previous draw Performed By: #### 0 0071, 00957, [id number] #### [facility] [address] SEROTONIN REL ASSAY, UFH 200 5631on 10-18-2020 SEROTONIN RELEASE ASSAY U[facility] Negative Normal Negative [facility] MARIE UFH HIGH DOSE 0 % Normal [facility] MARIE UFH INTERP See Note Normal [facility] [facility] Comment on above: Result Comment: This patient's [...] regarding diagnosis of HIT is available at [email or web address]. INTERPRETIVE INFORMATION: MARIE, Unfractionated Heparin This test was developed and its performance characteristics determined by [employer]. It has not been cleared or approved by the [place] Food and Drug Administration. This test was performed in a CLIA certified laboratory and is intended for clinical purposes. Performed By: [facility] [address] [place] [address] Invoicing Specialist: Kelly Su MD MARIE UFH LOW DOSE 0 % Normal [facility] BASIC METABOLIC PANELon 10-06 Calcium [Mass/Vol] 8.5 mg/dL Low 8.6-10.3 The [facility] Comment on above: Order Comment: No: D o not add to previous draw Performed By: #### 0 0071, 64539, 98265 #### [facility] [address] [place] [address], [place] Chloride [Moles/Vol] 104 mmol/L Normal 98-107 The [facility] Comment on above: Order Comment: No: D o not add to previous draw Performed By: #### 0 0071, 67276, 59396 #### [facility] [address] [place] [address], [place] CO2 [Moles/Vol] 25 mmol/L Normal 21-[address] [facility] Comment on above: Order Comment: No: D o not add to previous draw Performed By: #### 0 0071, 14358, 97465 #### [facility] [address] [place] [address], [place] Creatinine [Mass/Vol] 1.42 mg/dL High 0.70-1.30 The [facility] Comment on above: Order Comment: No: D o not add to previous draw Performed By: #### 0 0071, 30254, 15973 #### [facility] [address] [place] [address], [place] eGFR- 58 ml/min/1.73sq m Abnormal >60 The [facility] Comment on above: Order Comment: No: D o not add to previous draw Result Comment: Calc ulation may not be valid for patients over 70 years Performed By: #### 0 0071, 10685, 94468 #### [facility] [address] [place] [address], [place] eGFR- non- 48 ml/min/1.73sq m Abnormal >60 The [facility] Comment on above: Order Comment: No: D o not add to previous draw Result Comment: Calc ulation may not be valid for patients over 70 years Performed By: #### 0 0071, 90918, 03579 #### [facility] [address] [place] [address], [place] Glucose [Mass/Vol] 154 mg/dL High 70-100 The [facility] Comment on above: Order Comment: No: D o not add to previous draw Performed By: #### 0 0071, 88571, 12900 #### [facility] [address] [place] [address], [place] Potassium [Moles/Vol] 4.8 mmol/L Normal 3.5-5.1 [facility] Comment on above: Order Comment: No: D o not add to previous draw Performed By: #### 0 0071, 65033, 06454 #### [facility] [address] [place] [address], [place] Sodium [Moles/Vol] 139 mmol/L Normal 136-145 The [facility] Comment on above: Order Comment: No: D o not add to previous draw Performed By: #### 0 0071, 45548, 75639 #### [facility] [address] [place] [address], [place] Urea nitrogen [Mass/Vol] 34 mg/dL High 7-25 The [facility] Comment on above: Order Comment: No: D o not add to previous draw Performed By: #### 0 0071, 81158, 33220 #### [facility] [address] [place] [address], [place] CBC COMPLETE BLOOD COUNTon 0 10-17-2020 Erythrocyte distribution width (RBC) [Ratio] 12.9 % Normal 11.5-15.0 The [facility] Comment on above: Order Comment: No: D o not add to previous draw Performed By: #### 8 5499 #### [facility] [address] [place] [address], [facility] Hematocrit (Bld) [Volume fraction] 33.8 % Low 39.0-50.0 The [facility] Comment on above: Order Comment: No: D o not add to previous draw Performed By: #### 8 5499 #### [facility] [address] [place] [address], [facility] Hemoglobin (Bld) [Mass/Vol] 10.8 g/dL Low 13.0-17.0 The [facility] Comment on above: Order Comment: No: D o not add to previous draw Performed By: #### 8 5499 #### [facility] [address] [place] [address], [facility] IMM PLATELET FRAC 8.9 % High 0.8-6.3 The [facility] Comment on above: Order Comment: No: D o not add to previous draw Performed By: #### 8 5499 #### [facility] [address] [place] [address], [facility] MCH (RBC) [Entitic mass] 30.6 pg Normal 27.0-33.0 The [facility] Comment on above: Order Comment: No: D o not add to previous draw Performed By: #### 8 5499 #### [facility] [address] [place] [address], [facility] MCHC (RBC) [Mass/Vol] 32.0 g/dL Normal 32.0-35.0 The [facility] Comment on above: Order Comment: No: D o not add to previous draw Performed By: #### 8 5499 #### [facility] [address] [place] [address], [facility] MCV (RBC) [Entitic vol] 95.8 fL Normal 82.0-98.0 [facility] Comment on above: Order Comment: No: D o not add to previous draw Performed By: #### 8 5499 #### [facility] [address] [place] [address], [facility] Nucleated RBC/100 WBC (Bld) [Ratio] 0 % Normal 0-0 The [facility] Comment on above: Order Comment: No: D o not add to previous draw Performed By: #### 8 5499 #### [facility] [address] [facility] [place] [address], [facility] PLAT CNT 61 10*3/uL Low 150-400 The [facility] Comment on above: Order Comment: No: D o not add to previous draw Performed By: #### 8 5499 #### [facility] [address] [place] [address], [facility] RBC (Bld) [#/Vol] 3.53 10*6/uL Low 4.20-5.70 The [facility] Comment on above: Order Comment: No: D o not add to previous draw Performed By: #### 8 5499 #### [facility] [address] [place] [address], [facility] WBC (Bld) [#/Vol] 6.51 10*3/uL Normal 4.00-10.60 The [facility] Comment on above: Order Comment: No: D o not add to previous draw Performed By: #### 8 5499 #### [facility] [address] Cardiovascular Lab Reporton 10-17-2020 Cardiovascular Lab Report [facility] Patient Name: Radha Brown MR #: [id number] [facility] Physician: Hank Smallwood MD Service Date: 10/17/2020 Department of Birthdate: 1940 Medicine Room #: CINDY 854222 Division of Cardiology Adult Cardiovascular Services [place] [address] Cardiovascular Laboratory Report PACEMAKER IMPLANT PROCEDURE NOTE DATE OF PROCEDURE: 10/17/2020 PERFORMING PHYSICIAN: Dr. Hank Smallwood CONSENT: Patient LOCATION: EP Lab PROCEDURE PERFORMED: 1. Implantation of pacemaker ([employer]) 2. Ultrasound guided venous access INDICATIONS: [...] using modified seldinger technique using a 5 Yemeni micro-puncture needle on one occasion and 0.35 wire was placed. Local infiltration of 1% Lidocaine was performed, and an incision was created in the left upper chest. Dissection was then performed using cautery down to the fascial plane above the muscle. 6 Yemeni Safesheath was placed over the wire. An active fixation [employer] pacing lead was then delivered through the 6Fsheath to the right ventricle. After confirmation of lead position on orthogonal views (BRICE and WALLISIAN) to confirm septal position, the screw was [...] immediate procedural complications were noted. Device info: Staff Ranker Accolade MRI DR IS1 Model# L310 Serial# [id number] RV lead: Model# [id number] [id number] (59cms) Serial# [id number] Sensin.2mV Threshold: 0.7V@0.4ms Impedance: 562 Ohms POST [...] MD Date Trans: 10/17/2020 03:06 P/julio cesar [id number] cc: Maribel Hogan M.D. [place] [id number] [facility] Joe Rapp (more content not included)... Normal The [facility] MAGNESIUM BLOODon 10-17-2020 Magnesium [Mass/Vol] 2.1 mg/dL Normal 1.9-2.7 The [facility] Comment on above: Order Comment: No: D o not add to previous draw Performed By: #### 0 0071, 87868, 01066 #### [facility] [address] [place] [address], [facility] PHOSPHORUS BLOODon Phosphate [Mass/Vol] 3.9 mg/dL Normal 2.5-5.0 [facility] Comment on above: Order Comment: No: D o not add to previous draw Performed By: #### 0 0071, 73526, 13446 #### [facility] [address] [place] [address], [facility] BASIC METABOLIC PANELon 10-06 Calcium [Mass/Vol] 8.8 mg/dL Normal 8.6-10.3 [facility] Comment on above: Order Comment: No: D o not add to previous draw Performed By: #### 4 1000, 81209, 17654 #### [facility] [address] [place] [address], [place] Chloride [Moles/Vol] 106 mmol/L Normal 98-107 [facility] Comment on above: Order Comment: No: D o not add to previous draw Performed By: #### 4 1000, 96996, 86100 #### [facility] [address] [place] [address], [place] CO2 [Moles/Vol] 26 mmol/L Normal 21-[address] [facility] Comment on above: Order Comment: No: D o not add to previous draw Performed By: #### 4 1000, 72914, 18973 #### [facility] [address] [place] [address], [place] Creatinine [Mass/Vol] 1.20 mg/dL Normal 0.70-1.30 [facility] Comment on above: Order Comment: No: D o not add to previous draw Performed By: #### 4 1000, , 02759 #### [facility] [address] [place] [address], [place] eGFR- non- 58 ml/min/1.73sq m Abnormal >60 The [facility] Comment on above: Order Comment: No: D o not add to previous draw Result Comment: Calc ulation may not be valid for patients over 70 years Performed By: #### 4 1000, , 95976 #### [facility] [address] [place] [address], [place] GFR/1.73 sq M.predicted among blacks MDRD (S/P/Bld) [Vol rate/Area] mL/min/{1.73_m2} Normal >60 The [facility] Comment on above: Order Comment: No: D o not add to previous draw Result Comment: Calc ulation may not be valid for patients over 70 years Performed By: #### 4 1000, , 50151 #### [facility] [address] [place] [address], [place] Glucose [Mass/Vol] 162 mg/dL High 70-100 The [facility] Comment on above: Order Comment: No: D o not add to previous draw Performed By: #### 4 1000, , 64642 #### [facility] [address] [place] [address], [place] Potassium [Moles/Vol] 3.8 mmol/L Normal 3.5-5.1 [facility] Comment on above: Order Comment: No: D o not add to previous draw Performed By: #### 4 1000, , 13577 #### [facility] [address] [place] [address], [place] Sodium [Moles/Vol] 140 mmol/L Normal 136-145 [facility] Comment on above: Order Comment: No: D o not add to previous draw Performed By: #### 4 1000, , 01444 #### [facility] [address] [place] [address], [facility] Urea nitrogen [Mass/Vol] 29 mg/dL High 7-25 The [facility] Comment on above: Order Comment: No: D o not add to previous draw Performed By: #### 4 1000, 42388, 38822 #### [facility] [address] [place] [address], [facility] CBC COMPLETE BLOOD COUNTon 0 10-16-2020 Erythrocyte distribution width (RBC) [Ratio] 12.9 % Normal 11.5-15.0 [facility] Comment on above: Order Comment: No: D o not add to previous draw Performed By: #### 8 5499 #### [facility] [address] [place] [address], [facility] Hematocrit (Bld) [Volume fraction] 32.2 % Low 39.0-50.0 [facility] Comment on above: Order Comment: No: D o not add to previous draw Performed By: #### 8 5499 #### [facility] [address] [place] [address], [facility] Hemoglobin (Bld) [Mass/Vol] 10.6 g/dL Low 13.0-17.0 [facility] Comment on above: Order Comment: No: D o not add to previous draw Performed By: #### 8 5499 #### [facility] [address] [place] [address], [facility] IMM PLATELET FRAC 8.2 % High 0.8-6.3 The [facility] Comment on above: Order Comment: No: D o not add to previous draw Performed By: #### 8 5499 #### [facility] [address] [place] [id number], [facility] MCH (RBC) [Entitic mass] 31.4 pg Normal 27.0-33.0 [facility] Comment on above: Order Comment: No: D o not add to previous draw Performed By: #### 8 5499 #### [facility] [address] [place] [address], [facility] MCHC (RBC) [Mass/Vol] 32.9 g/dL Normal 32.0-35.0 [facility] Comment on above: Order Comment: No: D o not add to previous draw Performed By: #### 8 5499 #### [facility] [address] [place] [id number], [facility] MCV (RBC) [Entitic vol] 95.3 fL Normal 82.0-98.0 [facility] Comment on above: Order Comment: No: D o not add to previous draw Performed By: #### 8 5499 #### [facility] [address] [place] [address], [facility] Nucleated RBC/100 WBC (Bld) [Ratio] 0 % Normal 0-0 [facility] Comment on above: Order Comment: No: D o not add to previous draw Performed By: #### 8 5499 #### [facility] [address] [place] [id number], [place] PLAT CNT 80 10*3/uL Low 150-400 [facility] Comment on above: Order Comment: No: D o not add to previous draw Result Comment: pre 82 Performed By: #### 8 5499 #### [facility] [address] [place] [id number], [facility] RBC (Bld) [#/Vol] 3.38 10*6/uL Low 4.20-5.70 The [facility] Comment on above: Order Comment: No: D o not add to previous draw Performed By: #### 8 5499 #### [facility] [address] [place] [id number], [place] WBC (Bld) [#/Vol] 7.04 10*3/uL Normal 4.00-10.60 [facility] Comment on above: Order Comment: No: D o not add to previous draw Performed By: #### 8 5499 #### [facility] [address] [place] [address], [place] MAGNESIUM BLOODon 10-16-2020 Magnesium [Mass/Vol] 2.0 mg/dL Normal 1.9-2.7 [facility] Comment on above: Order Comment: No: D o not add to previous draw Performed By: #### 8 5499 #### [facility] [address] [place] [address], [place] PHOSPHORUS BLOODon Phosphate [Mass/Vol] 3.4 mg/dL Normal 2.5-5.0 [facility] Comment on above: Order Comment: No: D o not add to previous draw Performed By: #### 4 1000, 62789, 08601 #### [facility] [address] [place] [address], [place] BASIC METABOLIC PANELon 10-06 Calcium [Mass/Vol] 8.6 mg/dL Normal 8.6-10.3 [facility] Comment on above: Order Comment: No: D o not add to previous draw Performed By: #### 1 69, 33862 #### [facility] [address] [place] [address], [place] Chloride [Moles/Vol] 106 mmol/L Normal 98-107 [facility] Comment on above: Order Comment: No: D o not add to previous draw Performed By: #### 1 69, 71313 #### [facility] [address] [place] [address], [place] CO2 [Moles/Vol] 27 mmol/L Normal 21-[address] [facility] Comment on above: Order Comment: No: D o not add to previous draw Performed By: #### 1 69, 78393 #### [facility] [address] [place] [address], [place] Creatinine [Mass/Vol] 1.33 mg/dL High 0.70-1.30 [facility] Comment on above: Order Comment: No: D o not add to previous draw Performed By: #### 1 69, 20973 #### [facility] [address] [place] [address], [place] eGFR- non- 52 ml/min/1.73sq m Abnormal >60 [facility] Comment on above: Order Comment: No: D o not add to previous draw Result Comment: Calc ulation may not be valid for patients over 70 years Performed By: #### 1 69, 95155 #### [facility] [address] [place] [address], [facility] GFR/1.73 sq M.predicted among blacks MDRD (S/P/Bld) [Vol rate/Area] mL/min/{1.73_m2} Normal >60 [facility] Comment on above: Order Comment: No: D o not add to previous draw Result Comment: Calc ulation may not be valid for patients over 70 years Performed By: #### 1 69, 58368 #### [facility] [address] [place] [address], [place] Glucose [Mass/Vol] 166 mg/dL High 70-100 The [facility] Comment on above: Order Comment: No: D o not add to previous draw Performed By: #### 1 69, 42697 #### [facility] [address] [place] [address], [place] Potassium [Moles/Vol] 3.8 mmol/L Normal 3.5-5.1 [facility] Comment on above: Order Comment: No: D o not add to previous draw Performed By: #### 1 69, 91566 #### [facility] [address] [place] [address], [place] Sodium [Moles/Vol] 140 mmol/L Normal 136-145 The [facility] Comment on above: Order Comment: No: D o not add to previous draw Performed By: #### 1 69, 32279 #### [facility] [address] [place] [address], [facility] Urea nitrogen [Mass/Vol] 29 mg/dL High 7-25 [facility] Comment on above: Order Comment: No: D o not add to previous draw Performed By: #### 1 0070, 42488 #### [facility] [address] [place] [id number], [facility] CBC COMPLETE BLOOD COUNTon 0 10-15-2020 Erythrocyte distribution width (RBC) [Ratio] 13.0 % Normal 11.5-15.0 [facility] Comment on above: Order Comment: No: D o not add to previous draw Performed By: #### 8 5499 #### [facility] [address] [place] [address], [facility] Hematocrit (Bld) [Volume fraction] 33.6 % Low 39.0-50.0 [facility] Comment on above: Order Comment: No: D o not add to previous draw Performed By: #### 8 5499 #### [facility] [address] [place] [id number], [facility] Hemoglobin (Bld) [Mass/Vol] 11.0 g/dL Low 13.0-17.0 [facility] Comment on above: Order Comment: No: D o not add to previous draw Performed By: #### 8 5499 #### [facility] [address] [place] [address], [facility] IMM PLATELET FRAC 9.8 % High 0.8-6.3 The [facility] Comment on above: Order Comment: No: D o not add to previous draw Performed By: #### 8 5499 #### [facility] [address] [place] [address], [facility] MCH (RBC) [Entitic mass] 31.1 pg Normal 27.0-33.0 [facility] Comment on above: Order Comment: No: D o not add to previous draw Performed By: #### 8 5499 #### [facility] [address] [place] [address], [facility] MCHC (RBC) [Mass/Vol] 32.7 g/dL Normal 32.0-35.0 [facility] Comment on above: Order Comment: No: D o not add to previous draw Performed By: #### 8 5499 #### [facility] [address] [place] [id number], [facility] MCV (RBC) [Entitic vol] 94.9 fL Normal 82.0-98.0 [facility] Comment on above: Order Comment: No: D o not add to previous draw Performed By: #### 8 5499 #### [facility] [address] [place] [address], [facility] Nucleated RBC/100 WBC (Bld) [Ratio] 0 % Normal 0-0 [facility] Comment on above: Order Comment: No: D o not add to previous draw Performed By: #### 8 5499 #### [facility] [address] [place] [address], [facility] PLAT CNT 82 10*3/uL Low 150-400 [facility] Comment on above: Order Comment: No: D o not add to previous draw Performed By: #### 8 5499 #### [facility] [address] [place] [id number], [facility] RBC (Bld) [#/Vol] 3.54 10*6/uL Low 4.20-5.70 [facility] Comment on above: Order Comment: No: D o not add to previous draw Performed By: #### 8 5499 #### [facility] [address] [place] [id number], [facility] WBC (Bld) [#/Vol] 6.50 10*3/uL Normal 4.00-10.60 [facility] Comment on above: Order Comment: No: D o not add to previous draw Performed By: #### 8 5499 #### [facility] [address] [place] [address], [facility] MAGNESIUM BLOODon 10-15-2020 Magnesium [Mass/Vol] 2.1 mg/dL Normal 1.9-2.7 [facility] Comment on above: Order Comment: No: D o not add to previous draw Performed By: #### 1 69, 34859 #### [facility] [address] [place] [address], [facility] PHOSPHORUS BLOODon Phosphate [Mass/Vol] 3.7 mg/dL Normal 2.5-5.0 [facility] Comment on above: Order Comment: No: D o not add to previous draw Performed By: #### 1 69, 70628 #### [facility] [address] [place] [address], [facility] BASIC METABOLIC PANELon Calcium [Mass/Vol] 8.8 mg/dL Normal 8.6-10.3 [facility] Comment on above: Order Comment: No: D o not add to previous draw Performed By: #### 1 69, 17763 #### [facility] [address] [place] [address], [place] Chloride [Moles/Vol] 105 mmol/L Normal 98-107 [facility] Comment on above: Order Comment: No: D o not add to previous draw Performed By: #### 1 69, 55726 #### [facility] [address] [place] [address], [place] CO2 [Moles/Vol] 26 mmol/L Normal 21-[address] [facility] Comment on above: Order Comment: No: D o not add to previous draw Performed By: #### 1 69, 06459 #### [facility] [address] [place] [address], [place] Creatinine [Mass/Vol] 1.15 mg/dL Normal 0.70-1.30 [facility] Comment on above: Order Comment: No: D o not add to previous draw Performed By: #### 1 69, 82992 #### [facility] [address] [place] [address], [place] GFR/1.73 sq M.predicted among blacks MDRD (S/P/Bld) [Vol rate/Area] mL/min/{1.73_m2} Normal >60 [facility] Comment on above: Order Comment: No: D o not add to previous draw Result Comment: Calc ulation may not be valid for patients over 70 years Performed By: #### 1 69, 79868 #### [facility] [address] [place] [address], [place] GFR/1.73 sq M.predicted among non-blacks MDRD (S/P/Bld) [Vol rate/Area] mL/min/{1.73_m2} Normal >60 [facility] Comment on above: Order Comment: No: D o not add to previous draw Result Comment: Calc ulation may not be valid for patients over 70 years Performed By: #### 1 69, 50706 #### [facility] [address] [place] [address], [place] Glucose [Mass/Vol] 144 mg/dL High 70-100 [facility] Comment on above: Order Comment: No: D o not add to previous draw Performed By: #### 1 69, 54881 #### [facility] [address] [place] [address], [place] Potassium [Moles/Vol] 4.1 mmol/L Normal 3.5-5.1 [facility] Comment on above: Order Comment: No: D o not add to previous draw Performed By: #### 1 69, 78685 #### [facility] [address] [place] [address], [place] Sodium [Moles/Vol] 139 mmol/L Normal 136-145 [facility] Comment on above: Order Comment: No: D o not add to previous draw Performed By: #### 1 69, 67584 #### [facility] [address] [facility] [facility]. [address] Urea nitrogen [Mass/Vol] 17 mg/dL Normal 7-25 [facility] Comment on above: Order Comment: No: D o not add to previous draw Performed By: #### 1 69, 15427 #### [facility] [address] [place] [address], [facility] CBC W/DIFFon 10-13-2020 ABS IMM GRANS 0.0 10*3/uL Normal 0.0-0.2 The [facility] Comment on above: Order Comment: No: D o not add to previous draw Performed By: #### 1 69, 78425 #### [facility] [address] [place] [address], [facility] ABS NEUTROPHILS 5.0 10*3/uL Normal 1.6-7.[address] [facility] Comment on above: Order Comment: No: D o not add to previous draw Performed By: #### 1 69, 18233 #### [facility] [address] [facility] [place] [address], [facility] Basophils (Bld) [#/Vol] 0.0 10*3/uL Normal 0.0-0.2 The [facility] Comment on above: Order Comment: No: D o not add to previous draw Performed By: #### 1 69, 61780 #### [facility] [address] [place] [address], [facility] Basophils/100 WBC (Bld) 0.3 % Normal 0.0-1.0 The [facility] Comment on above: Order Comment: No: D o not add to previous draw Performed By: #### 1 69, 55013 #### [facility] [address] [place] [address], [facility] Eosinophils (Bld) [#/Vol] 0.3 10*3/uL Normal 0.0-0.5 The [facility] Comment on above: Order Comment: No: D o not add to previous draw Performed By: #### 1 69, 93515 #### [facility] [address] [facility] [place] [address], [facility] Eosinophils/100 WBC (Bld) 4.2 % Normal 0.0-6.0 The [facility] Comment on above: Order Comment: No: D o not add to previous draw Performed By: #### 1 69, 94613 #### [facility] [address] [facility]. [address] Erythrocyte distribution width (RBC) [Ratio] 13.0 % Normal 11.5-15.0 The [facility] Comment on above: Order Comment: No: D o not add to previous draw Performed By: #### 1 69, 47410 #### [facility] [address] [facility]. [address] Hematocrit (Bld) [Volume fraction] 33.0 % Low 39.0-50.0 The [facility] Comment on above: Order Comment: No: D o not add to previous draw Performed By: #### 1 69, 12103 #### [facility] [address] [facility]. [address] Hemoglobin (Bld) [Mass/Vol] 11.0 g/dL Low 13.0-17.0 [facility] Comment on above: Order Comment: No: D o not add to previous draw Performed By: #### 1 69, 62450 #### [facility] [address] [facility] [place] [address], [facility] IMM PLATELET FRAC 7.2 % High 0.8-6.3 The [facility] Comment on above: Order Comment: No: D o not add to previous draw Performed By: #### 1 69, 29792 #### [facility] [address] [place] [address], [facility] IMMATURE GRANS 0.3 % Normal 0.0-1.0 The [facility] Comment on above: Order Comment: No: D o not add to previous draw Performed By: #### 1 69, 81065 #### [facility] [address] [place] [address], [facility] Lymphocytes (Bld) [#/Vol] 1.4 10*3/uL Normal 1.2-4.0 The [facility] Comment on above: Order Comment: No: D o not add to previous draw Performed By: #### 1 69, #### [facility] [address] [place] [address], [facility] Lymphocytes/100 WBC (Bld) 18.3 % Low 20.0-45.0 The [facility] Comment on above: Order Comment: No: D o not add to previous draw Performed By: #### 1 69, 10174 #### [facility] [address] [facility] [place] [address], [facility] MCH (RBC) [Entitic mass] 31.3 pg Normal 27.0-33.0 The [facility] Comment on above: Order Comment: No: D o not add to previous draw Performed By: #### 1 69, 03002 #### [facility] [address] MCHC (RBC) [Mass/Vol] 33.3 g/dL Normal 32.0-35.0 The [facility] Comment on above: Order Comment: No: D o not add to previous draw Performed By: #### 1 69, 84367 #### [facility] [address] [place] [address], [facility] MCV (RBC) [Entitic vol] 94.0 fL Normal 82.0-98.0 The [facility] Comment on above: Order Comment: No: D o not add to previous draw Performed By: #### 1 69, 92448 #### [facility] [address] [place] [address], [facility] Monocytes (Bld) [#/Vol] 0.7 10*3/uL Normal 0.1-1.0 The [facility] Comment on above: Order Comment: No: D o not add to previous draw Performed By: #### 1 69, 35958 #### [facility] [address] [place] [address], [place] MONOS 10.0 % Normal 5.0-12.0 The [facility] Comment on above: Order Comment: No: D o not add to previous draw Performed By: #### 1 69, 51034 #### [facility] [address] [place] [id number], [facility] Neutrophils/100 WBC (Bld) 66.9 % Normal 40.0-72.0 The [facility] Comment on above: Order Comment: No: D o not add to previous draw Performed By: #### 1 69, 68295 #### [facility] [address] [place] [id number], [place] Nucleated RBC/100 WBC (Bld) [Ratio] 0 % Normal 0-0 The [facility] Comment on above: Order Comment: No: D o not add to previous draw Performed By: #### 1 69, 07148 #### [facility] [address] [place] [id number], [place] PLAT CNT 95 10*3/uL Low 150-400 The [facility] Comment on above: Order Comment: No: D o not add to previous draw Performed By: #### 1 69, 38029 #### [facility] [address] [place] [address], [place] RBC (Bld) [#/Vol] 3.51 10*6/uL Low 4.20-5.70 The [facility] Comment on above: Order Comment: No: D o not add to previous draw Performed By: #### 1 69, 85838 #### [facility] [address] [place] [address], [facility] WBC (Bld) [#/Vol] 7.39 10*3/uL Normal 4.00-10.60 The [facility] Comment on above: Order Comment: No: D o not add to previous draw Performed By: #### 1 69, 04404 #### [facility] [address] [place] [address], [facility] MAGNESIUM BLOODon 10-13-2020 Magnesium [Mass/Vol] 2.5 mg/dL Normal 1.9-2.7 The [facility] Comment on above: Order Comment: No: D o not add to previous draw Performed By: #### 1 69, 68563 #### [facility] [address] [place] [address], [facility] PHOSPHORUS BLOODon Phosphate [Mass/Vol] 2.6 mg/dL Normal 2.5-5.0 The [facility] Comment on above: Order Comment: No: D o not add to previous draw Performed By: #### 1 69, 26202 #### [facility] [address] [place] [address], [facility] CBC COMPLETE BLOOD COUNTon 0 10-12-2020 Erythrocyte distribution width (RBC) [Ratio] 13.0 % Normal 11.5-15.0 The [facility] Comment on above: Order Comment: No: D o not add to previous draw Performed By: #### 1 69, 18399 #### [facility] [address] [place] [address], [facility] Hematocrit (Bld) [Volume fraction] 32.4 % Low 39.0-50.0 The [facility] Comment on above: Order Comment: No: D o not add to previous draw Performed By: #### 1 69, 64892 #### [facility] [address] [place] [id number], [facility] Hemoglobin (Bld) [Mass/Vol] 10.6 g/dL Low 13.0-17.0 The [facility] Comment on above: Order Comment: No: D o not add to previous draw Performed By: #### 1 69, 32252 #### [facility] [address] [place] [address], [facility] MCH (RBC) [Entitic mass] 31.3 pg Normal 27.0-33.0 The [facility] Comment on above: Order Comment: No: D o not add to previous draw Performed By: #### 1 69, 06185 #### [facility] [address] [place] [address], [facility] MCHC (RBC) [Mass/Vol] 32.7 g/dL Normal 32.0-35.0 The [facility] Comment on above: Order Comment: No: D o not add to previous draw Performed By: #### 1 69, #### [facility] [address] [facility] [place] [address], [facility] MCV (RBC) [Entitic vol] 95.6 fL Normal 82.0-98.0 The [facility] Comment on above: Order Comment: No: D o not add to previous draw Performed By: #### 1 69, #### [facility] [address] [facility]. [address] Nucleated RBC/100 WBC (Bld) [Ratio] 0 % Normal 0-0 The [facility] Comment on above: Order Comment: No: D o not add to previous draw Performed By: #### 1 69, 30516 #### [facility] [address] [facility] [place] [address], [facility] PLAT CNT 104 10*3/uL Low 150-400 The [facility] Comment on above: Order Comment: No: D o not add to previous draw Performed By: #### 1 69, 01253 #### [facility] [address] [place] [address], [facility] RBC (Bld) [#/Vol] 3.39 10*6/uL Low 4.20-5.70 The [facility] Comment on above: Order Comment: No: D o not add to previous draw Performed By: #### 1 69, 19219 #### [facility] [address] [place] [address], [facility] WBC (Bld) [#/Vol] 8.55 10*3/uL Normal 4.00-10.60 The [facility] Comment on above: Order Comment: No: D o not add to previous draw Performed By: #### 1 69, 11421 #### [facility] [address] [place] [address], [facility] COMP METABOLIC PANELon 10-12 Albumin [Mass/Vol] 3.5 g/dL Normal 3.5-5.7 The [facility] Comment on above: Order Comment: No: D o not add to previous draw Performed By: #### 1 69, 30122 #### [facility] [address] [place] [id number], [facility] ALKALINE PHOSPH 61 IU/L Normal 34-[address] [facility] Comment on above: Order Comment: No: D o not add to previous draw Performed By: #### 1 69, 49304 #### [facility] [address] [place] [address], [place] ALT [Catalytic activity/Vol] 9 U/L Normal 7-52 The [facility] Comment on above: Order Comment: No: D o not add to previous draw Performed By: #### 1 69, 87159 #### [facility] [address] [place] [address], [place] AST [Catalytic activity/Vol] 12 U/L Low 13-39 The [facility] Comment on above: Order Comment: No: D o not add to previous draw Performed By: #### 1 69, 78177 #### [facility] [address] [place] [id number], [place] Bilirubin [Mass/Vol] 1.0 mg/dL Normal 0.3-1.0 The [facility] Comment on above: Order Comment: No: D o not add to previous draw Performed By: #### 1 69, 02275 #### [facility] [address] [place] [address], [place] Calcium [Mass/Vol] 8.6 mg/dL Normal 8.6-10.3 [facility] Comment on above: Order Comment: No: D o not add to previous draw Performed By: #### 1 69, 33209 #### [facility] [address] [place] [address], [place] Chloride [Moles/Vol] 106 mmol/L Normal 98-107 The [facility] Comment on above: Order Comment: No: D o not add to previous draw Performed By: #### 1 69, 01526 #### [facility] [address] [place] [address], [place] CO2 [Moles/Vol] 26 mmol/L Normal 21-[address] [facility] Comment on above: Order Comment: No: D o not add to previous draw Performed By: #### 1 69, 34987 #### [facility] [address] [place] [address], [place] Creatinine [Mass/Vol] 1.19 mg/dL Normal 0.70-1.30 The [facility] Comment on above: Order Comment: No: D o not add to previous draw Performed By: #### 1 69, 68082 #### [facility] [address] [place] [address], [place] eGFR- non- 59 ml/min/1.73sq m Abnormal >60 The [facility] Comment on above: Order Comment: No: D o not add to previous draw Result Comment: Calc ulation may not be valid for patients over 70 years Performed By: #### 1 69, 79734 #### [facility] [address] [place] [address], [place] GFR/1.73 sq M.predicted among blacks MDRD (S/P/Bld) [Vol rate/Area] mL/min/{1.73_m2} Normal >60 The [facility] Comment on above: Order Comment: No: D o not add to previous draw Result Comment: Calc ulation may not be valid for patients over 70 years Performed By: #### 1 69, 39286 #### [facility] [address] [place] [address], [place] Glucose [Mass/Vol] 157 mg/dL High 70-100 The [facility] Comment on above: Order Comment: No: D o not add to previous draw Performed By: #### 1 69, 96489 #### [facility] [address] [place] [address], [place] Potassium [Moles/Vol] 3.8 mmol/L Normal 3.5-5.1 The [facility] Comment on above: Order Comment: No: D o not add to previous draw Performed By: #### 1 69, 50007 #### [facility] [address] [place] [address], [place] Protein [Mass/Vol] 5.9 g/dL Low 6.0-8.3 The [facility] Comment on above: Order Comment: No: D o not add to previous draw Performed By: #### 1 69, 43625 #### [facility] [address] [place] [address], [place] Sodium [Moles/Vol] 140 mmol/L Normal 136-145 The [facility] Comment on above: Order Comment: No: D o not add to previous draw Performed By: #### 1 69, 83301 #### [facility] [address] [place] [address], [place] Urea nitrogen [Mass/Vol] 19 mg/dL Normal 7-25 The [facility] Comment on above: Order Comment: No: D o not add to previous draw Performed By: #### 1 0070, 58567 #### [facility] [address] [place] [address], [facility] MAGNESIUM BLOODon 10-12-2020 Magnesium [Mass/Vol] 2.1 mg/dL Normal 1.9-2.7 The [facility] Comment on above: Order Comment: No: D o not add to previous draw Performed By: #### 1 0070, 71838 #### [facility] [address] Operative Reporton Operative Report MR#: [id number] I [facility] Pt. Name: Radha Brown Room #: CINDY [id number] Discharge Date: Birthdate: 1940 OPERATIVE REPORT DATE [...] artery after infiltrating 0.25% Marcaine locally. A 6-Yemeni sheath was entered through the left radial artery and an 8-Yemeni sheath was introduced in right femoral artery. Through the radial artery, a pigtail catheter was inserted into the ascending aorta and root angiogram was performed. Through the right femoral artery, a Lunderquist wire was inserted through the pigtail catheter. The patient was heparinized and the sheath was upsized over the Lunderquist wire to a 16-Yemeni German sheath. Through the sheath, a GR [...] MD Date Trans: 10/12/2020 12:21 A/julio cesar [id number] cc: Maribel Hogan M.D. [address] [id number] Normal The [facility] CBC COMPLETE BLOOD COUNTon 0 10-11-2020 Erythrocyte distribution width (RBC) [Ratio] 13.1 % Normal 11.5-15.0 The [facility] Comment on above: Performed By: #### 1 0070, 38401 #### [facility] [address] [facility] [place] [address], [facility] Hematocrit (Bld) [Volume fraction] 37.7 % Low 39.0-50.0 The [facility] Comment on above: Performed By: #### 1 0070, 75491 #### [facility] [address] [place] [address], [facility] Hemoglobin (Bld) [Mass/Vol] 12.3 g/dL Low 13.0-17.0 The [facility] Comment on above: Performed By: #### 1 #### [facility] [address] [place] [address], [facility] MCH (RBC) [Entitic mass] 31.0 pg Normal 27.0-33.0 The [facility] Comment on above: Performed By: #### 1 69, 59684 #### [facility] [address] [facility] [place] [address], [facility] MCHC (RBC) [Mass/Vol] 32.6 g/dL Normal 32.0-35.0 The [facility] Comment on above: Performed By: #### 1 69, #### [facility] [address] [facility] [place] [address], [facility] MCV (RBC) [Entitic vol] 95.0 fL Normal 82.0-98.0 The [facility] Comment on above: Performed By: #### 1 69, 42590 #### [facility] [address] [facility] [place] [address], [facility] Nucleated RBC/100 WBC (Bld) [Ratio] 0 % Normal 0-0 The [facility] Comment on above: Performed By: #### 1 69, 53133 #### [facility] [address] [place] [address], [facility] PLAT CNT 132 10*3/uL Low 150-400 The [facility] Comment on above: Performed By: #### 1 69, 85720 #### [facility] [address] [place] [id number], [facility] RBC (Bld) [#/Vol] 3.97 10*6/uL Low 4.20-5.70 The [facility] Comment on above: Performed By: #### 1 0070, 45396 #### [facility] [address] [facility]. [address] WBC (Bld) [#/Vol] 7.96 10*3/uL Normal 4.00-10.60 The [facility] Comment on above: Performed By: #### 1 0070, 20501 #### [facility] [address] Cardiovascular Lab Reporton 10-11-2020 Cardiovascular Lab Report [facility] Patient Name: Radha Brown MR #: [id number] [facility] Physician: Georges Purvis M.D. Department of Service Date: 10/11/2020 Medicine Birthdate: 1940 Division of Room #: 3AB [id number] Cardiology Adult Cardiovascular Services [place] [address] Cardiovascular Laboratory Report INDICATION: The patient is [...] the right common femoral artery using two 6-Yemeni ProGlide devices. INTERVENTIONAL CARDIOLOGY SCOURING MACHINE TENDER: Georges Purvis M.D. CARDIAC SURGERY SCOURING MACHINE TENDER: Cody Castaneda MD. METHODS: Procedure was explained to the patient with risks and benefits. He signed informed consent. 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 The left wrist area was prepped and draped in usual fashion. Using micropuncture technique and ultrasound guidance, access was obtained in the left radial artery and a 6-Yemeni x 11 cm Hydrophilic sheath was advanced. Verapamil was given through the sheath. The right neck area was prepped and draped in usual fashion. Using ultrasound guidance and micropuncture technique, the right internal jugular vein was accessed and a 6-Yemeni x 11 cm introducer sheath was secured in place. Using micropuncture technique and ultrasound guidance, access was obtained in the right common femoral artery. Inner cannula angiography confirmed access at a good location, this was upsized to a 6-Yemeni x 11 cm sheath. Initial heparin 2000 units were administered intravenously. Note that the procedure was performed under conscious sedation in the cardiac labor commissioner. Preclosure was performed in the right common femoral artery using 2 crossing 6-Yemeni ProGlide devices and the access was upsized to a 10-Yemeni x 11 cm sheath. Full heparinization was given and therapeutic ACT confirmed during the rest of the procedure. A 6-Yemeni angled pigtail catheter was advanced over a Avendano wire from the left radial artery into the ascending aorta and aortic root angiography was performed in the coplanar view. A 5-Yemeni balloon tipped temporary pacemaker wire was advanced through the internal jugular vein access and into the right ventricular cavity and positioned across the apical right ventricular septum was confirmed by fluoroscopy in different views. Adequate capture was confirmed with threshold of about 1 milliamps. Pacing was then put as backup at 20 milliamps. A 6-Yemeni multipurpose catheter was advanced over a J-tipped wire to the descending aorta and used to place a Lunderquist wire over which the right common femoral access was upsized serially to the 16-Yemeni German eSheath, which was secured in place. The aortic valve was then crossed initially using an AL1 diagnostic catheter and a straight Glidewire, however, due to the height of the patient, the AL1 catheter could not reach into the ventricular cavity. Therefore, we exchanged it to a 125 cm 6-Yemeni JR4 guiding catheter, which was able to [...] was (more content not included)... Normal The [facility] TYPE AND SCREENon 10-11-2020 ABO INTERPRETATION A Normal [facility] Comment on above: Performed By: #### 8 5499 #### [facility] [address] [facility]. [address] RH INTERPRETATION Positive Normal The [facility] Comment on above: Performed By: #### 8 5499 #### [facility] [address] [facility]. [address] CTA ABDOMEN AND PELVISon CTA ABDOMEN AND PELVIS [facility] Department of Radiology [address] [place] [phone] Patient Name: RADHA BROWN : 1940 Sex: M Age: Race: White Pt. Location: Patient Status: D Ordered Date: 08/26/2020 12:30:00 PM Completed Date: 09/13/2020 03:02 PM Requesting Provider: ASHLEY CRAIG Attending Provider: ASHLEY CRAIG Report Copy To: MARIBEL HOGAN Signs & Symptoms: I35.0 Nonrheumatic aortic (valve) stenosis I10 History: Nadia Please call Ashley [phone] PC Auth via [employer] for CPT 99251 Auth#[id number] Valid 08/30/20-02/26/21 Med Nec-Passed 08/29 *SLA Comments: [...] achievable Electronically signed: Mika Hebert. Transcribed by: [email or web address], User Resident: Electronically Signed by: MIKA HEBERT @ 09/19/2020 09:30 AM Normal The [facility] Comment on above: Order Comment: No: D o not add to previous draw CTA CHESTon 09-13-2020 CTA CHEST [facility] Department of Radiology [address] [place] [phone] Patient Name: RADHA BROWN : 1940 Sex: M Age: Race: White Pt. Location: Patient Status: D Ordered Date: 08/26/2020 12:30:00 PM Completed Date: 09/13/2020 03:02 PM Requesting Provider: ASHLEY CRAIG Attending Provider: ASHLEY CRAIG Report Copy To: MARIBEL HOGAN Signs & Symptoms: I35.0 Nonrheumatic aortic (valve) stenosis I10 History: Nadia Please call Ashley [phone] Auth via [employer] for CPT 00707 Auth#[id number] Valid 08/30/20-02/26/21 Med Nec-Passed 08/29 *SLA Comments: [...] 3 Cusped view, anterior view and no PHYSICIAN GENERAL INTERNAL MEDICINE CAU view were also obtained in 3-D [...] E (more content not included)... Normal The [facility] Comment on above: Order Comment: EKG g ated-TAVR protocol BASIC METABOLIC PANELon 05-0 Calcium [Mass/Vol] 8.6 mg/dL Normal 8.6-10.3 [facility] Comment on above: Order Comment: No: D o not add to previous draw Performed By: #### 8 5499 #### [facility] [address] [place] [address], [place] Chloride [Moles/Vol] 107 mmol/L Normal 98-107 [facility] Comment on above: Order Comment: No: D o not add to previous draw Performed By: #### 8 5499 #### [facility] [address] [place] [address], [place] CO2 [Moles/Vol] 31 mmol/L Normal 21-[address] [facility] Comment on above: Order Comment: No: D o not add to previous draw Performed By: #### 8 5499 #### [facility] [address] [place] [address], [place] Creatinine [Mass/Vol] 1.36 mg/dL High 0.70-1.30 [facility] Comment on above: Order Comment: No: D o not add to previous draw Performed By: #### 8 5499 #### [facility] [address] [place] [address], [place] eGFR- non- 50 ml/min/1.73sq m Abnormal >60 [facility] Comment on above: Order Comment: No: D o not add to previous draw Result Comment: Calc ulation may not be valid for patients over 70 years Performed By: #### 8 5499 #### [facility] [address] [place] [address], [place] GFR/1.73 sq M.predicted among blacks MDRD (S/P/Bld) [Vol rate/Area] mL/min/{1.73_m2} Normal >60 [facility] Comment on above: Order Comment: No: D o not add to previous draw Result Comment: Calc ulation may not be valid for patients over 70 years Performed By: #### 8 5499 #### [facility] [address] [place] [address], [place] Glucose [Mass/Vol] 129 mg/dL High 70-100 [facility] Comment on above: Order Comment: No: D o not add to previous draw Performed By: #### 8 5499 #### [facility] [address] [place] [address], [facility] Potassium [Moles/Vol] 3.7 mmol/L Normal 3.5-5.1 [facility] Comment on above: Order Comment: No: D o not add to previous draw Performed By: #### 8 5499 #### [facility] [address] [place] [address], [place] Sodium [Moles/Vol] 143 mmol/L Normal 136-145 [facility] Comment on above: Order Comment: No: D o not add to previous draw Performed By: #### 8 5499 #### [facility] [address] [place] [address], [place] Urea nitrogen [Mass/Vol] 44 mg/dL High 7-25 [facility] Comment on above: Order Comment: No: D o not add to previous draw Performed By: #### 8 5499 #### [facility] [address] [place] [address], [facility] CBC COMPLETE BLOOD COUNTon - Erythrocyte distribution width (RBC) [Ratio] 13.2 % Normal 11.5-15.0 [facility] Comment on above: Order Comment: No: D o not add to previous draw Performed By: #### 8 5499 #### [facility] [address] [place] [address], [facility] Hematocrit (Bld) [Volume fraction] 36.5 % Low 39.0-50.0 [facility] Comment on above: Order Comment: No: D o not add to previous draw Performed By: #### 8 5499 #### [facility] [address] [place] [address], [facility] Hemoglobin (Bld) [Mass/Vol] 11.8 g/dL Low 13.0-17.0 [facility] Comment on above: Order Comment: No: D o not add to previous draw Performed By: #### 8 5499 #### [facility] [address] [place] [address], [facility] MCH (RBC) [Entitic mass] 31.2 pg Normal 27.0-33.0 [facility] Comment on above: Order Comment: No: D o not add to previous draw Performed By: #### 8 5499 #### [facility] [address] [place] [address], [facility] MCHC (RBC) [Mass/Vol] 32.3 g/dL Normal 32.0-35.0 [facility] Comment on above: Order Comment: No: D o not add to previous draw Performed By: #### 8 5499 #### [facility] [address] [place] [id number], [facility] MCV (RBC) [Entitic vol] 96.6 fL Normal 82.0-98.0 [facility] Comment on above: Order Comment: No: D o not add to previous draw Performed By: #### 8 5499 #### [facility] [address] [place] [id number], [facility] Nucleated RBC/100 WBC (Bld) [Ratio] 0 % Normal 0-0 [facility] Comment on above: Order Comment: No: D o not add to previous draw Performed By: #### 8 5499 #### [facility] [address] [place] [address], [facility] PLAT CNT 114 10*3/uL Low 150-400 [facility] Comment on above: Order Comment: No: D o not add to previous draw Performed By: #### 8 5499 #### [facility] [address] [place] [id number], [facility] RBC (Bld) [#/Vol] 3.78 10*6/uL Low 4.20-5.70 [facility] Comment on above: Order Comment: No: D o not add to previous draw Performed By: #### 8 5499 #### [facility] [address] [place] [address], [facility] WBC (Bld) [#/Vol] 7.88 10*3/uL Normal 4.00-10.60 [facility] Comment on above: Order Comment: No: D o not add to previous draw Performed By: #### 8 5499 #### [facility] [address] [place] [address], [facility] MAGNESIUM BLOODon 08-14-2020 Magnesium [Mass/Vol] 2.4 mg/dL Normal 1.9-2.7 [facility] Comment on above: Order Comment: No: D o not add to previous draw Performed By: #### 8 5499 #### [facility] [address] [place] [address], [facility] POC GLUCOSE LABon 08-14-2020 Glucose [Mass/Vol] 175 mg/dL High 70-100 [facility] Comment on above: Performed By: #### 0 0071, 34504, 94357 #### [facility] [address] [place] [address], [facility] BASIC METABOLIC PANELon Calcium [Mass/Vol] 8.7 mg/dL Normal 8.6-10.3 [facility] Comment on above: Order Comment: No: D o not add to previous draw Performed By: #### 0 0071, 76593, 43460 #### [facility] [address] [place] [address], [place] Chloride [Moles/Vol] 107 mmol/L Normal 98-107 [facility] Comment on above: Order Comment: No: D o not add to previous draw Performed By: #### 0 0071, 75573, 22802 #### [facility] [address] [place] [address], [place] CO2 [Moles/Vol] 30 mmol/L Normal 21-[address] [facility] Comment on above: Order Comment: No: D o not add to previous draw Performed By: #### 0 0071, 55811, 35140 #### [facility] [address] [place] [address], [facility] Creatinine [Mass/Vol] 1.49 mg/dL High 0.70-1.30 [facility] Comment on above: Order Comment: No: D o not add to previous draw Performed By: #### 0 0071, 07704, 40161 #### [facility] [address] [place] [address], [facility] eGFR- 55 ml/min/1.73sq m Abnormal >60 [facility] Comment on above: Order Comment: No: D o not add to previous draw Result Comment: Calc ulation may not be valid for patients over 70 years Performed By: #### 0 0071, 03837, 77368 #### [facility] [address] [place] [address], [facility] eGFR- non- 45 ml/min/1.73sq m Abnormal >60 [facility] Comment on above: Order Comment: No: D o not add to previous draw Result Comment: Calc ulation may not be valid for patients over 70 years Performed By: #### 0 0071, 11715, 51806 #### [facility] [address] [place] [address], [place] Glucose [Mass/Vol] 136 mg/dL High 70-100 [facility] Comment on above: Order Comment: No: D o not add to previous draw Performed By: #### 0 0071, 62211, 41833 #### [facility] [address] [place] [address], [place] Potassium [Moles/Vol] 3.9 mmol/L Normal 3.5-5.1 [facility] Comment on above: Order Comment: No: D o not add to previous draw Performed By: #### 0 0071, 55001, 17366 #### [facility] [address] [place] [address], [facility] Sodium [Moles/Vol] 145 mmol/L Normal 136-145 [facility] Comment on above: Order Comment: No: D o not add to previous draw Performed By: #### 0 0071, 82552, 55703 #### [facility] [address] [place] [id number], [facility] Urea nitrogen [Mass/Vol] 55 mg/dL High 7-25 [facility] Comment on above: Order Comment: No: D o not add to previous draw Performed By: #### 0 0071, 63911, 80241 #### [facility] [address] [place] [address], [facility] CBC COMPLETE BLOOD COUNTon 0 - Erythrocyte distribution width (RBC) [Ratio] 13.5 % Normal 11.5-15.0 [facility] Comment on above: Order Comment: No: D o not add to previous draw Performed By: #### 1 69, 24148 #### [facility] [address] [place] [address], [facility] Hematocrit (Bld) [Volume fraction] 35.8 % Low 39.0-50.0 [facility] Comment on above: Order Comment: No: D o not add to previous draw Performed By: #### 1 69, 95286 #### [facility] [address] [place] [id number], [facility] Hemoglobin (Bld) [Mass/Vol] 11.4 g/dL Low 13.0-17.0 [facility] Comment on above: Order Comment: No: D o not add to previous draw Performed By: #### 1 69, 43167 #### [facility] [address] [place] [address], [place] MCH (RBC) [Entitic mass] 31.2 pg Normal 27.0-33.0 [facility] Comment on above: Order Comment: No: D o not add to previous draw Performed By: #### 1 69, 40541 #### [facility] [address] [place] [address], [facility] MCHC (RBC) [Mass/Vol] 31.8 g/dL Low 32.0-35.0 [facility] Comment on above: Order Comment: No: D o not add to previous draw Performed By: #### 1 69, 38027 #### [facility] [address] [place] [address], [facility] MCV (RBC) [Entitic vol] 98.1 fL High 82.0-98.0 [facility] Comment on above: Order Comment: No: D o not add to previous draw Performed By: #### 1 69, 32647 #### [facility] [address] [facility] [address] Nucleated RBC/100 WBC (Bld) [Ratio] 0 % Normal 0-0 [facility] Comment on above: Order Comment: No: D o not add to previous draw Performed By: #### 1 69, 39317 #### [facility] [address] [facility] [place] [address], [facility] PLAT CNT 111 10*3/uL Low 150-400 [facility] Comment on above: Order Comment: No: D o not add to previous draw Performed By: #### 1 69, 18717 #### [facility] [address] [facility] [place] [address], [facility] RBC (Bld) [#/Vol] 3.65 10*6/uL Low 4.20-5.70 [facility] Comment on above: Order Comment: No: D o not add to previous draw Performed By: #### 1 69, 55231 #### [facility] [address] [place] [address], [facility] WBC (Bld) [#/Vol] 7.40 10*3/uL Normal 4.00-10.60 [facility] Comment on above: Order Comment: No: D o not add to previous draw Performed By: #### 1 0070, 04444 #### [facility] [address] [place] [address], [place] MAGNESIUM BLOODon 08-13-2020 Magnesium [Mass/Vol] 2.4 mg/dL Normal 1.9-2.7 [facility] Comment on above: Order Comment: No: D o not add to previous draw Performed By: #### 0 0071, 06775, 23873 #### [facility] [address] [place] [address], [place] PHOSPHORUS BLOODon Phosphate [Mass/Vol] 3.7 mg/dL Normal 2.5-5.0 [facility] Comment on above: Order Comment: No: D o not add to previous draw Performed By: #### 0 0071, 34559, 90899 #### [facility] [address] [place] [address], [place] POC GLUCOSE LABon 08-13-2020 Glucose [Mass/Vol] 186 mg/dL High 70-100 [facility] Comment on above: Performed By: #### 0 0071, 36413, 80029 #### [facility] [address] [place] [address], [place] Glucose [Mass/Vol] 159 mg/dL High 70-100 [facility] Comment on above: Performed By: #### 8 5499 #### [facility] [address] [place] [address], [place] Glucose [Mass/Vol] 172 mg/dL High 70-100 [facility] Comment on above: Performed By: #### 8 5499 #### [facility] [address] [place] [address], [place] Glucose [Mass/Vol] 136 mg/dL High 70-100 [facility] Comment on above: Performed By: #### 8 5499 #### [facility] [address] [place] [address], [place] Glucose [Mass/Vol] 153 mg/dL High 70-100 [facility] Comment on above: Performed By: #### 8 5499 #### [facility] [address] [place] [address], [place] BASIC METABOLIC PANELon 05-0 -2020 Calcium [Mass/Vol] 8.9 mg/dL Normal 8.6-10.3 [facility] Comment on above: Order Comment: No: D o not add to previous draw Performed By: #### 1 0070, 43480 #### [facility] [address] [place] [address], [place] Chloride [Moles/Vol] 104 mmol/L Normal 98-107 [facility] Comment on above: Order Comment: No: D o not add to previous draw Performed By: #### 1 69, 96005 #### [facility] [address] [place] [address], [place] CO2 [Moles/Vol] 31 mmol/L Normal 21-[address] [facility] Comment on above: Order Comment: No: D o not add to previous draw Performed By: #### 1 0, 48460 #### [facility] [address] [place] [address], [place] Creatinine [Mass/Vol] 1.73 mg/dL High 0.70-1.30 [facility] Comment on above: Order Comment: No: D o not add to previous draw Performed By: #### 1 0070, 11128 #### [facility] [address] [place] [address], [place] eGFR- 46 ml/min/1.73sq m Abnormal >60 [facility] Comment on above: Order Comment: No: D o not add to previous draw Result Comment: Calc ulation may not be valid for patients over 70 years Performed By: #### 1 69, 40538 #### [facility] [address] [place] [address], [facility] eGFR- non- 38 ml/min/1.73sq m Abnormal >60 [facility] Comment on above: Order Comment: No: D o not add to previous draw Result Comment: Calc ulation may not be valid for patients over 70 years Performed By: #### 1 69, 48370 #### [facility] [address] [place] [address], [place] Glucose [Mass/Vol] 168 mg/dL High 70-100 [facility] Comment on above: Order Comment: No: D o not add to previous draw Performed By: #### 1 69, 08907 #### [facility] [address] [place] [address], [place] Potassium [Moles/Vol] 3.8 mmol/L Normal 3.5-5.1 [facility] Comment on above: Order Comment: No: D o not add to previous draw Performed By: #### 1 69, 40560 #### [facility] [address] [place] [address], [place] Sodium [Moles/Vol] 145 mmol/L Normal 136-145 [facility] Comment on above: Order Comment: No: D o not add to previous draw Performed By: #### 1 69, 21853 #### [facility] [address] [place] [address], [place] Urea nitrogen [Mass/Vol] 51 mg/dL High 7-25 [facility] Comment on above: Order Comment: No: D o not add to previous draw Performed By: #### 1 69, 66110 #### [facility] [address] [place] [address], [place] CBC COMPLETE BLOOD COUNTon 0 - Erythrocyte distribution width (RBC) [Ratio] 13.6 % Normal 11.5-15.0 [facility] Comment on above: Order Comment: No: D o not add to previous draw Performed By: #### 1 69, 96277 #### [facility] [address] [place] [address], [facility] Hematocrit (Bld) [Volume fraction] 36.9 % Low 39.0-50.0 [facility] Comment on above: Order Comment: No: D o not add to previous draw Performed By: #### 1 69, 18186 #### [facility] [address] [place] [id number], [facility] Hemoglobin (Bld) [Mass/Vol] 12.1 g/dL Low 13.0-17.0 [facility] Comment on above: Order Comment: No: D o not add to previous draw Performed By: #### 1 69, 74703 #### [facility] [address] [place] [id number], [facility] MCH (RBC) [Entitic mass] 31.9 pg Normal 27.0-33.0 [facility] Comment on above: Order Comment: No: D o not add to previous draw Performed By: #### 1 69, #### [facility] [address] [place] [address], [facility] MCHC (RBC) [Mass/Vol] 32.8 g/dL Normal 32.0-35.0 [facility] Comment on above: Order Comment: No: D o not add to previous draw Performed By: #### 1 69, 91888 #### [facility] [address] [place] [address], [place] MCV (RBC) [Entitic vol] 97.4 fL Normal 82.0-98.0 [facility] Comment on above: Order Comment: No: D o not add to previous draw Performed By: #### 1 69, #### [facility] [address] [place] [id number], [place] Nucleated RBC/100 WBC (Bld) [Ratio] 0 % Normal 0-0 [facility] Comment on above: Order Comment: No: D o not add to previous draw Performed By: #### 1 0, 17409 #### [facility] [address] [place] [address], [facility] PLAT CNT 115 10*3/uL Low 150-400 [facility] Comment on above: Order Comment: No: D o not add to previous draw Performed By: #### 1 69, 80496 #### [facility] [address] [facility] [place] [address], [facility] RBC (Bld) [#/Vol] 3.79 10*6/uL Low 4.20-5.70 [facility] Comment on above: Order Comment: No: D o not add to previous draw Performed By: #### 1 69, 78478 #### [facility] [address] [facility] [place] [address], [facility] WBC (Bld) [#/Vol] 8.71 10*3/uL Normal 4.00-10.60 [facility] Comment on above: Order Comment: No: D o not add to previous draw Performed By: #### 1 69, 91759 #### [facility] [address] [place] [address], [facility] MAGNESIUM BLOODon 08-12-2020 Magnesium [Mass/Vol] 2.4 mg/dL Normal 1.9-2.7 [facility] Comment on above: Order Comment: No: D o not add to previous draw Performed By: #### 1 0, 88636 #### [facility] [address] [facility] [place] [address], [facility] POC GLUCOSE LABon 08-12-2020 Glucose [Mass/Vol] 136 mg/dL High 70-100 [facility] Comment on above: Performed By: #### 0 0071, 29479, 34382 #### [facility] [address] [place] [address], [place] Glucose [Mass/Vol] 180 mg/dL High 70-100 [facility] Comment on above: Performed By: #### 0 0071, 18259, 39917 #### [facility] [address] [place] [address], [place] Glucose [Mass/Vol] 156 mg/dL High 70-100 [facility] Comment on above: Performed By: #### 8 5499 #### [facility] [address] [place] [address], [place] BASIC METABOLIC PANELon 05-0 -2020 Calcium [Mass/Vol] 9.4 mg/dL Normal 8.6-10.3 [facility] Comment on above: Order Comment: No: D o not add to previous draw Performed By: #### 1 69, 27536 #### [facility] [address] [place] [address], [place] Chloride [Moles/Vol] 101 mmol/L Normal 98-107 [facility] Comment on above: Order Comment: No: D o not add to previous draw Performed By: #### 1 69, 57561 #### [facility] [address] [place] [address], [place] CO2 [Moles/Vol] 29 mmol/L Normal 21-[address] [facility] Comment on above: Order Comment: No: D o not add to previous draw Performed By: #### 1 69, 72734 #### [facility] [address] [place] [address], [place] Creatinine [Mass/Vol] 1.63 mg/dL High 0.70-1.30 [facility] Comment on above: Order Comment: No: D o not add to previous draw Performed By: #### 1 69, 09459 #### [facility] [address] [place] [address], [place] eGFR- 49 ml/min/1.73sq m Abnormal >60 [facility] Comment on above: Order Comment: No: D o not add to previous draw Result Comment: Calc ulation may not be valid for patients over 70 years Performed By: #### 1 69, 20233 #### [facility] [address] [place] [address], [place] eGFR- non- 41 ml/min/1.73sq m Abnormal >60 [facility] Comment on above: Order Comment: No: D o not add to previous draw Result Comment: Calc ulation may not be valid for patients over 70 years Performed By: #### 1 69, 11627 #### [facility] [address] [place] [address], [place] Glucose [Mass/Vol] 198 mg/dL High 70-100 [facility] Comment on above: Order Comment: No: D o not add to previous draw Performed By: #### 1 69, 41728 #### [facility] [address] [place] [address], [place] Potassium [Moles/Vol] 4.0 mmol/L Normal 3.5-5.1 [facility] Comment on above: Order Comment: No: D o not add to previous draw Performed By: #### 1 69, 32755 #### [facility] [address] [place] [address], [place] Sodium [Moles/Vol] 144 mmol/L Normal 136-145 [facility] Comment on above: Order Comment: No: D o not add to previous draw Performed By: #### 1 69, 60979 #### [facility] [address] [place] [address], [place] Urea nitrogen [Mass/Vol] 38 mg/dL High 7-25 [facility] Comment on above: Order Comment: No: D o not add to previous draw Performed By: #### 1 69, 49708 #### [facility] [address] CBC COMPLETE BLOOD COUNTon 08-11-2020 Erythrocyte distribution width (RBC) [Ratio] 13.7 % Normal 11.5-15.0 [facility] Comment on above: Order Comment: No: D o not add to previous draw Performed By: #### 1 69, 33363 #### [facility] [address] [place] [address], [facility] Hematocrit (Bld) [Volume fraction] 40.0 % Normal 39.0-50.0 [facility] Comment on above: Order Comment: No: D o not add to previous draw Performed By: #### 1 69, 24247 #### [facility] [address] [place] [address], [facility] Hemoglobin (Bld) [Mass/Vol] 13.1 g/dL Normal 13.0-17.0 [facility] Comment on above: Order Comment: No: D o not add to previous draw Performed By: #### 1 69, 14199 #### [facility] [address] [facility] [place] [address], [facility] IMM PLATELET FRAC 8.4 % High 0.8-6.3 The [facility] Comment on above: Order Comment: No: D o not add to previous draw Performed By: #### 1 69, 39248 #### [facility] [address] [facility] [place] [address], [facility] MCH (RBC) [Entitic mass] 31.3 pg Normal 27.0-33.0 [facility] Comment on above: Order Comment: No: D o not add to previous draw Performed By: #### 1 69, 95345 #### [facility] [address] [place] [address], [facility] MCHC (RBC) [Mass/Vol] 32.8 g/dL Normal 32.0-35.0 [facility] Comment on above: Order Comment: No: D o not add to previous draw Performed By: #### 1 69, 59201 #### [facility] [address] [place] [address], [facility] MCV (RBC) [Entitic vol] 95.7 fL Normal 82.0-98.0 [facility] Comment on above: Order Comment: No: D o not add to previous draw Performed By: #### 1 69, 06838 #### [facility] [address] [place] [id number], [facility] Nucleated RBC/100 WBC (Bld) [Ratio] 0 % Normal 0-0 [facility] Comment on above: Order Comment: No: D o not add to previous draw Performed By: #### 1 69, 54192 #### [facility] [address] [place] [id number], [place] PLAT CNT 128 10*3/uL Low 150-400 The [facility] Comment on above: Order Comment: No: D o not add to previous draw Performed By: #### 1 69, 30982 #### [facility] [address] [place] [id number], [facility] RBC (Bld) [#/Vol] 4.18 10*6/uL Low 4.20-5.70 The [facility] Comment on above: Order Comment: No: D o not add to previous draw Performed By: #### 1 69, 17062 #### [facility] [address] [place] [id number], [place] WBC (Bld) [#/Vol] 10.82 10*3/uL High 4.00-10.60 The [facility] Comment on above: Order Comment: No: D o not add to previous draw Performed By: #### 1 69, 80033 #### [facility] [address] [place] [id number], [facility] CT ABDOMEN AND PELVIS WO CON TRASTon 08-11-2020 CT ABDOMEN AND PELVIS WO CONTRAST [facility] Department of Radiology [address] [place] [address] Patient Name: RADHA BROWN : 1940 Sex: M Age: Race: White Pt. Location: [id number] Patient Status: I Ordered Date: 08/11/2020 10:45:00 [...] achievable Electronically signed: Radha Walter. Transcribed by: [email or web address], User Resident: Electronically Signed by: RADHA WALTER @ 08/11/2020 02:18 PM Normal The [facility] Comment on above: Order Comment: No: D o not add to previous draw MAGNESIUM BLOODon 08-11-2020 Magnesium [Mass/Vol] 2.2 mg/dL Normal 1.9-2.7 The [facility] Comment on above: Order Comment: No: D o not add to previous draw Performed By: #### 1 0070, 07869 #### [facility] [address] [place] [address], [facility] POC GLUCOSE LABon 08-11-2020 Glucose [Mass/Vol] 155 mg/dL High 70-100 The [facility] Comment on above: Performed By: #### 8 5499 #### [facility] [address] [place] [address], [place] Glucose [Mass/Vol] 161 mg/dL High 70-100 The [facility] Comment on above: Performed By: #### 0 0071, 34544, 56685 #### [facility] [address] [place] [address], [place] Glucose [Mass/Vol] 206 mg/dL High 70-100 The [facility] Comment on above: Performed By: #### 0 0071, 04484, 57661 #### [address] [place] [address], [facility] Glucose [Mass/Vol] 172 mg/dL High 70-100 The [facility] Comment on above: Performed By: #### 8 5499 #### [facility] [address] [place] [address], [facility] PORTABLE CHEST 1 VIEWon PORTABLE CHEST 1 VIEW [facility] Department of Radiology [address] [place] [id number] Patient Name: RADHA BROWN : 1940 Sex: M Age: Race: White Pt. Location: [id number] Patient Status: I Ordered Date: 08/11/2020 11:10:00 [...] base. Electronically signed: Radha Walter. Transcribed by: [email or web address], User Resident: Electronically Signed by: RADHA WALTER @ 08/11/2020 12:19 PM Normal The [facility] Comment on above: Order Comment: No: D o not add to previous draw ABDOMEN SERIES W CHESTon ABDOMEN SERIES W CHEST [facility] Department of Radiology [address] [place] [id number] Patient Name: RADHA BROWN : 1940 Sex: M Age: Race: White Pt. Location: [address] [place] [address] Patient Status: I Ordered Date: 08/10/2020 5:35:00 [...] process. Electronically signed: Jordi Frausto. Transcribed by: [email or web address], User Resident: Electronically Signed by: JORDI FRAUSTO @ 08/10/2020 06:37 PM Normal The [facility] Comment on above: Order Comment: No: D o not add to previous draw BASIC METABOLIC PANELon 05 Calcium [Mass/Vol] 8.6 mg/dL Normal 8.6-10.3 [facility] Comment on above: Order Comment: No: D o not add to previous draw Performed By: #### 1 69, 71446 #### [facility] [address] [place] [address], [place] Chloride [Moles/Vol] 107 mmol/L Normal 98-107 The [facility] Comment on above: Order Comment: No: D o not add to previous draw Performed By: #### 1 69, 49986 #### [facility] [address] [place] [address], [place] CO2 [Moles/Vol] 27 mmol/L Normal 21-[address] [facility] Comment on above: Order Comment: No: D o not add to previous draw Performed By: #### 1 69, 07846 #### [facility] [address] [place] [address], [place] Creatinine [Mass/Vol] 1.24 mg/dL Normal 0.70-1.30 The [facility] Comment on above: Order Comment: No: D o not add to previous draw Performed By: #### 1 69, 63788 #### [facility] [address] [place] [address], [facility] eGFR- non- 56 ml/min/1.73sq m Abnormal >60 The [facility] Comment on above: Order Comment: No: D o not add to previous draw Result Comment: Calc ulation may not be valid for patients over 70 years Performed By: #### 1 69, 15565 #### [facility] [address] [place] [address], [facility] GFR/1.73 sq M.predicted among blacks MDRD (S/P/Bld) [Vol rate/Area] mL/min/{1.73_m2} Normal >60 The [facility] Comment on above: Order Comment: No: D o not add to previous draw Result Comment: Calc ulation may not be valid for patients over 70 years Performed By: #### 1 69, 49727 #### [facility] [address] [place] [address], [place] Glucose [Mass/Vol] 108 mg/dL High 70-100 The [facility] Comment on above: Order Comment: No: D o not add to previous draw Performed By: #### 1 69, 64074 #### [facility] [address] [place] [address], [place] Potassium [Moles/Vol] 3.8 mmol/L Normal 3.5-5.1 The [facility] Comment on above: Order Comment: No: D o not add to previous draw Performed By: #### 1 69, 33426 #### [facility] [address] [place] [address], [place] Sodium [Moles/Vol] 142 mmol/L Normal 136-145 The [facility] Comment on above: Order Comment: No: D o not add to previous draw Performed By: #### 1 69, 10868 #### [facility] [address] [place] [address], [facility] Urea nitrogen [Mass/Vol] 29 mg/dL High 7-25 The [facility] Comment on above: Order Comment: No: D o not add to previous draw Performed By: #### 1 69, 32641 #### [facility] [address] [place] [address], [facility] CBC W/DIFFon 08-10-2020 ABS IMM GRANS 0.0 10*3/uL Normal 0.0-0.2 The [facility] Comment on above: Order Comment: No: D o not add to previous draw Performed By: #### 1 69, 91794 #### [facility] [address] [facility] [place] [address], [facility] ABS NEUTROPHILS 3.0 10*3/uL Normal 1.6-7.[address] [facility] Comment on above: Order Comment: No: D o not add to previous draw Performed By: #### 1 69, 55483 #### [facility] [address] [facility] [place] [address], [facility] Basophils (Bld) [#/Vol] 0.0 10*3/uL Normal 0.0-0.2 The [facility] Comment on above: Order Comment: No: D o not add to previous draw Performed By: #### 1 69, 46404 #### [facility] [address] [facility] [place] [address], [facility] Basophils/100 WBC (Bld) 0.4 % Normal 0.0-1.0 The [facility] Comment on above: Order Comment: No: D o not add to previous draw Performed By: #### 1 69, 24923 #### [facility] [address] [place] [address], [facility] Eosinophils (Bld) [#/Vol] 0.4 10*3/uL Normal 0.0-0.5 The [facility] Comment on above: Order Comment: No: D o not add to previous draw Performed By: #### 1 69, 13532 #### [facility] [address] [place] [address], [facility] Eosinophils/100 WBC (Bld) 7.7 % High 0.0-6.0 The [facility] Comment on above: Order Comment: No: D o not add to previous draw Performed By: #### 1 69, 54938 #### [facility] [address] [place] [address], [facility] Erythrocyte distribution width (RBC) [Ratio] 13.8 % Normal 11.5-15.0 The [facility] Comment on above: Order Comment: No: D o not add to previous draw Performed By: #### 1 69, 17798 #### [facility] [address] [place] [id number], [facility] Hematocrit (Bld) [Volume fraction] 33.3 % Low 39.0-50.0 The [facility] Comment on above: Order Comment: No: D o not add to previous draw Performed By: #### 1 69, 81451 #### [facility] [address] [place] [address], [facility] Hemoglobin (Bld) [Mass/Vol] 10.9 g/dL Low 13.0-17.0 The [facility] Comment on above: Order Comment: No: D o not add to previous draw Performed By: #### 1 69, 74733 #### [facility] [address] [place] [address], [place] IMM PLATELET FRAC 7.2 % High 0.8-6.3 [facility] Comment on above: Order Comment: No: D o not add to previous draw Performed By: #### 1 69, 81995 #### [facility] [address] [place] [address], [place] IMMATURE GRANS 0.2 % Normal 0.0-1.[address] [facility] Comment on above: Order Comment: No: D o not add to previous draw Performed By: #### 1 69, 21248 #### [facility] [address] [place] [address], [facility] Lymphocytes (Bld) [#/Vol] 1.1 10*3/uL Low 1.2-4.0 The [facility] Comment on above: Order Comment: No: D o not add to previous draw Performed By: #### 1 69, 20013 #### [facility] [address] [place] [address], [facility] Lymphocytes/100 WBC (Bld) 21.4 % Normal 20.0-45.0 The [facility] Comment on above: Order Comment: No: D o not add to previous draw Performed By: #### 1 69, 63406 #### [facility] [address] [place] [address], [facility] MCH (RBC) [Entitic mass] 31.6 pg Normal 27.0-33.0 The [facility] Comment on above: Order Comment: No: D o not add to previous draw Performed By: #### 1 69, 93491 #### [facility] [address] [facility] [place] [address], [facility] MCHC (RBC) [Mass/Vol] 32.7 g/dL Normal 32.0-35.0 The [facility] Comment on above: Order Comment: No: D o not add to previous draw Performed By: #### 1 69, 70897 #### [facility] [address] [facility] [place] [address], [facility] MCV (RBC) [Entitic vol] 96.5 fL Normal 82.0-98.0 The [facility] Comment on above: Order Comment: No: D o not add to previous draw Performed By: #### 1 69, 90999 #### [facility] [address] [place] [address], [facility] Monocytes (Bld) [#/Vol] 0.6 10*3/uL Normal 0.1-1.0 The [facility] Comment on above: Order Comment: No: D o not add to previous draw Performed By: #### 1 69, 19603 #### [facility] [address] [place] [address], [place] MONOS 11.8 % Normal 5.0-12.0 The [facility] Comment on above: Order Comment: No: D o not add to previous draw Performed By: #### 1 69, 76533 #### [facility] [address] [place] [address], [place] Neutrophils/100 WBC (Bld) 58.5 % Normal 40.0-72.0 The [facility] Comment on above: Order Comment: No: D o not add to previous draw Performed By: #### 1 69, 79281 #### [facility] [address] [place] [address], [place] Nucleated RBC/100 WBC (Bld) [Ratio] 0 % Normal 0-0 The [facility] Comment on above: Order Comment: No: D o not add to previous draw Performed By: #### 1 69, 27390 #### [facility] [address] [place] [address], [place] PLAT CNT 102 10*3/uL Low 150-400 The [facility] Comment on above: Order Comment: No: D o not add to previous draw Performed By: #### 1 69, 83531 #### [facility] [address] [place] [address], [place] RBC (Bld) [#/Vol] 3.45 10*6/uL Low 4.20-5.70 The [facility] Comment on above: Order Comment: No: D o not add to previous draw Performed By: #### 1 69, 33968 #### [facility] [address] [place] [address], [place] WBC (Bld) [#/Vol] 5.09 10*3/uL Normal 4.00-10.60 [facility] Comment on above: Order Comment: No: D o not add to previous draw Performed By: #### 1 0070, 54789 #### [facility] [address] [place] [address], [facility] Cardiovascular Lab Reporton 08-10-2020 Cardiovascular Lab Report [facility] [place] Patient Name: Radha Brown MR #: [id number] [facility] Physician: Georges Purvis M.D. Department of Service Date: 08/09/2020 Medicine Birthdate: 1940 Division of Room #: 3AB 028300 Cardiology Adult Cardiovascular Services [facility] [address] [facility]. [place] [address] Cardiovascular Laboratory Report CARDIAC CATHETERIZATION REPORT INDICATION: [...] signed informed consent. 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 The right groin area was prepped and draped in usual fashion. Using micropuncture technique and ultrasound guidance, the right common femoral artery was accessed. The inner cannula angiography was performed followed by upsizing to a 6-Yemeni x 11 cm sheath. Access was obtained using same technique in the right common femoral vein and a 6-Yemeni x 11 cm sheath was placed. A 6-Yemeni Smalls catheter was used for heart catheterization with measurement of pressures and calculation of cardiac output using the estimated Lina method. Smalls catheter was removed. Bilateral selective coronary angiography was then performed using 6-Yemeni JL4 and AR2 diagnostic catheters. The AR2 diagnostic catheter was used for selectively engaging the saphenous venous graft to the PDA, saphenous venous graft to the diagonal, to the ramus, and to the OM3. Angiography was performed. Catheter was exchanged to a 6-Yemeni INDIGO catheter, which was used to selectively [...] by: (more content not included)... Normal The [facility] MAGNESIUM BLOODon 08-10-2020 Magnesium [Mass/Vol] 2.2 mg/dL Normal 1.9-2.7 The [facility] Comment on above: Order Comment: No: D o not add to previous draw Performed By: #### 1 0070, 71178 #### [facility] [address] [place] [address], [place] POC GLUCOSE LABon 08-10-2020 Glucose [Mass/Vol] 163 mg/dL High 70-100 The [facility] Comment on above: Performed By: #### 8 5499 #### [facility] [address] [place] [address], [place] Glucose [Mass/Vol] 167 mg/dL High 70-100 The [facility] Comment on above: Performed By: #### 0 0071, 90572, 08302 #### [facility] [address] [place] [address], [place] Glucose [Mass/Vol] 126 mg/dL High 70-100 The [facility] Comment on above: Performed By: #### 8 5499 #### [facility] [address] [place] [address], [place] Glucose [Mass/Vol] 113 mg/dL High 70-100 The [facility] Comment on above: Performed By: #### 0 0071, 56042, 75145 #### [facility] [address] [place] [address], [place] POC GLUCOSE LABon 08-09-2020 Glucose [Mass/Vol] 163 mg/dL High 70-100 [facility] Comment on above: Performed By: #### 8 5499 #### [facility] [address] [place] [address], [place] Glucose [Mass/Vol] 140 mg/dL High 70-100 [facility] Comment on above: Performed By: #### 8 5499 #### [facility] [address] [place] [address], [facility] Encounters Encounter Date Encounter Type Care Provider Facility Start: 03-12-2023 End: 03-12-2023 ambulatory [facility] Start: 01-18-2023 End: 01-18-2023 ambulatory [facility] Start: 09-11-2022 End: 09-11-2022 ambulatory [facility] Start: 07-13-2022 End: 07-14-[address] MARIBEL HOGAN . Facility:[facility] Start: 06-06-2022 End: [facility] Start: 05-07-2022 End: 05-08-[address] MARIBEL HOGAN . Facility:[facility] Start: 04-18-2022 ambulatory [facility] Start: 03-20-2022 End: 03-20-2022 ambulatory [facility] Start: 02-08-2022 End: 02-08-2022 ambulatory LAURA HERNANDEZ Facility:[facility] Start: 01-11-2022 End: 01-11-2022 ambulatory LAURA HERNANDEZ Facility:[facility] Start: 10-11-2021 End: 10-12-[address] GEORGES PURVIS Facility:[facility] Start: 08-04-2021 End: 08-05-[address] MARIBEL HOGAN . Facility:[facility] Start: 10-11-2020 End: 10-18-2020 Evaluation and management of inpatient PROVIDER UNKNOWN Facility:[facility] Start: 09-13-2020 End: 09-14-2020 ambulatory ASHLEY CRAIG Facility:[facility] Start: 08-09-2020 End: 08-14-2020 Evaluation and management of inpatient PROVIDER UNKNOWN Facility:[facility] Procedures Date Procedure Procedure Detail Performing Clinician Start: 07-13-[address] GEORGES PURVIS Comment on above: Performed By: #### P [facility] ####[facility] [id number] [place] [id number]. Pattie Torres Start: 08-04-[address] GEORGES PURVIS Comment on above: Performed By: #### P SAS ####[facility] [id number] [place], [place] [address]Hw. Pattie Torres Start: 10-17-2020 INSERT PACE, SINGL C HAM IN ABD SUBCU/FASCIA, OPEN HANK SMALLWOOD Start: 10-17-2020 INSERTION OF PACEMAK ER LEAD INTO R VENTRICLE, PERC APPROACH HANK SMALLWOOD Start: 10-12-2020 ULTRASONOGRAPHY OF R IGHT AND LEFT HEART, TRANSESOPHAGEAL KATHY LUA Start: 10-11-2020 Antibody screen PROVIDE R UNKNOWN Comment on above: Performed By: #### 8 5499 #### [facility] [address] [place] [address], [facility] Start: 10-11-2020 FLUOROSCOPY OF R LOW [...] AORTI C VALVE WITH ZOOPLASTIC, PERC APPROACH CODY CASTANEDA Start: 10-11-2020 Ultrasonography of R ight [...] PURVIS Payers Date Payer Category Payer Medicare [id number] 1940 Unknown [id number] 2.16.8 [id number] 1940 Unknown [id number] 2.16.8 [id number] 1940 Unknown [id number] 2.16.8 [id number] 1940 Unknown [id number] 2.16.84 [id number] 1940 Unknown [id number] 2.16.84 [id number] 1940 Unknown [id number] 2.16.84 [id number] 1940 Unknown [id number] 2.16.84 [id number] 1940 Unknown [id number] 2.16.84 [id number] 1940 Unknown [id number] 2.16.84 [id number] Private Health Insurance [facility] [id number] Clinical Notes 08-15-2020 to 01-18-2023 Note Date & Type Note Facility 01-18-2023 Note [place] Cardiology - [facility] Subjective Radha Brown is a 82 y.o. [...] Rfl: spironolactone (Aldactone) (more content not included)... 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 with yearly echo or sooner if symptoms warrant it [facility] 06-13-2022 Note Hypertension is stab le -ct medications [facility] 06-13-2022 Note CAD stable -hx CABG -no chest pain or dyspnea [facility] 06-13-2022 Note -NYHAIIb -compensated, mild LE edema bilaterally which is chronic -ct gdmt: toprol xl 100mg, irbesartan 300mg daily, hydralazine 100mg BID, isordil 20mg BID, bumex 1mg bid [facility] 06-13-2022 Note -permanent, slow paul tricular response -no episodes noted on device check 04/2022 -s/p watchmen 2018 -ct aspirin 81mg [facility] 06-13-2022 Note S/p TAVR 2020 -last echo 10/2021, normal EF, no paravalvular leak -will get repeat echo on follow up in appx 6 months [facility] 06-08-2022 Note [facility] 06-06-2022 Note [place] Electrophysiology Note [facility] Reason for visit: 6 month follow [...] BUN 29, creatini (more content not included)... [facility] 06-06-2022 Note Patient is here toda y for a 6 month follow up. Review of Systems All other systems reviewed and are negative. [facility] 02-08-2022 Note HISTORY AND PHYSICAL EXAMINATION Date:02/07/2022 [...] go forward with his elective procedure. [facility] 02-08-2022 Note OPERATIVE NOTE OPERATION [...] and this would be performed in a ymaiytk-txq-bkiaas-type fashion. All four quadrants were capable of [...] on the sulcus space. A lens model [id number], 19.0 diopters was then inserted and dialed [...] present. Due (more content not included)... [facility] 01-11-2022 Note HISTORY AND PHYSICAL [...] go forward with his elective procedure. [facility] 01-11-2022 Note OPERATIVE NOTE OPERATION [...] ensuring mobility, phacoemulsification was performed in a hghoegp-nii-vnnzgi-type fashion. After all nuclear material had been [...] the following day for postoperative care. [facility] 10-19-2020 Note MR#: [id number] I [facility] Pt. Name: Radha Brown Admitted: 10/11/2020 Discharged: 10/18/2020 Date of : 1940 Physician: Lemuel Brasher M.D. DISCHARGE SUMMARY PRIMARY DIAGNOSES: Severe Aortic stenosis S/P TAVR, . SECONDARY DIAGNOSES: Afib with slow ventricular response of <40bpm. baseline LBBB, Post TAVR worsening LBBB S/P single chamber Pacemaker ([employer]). Chronic atrial fibrillation s/p watchman, chronic [...] will follow up with: 1- Dr Purvis, [place] [facility] for post TAVR f/u 2- EP [...] MD Date Trans: 10/19/2020 05:10 A/julio cesar [id number] cc: Maribel Hogan M.D. [place] [id number] [facility] [address] Georges Purvis M.D. Heart Failure/ Transplant Mail[facility] [address] [facility] [address] [facility] 08-15-2020 Note MR#: [id number] I [facility] Pt. Name: Radha Brown Admitted: 08/09/2020 Discharged: [...] Salgado MD Date Trans: 08/15/2020 03:14 P/mmo [id number] cc: Maribel Hogan M.D. [address], [facility] [address] [facility] Summary Purpose Family History No Family [...] and content) DATE CREATED AUTHOR 11/19/2020 [facility] DATE CREATED AUTHOR AUTHOR'S ORGANIZ ATION 11/23/2020 [facility] DATE CREATED AUTHOR AUTHOR'S ORGANIZ ATION 07/22/2022 [facility] DATE CREATED AUTHOR AUTHOR'S ORGANIZ ATION 03/14/2023 [facility] FOR RECORDS PERTAINING TO PATIENTS WHO [...] BE BASED ON THE PRIMARY CLINICAL RECORDS. [facility]. provides no warranty or guarantee of the accuracy or completeness of information in this document.
[2023-05-01 11:45] LABS: Anion Gap 12.4; BUN Creatinine Ratio 16.4; Calcium 8.8 mg/dL (8.5-10.1); Carbon Dioxide 29.1 mmol/L (21.0-32.0); Chloride 102 mmol/L (98-107); Estimated GFR (African America 48 (>=60); Estimated GFR (Non-African Ame 40 (>=60); Glucose 180 mg/dL (74-106); Potassium 3.5 mmol/L (3.5-5.1); Sodium 140 mmol/L (136-145)
== END 2023-05-01 11:09 | disposition home or self-care (01) ==
LOC: LAB 11:10
PROVIDERS: PCP Family Medicine; Visit Provider Internal Medicine Interventional Cardiology
DX: I50.22 Chronic systolic (congestive) heart failure (principal)
CPT/HCPCS: 36415; 80048

== ENCOUNTER 2023-07-18 08:25 | Outpatient (OUT) | payer MEDICARE, SELFPAY ==
--- OUTSIDE RECORDS SUMMARY | 2023-07-18 08:45 | XMS_ITS | CCD ---
Author Organization [facility] Care Team Providers Care Skein Mercerizing Machine Operator Name Role Phone UNKNOWN, PROVIDER Admitting Unavailable UNKNOWN, PROVIDER Attending Unavailable MICKYMARIBEL Referring Unavailable HOY, MARIBEL Primary Care Unavailable MA Procedure Practitioner Unavailab CODY Davis Surgeon Unavailable MA Procedure Practitioner Unavailab HANK Garcia Surgeon Unavailable MA Procedure Practitioner Unavailab le UNKNOWN, PROVIDER Surgeon Unavailable MA Procedure Practitioner Unavailab KATHY Palma Surgeon Unavailable ASHLEY CRAIG Admitting Unavailable ASHLEY CRAIG Attending Unavailable MICKYMARIBEL Referring Unavailable HOY, MARIBEL Primary Care Unavailable UNKNOWN, PROVIDER Admitting Unavailable HOYMARIBEL Referring Unavailable HOY, MARIBEL Primary Care Unavailable RO LUCAS Attending Unavailable MA Procedure Practitioner Unavailab le UNKNOWN, PROVIDER Surgeon Unavailable YANIV, DR SU Admitting Unavailable MOUKARBEL, DR SU Attending Unavailable HOY ., DR LÓPEZ Primary Care Unavailable MOUKARBEL, DR SU Consulting Unavailable HOY ., DR LÓPEZ Admitting Unavailable HOY ., DR LÓPEZ Attending Unavailable HOY ., DR LÓPEZ Primary Care Unavailable HOY ., DR LÓPEZ Consulting Unavailable Emmy Camara Consulting Unavailable HOY ., DR LÓPEZ [...] Unavailable HOY ., DR LÓPEZ Consulting Unavailable HANK SMALLWOOD Referring Unavailable GEORGES PURVIS Attending Unavailable HANK SMALLWOOD Referring Unavailable NUPUR MEJIA Attending Unavailable GEORGES PURVIS Attending Unavailable Allergies Allergy Classification Reported Allergen(s) Allergy Type Date of Onset Reaction(s) Facility metFORMIN (1 source) metFORMIN Drug Allergy 09-23-2018 [facility] Repository (1 source) metFORMIN; Translations: [METFORMIN] Drug Allergy 06-06-2022 [facility] Repository Problems Active Problems Problem Classification Problem [...] [Thrombocytopenia, unspecified] Onset: 06-06-2022 Chronic Conduction disorders (3 sources) Presence of cardiac pacemaker; Translations: [Encounter for adjustment and management of automatic implantable cardiac defibrillator] Onset: 01-17-2022 Chronic Congestive heart failure; nonhypertensive (9 sources) Acute systolic (congestive) heart failure; Translations: [Unspecified diastolic (congestive) heart failure] Onset: 08-09-2021 Chronic Coronary atherosclerosis and other heart disease (3 sources) Atherosclerotic heart disease of [place] coronary artery without angina pectoris; Translations: [ASHD [place] CA W/O ANGINA PECTORIS] Onset: 06-06-2022 Chronic [...] unspecified; Translations: [HYPOTHYROIDISM UNSPECIFIED] Onset: 08-04-2021 Chronic Unclassified (2 sources) Permanent atrial fibrillation; Translations: [Permanent atrial fibrillation] Onset: 06-06-2022 Past or Other Problems Problem Classification Problem Date Documented Da te Episodic/Chronic Allergic reactions (4 sources) Other urticaria; Translations: [Generalized skin eruption due to drugs and medicaments taken internally] Onset: 06-06-2022 Episodic Diabetes mellitus without complication (1 source) Other abnormal glucose; Translations: [OTHER ABNORMAL GLUCOSE] Onset: 08-09-2021 Episodic Other aftercare (1 source) senior care (current) use of oral hypoglycemic drugs; Translations: [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 ORAL HYPOGLYCEMIC DX] Onset: 01-17-2022 Episodic [...] Value Interpretation Reference Range Facility Office Visiton 05-01-2023 Follow-up visit [id number] KevinTyler Suarez 1940 M Date Provider Department Center 05/01/2023 GOERGES JONES Family History Problem Relation Age of Onset Hypertension Mother Family Status - Relation Status Age at Mother Level of Service:75429 MA OFFICE/OUTPATIENT ESTABLISHED LOW MDM 20 MIN Normal [facility] Office Visiton 01-18-2023 Follow-up visit [id number] KevinTyler 1940 M Date Provider Department Center 01/18/2023 GEORGES JONES Family History Problem Relation Age of Onset Hypertension Mother Family Status - Relation Status Age at Mother Level of Service:62166 MA OFFICE/OUTPATIENT ESTABLISHED MOD MDM 30-39 MIN Reason for Visit and Comments: Valve Disorder [3372] Congestive Heart Failure [127] Pulmonary Hypertension [818] Normal [facility] INSULINon 07-14-2022 Insulin 7.9 uIU/mL Normal 2.6-24.9 [facility] Comment on above: Performed By: #### A 1C #### [facility] [address] [address] [address] Pattie Torres CBC AUTO DIFFon 07-13-2022 BASO # 0.0 103/ul Normal 0.0-0.1 [facility] Comment on above: Performed By: #### C BC ####[facility] [address] [address]Dr. Pattie Torres Basophils/100 WBC (Bld) 0.5 % Normal 0.2-2.0 [facility] Comment on above: Performed By: #### C BC ####[facility] [address] [address]DrLeticia Torres EO # 0.4 103/ul Normal 0.0-0.7 [facility] Comment on above: Performed By: #### C BC ####[facility] [address] [address]Dr. Pattie Torres Eosinophils/100 WBC (Bld) 5.5 % Normal 0.9-7.0 [facility] Comment on above: Performed By: #### C BC ####[facility] Nwwwos[address] [place], [place] [address]Dr. Pattie Torres Erythrocyte distribution width (RBC) [Ratio] 13.0 % Normal 11.0-15.0 [facility] Comment on above: Performed By: #### C BC ####[facility] [address] [place], [place] [address]Dr. Pattie Torres Hematocrit (Bld) [Volume fraction] 36.1 % Critically low 42.0-54.0 [facility] Comment on above: Performed By: #### C BC ####[facility] Reiswakbtc[address] [place], [place] [address]Dr. Pattie Torres Hemoglobin (Bld) [Mass/Vol] 11.8 g/dL Critically low 14.0-18.0 [facility] Comment on above: Performed By: #### C BC ####[facility] Ssejqkzvgj[address] [place], [place] [address]Dr. Pattie Torres IG # 0.02 10e3/ul Normal 0.00-0.03 [facility] Comment on above: Performed By: #### C BC ####[facility] [address] [place], [place] [address]Dr. Pattie Torres IG % 0.3 % Normal 0.0-0.5 [facility] Comment on above: Performed By: #### C BC ####[facility] Lykzoyo[address] [place], [place] [address]Dr. Pattie Torres LYMPH # 1.8 103/ul Normal 1.2-3.8 [facility] Comment on above: Performed By: #### C BC ####[facility] Skvallkz[address] [place], [place] [address]Dr. Pattie Torres Lymphocytes/100 WBC (Bld) 23.5 % Normal 20.5-60.0 [facility] Comment on above: Performed By: #### C BC ####[facility] [address] [address]Dr. Pattie Torres MANUAL DIFF REQ NO Normal [facility] Comment on above: Performed By: #### C BC ####[facility] [address] [id number]. Pattie Torres MCH (RBC) [Entitic mass] 30.3 pg Normal 25.9-34.0 [facility] Comment on above: Performed By: #### C BC ####[facility] [address] [address]Dr. Pattie Brian MCHC (RBC) [Mass/Vol] 32.7 g/dL Normal 29.9-35.2 [facility] Comment on above: Performed By: #### C BC ####[facility] [address] [address]Dr. Pattie Brian MCV (RBC) [Entitic vol] 92.6 fL Normal 80.0-94.0 [facility] Comment on above: Performed By: #### C BC ####[facility] [address] [address]Dr. Pattie Brian MONO # 0.6 103/ul Normal 0.3-0.8 [facility] Comment on above: Performed By: #### C BC ####[facility] [address] [address]Dr. Merlenery Torres Monocytes/100 WBC (Bld) 8.0 % Normal 1.7-12.0 [facility] Comment on above: Performed By: #### C BC ####[facility] [address] [address]Dr. Pattie Brian NEUT # 4.7 103/ul Normal 1.4-6.5 [facility] Comment on above: Performed By: #### C BC ####[facility] Fsdiz[address]vlw[address] [place], [place] [address]Dr. Merlenery Torres Neutrophils/100 WBC (Bld) 62.2 % Normal 43.0-75.0 [facility] Comment on above: Performed By: #### C BC ####[facility] [address]ff[address] [place], [place] [address]Gt. Pattie Torres Platelet mean volume (Bld) [Entitic vol] 12.9 fL Normal 9.5-13.5 [facility] Comment on above: Performed By: #### C BC ####[facility] [address]vum[address] [place], [place] [address]Pw. Pattie Torres PLT 127 103/ul Critically low 150-450 [facility] Comment on above: Performed By: #### C BC ####[facility] Ltz[address]ffy[address] [place], [place] [address]Pc. Pattie Torres RBC 3.90 106/ul Critically low 4.70-6.10 [facility] Comment on above: Performed By: #### C BC ####[facility] [address] [address]Dr. Pattie Torres WBC 7.6 103/ul Normal 4.0-11.0 [facility] Comment on above: Performed By: #### C BC ####[facility] [address]lr[address] [address]Dr. Pattie Torres FREE THYROXINE INDEX T7on FTI 3.66 Normal 1.30-4.50 [facility] Comment on above: Performed By: #### T 7, CMP, LIPID, TSH ####[facility] [address]usu[address] [place], [place] [address]Aj. Pattie Torres T3U 37.0 % Normal 33.0-40.0 [facility] Comment on above: Performed By: #### T 7, CMP, LIPID, TSH ####[facility] [address]isz[address] [place], [place] [address]Nt. Pattie Torres T4 [Mass/Vol] 9.90 ug/dL Normal 4.50-12.10 [facility] Comment on above: Performed By: #### T 7, CMP, LIPID, TSH ####[facility] [address]zp[address] [place], [place] [address]Bg. Pattie Torres GLYCOHEMOGLOBIN A1Con 2022 ADA RECOMMENDATION SEE BELOW Normal [facility] Comment on above: Result Comment: ADA RECOMMENDED LIMIT 4.0 - 6.0 ADA THERAPEUTIC TARGET < 7.0 ACTION SUGGESTED > 7.0 Performed By: #### A 1C #### [facility] [address] [address] [address] Pattie Torres Glucose [Mass/Vol] 148 mg/dL Normal [facility] Comment on above: Performed By: #### A 1C #### [facility] [address] [address] [address] Pattie Torres HbA1c (Bld) [Mass fraction] 6.8 % Critically high 4.5-6.2 [facility] Comment on above: Performed By: #### A 1C #### [facility] [address] [address] [address] Pattie Torres LIPID PROFILEon 07-13-2022 CHOL-HDL RATIO NORM SEE BELOW Normal [facility] Comment on above: Result Comment: 3.3 - 4.4 LOW RISK 4.4 - 7.1 AVERAGE RISK 7.1 - 11.0 MODERATE RISK >11.0 HIGH RISK Performed By: #### T 7, CMP, LIPID, TSH ####[facility] [address] [address]Dr. Pattie Torres Cholesterol [Mass/Vol] 114 mg/dL Normal <=200 [facility] Comment on above: Performed By: #### T 7, CMP, LIPID, TSH ####[facility] [address] [address]Dr. Pattie Torres Cholesterol in HDL [Mass/Vol] 32 mg/dL Critically low 40-60 [facility] Comment on above: Performed By: #### T 7, CMP, LIPID, TSH ####[facility] [address]afs[address] [address]Dr. Pattie Torres Cholesterol in LDL [Mass/Vol] 60.0 mg/dL Normal [facility] Comment on above: Performed By: #### T 7, CMP, LIPID, TSH ####[facility] [address] [address]Dr. Pattie Torres Cholesterol.total/Cho lesterol in HDL [Mass ratio] 3.6 {ratio} Normal [facility] Comment on above: Performed By: #### T 7, CMP, LIPID, TSH ####[facility] [address] [address]Dr. Pattie Torres HDL NORMAL > or = 60 mg/dl - LO W CARDIOVASCULAR RISK <40 mg/dl - HIGH CARDIOVASCULAR RISK Normal [facility] Comment on above: Performed By: #### T 7, CMP, LIPID, TSH ####[facility] [address] [address]Dr. Pattie Torres LDL CALC NORMAL SEE BELOW Normal [facility] Comment on above: Result Comment: <100 mg/dl OPTIMAL 100 - 129 mg/dl NEAR OR ABOVE OPTIMAL 130 - 159 mg/dl BORDERLINE HIGH 160 - 189 mg/dl HIGH >190 mg/dl VERY HIGH Performed By: #### T 7, CMP, LIPID, TSH ####[facility] [address] [address]Dr. Pattie Torres Triglyceride [Mass/Vol] 110 mg/dL Normal <=150 [facility] Comment on above: Performed By: #### T 7, CMP, LIPID, TSH ####[facility] [address]wanan[address] [address]Dr. Pattie Torres VLDL CALC 22.0 mg/dL Normal [facility] Comment on above: Performed By: #### T 7, CMP, LIPID, TSH ####[facility] [address] [address]Dr. Pattie Torres PROF 14(COMP METB)on 023 Albumin [Mass/Vol] 3.4 g/dL Normal 3.4-5.0 [facility] Comment on above: Performed By: #### T 7, CMP, LIPID, TSH ####[facility] [address] [address]Dr. Pattie Torres Albumin/Globulin [Mass ratio] 0.9 {ratio} Normal [facility] Comment on above: Performed By: #### T 7, CMP, LIPID, TSH ####[facility] [address] [address]Dr. Pattie Torres ALP [Catalytic activity/Vol] 68 U/L Normal 46-116 [facility] Comment on above: Performed By: #### T 7, CMP, LIPID, TSH ####[facility] [address] [address]Dr. Pattie Torres ALT [Catalytic activity/Vol] 20 U/L Normal 16-63 [facility] Comment on above: Performed By: #### T 7, CMP, LIPID, TSH ####[facility] [address]caqc[address] [address]Dr. Pattie Torres Anion gap [Moles/Vol] 11.0 mmol/L Normal [facility] Comment on above: Performed By: #### T 7, CMP, LIPID, TSH ####[facility] [address]tyc[address] [place], [place] [address]Dr. Pattie Torres AST [Catalytic activity/Vol] 12 U/L Critically low 15-37 [facility] Comment on above: Performed By: #### T 7, CMP, LIPID, TSH ####[facility] Tkw[address] [place], [place] [address]Dr. Pattie Torres Bilirubin [Mass/Vol] 1.0 mg/dL Normal 0.2-1.0 [facility] Comment on above: Performed By: #### T 7, CMP, LIPID, TSH ####[facility] [address]ck[address] [place], [place] [address]Dr. Pattie Torres Calcium [Mass/Vol] 8.6 mg/dL Normal 8.5-10.1 [facility] Comment on above: Performed By: #### T 7, CMP, LIPID, TSH ####[facility] [address] [address]Dr. Pattie Torres Chloride [Moles/Vol] 107 mmol/L Normal 98-107 [facility] Comment on above: Performed By: #### T 7, CMP, LIPID, TSH ####[facility] [address] [address]Dr. Pattie Torres CO2 [Moles/Vol] 28.6 mmol/L Normal 21.0-32.0 [facility] Comment on above: Performed By: #### T 7, CMP, LIPID, TSH ####[facility] [address] [address]Dr. Merlenery Torres Creatinine [Mass/Vol] 1.25 mg/dL Normal 0.70-1.30 [facility] Comment on above: Performed By: #### T 7, CMP, LIPID, TSH ####[facility] [address] [address]Dr. Pattie Torres EGFR-AF ERITREAN >60 Normal >=60 [facility] Comment on above: Performed By: #### T 7, CMP, LIPID, TSH ####[facility] [address] [address]Dr. Pattie Torres EGFR-NON AF ERITREAN 55 mL/min/1.73m2 Critically low >=60 [facility] Comment on above: Performed By: #### T 7, CMP, LIPID, TSH ####[facility] [address]ns[address] [address]Dr. Pattie Torres Globulin (S) [Mass/Vol] 3.7 g/dL Normal [facility] Comment on above: Performed By: #### T 7, CMP, LIPID, TSH ####[facility] Ibcvc[address] [place], [place] [address]Dr. Pattie Torres Glucose [Mass/Vol] 151 mg/dL Critically high 74-106 [facility] Comment on above: Performed By: #### T 7, CMP, LIPID, TSH ####[facility] [address]ix[address] [address]Dr. Pattie Torres Potassium [Moles/Vol] 3.6 mmol/L Normal 3.5-5.1 [facility] Comment on above: Performed By: #### T 7, CMP, LIPID, TSH ####[facility] [address] [address]Dr. Pattie Torres Protein [Mass/Vol] 7.1 g/dL Normal 6.4-8.2 [facility] Comment on above: Performed By: #### T 7, CMP, LIPID, TSH ####[facility] [address] [address]Dr. Pattie Torres Sodium [Moles/Vol] 143 mmol/L Normal 136-145 [facility] Comment on above: Performed By: #### T 7, CMP, LIPID, TSH ####[facility] [address] [address]Dr. Pattie Torres Urea nitrogen [Mass/Vol] 22.0 mg/dL Critically high 7.0-18.0 [facility] Comment on above: Performed By: #### T 7, CMP, LIPID, TSH ####[facility] Y[address] [place], [place] [address]Ev. Pattie Torres Urea nitrogen/Creatinine [Mass ratio] 17.6 mg/mg Normal [facility] Comment on above: Performed By: #### T 7, CMP, LIPID, TSH ####[facility] Xxexvukcja224[address] [place], [place] [address]Dm. Pattie Torres TSHon 07-13-2022 TSH 1.869 uIU/mL Normal 0.358-3.740 [facility] Comment on above: Performed By: #### T 7, CMP, LIPID, TSH ####[facility] [address] [id number]. Pattie Torres Orders Onlyon 06-08-2022 Orders Only [id number] Tyler Brown 1940 M [facility] Provider Department Center 06/08/2022 GONSALO MALONE SAWYER Arreola Family History Problem Relation Age of Onset Hypertension Mother Family Status - Relation Status Age at Mother Normal [facility] Office Visiton 06-06-2022 Follow-up visit [id number] Tyler Brown 1940 M Date Provider Department Center 06/06/2022 NUPUR GEORGE SAWYER Arreola Family History Problem Relation Age of Onset Hypertension Mother Family Status - Relation Status Age at Mother Level of Service:69163 [place] OFFICE/OUTPATIENT ESTABLISHED LOW MDM 20-29 MIN Reason for Visit and Comments: Follow-up [582509] - 6 month follow up Normal [facility] US SINGLE QUAD RT UPPERon US SINGLE [...] evidence of acute cholecystitis. Electronically authenticated by: EMMY CAMARA Date: 2022-05-07 16:34 Normal [facility] ECHOCARDIO M/2D COMPLETEon 0 10-11-2021 ECHOCARDIO M/2D COMPLETE Patient: RADHA BROWN Exam Date: 10/11/2021 : 1940 Gender:M Ordering : DR GEORGES PURVIS M.D. Admission #: [id number] Family : Order #: [id number] CLICK HERE TO VIEW EXAM ECHOCARDIOGRAM REPORT [...] M.D. on 10/11/2021 at 20:32 Normal [facility] INSULINon 08-05-2021 Insulin 12.2 uIU/mL Normal 2.6-24.9 [facility] Comment on above: Performed By: #### I NSULIN ####[facility] [address] [address]DrLeticia Torres BNPon 08-04-2021 Natriuretic peptide B (Bld) [Mass/Vol] 1018.0 pg/mL Normal <=1,800.0 [facility] Comment on above: Performed By: #### B TIRE MANAGER, URIC, TSH, T7, LIPID, CMP #### [facility] [address] [address] [address] Pattie Torres CBC AUTO DIFFon 08-04-2021 BASO # 0.0 103/ul Normal 0.0-0.1 [facility] Comment on above: Performed By: #### C BC ####[facility] [address] [id number]. Pattie Torres Basophils/100 WBC (Bld) 0.4 % Normal 0.2-2.0 [facility] Comment on above: Performed By: #### C BC ####[facility] [address]ouny[address] [place] [address]DrLeticia Torres EO # 0.5 103/ul Normal 0.0-0.7 [facility] Comment on above: Performed By: #### C BC ####[facility] Z[address]xq[address] [address]DrLeticia Torres Eosinophils/100 WBC (Bld) 7.1 % Critically high 0.9-7.0 [facility] Comment on above: Performed By: #### C BC ####[facility] E[address]hrut[address] [address]DrLeticia Torres Erythrocyte distribution width (RBC) [Ratio] 13.1 % Normal 11.0-15.0 [facility] Comment on above: Performed By: #### C BC ####[facility] [address] [address]Dr. Merlenery Torres Hematocrit (Bld) [Volume fraction] 39.2 % Critically low 42.0-54.0 [facility] Comment on above: Performed By: #### C BC ####[facility] [address]ipq[address] [address]Dr. Pattie Torres Hemoglobin (Bld) [Mass/Vol] 12.6 g/dL Critically low 14.0-18.0 [facility] Comment on above: Performed By: #### C BC ####[facility] Rev[address]ckgu[address] [address]Dr. Pattie Torres IG # 0.03 10e3/ul Normal 0.00-0.03 [facility] Comment on above: Performed By: #### C BC ####[facility] [address]ln[address]inv[address] [place], [place] [address]Dr. Pattie Torres IG % 0.4 % Normal 0.0-0.5 [facility] Comment on above: Performed By: #### C BC ####[facility] [address] [place], [place] [address]Dr. Pattie Torres LYMPH # 2.3 103/ul Normal 1.2-3.8 [facility] Comment on above: Performed By: #### C BC ####[facility] Ofmukxescy[address] [place], [place] [address]Dr. Pattie Torres Lymphocytes/100 WBC (Bld) 31.7 % Normal 20.5-60.0 [facility] Comment on above: Performed By: #### C BC ####[facility] Rrerfuisfg[address] [place], [place] [address]Dr. Pattie Torres MANUAL DIFF REQ NO Normal [facility] Comment on above: Performed By: #### C BC ####[facility] [address] [place], [place] [address]Dr. Pattie Torres MCH (RBC) [Entitic mass] 30.5 pg Normal 25.9-34.0 [facility] Comment on above: Performed By: #### C BC ####[facility] [address]ar[address] [place] [address]Dr. Pattie Torres MCHC (RBC) [Mass/Vol] 32.1 g/dL Normal 29.9-35.2 [facility] Comment on above: Performed By: #### C BC ####[facility] [address]tojrn[address] [address]Dr. Pattie Torres MCV (RBC) [Entitic vol] 94.9 fL Critically high 80.0-94.0 [facility] Comment on above: Performed By: #### C BC ####[facility] [address]fzjel[address] [place] [address]Dr. Merlenery Brian MONO # 0.6 103/ul Normal 0.3-0.8 [facility] Comment on above: Performed By: #### C BC ####[facility] [address]excy[address] [address]Dr. Pattie Torres Monocytes/100 WBC (Bld) 9.0 % Normal 1.7-12.0 [facility] Comment on above: Performed By: #### C BC ####[facility] [address] [place], [place] [address]Dr. Merlenery Torres NEUT # 3.7 103/ul Normal 1.4-6.5 [facility] Comment on above: Performed By: #### C BC ####[facility] Tr[address]anykro[address] [address]Dr. Pattie Torres Neutrophils/100 WBC (Bld) 51.4 % Normal 43.0-75.0 [facility] Comment on above: Performed By: #### C BC ####[facility] [address] [place], [place] [address]Dr. Pattie Torres Platelet mean volume (Bld) [Entitic vol] 12.3 fL Normal 9.5-13.5 [facility] Comment on above: Performed By: #### C BC ####[facility] [address] [place], [place] [address]Dr. Pattie Torres PLT 143 103/ul Critically low 150-450 [facility] Comment on above: Performed By: #### C BC ####[facility] J[address]hnkvpzr0418 [place], [place] [address]ShLeticia Torres RBC 4.13 106/ul Critically low 4.70-6.10 [facility] Comment on above: Performed By: #### C BC ####[facility] Qnvyshltau9069 [place], [place] [address]DoLeticia Torres WBC 7.1 103/ul Normal 4.0-11.0 [facility] Comment on above: Performed By: #### C BC ####[facility] [address]ydqptj9665 [place], [place] [address]IsDr. Pattie Torres FREE THYROXINE INDEX T7on FTI 3.33 Normal [facility] Comment on above: Performed By: #### B TIRE MANAGER, URIC, TSH, T7, LIPID, CMP #### [facility] [address] [address] [address] Pattie Torres T3U 35.0 % Normal 23.5-40.5 [facility] Comment on above: Performed By: #### B TIRE MANAGER, URIC, TSH, T7, LIPID, CMP #### [facility] [address] [address] [address] Pattie Torres T4 [Mass/Vol] 9.50 ug/dL Normal 4.50-12.10 [facility] Comment on above: Performed By: #### B TIRE MANAGER, URIC, TSH, T7, LIPID, CMP #### [facility] [address] [address] [address] Pattie Torres GLYCOHEMOGLOBIN A1Con 2021 ADA RECOMMENDATION SEE BELOW Normal [facility] Comment on above: Result Comment: ADA RECOMMENDED LIMIT 4.0 - 6.0 ADA THERAPEUTIC TARGET < 7.0 ACTION SUGGESTED > 7.0 Performed By: #### A 1C #### [facility] [address] [address] [address] Pattie Torres Glucose [Mass/Vol] 140 mg/dL Normal [facility] Comment on above: Performed By: #### A 1C #### [facility] [address] [address] [address] Pattie Torres HbA1c (Bld) [Mass fraction] 6.5 % Critically high 4.5-6.2 [facility] Comment on above: Performed By: #### A 1C #### [facility] [address] [place] [address] Dr. Pattie Torres LIPID PROFILEon 08-04-2021 CHOL-HDL RATIO NORM SEE BELOW Normal [facility] Comment on above: Result Comment: 3.3 - 4.4 LOW RISK 4.4 - 7.1 AVERAGE RISK 7.1 - 11.0 MODERATE RISK >11.0 HIGH RISK Performed By: #### B TIRE MANAGER, URIC, TSH, T7, LIPID, CMP #### [facility] [address] [place] [address] Dr. Pattie Torres Cholesterol [Mass/Vol] 143 mg/dL Normal <=200 [facility] Comment on above: Performed By: #### B TIRE MANAGER, URIC, TSH, T7, LIPID, CMP #### [facility] [address] [place] [address] Dr. Pattie Torres Cholesterol in HDL [Mass/Vol] 42 mg/dL Normal 40-60 [facility] Comment on above: Performed By: #### B TIRE MANAGER, URIC, TSH, T7, LIPID, CMP #### [facility] [address] [place] [address] Dr. Pattie Torres Cholesterol in LDL [Mass/Vol] 76.0 mg/dL Normal [facility] Comment on above: Performed By: #### B TIRE MANAGER, URIC, TSH, T7, LIPID, CMP #### [facility] [address] [place] [address] Dr. Pattie Torres Cholesterol.total/Cho lesterol in HDL [Mass ratio] 3.4 {ratio} Normal [facility] Comment on above: Performed By: #### B TIRE MANAGER, URIC, TSH, T7, LIPID, CMP #### [facility] [address] [place] [address] Dr. Pattie Torres HDL NORMAL > or = 60 mg/dl - LO W CARDIOVASCULAR RISK <40 mg/dl - HIGH CARDIOVASCULAR RISK Normal [facility] Comment on above: Performed By: #### B TIRE MANAGER, URIC, TSH, T7, LIPID, CMP #### [facility] [address] [address] [address] Pattie Torres LDL CALC NORMAL SEE BELOW Normal [facility] Comment on above: Result Comment: <100 mg/dl OPTIMAL 100 - 129 mg/dl NEAR OR ABOVE OPTIMAL 130 - 159 mg/dl BORDERLINE HIGH 160 - 189 mg/dl HIGH >190 mg/dl VERY HIGH Performed By: #### B TIRE MANAGER, URIC, TSH, T7, LIPID, CMP #### [facility] [address] [address] [address] Pattie Torres Triglyceride [Mass/Vol] 125 mg/dL Normal <=150 [facility] Comment on above: Performed By: #### B TIRE MANAGER, URIC, TSH, T7, LIPID, CMP #### [facility] [address] [address] [address] Pattie Torres VLDL CALC 25.0 mg/dL Normal [facility] Comment on above: Performed By: #### B TIRE MANAGER, URIC, TSH, T7, LIPID, CMP #### [facility] [address] [place] [address] Dr. Pattie Torres PROF 14(COMP METB)on 022 Albumin [Mass/Vol] 3.8 g/dL Normal 3.4-5.0 [facility] Comment on above: Performed By: #### B TIRE MANAGER, URIC, TSH, T7, LIPID, CMP #### [facility] [address] [place] [address] Dr. Pattie Torres Albumin/Globulin [Mass ratio] 1.0 {ratio} Normal [facility] Comment on above: Performed By: #### B TIRE MANAGER, URIC, TSH, T7, LIPID, CMP #### [facility] [address] [place] [address] Dr. Pattie Torres ALP [Catalytic activity/Vol] 86 U/L Normal 46-116 [facility] Comment on above: Performed By: #### B TIRE MANAGER, URIC, TSH, T7, LIPID, CMP #### [facility] [address] [place] [address] Dr. Pattie Torres ALT [Catalytic activity/Vol] 28 U/L Normal 16-63 [facility] Comment on above: Performed By: #### B TIRE MANAGER, URIC, TSH, T7, LIPID, CMP #### [facility] [address] [place] [address] Dr. Pattie Torres Anion gap [Moles/Vol] 8.8 mmol/L Normal [facility] Comment on above: Performed By: #### B TIRE MANAGER, URIC, TSH, T7, LIPID, CMP #### [facility] [address] [place] [address] Dr. Pattie Torres AST [Catalytic activity/Vol] 16 U/L Normal 15-37 [facility] Comment on above: Performed By: #### B TIRE MANAGER, URIC, TSH, T7, LIPID, CMP #### [facility] [address] [place] [address] Dr. Pattie Torres Bilirubin [Mass/Vol] 1.0 mg/dL Normal 0.2-1.0 [facility] Comment on above: Performed By: #### B TIRE MANAGER, URIC, TSH, T7, LIPID, CMP #### [facility] [address] [place] [address] Dr. Pattie Torres Calcium [Mass/Vol] 8.4 mg/dL Critically low 8.5-10.1 [facility] Comment on above: Performed By: #### B TIRE MANAGER, URIC, TSH, T7, LIPID, CMP #### [facility] [address] [place] [address] Dr. Pattie Torres Chloride [Moles/Vol] 101 mmol/L Normal 98-107 [facility] Comment on above: Performed By: #### B TIRE MANAGER, URIC, TSH, T7, LIPID, CMP #### [facility] [address] [place] [address] Dr. Pattie Torres CO2 [Moles/Vol] 31.5 mmol/L Normal 21.0-32.0 [facility] Comment on above: Performed By: #### B TIRE MANAGER, URIC, TSH, T7, LIPID, CMP #### [facility] [address] [place] [address] Dr. Pattie Torres Creatinine [Mass/Vol] 1.60 mg/dL Critically high 0.70-1.30 [facility] Comment on above: Performed By: #### B TIRE MANAGER, URIC, TSH, T7, LIPID, CMP #### [facility] [address] [place] [address] Dr. Pattie Torres EGFR-AF ERITREAN 50 mL/min/1.73m2 Critically low >=60 [facility] Comment on above: Performed By: #### B TIRE MANAGER, URIC, TSH, T7, LIPID, CMP #### [facility] [address] [place] [address] Dr. Pattie Torres EGFR-NON AF ERITREAN 42 mL/min/1.73m2 Critically low >=60 [facility] Comment on above: Performed By: #### B TIRE MANAGER, URIC, TSH, T7, LIPID, CMP #### [facility] [address] [place] [address] Dr. Pattie Torres Globulin (S) [Mass/Vol] 3.8 g/dL Normal [facility] Comment on above: Performed By: #### B TIRE MANAGER, URIC, TSH, T7, LIPID, CMP #### [facility] [address] [place] [address] Dr. Pattie Torres Glucose [Mass/Vol] 143 mg/dL Critically high 74-106 [facility] Comment on above: Performed By: #### B TIRE MANAGER, URIC, TSH, T7, LIPID, CMP #### [facility] [address] [place] [address] Dr. Pattie Torres Potassium [Moles/Vol] 4.3 mmol/L Normal 3.5-5.1 [facility] Comment on above: Performed By: #### B TIRE MANAGER, URIC, TSH, T7, LIPID, CMP #### [facility] [address] [place] [address] Dr. Pattie Torres Protein [Mass/Vol] 7.6 g/dL Normal 6.1-8.2 [facility] Comment on above: Performed By: #### B TIRE MANAGER, URIC, TSH, T7, LIPID, CMP #### [facility] [address] [place] [address] Dr. Pattie Torres Sodium [Moles/Vol] 137 mmol/L Normal 136-145 [facility] Comment on above: Performed By: #### B TIRE MANAGER, URIC, TSH, T7, LIPID, CMP #### [facility] [address] [place] [address] Dr. Pattie Torres Urea nitrogen [Mass/Vol] 28.0 mg/dL Critically high 7.0-18.0 [facility] Comment on above: Performed By: #### B TIRE MANAGER, URIC, TSH, T7, LIPID, CMP #### [facility] [address] [place] [address] Dr. Pattie Torres Urea nitrogen/Creatinine [Mass ratio] 17.5 mg/mg Normal [facility] Comment on above: Performed By: #### B TIRE MANAGER, URIC, TSH, T7, LIPID, CMP #### [facility] [address] [place] [address] Dr. Pattie Torres TSHon 08-04-2021 TSH 3.729 uIU/mL Normal 0.470-4.680 [facility] Comment on above: Performed By: #### B TIRE MANAGER, URIC, TSH, T7, LIPID, CMP #### [facility] [address] [place] [address] Dr. Pattie Torres TSH RANGE SEE BELOW Normal [facility] Comment on above: Result Comment: <0.3 4 UIU/ml HYPERTHYROID 0.34-5.60 UIU/ml EUTHYROID >5.60 UIU/ml HYPOTHYROID Performed By: #### B TIRE MANAGER, URIC, TSH, T7, LIPID, CMP #### [facility] [address] [place] [address] Dr. Pattie Trores URIC ACID SERUMon 08-04-2021 Urate [Mass/Vol] 8.3 mg/dL Normal 3.5-8.5 [facility] Comment on above: Performed By: #### B TIRE MANAGER, URIC, TSH, T7, LIPID, CMP #### [facility] [address] [place] [address] Dr. Pattie Torres Coding Summary.on 11-22-2020 Coding Summary. CD:[id number] G h0bWw+PGhlYWQ+JM7JUSE kD59wfPJtvX5SF6vPEC6Z GILJFDQYZZ5DJW7ktHQ1F RklI7EcuzUt BdvcbLNqTM10KKj7SAL6b WjxBMfuaC6ezFQnN6p9Ti HpBW23vI41LXofQAOuRoH 3LjZpbjsgbWFy E4jeCbXkzECvCho+PHRhY mxlIHdpZHRoPScxMDAlJy MdyJzzXQ9oUt8tFNUjHQS vbGxhcHNlOiBj f8leAURzCApgRC7scNupV 0KkcIP9JMPvj5f3Ug85zN I+UXVsBFR6eTmgJIpon48 9FoYjb4mrMTH7 mBWpDPjfDCY2L84ld8F0X IJuEGJbPEG8gHA4hQ7gdX oiawypY1PzqXXnMuL3LVB 5mBZrwL8cvFjv dhxrnH2vPch+R79ISF5OV DOFKN0RDhc6R2SzGliwsN I+YB05TEVeUY60wTAszUD yt3wcxWs4StOl DMMwKCQ4tPigYLazm2YqT LSjY56iqJLid5A9VSJgxL pvzFSvZfZzgZU4gZ2zZCo zxtymm5fuczxb Wdsni1ktnx82kN75C50jE AvwIRUzGYH9CIFdVZDfoC qvqg4caY9eLk4+MRnls3t uf9mxqDv0UpPf BJCvwgXggBhqELK3v3UmS q18K6XfsZjkk8RaFmc1fr 32yCXjx0E5vZY4NIvoSUM bmG4nKIzmOuX8 CYSmPqKjiR08pIPaPRwbS l6lsXcutQqfDV6eBTSfgi vuCQYtsS1uILSemMNvcNx mFQ3tHWIeiyoj t952VaWpHRT7RWRviQJkS 3HriC5hYpJjJRPcUDYdY8 AvkIPeHYzdR843DDjjQeF 8CUViqkMcD6Hv TRUazTalMgG4o0J8Za9Aj 0LdzoyaRKC5NLlfUNN0Yw C7XlOtHqS0S8EbPta3HJJ voAglKV7lR5Zw QKVgrbfidtcriLN0JBRbC KBgvX48dLWgKBxwMt4lt3 L2f267BAZoRIEluW53Wq4 udDogMTBwdCBU wF7iakiwk4aimmfhTtZsR DGyXFd3SGi9POXaeWmmCw YaOMC7VzY2HFM0jGWigG5 xrSankneweW7c Oyc+A89wpM7kAGZ8LNS8b rjzBURhflZxUC10CO84T8 RyPjwvdGFibGU+PGRpdiB kbBmeMG2vUzKa l8mzz4XxDAhhF4HpBXFqW VahDup4IPPkYCH9wEJ9sH 2bBUDwNYnuj5N7lZW5I5I lpkOgot4me3fl IBLwKAvzX82iyNEgq1Q1O FJnrEC8XZUugZlwNhDynE 93Oyc+YTOvhVdhw9HmGjb qb3fde6zfnDu9 IhIsBFHqmyZkfTooGXL2v 1RrAe21P71iKSxjXPOhWF EtQIPuTXJcpVnswl8npW9 wIi8+PGNvbCB3 wQT7hI2rHWCrLlF1SQdgL 076PrBxhELgBfuqq4kjb8 cluVh1OgEdWCUqysEwuHe qJJU6z4FgKa67 K72bOMwrHNJzJSWyKNPoW XGmxUmddq2qeB1gBj3+PC 4ry2shwm09lU61pNC+PHR lODV4jVqiKWjc MEBsgN3gMNkkWiR1OCAjK aEoiD72cLMaZZecPc4cpM fktBxzOF3pIRMkvaodu34 7HmJib9fkHZMb gPKqWXrbCEO9T22hq0S4F WScGTEkZTJ1yNT1nK1glE lnbjogbGVmdDsgdmVydGl oDXbgDQhbG063 IHRvcDsnPlBhdGllbnQgT tKrDCc5S6FiZhw8BRSjjX nmSB3hySVdVTkuXc9utOm ltThyJX6jPKOg apzhi255RpSsz0okRNFui RQsUOpeIXY4Q16nz9K9CM JdNDEfXZJ0cQA8kL8bgEt nbjogbGVmdDsg gnXnvAivNTxtJXgvT715D HRvcDsnPkJpcnRoIERhdG T8MI48PV07mJCxk6G1cPV 0A7IgHUHfsenl lvillGL5HDGqKMAkmI19C y6wgFtkAr7lAFNuOZM9JI QeiTStN5DtyF8aXtAqOZN vBKAkM8UacPLd WAzkS303DDjxQqK1OUZss eMwW7UeTJYsmZxwXtN3x5 G0Hd5FS5G1MP60OZ05yCX mi7H0eYL5V7Qf MBShigzzssjcyHY4SCVmY UViaJ19Lr4jvDwsNt4fRK ZtJTG3SZUanURlY5RmmL2 yOiAjMDAwMDAw N2NnvUJqEAsvJ681SKirY qB8SNHdhbBtE6BmMPHahR vlTqO4u2R3Ed6OUDt3BU1 6CW64sWHux8O8 mUV1C4DxIMRzsxocfutgf UA3ZILyRYRbrE63Rx0jpW uqKz6yWJKvQID2NFOfbEU jW3DlzD5rYzTp PSWpWERcC8TjeRJeKBjuL 847ZIvtXrV9AABektPfC0 WtCVSaxLxjJdI2b4R0Ar5 KQPYgYW16WWS8 vOP3MD27TI52N9SaYygxl GFibGU+PHRhYmxlIHdpZH RoPScxMDAlJyBzdHlsZT0 kLg4uNIDqCBZr oNbccAGlKuEpv2jwGGMsM BtcOI4frQhdS3VgvAK6ZO Gxj4w6Mj24I42tY3FowET +QBNqeYV6bTK8 eK9dNrMuBqE8JAmwC476F jArpVNzVmavd7biq8wvvV u2WpH0NZYmocFkkAqjIOF 8i9TcEc46S05n IHdpZHRoPSIxNSUiIHZhb Sgcon5pwC3qUd5+PGNvbC Z7eGE3pV9fBqXeNdW4NXs vV027XkUisAQb Ziaty7hoq9hltVj3AlIhZ YSreaSjaFvrDJW2h3QhGx 21E1RwaWtmy0ZpYrh6cw7 2rLXnc6T1vOS6 A7DyCGHjcbcajXRmtEzbQ B7tAYGrjpdeYAJmmL5vYW WcV7z5MmWrTqH7JMfiP6M ndcC3CQCypEKw BNnoNKI7U46no0N9ORTsL NIlWUH0gWP7mS9afMqmfw ogbGVmdDsgdmVydGljYWw qCWneR990VTYw fZjeVCSjlW5wKPVqoFVwb WvdSI4cDXTnczffRhXUUl XCJKFPF1JKBmE5K5BiStd 9KBLggHfyGN8u uEUnOKihZz8wlKzgjZgaT R4fHZXenjxwQXSbiU8cPU IqhEDqdCcqDV7pAWPjiwm pv544FcYdKVR3 ENXmbNBrZ9DpaA7qTsYbF IKfCKIkJ7VttWFgVOwrQ9 10EEbiQkY7IZQcguOyV2T sLWFsaWduOiB0 u9L2Qc2vPT7jRD2sYGO8N D57AV97gGInb5Y3nOK6Z6 RbWLFiogskfxxypUQ8VBV zRJVomP15lIVw XQbkFg6hr1B8d508HYLmM WFtrO53Ut8xfQurVEYhuB DVqL8ljltku0lxlufgTkV aCYNnKLt5HXs6 QUSscWaeNgMuFMP3KaW9J QW4pNKrmP0xaAgbxwspuP 9wOyc+FIOcHITjcdE2N3N zWuo3BDJkoWtq GO9apDKpFRmgEc6orUyvp ImrBE4aBBAjvpccRYPibI 9uHNAxxWJuvFldTK7wZMC vqsrlx376TjXt GEZ9KWVhxKAiP9YivA4kB yRcCMHeFTDlM9CwiEBeDH krB895LJcoJeP5ILNvotJ mB8YiTWMaoWok ZgK1v3N5Dr2XPNgzMZ74O N25kURqx8G1cLB9O4VlKH AluvipnpeixBN5CFSuXSB gqH86sMBtWZgo Md1rz2T6u824RJGkKUHcv W47Fh2hqGawHFMylEXHoD 8ikwxgr7pmkkvlRwDqGGX tRJc5DWt0VWSf mZqrVaYeXNJ8LcE4TCM3p ROjeD1sxDfbgqzfwY3vBq c+C2I5fRU5oSGosBmnzNM +XS24ua35E3Os XfgxIdk0BUVmKYV3fLD9n G5jAHWgZPsde2E3lMO8U9 HxopDywr3eo1gcQDRvXAu cO66asEWfw0O6 FZLjbPJ4CWVfxAuaHkVtk G93Oyc+VHHovHkog7NiVz mru5kdy5emlMw3UcNmWWL gdmFsaWduPSJ0 x0MySu92C75xHIxmSQBcB WMkVMGtVLTklAwifo3xgA 9wIi8+WJXpzXH8kWC0aN7 rTyKnEaH1TYte H937KlHzeHZrZqvqo9yhn 9qjoJo3ShZoHUTzpuVmdV shFSP6v2JmTq32L0PfdQy jx3WhYwf8js04 iARtb4U8rFR2G4DgIUFge erwjHMzyZrmIW0xMLZmeb roSLAteK3lVWRbD9p0UfI bOuM6WDnvE4Ew jlK8PFXyqOOuERLvrQDRy V8oaqiav7jkvbmyBtEsRR JkYCy2RYh9MOUlgYsgRuA iBLZ2YzP0NAD3 pXNkzF8mxSvizloynW5gH yc+BKh3g2nekYSvFS0ijB G9QA20XA22sUSyt0D7aNR 0T7VrJXIktlqz wavqoMW3KCFbZBDpvL36B e9orSemHr7aFSYiEOC3XZ QokEYwM8SoaR3kTeZsQHH qBTXgY7LmdRZu BGntI413TOeiJeH4FWYzo oAhT7AfVIPyzOwoAoC4f9 Y6Jv0FIM37TY87NW82dAP jb6M6eFY3X4St SBNhpursivhrfJI1NCFuF YBokX93Ii6awArxOw6oDW YiQMF1SRAvwKQxW3IovQ5 yOiAjMDAwMDAw X9PvpPDuDEvbK208CEaeN pN0CZKcieGgG1DqWASmkD xxRkK6v2P9Jx2EOo06AJ3 5KJ25mPFno7K6 yEY5X7OoSTWkgkrkhsdls DH9BJWwGFPidN34Zi6avO veWn5eIJYcTJS6UFDspMW vS6HecD3aDwPy RGDyWHKyH7VwhQZoHDzwT 378MFnnNbY2XREcaeOfC0 VfWGYjcLbfYvC7b8N3Kb0 AUCtombm8K9Wh PjwvdHI+OW57EOHlQS12t GKxdZWwb1hmeWl5AjXmCB VtUIB9cFwlWDpdk9XiNNV jU16qfBSre3K0 IGNv (more content not included)... [facility] Consenton 11-21-2020 Consent [id number]# 1.00CD:127 [facility] Consent for Treatmenton 11-06 Consent for Treatment [id number]#1 .00CD:127 [facility] Insurance Correspondenceon 0 11-21-2020 Insurance Correspondence [id number]# 1.00CD:127 [facility] Oncology Noteon 11-21-2020 Oncology Note Oncology Telehealth Nurse Office Visit/Treatment Note Current Patient Status/Reason: here for initial outpt visit with Dr. Belcher. Doing pretty well- recent inpatient stay at [facility] for several cardiac procedures. Dr Hogan is his PCP and he was seen by Dr. Marcelino while inpt at [facility]. We will obtain those records. His dtr is present for visit- Treatment Plan: Follow-Up Appointment Info/Referrals: will plan to see him back in 3-4 months- he would prefer to followup in [facility] as he lives there Resources Offered: [facility] Comment on above: Result Comment: Elec tronically Signed By: Shelby MENDEZ, Marj\.br\Date and Time Signed: 11/21/20 10:16 EDT Oncology Progress Noteon Oncology Progress Note Patient: RADHA BROWN Age: 79 years Sex: Male : 1940 Associated Diagnoses: None Author: Ye ZULUAGA, Puneet Reece History of Present Illness This is a review of the medical record from [facility] admission date October 11 through October 18, 2020. He has severe aortic stenosis and underwent TAVR procedure. His platelet count worsened and his Januvia and Plavix were held. A MARÍA ELENA ElLISA assay was sent and was positive. Serotonin release assay was sent and the results were negative. Lab work from [place] [facility] showed a platelet count of 132. On [...] list: All Problems Thrombocytopenia / SNOMED CT 6371565171 / Confirmed Anemia / SNOMED CT 750848226 / Confirmed Histories Past Medical History: No [...] Last Charted Temp Oral 36.5 DegC (NOV 21 09:39) SBP H 168mmHg (NOV 21 09:39) DBP 85 mmHg (NOV 21:39) SpO2 94 % (NOV 21 09:39) Weight 134.5 kg (NOV 21 09:00) Height 185.5 cm (NOV 21:00) Review / Management Results review: No qualifying data available . Normal [facility] Oncology Progress Note Patient: RADHA BROWN Age: 79 years Sex: Male : 1940 Associated Diagnoses: None Author: Ye ZULUAGA, Puneet Reece History of Present Illness This is very nice gentleman referred by Dr. Talat Hogan who is currently 79 years old referred here with mild anemia and thrombocytopenia. He has had a number of cardiac procedures and was at [facility] for a time recently. Available lab work [...] of DVTs etc. He was seen by electrode turner and finisher at [facility] and told to follow-up with hematology. Review [...] kg (NOV 21:00) Height 185.5 cm (NOV 21:00) General: Alert and oriented, No acute distress. [...] available . Impression and Plan Diagnosis Anemia (EFX46-YM D64.9, Working, Medical). Thrombocytopenia (PRQ34-HN D69.6, Working, Medical). The patient has very [...] in 3 to 4 months at the [facility] in [facility]. I will recommend observation only at this point.. Education and Follow-up: Discharge Planning: Puneet Belcher NO FOLLOW UP NEEDED PATIENT WILL FOLLOW UP IN [place] IN 3-4 MONTHS. Professional Services CC: Dr Hogan in [place] Normal [facility] Outside Recordson 11-21-2020 Outside Records [id number]# 1.00CD:127 Normal [facility] Labson 11-18-2020 Outside Labs [id number]#1 .00CD:127 Normal [facility] BASIC METABOLIC PANELon 07- Calcium [Mass/Vol] 8.9 mg/dL Normal 8.6-10.3 [facility] Comment on above: Order Comment: No: D o not add to previous draw Performed By: #### 0 0071, [id number], [id number] #### [facility] [address] [place] [address], [place] Chloride [Moles/Vol] 107 mmol/L Normal 98-107 [facility] Comment on above: Order Comment: No: D o not add to previous draw Performed By: #### 0 0071, [id number], [id number] #### [facility] [address] [place] [address], [place] CO2 [Moles/Vol] 26 mmol/L Normal 21-31 [facility] Comment on above: Order Comment: No: D o not add to previous draw Performed By: #### 0 0071, [id number], [id number] #### [facility] [address] [place] [address], [place] Creatinine [Mass/Vol] 0.97 mg/dL Normal 0.70-1.30 [facility] Comment on above: Order Comment: No: D o not add to previous draw Performed By: #### 0 0071, [id number], [id number] #### [facility] [address] [place] [address], [place] GFR/1.73 sq M.predicted among blacks MDRD (S/P/Bld) [Vol rate/Area] mL/min/{1.73_m2} Normal >60 [facility] Comment on above: Order Comment: No: D o not add to previous draw Result Comment: Calc ulation may not be valid for patients over 70 years Performed By: #### 0 0071, 00396, [id number] #### [facility] [address] [place] [address], [place] GFR/1.73 sq M.predicted among non-blacks MDRD (S/P/Bld) [Vol rate/Area] mL/min/{1.73_m2} Normal >60 [facility] Comment on above: Order Comment: No: D o not add to previous draw Result Comment: Calc ulation may not be valid for patients over 70 years Performed By: #### 0 0071, 47030, [id number] #### [facility] [address] [place] [address], [place] Glucose [Mass/Vol] 178 mg/dL High 70-100 The [facility] Comment on above: Order Comment: No: D o not add to previous draw Performed By: #### 0 0071, [id number], [id number] #### [facility] [address] [place] [address], [place] Potassium [Moles/Vol] 3.7 mmol/L Normal 3.5-5.1 [facility] Comment on above: Order Comment: No: D o not add to previous draw Performed By: #### 0 0071, [id number], [id number] #### [facility] [address] [place] [address], [place] Sodium [Moles/Vol] 140 mmol/L Normal 136-145 The [facility] Comment on above: Order Comment: No: D o not add to previous draw Performed By: #### 0 0071, [id number], [id number] #### [facility] [address] [place] [address], [place] Urea nitrogen [Mass/Vol] 25 mg/dL Normal 7-25 The [facility] Comment on above: Order Comment: No: D o not add to previous draw Performed By: #### 0 0071, [id number], [id number] #### [facility] [address] [place] [address], [place] CBC COMPLETE BLOOD COUNTon 0 10-18-2020 Erythrocyte distribution width (RBC) [Ratio] 12.7 % Normal 11.5-15.0 The [facility] Comment on above: Order Comment: No: D o not add to previous draw Performed By: #### 1 69, [id number] #### [facility] [address] [place] [address], [facility] Hematocrit (Bld) [Volume fraction] 32.9 % Low 39.0-50.0 [facility] Comment on above: Order Comment: No: D o not add to previous draw Performed By: #### 1 69, [id number] #### [facility] [address] [place] [address], [facility] Hemoglobin (Bld) [Mass/Vol] 10.8 g/dL Low 13.0-17.0 [facility] Comment on above: Order Comment: No: D o not add to previous draw Performed By: #### 1 69, [id number] #### [facility] [address] [place] [address], [facility] IMM PLATELET FRAC 8.3 % High 0.8-6.3 The [facility] Comment on above: Order Comment: No: D o not add to previous draw Performed By: #### 1 69, [id number] #### [facility] [address] [facility] [place] [address], [facility] MCH (RBC) [Entitic mass] 31.1 pg Normal 27.0-33.0 [facility] Comment on above: Order Comment: No: D o not add to previous draw Performed By: #### 1 69, [id number] #### [facility] [address] [place] [address], [facility] MCHC (RBC) [Mass/Vol] 32.8 g/dL Normal 32.0-35.0 [facility] Comment on above: Order Comment: No: D o not add to previous draw Performed By: #### 1 69, [id number] #### [facility] [address] [place] [address], [facility] MCV (RBC) [Entitic vol] 94.8 fL Normal 82.0-98.0 [facility] Comment on above: Order Comment: No: D o not add to previous draw Performed By: #### 1 0, [id number] #### [facility] [address] Nucleated RBC/100 WBC (Bld) [Ratio] 0 % Normal 0-0 [facility] Comment on above: Order Comment: No: D o not add to previous draw Performed By: #### 1 0, [id number] #### [place] [address], [facility] PLAT CNT 80 10*3/uL Low 150-400 [facility] Comment on above: Order Comment: No: D o not add to previous draw Performed By: #### 1 0, [id number] #### [facility] [address] [place] [address], [facility] RBC (Bld) [#/Vol] 3.47 10*6/uL Low 4.20-5.70 The [facility] Comment on above: Order Comment: No: D o not add to previous draw Performed By: #### 1 0, [id number] #### [place] [address], [facility] WBC (Bld) [#/Vol] 6.75 10*3/uL Normal 4.00-10.60 [facility] [facility] Comment on above: Order Comment: No: D o not add to previous draw Performed By: #### 1 69, [id number] #### [address] CHEST AND LATERALon 10-19-19 21 CHEST AND LATERAL [facility] Department of Radiology [address] [place] [phone] Patient Name: RADHA BROWN : 1940 Sex: M Age: Race: White Pt. Location: [place] [address] Patient Status: I Ordered Date: 10/18/2020 2:00:00 [...] report. Electronically signed: Naz Mcgraw. Transcribed by: [email or web address], User Resident: KRISTEN PERSON Electronically Signed by: NAZ MCGRAW @ 10/18/2020 03:33 PM I personally read this/these film(s) with this resident Normal The [facility] Comment on above: Order Comment: No: D o not add to previous draw HEPARIN PLATELET ANTIBODYon 10-18-2020 HEP PLAT ANTIB Normal [facility] Comment on above: Order Comment: Yes: Add to Previous draw if able Result Comment: POSI TIVE BY PF4/HEPARIN AKBAR METHOD. A SEROTONIN RELEASE ASSAY WILL BE SENT OUT AN ALTERNATIVE METHOD OF TESTING ON THIS PATIENT. Results called. Accurately read back by Shawn Hutchison RN at 0932 Performed By: #### 8 5499 #### [facility] [address] [place] [address], [facility] MAGNESIUM BLOODon 10-18-2020 Magnesium [Mass/Vol] 2.1 mg/dL Normal 1.9-2.7 The [facility] Comment on above: Order Comment: No: D o not add to previous draw Performed By: #### 0 0071, 39284, 56104 #### [facility] [address] [place] [address], [facility] PHOSPHORUS BLOODon Phosphate [Mass/Vol] 2.8 mg/dL Normal 2.5-5.0 The [facility] Comment on above: Order Comment: No: D o not add to previous draw Performed By: #### 0 0071, 88060, 79411 #### [facility] [address] [place] [address], [facility] SEROTONIN REL ASSAY, UFH 200 5631on 10-18-2020 SEROTONIN RELEASE ASSAY UFH Negative Normal Negative The [facility] MARIE UFH HIGH DOSE 0 % Normal [facility] MARIE UFH INTERP See Note Normal [facility] Comment on above: Result Comment: This patient's [...] regarding diagnosis of HIT is available at [facility]. INTERPRETIVE INFORMATION: MARIE, Unfractionated Heparin This test was developed and its performance characteristics determined by [facility]. It has not been cleared or approved by the [place] Food and Drug Administration. This test was performed in a CLIA certified laboratory and is intended for clinical purposes. Performed By: [facility] [address] [place] [id number] Telecommunications Technician: Kelly Su MD AMRIE UFH LOW DOSE 0 % Normal [facility] BASIC METABOLIC PANELon 10-06 Calcium [Mass/Vol] 8.5 mg/dL Low 8.6-10.3 [facility] Comment on above: Order Comment: No: D o not add to previous draw Performed By: #### 0 0071, 61822, 54878 #### [facility] [address] [place] [address], [facility] Chloride [Moles/Vol] 104 mmol/L Normal 98-107 The [facility] Comment on above: Order Comment: No: D o not add to previous draw Performed By: #### 0 0071, 95320, 02745 #### [facility] [address] [place] [address], [facility] CO2 [Moles/Vol] 25 mmol/L Normal 21-31 [facility] Comment on above: Order Comment: No: D o not add to previous draw Performed By: #### 0 0071, 52932, 17135 #### [facility] [address] [place] [address], [facility] Creatinine [Mass/Vol] 1.42 mg/dL High 0.70-1.30 The [facility] Comment on above: Order Comment: No: D o not add to previous draw Performed By: #### 0 0071, 28744, 43099 #### [facility] [address] [place] [address], [facility] eGFR- 58 ml/min/1.73sq m Abnormal >60 [facility] Comment on above: Order Comment: No: D o not add to previous draw Result Comment: Calc ulation may not be valid for patients over 70 years Performed By: #### 0 0071, 71656, 24543 #### [facility] [address] [place] [address], [place] eGFR- non- 48 ml/min/1.73sq m Abnormal >60 [facility] Comment on above: Order Comment: No: D o not add to previous draw Result Comment: Calc ulation may not be valid for patients over 70 years Performed By: #### 0 0071, 27632, 12677 #### [facility] [address] [place] [address], [place] Glucose [Mass/Vol] 154 mg/dL High 70-100 [facility] Comment on above: Order Comment: No: D o not add to previous draw Performed By: #### 0 0071, 47090, 74224 #### [facility] [address] [place] [address], [place] Potassium [Moles/Vol] 4.8 mmol/L Normal 3.5-5.1 [facility] Comment on above: Order Comment: No: D o not add to previous draw Performed By: #### 0 0071, 21828, 88711 #### [facility] [address] [place] [address], [place] Sodium [Moles/Vol] 139 mmol/L Normal 136-145 The [facility] Comment on above: Order Comment: No: D o not add to previous draw Performed By: #### 0 0071, 50165, 37897 #### [facility] [address] [place] [address], [place] Urea nitrogen [Mass/Vol] 34 mg/dL High 7-25 The [facility] Comment on above: Order Comment: No: D o not add to previous draw Performed By: #### 0 0071, 54063, 35129 #### [facility] [address] [place] [address], [place] CBC COMPLETE BLOOD COUNTon 0 10-17-2020 Erythrocyte distribution width (RBC) [Ratio] 12.9 % Normal 11.5-15.0 The [facility] Comment on above: Order Comment: No: D o not add to previous draw Performed By: #### 8 5499 #### [facility] [address] [place] [address], [facility] Hematocrit (Bld) [Volume fraction] 33.8 % Low 39.0-50.0 The [facility] Comment on above: Order Comment: No: D o not add to previous draw Performed By: #### 8 5499 #### [facility] [address] [place] [address], [facility] Hemoglobin (Bld) [Mass/Vol] 10.8 g/dL Low 13.0-17.0 The [facility] Comment on above: Order Comment: No: D o not add to previous draw Performed By: #### 8 5499 #### [facility] [address] [place] [address], [facility] IMM PLATELET FRAC 8.9 % High 0.8-6.3 [facility] Comment on above: Order Comment: No: D o not add to previous draw Performed By: #### 8 5499 #### [facility] [address] [place] [address], [facility] MCH (RBC) [Entitic mass] 30.6 pg Normal 27.0-33.0 The [facility] Comment on above: Order Comment: No: D o not add to previous draw Performed By: #### 8 5499 #### [facility] [address] [place] [id number], [facility] MCHC (RBC) [Mass/Vol] 32.0 g/dL Normal 32.0-35.0 The [facility] Comment on above: Order Comment: No: D o not add to previous draw Performed By: #### 8 5499 #### [facility] [address] [place] [address], [facility] MCV (RBC) [Entitic vol] 95.8 fL Normal 82.0-98.0 [facility] Comment on above: Order Comment: No: D o not add to previous draw Performed By: #### 8 5499 #### [facility] [address] [place] [address], [facility] Nucleated RBC/100 WBC (Bld) [Ratio] 0 % Normal 0-0 The [facility] Comment on above: Order Comment: No: D o not add to previous draw Performed By: #### 8 5499 #### [facility] [address] [place] [address], [facility] PLAT CNT 61 10*3/uL Low 150-400 The [facility] Comment on above: Order Comment: No: D o not add to previous draw Performed By: #### 8 5499 #### [facility] [address] [facility] [place] [address], [facility] RBC (Bld) [#/Vol] 3.53 10*6/uL Low 4.20-5.70 [facility] Comment on above: Order Comment: No: D o not add to previous draw Performed By: #### 8 5499 #### [facility] [address] [place] [address], [facility] WBC (Bld) [#/Vol] 6.51 10*3/uL Normal 4.00-10.60 [facility] Comment on above: Order Comment: No: D o not add to previous draw Performed By: #### 8 5499 #### [facility] [address] Cardiovascular Lab Reporton 10-17-2020 Cardiovascular Lab Report [facility] Patient Name: Radha Brown MR #: [id number] [facility] [place] Physician: Hank Smallwood MD Service Date: 10/17/2020 Department of Birthdate: 1940 Medicine Room #: CINDY 788331 Division of Cardiology Adult Cardiovascular Services [facility] [address] [place], [place] [address] Cardiovascular Laboratory Report PACEMAKER IMPLANT PROCEDURE NOTE DATE OF PROCEDURE: 10/17/2020 PERFORMING PHYSICIAN: Dr. Hank Smallwood CONSENT: Patient LOCATION: EP Lab PROCEDURE PERFORMED: 1. Implantation of pacemaker ([employer]) 2. Ultrasound guided venous access INDICATIONS: [...] using modified seldinger technique using a 5 [place] micro-puncture needle on one occasion and 0.35 wire was placed. Local infiltration of 1% Lidocaine was performed, and an incision was created in the left upper chest. Dissection was then performed using cautery down to the fascial plane above the muscle. 6 [place] Safesheath was placed over the wire. An active fixation [employer] pacing lead was then delivered through the 6Fsheath to the right ventricle. After confirmation of lead position on orthogonal views (BRICE and YAKUT) to confirm septal position, the screw was [...] immediate procedural complications were noted. Device info: Guest of a Guest [employer] MRI DR IS1 Model# L310 Serial# [id number] RV lead: Model# INGEVITY [id number] (59cms) Serial# [id number] Sensin.2mV Threshold: 0.7V@0.4ms Impedance: 562 Ohms POST [...] P/Hank Smallwood MD Date Trans: 10/17/2020 03:06 P/mmo [id number] cc: Maribel Hogan M.D. [place] [id number] [facility] Joe Rapp (more content not included)... Normal The [facility] MAGNESIUM BLOODon 10-17-2020 Magnesium [Mass/Vol] 2.1 mg/dL Normal 1.9-2.7 The [facility] Comment on above: Order Comment: No: D o not add to previous draw Performed By: #### 0 0071, 98635, 94824 #### [facility] [address] [place] [id number], [facility] PHOSPHORUS BLOODon Phosphate [Mass/Vol] 3.9 mg/dL Normal 2.5-5.0 The [facility] Comment on above: Order Comment: No: D o not add to previous draw Performed By: #### 0 0071, 06098, 17414 #### [facility] [address] [place] [address], [facility] BASIC METABOLIC PANELon 10-06 Calcium [Mass/Vol] 8.8 mg/dL Normal 8.6-10.3 [facility] Comment on above: Order Comment: No: D o not add to previous draw Performed By: #### 4 1000, 68178, 81350 #### [facility] [address] [place] [address], [place] Chloride [Moles/Vol] 106 mmol/L Normal 98-107 The [facility] Comment on above: Order Comment: No: D o not add to previous draw Performed By: #### 4 1000, 88521, 21462 #### [facility] [address] [place] [address], [place] CO2 [Moles/Vol] 26 mmol/L Normal 21-31 [facility] Comment on above: Order Comment: No: D o not add to previous draw Performed By: #### 4 1000, 71456, 47444 #### [facility] [address] [place] [address], [place] Creatinine [Mass/Vol] 1.20 mg/dL Normal 0.70-1.30 The [facility] Comment on above: Order Comment: No: D o not add to previous draw Performed By: #### 4 1000, , 82957 #### [facility] [address] [place] [address], [place] eGFR- non- 58 ml/min/1.73sq m Abnormal >60 [facility] Comment on above: Order Comment: No: D o not add to previous draw Result Comment: Calc ulation may not be valid for patients over 70 years Performed By: #### 4 1000, , 21324 #### [facility] [address] [place] [address], [place] GFR/1.73 sq M.predicted among blacks MDRD (S/P/Bld) [Vol rate/Area] mL/min/{1.73_m2} Normal >60 The [facility] Comment on above: Order Comment: No: D o not add to previous draw Result Comment: Calc ulation may not be valid for patients over 70 years Performed By: #### 4 1000, , 65866 #### [facility] [address] [place] [address], [place] Glucose [Mass/Vol] 162 mg/dL High 70-100 [facility] Comment on above: Order Comment: No: D o not add to previous draw Performed By: #### 4 1000, , 13499 #### [facility] [address] [place] [address], [place] Potassium [Moles/Vol] 3.8 mmol/L Normal 3.5-5.1 The [facility] Comment on above: Order Comment: No: D o not add to previous draw Performed By: #### 4 1000, , 40009 #### [facility] [address] [place] [address], [place] Sodium [Moles/Vol] 140 mmol/L Normal 136-145 The [facility] Comment on above: Order Comment: No: D o not add to previous draw Performed By: #### 4 1000, 99874, 09694 #### [facility] [address] [place] [address], [facility] Urea nitrogen [Mass/Vol] 29 mg/dL High 7-25 The [facility] Comment on above: Order Comment: No: D o not add to previous draw Performed By: #### 4 1000, 57131, 22473 #### [facility] [address] [place] [address], [facility] CBC COMPLETE BLOOD COUNTon - Erythrocyte distribution width (RBC) [Ratio] 12.9 % Normal 11.5-15.0 [facility] Comment on above: Order Comment: No: D o not add to previous draw Performed By: #### 8 5499 #### [facility] [address] [place] [address], [facility] Hematocrit (Bld) [Volume fraction] 32.2 % Low 39.0-50.0 The [facility] Comment on above: Order Comment: No: D o not add to previous draw Performed By: #### 8 5499 #### [facility] [address] [place] [address], [facility] Hemoglobin (Bld) [Mass/Vol] 10.6 g/dL Low 13.0-17.0 The [facility] Comment on above: Order Comment: No: D o not add to previous draw Performed By: #### 8 5499 #### [facility] [address] [place] [address], [place] IMM PLATELET FRAC 8.2 % High 0.8-6.3 [facility] Comment on above: Order Comment: No: D o not add to previous draw Performed By: #### 8 5499 #### [facility] [address] [place] [address], [facility] MCH (RBC) [Entitic mass] 31.4 pg Normal 27.0-33.0 The [facility] Comment on above: Order Comment: No: D o not add to previous draw Performed By: #### 8 5499 #### [facility] [address] [place] [id number], [facility] MCHC (RBC) [Mass/Vol] 32.9 g/dL Normal 32.0-35.0 The [facility] Comment on above: Order Comment: No: D o not add to previous draw Performed By: #### 8 5499 #### [facility] [address] [place] [id number], [facility] MCV (RBC) [Entitic vol] 95.3 fL Normal 82.0-98.0 The [facility] Comment on above: Order Comment: No: D o not add to previous draw Performed By: #### 8 5499 #### [facility] [address] [place] [address], [facility] Nucleated RBC/100 WBC (Bld) [Ratio] 0 % Normal 0-0 The [facility] Comment on above: Order Comment: No: D o not add to previous draw Performed By: #### 8 5499 #### [facility] [address] [place] [id number], [facility] PLAT CNT 80 10*3/uL Low 150-400 The [facility] Comment on above: Order Comment: No: D o not add to previous draw Result Comment: pre 82 Performed By: #### 8 5499 #### [facility] [address] [place] [address], [place] RBC (Bld) [#/Vol] 3.38 10*6/uL Low 4.20-5.70 [facility] Comment on above: Order Comment: No: D o not add to previous draw Performed By: #### 8 5499 #### [facility] [address] [place] [id number], [place] WBC (Bld) [#/Vol] 7.04 10*3/uL Normal 4.00-10.60 [facility] Comment on above: Order Comment: No: D o not add to previous draw Performed By: #### 8 5499 #### [facility] [address] [place] [address], [facility] MAGNESIUM BLOODon 10-16-2020 Magnesium [Mass/Vol] 2.0 mg/dL Normal 1.9-2.7 The [facility] Comment on above: Order Comment: No: D o not add to previous draw Performed By: #### 8 5499 #### [facility] [address] [place] [address], [facility] PHOSPHORUS BLOODon Phosphate [Mass/Vol] 3.4 mg/dL Normal 2.5-5.0 The [facility] Comment on above: Order Comment: No: D o not add to previous draw Performed By: #### 4 999, 31994, 74499 #### [facility] [address] [place] [address], [place] BASIC METABOLIC PANELon 10-06 Calcium [Mass/Vol] 8.6 mg/dL Normal 8.6-10.3 [facility] Comment on above: Order Comment: No: D o not add to previous draw Performed By: #### 1 69, 82291 #### [facility] [address] [place] [address], [place] Chloride [Moles/Vol] 106 mmol/L Normal 98-107 The [facility] Comment on above: Order Comment: No: D o not add to previous draw Performed By: #### 1 69, 02919 #### [facility] [address] [place] [address], [place] CO2 [Moles/Vol] 27 mmol/L Normal 21-31 [facility] Comment on above: Order Comment: No: D o not add to previous draw Performed By: #### 1 69, 47957 #### [facility] [address] [place] [address], [place] Creatinine [Mass/Vol] 1.33 mg/dL High 0.70-1.30 [facility] Comment on above: Order Comment: No: D o not add to previous draw Performed By: #### 1 69, 14508 #### [facility] [address] [place] [address], [place] eGFR- non- 52 ml/min/1.73sq m Abnormal >60 [facility] Comment on above: Order Comment: No: D o not add to previous draw Result Comment: Calc ulation may not be valid for patients over 70 years Performed By: #### 1 69, 61113 #### [facility] [address] [place] [address], [place] GFR/1.73 sq M.predicted among blacks MDRD (S/P/Bld) [Vol rate/Area] mL/min/{1.73_m2} Normal >60 The [facility] Comment on above: Order Comment: No: D o not add to previous draw Result Comment: Calc ulation may not be valid for patients over 70 years Performed By: #### 1 69, 90290 #### [facility] [address] [place] [address], [place] Glucose [Mass/Vol] 166 mg/dL High 70-100 [facility] Comment on above: Order Comment: No: D o not add to previous draw Performed By: #### 1 69, 23298 #### [facility] [address] [place] [address], [place] Potassium [Moles/Vol] 3.8 mmol/L Normal 3.5-5.1 The [facility] Comment on above: Order Comment: No: D o not add to previous draw Performed By: #### 1 69, 09566 #### [facility] [address] [place] [address], [place] Sodium [Moles/Vol] 140 mmol/L Normal 136-145 The [facility] Comment on above: Order Comment: No: D o not add to previous draw Performed By: #### 1 0, 80205 #### [facility] [address] [place] [address], [place] Urea nitrogen [Mass/Vol] 29 mg/dL High 7-25 The [facility] Comment on above: Order Comment: No: D o not add to previous draw Performed By: #### 1 69, 77288 #### [facility] [address] [place] [address], [place] CBC COMPLETE BLOOD COUNTon 10-15-2020 Erythrocyte distribution width (RBC) [Ratio] 13.0 % Normal 11.5-15.0 [facility] Comment on above: Order Comment: No: D o not add to previous draw Performed By: #### 8 5499 #### [facility] [address] [place] [address], [place] Hematocrit (Bld) [Volume fraction] 33.6 % Low 39.0-50.0 The [facility] Comment on above: Order Comment: No: D o not add to previous draw Performed By: #### 8 5499 #### [facility] [address] [place] [address], [place] Hemoglobin (Bld) [Mass/Vol] 11.0 g/dL Low 13.0-17.0 The [facility] Comment on above: Order Comment: No: D o not add to previous draw Performed By: #### 8 5499 #### [facility] [address] [place] [address], [place] IMM PLATELET FRAC 9.8 % High 0.8-6.3 [facility] Comment on above: Order Comment: No: D o not add to previous draw Performed By: #### 8 5499 #### [facility] [address] [place] [address], [place] MCH (RBC) [Entitic mass] 31.1 pg Normal 27.0-33.0 The [facility] Comment on above: Order Comment: No: D o not add to previous draw Performed By: #### 8 5499 #### [facility] [address] [place] [id number], [facility] MCHC (RBC) [Mass/Vol] 32.7 g/dL Normal 32.0-35.0 The [facility] Comment on above: Order Comment: No: D o not add to previous draw Performed By: #### 8 5499 #### [facility] [address] [place] [id number], [facility] MCV (RBC) [Entitic vol] 94.9 fL Normal 82.0-98.0 The [facility] Comment on above: Order Comment: No: D o not add to previous draw Performed By: #### 8 5499 #### [facility] [address] [place] [address], [facility] Nucleated RBC/100 WBC (Bld) [Ratio] 0 % Normal 0-0 The [facility] Comment on above: Order Comment: No: D o not add to previous draw Performed By: #### 8 5499 #### [facility] [address] [place] [id number], [place] PLAT CNT 82 10*3/uL Low 150-400 The [facility] Comment on above: Order Comment: No: D o not add to previous draw Performed By: #### 8 5499 #### [facility] [address] [place] [id number], [place] RBC (Bld) [#/Vol] 3.54 10*6/uL Low 4.20-5.70 The [facility] Comment on above: Order Comment: No: D o not add to previous draw Performed By: #### 8 5499 #### [facility] [address] [place] [id number], [place] WBC (Bld) [#/Vol] 6.50 10*3/uL Normal 4.00-10.60 [facility] Comment on above: Order Comment: No: D o not add to previous draw Performed By: #### 8 5499 #### [facility] [address] [place] [id number], [facility] MAGNESIUM BLOODon 10-15-2020 Magnesium [Mass/Vol] 2.1 mg/dL Normal 1.9-2.7 The [facility] Comment on above: Order Comment: No: D o not add to previous draw Performed By: #### 1 69, 80569 #### [facility] [address] [place] [address], [facility] PHOSPHORUS BLOODon Phosphate [Mass/Vol] 3.7 mg/dL Normal 2.5-5.0 The [facility] Comment on above: Order Comment: No: D o not add to previous draw Performed By: #### 1 69, 96777 #### [facility] [address] [place] [address], [facility] BASIC METABOLIC PANELon 07 Calcium [Mass/Vol] 8.8 mg/dL Normal 8.6-10.3 [facility] Comment on above: Order Comment: No: D o not add to previous draw Performed By: #### 1 69, 24520 #### [facility] [address] [place] [address], [place] Chloride [Moles/Vol] 105 mmol/L Normal 98-107 The [facility] Comment on above: Order Comment: No: D o not add to previous draw Performed By: #### 1 69, 81194 #### [facility] [address] [place] [address], [place] CO2 [Moles/Vol] 26 mmol/L Normal 21-31 The [facility] Comment on above: Order Comment: No: D o not add to previous draw Performed By: #### 1 69, 60496 #### [facility] [address] [place] [address], [place] Creatinine [Mass/Vol] 1.15 mg/dL Normal 0.70-1.30 The [facility] Comment on above: Order Comment: No: D o not add to previous draw Performed By: #### 1 69, 44162 #### [facility] [address] [place] [address], [place] GFR/1.73 sq M.predicted among blacks MDRD (S/P/Bld) [Vol rate/Area] mL/min/{1.73_m2} Normal >60 The [facility] Comment on above: Order Comment: No: D o not add to previous draw Result Comment: Calc ulation may not be valid for patients over 70 years Performed By: #### 1 69, 60606 #### [facility] [address] [place] [address], [place] GFR/1.73 sq M.predicted among non-blacks MDRD (S/P/Bld) [Vol rate/Area] mL/min/{1.73_m2} Normal >60 The [facility] Comment on above: Order Comment: No: D o not add to previous draw Result Comment: Calc ulation may not be valid for patients over 70 years Performed By: #### 1 69, 41227 #### [facility] [address] [place] [address], [place] Glucose [Mass/Vol] 144 mg/dL High 70-100 The [facility] Comment on above: Order Comment: No: D o not add to previous draw Performed By: #### 1 69, 47523 #### [facility] [address] [place] [address], [place] Potassium [Moles/Vol] 4.1 mmol/L Normal 3.5-5.1 The [facility] Comment on above: Order Comment: No: D o not add to previous draw Performed By: #### 1 69, 14080 #### [facility] [address] [facility] [place] [address], [facility] Sodium [Moles/Vol] 139 mmol/L Normal 136-145 The [facility] Comment on above: Order Comment: No: D o not add to previous draw Performed By: #### 1 69, 41922 #### [facility] [address] [facility] [place] [address], [facility] Urea nitrogen [Mass/Vol] 17 mg/dL Normal 7-25 The [facility] Comment on above: Order Comment: No: D o not add to previous draw Performed By: #### 1 69, 42760 #### [facility] [address] [facility] [place] [address], [facility] CBC W/DIFFon 10-13-2020 ABS IMM GRANS 0.0 10*3/uL Normal 0.0-0.2 The [facility] Comment on above: Order Comment: No: D o not add to previous draw Performed By: #### 1 69, 70266 #### [facility] [address] [place] [address], [facility] ABS NEUTROPHILS 5.0 10*3/uL Normal 1.6-7.6 The [facility] Comment on above: Order Comment: No: D o not add to previous draw Performed By: #### 1 69, 85933 #### [facility] [address] [facility] [place] [address], [facility] Basophils (Bld) [#/Vol] 0.0 10*3/uL Normal 0.0-0.2 The [facility] Comment on above: Order Comment: No: D o not add to previous draw Performed By: #### 1 69, 33804 #### [facility] [address] [facility] [place] [address], [facility] Basophils/100 WBC (Bld) 0.3 % Normal 0.0-1.0 The [facility] Comment on above: Order Comment: No: D o not add to previous draw Performed By: #### 1 69, 18883 #### [facility] [address] [place] [address], [facility] Eosinophils (Bld) [#/Vol] 0.3 10*3/uL Normal 0.0-0.5 The [facility] Comment on above: Order Comment: No: D o not add to previous draw Performed By: #### 1 69, 23616 #### [facility] [address] [place] [address], [facility] Eosinophils/100 WBC (Bld) 4.2 % Normal 0.0-6.0 The [facility] Comment on above: Order Comment: No: D o not add to previous draw Performed By: #### 1 69, 66824 #### [facility] [address] [place] [address], [facility] Erythrocyte distribution width (RBC) [Ratio] 13.0 % Normal 11.5-15.0 The [facility] Comment on above: Order Comment: No: D o not add to previous draw Performed By: #### 1 69, 48182 #### [facility] [address] [facility] [place] [address], [facility] Hematocrit (Bld) [Volume fraction] 33.0 % Low 39.0-50.0 The [facility] Comment on above: Order Comment: No: D o not add to previous draw Performed By: #### 1 69, 00079 #### [facility] [address] [place] [address], [facility] Hemoglobin (Bld) [Mass/Vol] 11.0 g/dL Low 13.0-17.0 The [facility] Comment on above: Order Comment: No: D o not add to previous draw Performed By: #### 1 69, 87573 #### [facility] [address] [place] [address], [facility] IMM PLATELET FRAC 7.2 % High 0.8-6.3 The [facility] Comment on above: Order Comment: No: D o not add to previous draw Performed By: #### 1 69, 99156 #### [facility] [address] [facility] [place] [address], [facility] IMMATURE GRANS 0.3 % Normal 0.0-1.0 [facility] Comment on above: Order Comment: No: D o not add to previous draw Performed By: #### 1 69, 80560 #### [facility] [address] [place] [address], [facility] Lymphocytes (Bld) [#/Vol] 1.4 10*3/uL Normal 1.2-4.0 The [facility] Comment on above: Order Comment: No: D o not add to previous draw Performed By: #### 1 69, #### [facility] [address] [facility] [place] [address], [facility] Lymphocytes/100 WBC (Bld) 18.3 % Low 20.0-45.0 The [facility] Comment on above: Order Comment: No: D o not add to previous draw Performed By: #### 1 69, 83585 #### [facility] [address] [facility] [place] [address], [facility] MCH (RBC) [Entitic mass] 31.3 pg Normal 27.0-33.0 The [facility] Comment on above: Order Comment: No: D o not add to previous draw Performed By: #### 1 69, 77710 #### [facility] [address] [place] [address], [facility] MCHC (RBC) [Mass/Vol] 33.3 g/dL Normal 32.0-35.0 The [facility] Comment on above: Order Comment: No: D o not add to previous draw Performed By: #### 1 69, 70255 #### [facility] [address] [place] [address], [facility] MCV (RBC) [Entitic vol] 94.0 fL Normal 82.0-98.0 The [facility] Comment on above: Order Comment: No: D o not add to previous draw Performed By: #### 1 69, 01658 #### [facility] [address] [place] [address], [facility] Monocytes (Bld) [#/Vol] 0.7 10*3/uL Normal 0.1-1.0 The [facility] Comment on above: Order Comment: No: D o not add to previous draw Performed By: #### 1 69, 91743 #### [facility] [address] [place] [address], [facility] MONOS 10.0 % Normal 5.0-12.0 The [facility] Comment on above: Order Comment: No: D o not add to previous draw Performed By: #### 1 69, 45271 #### [facility] [address] [facility] [place] [address], [facility] Neutrophils/100 WBC (Bld) 66.9 % Normal 40.0-72.0 The [facility] Comment on above: Order Comment: No: D o not add to previous draw Performed By: #### 1 69, 31164 #### [facility] [address] [facility] [place] [address], [facility] Nucleated RBC/100 WBC (Bld) [Ratio] 0 % Normal 0-0 The [facility] Comment on above: Order Comment: No: D o not add to previous draw Performed By: #### 1 69, 23814 #### [facility] [address] [place] [id number], [place] PLAT CNT 95 10*3/uL Low 150-400 The [facility] Comment on above: Order Comment: No: D o not add to previous draw Performed By: #### 1 69, 65450 #### [facility] [address] [place] [id number], [facility] RBC (Bld) [#/Vol] 3.51 10*6/uL Low 4.20-5.70 The [facility] Comment on above: Order Comment: No: D o not add to previous draw Performed By: #### 1 69, 85741 #### [facility] [address] WBC (Bld) [#/Vol] 7.39 10*3/uL Normal 4.00-10.60 The [facility] Comment on above: Order Comment: No: D o not add to previous draw Performed By: #### 1 69, 73339 #### [facility] [address] MAGNESIUM BLOODon 10-13-2020 Magnesium [Mass/Vol] 2.5 mg/dL Normal 1.9-2.7 The [facility] Comment on above: Order Comment: No: D o not add to previous draw Performed By: #### 1 69, 34982 #### [facility] [address] [facility] [address] PHOSPHORUS BLOODon Phosphate [Mass/Vol] 2.6 mg/dL Normal 2.5-5.0 The [facility] Comment on above: Order Comment: No: D o not add to previous draw Performed By: #### 1 69, 38194 #### [facility] [address] [facility] [address] CBC COMPLETE BLOOD COUNTon 0 10-12-2020 Erythrocyte distribution width (RBC) [Ratio] 13.0 % Normal 11.5-15.0 The [facility] Comment on above: Order Comment: No: D o not add to previous draw Performed By: #### 1 69, 80204 #### [facility] [address] [place] [address], [facility] Hematocrit (Bld) [Volume fraction] 32.4 % Low 39.0-50.0 The [facility] Comment on above: Order Comment: No: D o not add to previous draw Performed By: #### 1 69, 73785 #### [facility] [address] [facility] [place] [address], [facility] Hemoglobin (Bld) [Mass/Vol] 10.6 g/dL Low 13.0-17.0 The [facility] Comment on above: Order Comment: No: D o not add to previous draw Performed By: #### 1 69, 76193 #### [facility] [address] [place] [address], [facility] MCH (RBC) [Entitic mass] 31.3 pg Normal 27.0-33.0 The [facility] Comment on above: Order Comment: No: D o not add to previous draw Performed By: #### 1 69, 62651 #### [facility] [address] [facility] [place] [address], [facility] MCHC (RBC) [Mass/Vol] 32.7 g/dL Normal 32.0-35.0 The [facility] Comment on above: Order Comment: No: D o not add to previous draw Performed By: #### 1 69, #### [facility] [address] [facility] [place] [address], [facility] MCV (RBC) [Entitic vol] 95.6 fL Normal 82.0-98.0 The [facility] Comment on above: Order Comment: No: D o not add to previous draw Performed By: #### 1 69, 37037 #### [facility] [address] [facility] [place] [address], [facility] Nucleated RBC/100 WBC (Bld) [Ratio] 0 % Normal 0-0 The [facility] Comment on above: Order Comment: No: D o not add to previous draw Performed By: #### 1 69, 91353 #### [facility] [address] [facility] [place] [address], [facility] PLAT CNT 104 10*3/uL Low 150-400 The [facility] Comment on above: Order Comment: No: D o not add to previous draw Performed By: #### 1 69, 35554 #### [facility] [address] [place] [address], [facility] RBC (Bld) [#/Vol] 3.39 10*6/uL Low 4.20-5.70 [facility] Comment on above: Order Comment: No: D o not add to previous draw Performed By: #### 1 69, 66988 #### [facility] [address] [place] [address], [facility] WBC (Bld) [#/Vol] 8.55 10*3/uL Normal 4.00-10.60 The [facility] Comment on above: Order Comment: No: D o not add to previous draw Performed By: #### 1 69, 09422 #### [facility] [address] [place] [id number], [facility] COMP METABOLIC PANELon 10-12 Albumin [Mass/Vol] 3.5 g/dL Normal 3.5-5.7 [facility] Comment on above: Order Comment: No: D o not add to previous draw Performed By: #### 1 69, 68667 #### [facility] [address] [facility] [place] [address], [facility] ALKALINE PHOSPH 61 IU/L Normal 34-104 The [facility] Comment on above: Order Comment: No: D o not add to previous draw Performed By: #### 1 69, 84207 #### [facility] [address] [place] [address], [facility] ALT [Catalytic activity/Vol] 9 U/L Normal 7-52 The [facility] Comment on above: Order Comment: No: D o not add to previous draw Performed By: #### 1 69, 67673 #### [facility] [address] [place] [address], [facility] AST [Catalytic activity/Vol] 12 U/L Low 13-39 The [facility] Comment on above: Order Comment: No: D o not add to previous draw Performed By: #### 1 69, 60413 #### [facility] [address] [place] [address], [place] Bilirubin [Mass/Vol] 1.0 mg/dL Normal 0.3-1.0 The [facility] Comment on above: Order Comment: No: D o not add to previous draw Performed By: #### 1 69, 35119 #### [facility] [address] [place] [address], [place] Calcium [Mass/Vol] 8.6 mg/dL Normal 8.6-10.3 [facility] Comment on above: Order Comment: No: D o not add to previous draw Performed By: #### 1 69, 81166 #### [facility] [address] [place] [address], [place] Chloride [Moles/Vol] 106 mmol/L Normal 98-107 The [facility] Comment on above: Order Comment: No: D o not add to previous draw Performed By: #### 1 69, 86397 #### [facility] [address] [place] [address], [place] CO2 [Moles/Vol] 26 mmol/L Normal 21-31 [facility] Comment on above: Order Comment: No: D o not add to previous draw Performed By: #### 1 69, 61232 #### [facility] [address] [place] [address], [place] Creatinine [Mass/Vol] 1.19 mg/dL Normal 0.70-1.30 The [facility] Comment on above: Order Comment: No: D o not add to previous draw Performed By: #### 1 69, 85737 #### [facility] [address] [place] [address], [place] eGFR- non- 59 ml/min/1.73sq m Abnormal >60 The [facility] Comment on above: Order Comment: No: D o not add to previous draw Result Comment: Calc ulation may not be valid for patients over 70 years Performed By: #### 1 69, 28577 #### [facility] [address] [place] [address], [place] GFR/1.73 sq M.predicted among blacks MDRD (S/P/Bld) [Vol rate/Area] mL/min/{1.73_m2} Normal >60 The [facility] Comment on above: Order Comment: No: D o not add to previous draw Result Comment: Calc ulation may not be valid for patients over 70 years Performed By: #### 1 69, 70233 #### [facility] [address] [place] [address], [place] Glucose [Mass/Vol] 157 mg/dL High 70-100 The [facility] Comment on above: Order Comment: No: D o not add to previous draw Performed By: #### 1 69, 18220 #### [facility] [address] [place] [address], [place] Potassium [Moles/Vol] 3.8 mmol/L Normal 3.5-5.1 The [facility] Comment on above: Order Comment: No: D o not add to previous draw Performed By: #### 1 69, 03040 #### [facility] [address] [place] [address], [place] Protein [Mass/Vol] 5.9 g/dL Low 6.0-8.[address] [facility] Comment on above: Order Comment: No: D o not add to previous draw Performed By: #### 1 69, 35032 #### [facility] [address] [place] [address], [place] Sodium [Moles/Vol] 140 mmol/L Normal 136-145 The [facility] Comment on above: Order Comment: No: D o not add to previous draw Performed By: #### 1 69, 44505 #### [facility] [address] [place] [address], [facility] Urea nitrogen [Mass/Vol] 19 mg/dL Normal 7-25 The [facility] Comment on above: Order Comment: No: D o not add to previous draw Performed By: #### 1 0070, 16738 #### [facility] [address] [place] [address], [facility] MAGNESIUM BLOODon 10-12-2020 Magnesium [Mass/Vol] 2.1 mg/dL Normal 1.9-2.7 The [facility] Comment on above: Order Comment: No: D o not add to previous draw Performed By: #### 1 007, 52523 #### [facility] [address] [place] [address], [facility] Operative Reporton Operative Report MR#: [id number] I [facility] Pt. Name: Radha Brown Room #: CINDY [id number] Discharge Date: Birthdate: 1940 OPERATIVE REPORT DATE [...] artery after infiltrating 0.25% Marcaine locally. A 6-[place] sheath was entered through the left radial artery and an 8-[place] sheath was introduced in right femoral artery. Through the radial artery, a pigtail catheter was inserted into the ascending aorta and root angiogram was performed. Through the right femoral artery, a Lunderquist wire was inserted through the pigtail catheter. The patient was heparinized and the sheath was upsized over the Lunderquist wire to a 16-[place] German sheath. Through the sheath, a GR [...] MD Date Trans: 10/12/2020 12:21 A/julio cesar [id number] cc: Maribel Hogan M.D. [place] [id number] [facility] Diana [facility] [id number] Normal The [facility] CBC COMPLETE BLOOD COUNTon 0 10-11-2020 Erythrocyte distribution width (RBC) [Ratio] 13.1 % Normal 11.5-15.0 The [facility] Comment on above: Performed By: #### 1 4260, 80234 #### [facility] [address] [facility] Hematocrit (Bld) [Volume fraction] 37.7 % Low 39.0-50.0 The [facility] Comment on above: Performed By: #### 1 69, 03750 #### [facility] [address] [facility] [address] Hemoglobin (Bld) [Mass/Vol] 12.3 g/dL Low 13.0-17.0 The [facility] Comment on above: Performed By: #### 1 69, 56526 #### [facility] [address] MCH (RBC) [Entitic mass] 31.0 pg Normal 27.0-33.0 The [facility] Comment on above: Performed By: #### 1 69, 02502 #### [facility] [address] MCHC (RBC) [Mass/Vol] 32.6 g/dL Normal 32.0-35.0 The [facility] Comment on above: Performed By: #### 1 69, 93599 #### [facility] [address] MCV (RBC) [Entitic vol] 95.0 fL Normal 82.0-98.0 The [facility] Comment on above: Performed By: #### 1 69, 62554 #### [facility] [address] Nucleated RBC/100 WBC (Bld) [Ratio] 0 % Normal 0-0 The [facility] Comment on above: Performed By: #### 1 69, 33665 #### [facility] [address] [place] [address], [facility] PLAT CNT 132 10*3/uL Low 150-400 The [facility] Comment on above: Performed By: #### 1 69, 11670 #### [facility] [address] [facility] [place], [place] [id number] [place] [address] RBC (Bld) [#/Vol] 3.97 10*6/uL Low 4.20-5.70 The [facility] Comment on above: Performed By: #### 1 0070, 83884 #### [facility] [address] [facility] [place] [address], [facility] [facility] WBC (Bld) [#/Vol] 7.96 10*3/uL Normal 4.00-10.60 [facility] Comment on above: Performed By: #### 1 0070, 15781 #### [facility] [address] Cardiovascular Lab Reporton 10-11-2020 Cardiovascular Lab Report [facility] Patient Name: Radha Brown MR #: [id number] [facility] Physician: Georges Purvis M.D. Department of Service Date: 10/11/2020 Medicine Birthdate: 1940 Division of Room #: 3AB [id number] Cardiology Adult Cardiovascular Services [place] [address] Cardiovascular Laboratory Report INDICATION: The patient is [...] the right common femoral artery using two 6-[place] Citizen ProGlide devices. INTERVENTIONAL CARDIOLOGY DESTINATION SIGN REPAIRER: Georges Purvis M.D. CARDIAC SURGERY DESTINATION SIGN REPAIRER: Cody Castaneda MD. METHODS: Procedure was explained to the patient with risks and benefits. He signed informed consent. He was brought to skilled labor in a fasting state. The left wrist area was prepped and draped in usual fashion. Using micropuncture technique and ultrasound guidance, access was obtained in the left radial artery and a 6-[place] Citizen x 11 cm Hydrophilic sheath was advanced. Verapamil was given through the sheath. The right neck area was prepped and draped in usual fashion. Using ultrasound guidance and micropuncture technique, the right internal jugular vein was accessed and a 6-[place] x 11 cm introducer sheath was secured in place. Using micropuncture technique and ultrasound guidance, access was obtained in the right common femoral artery. Inner cannula angiography confirmed access at a good location, this was upsized to a 6-[place] x 11 cm sheath. Initial heparin 2000 units were administered intravenously. Note that the procedure was performed under conscious sedation in the cardiac skilled labor. Preclosure was performed in the right common femoral artery using 2 crossing 6-[place] ProGlide devices and the access was upsized to a 10-[place] x 11 cm sheath. Full heparinization was given and therapeutic ACT confirmed during the rest of the procedure. A 6-[place] angled pigtail catheter was advanced over a Avendano wire from the left radial artery into the ascending aorta and aortic root angiography was performed in the coplanar view. A 5-[place] Citizen balloon tipped temporary pacemaker wire was advanced through the internal jugular vein access and into the right ventricular cavity and positioned across the apical right ventricular septum was confirmed by fluoroscopy in different views. Adequate capture was confirmed with threshold of about 1 milliamps. Pacing was then put as backup at 20 milliamps. A 6-[place] Citizen multipurpose catheter was advanced over a J-tipped wire to the descending aorta and used to place a Lunderquist wire over which the right common femoral access was upsized serially to the 16-[place] Citizen German eSheath, which was secured in place. The aortic valve was then crossed initially using an AL1 diagnostic catheter and a straight Glidewire, however, due to the height of the patient, the AL1 catheter could not reach into the ventricular cavity. Therefore, we exchanged it to a 125 cm 6-[place] Citizen JR4 guiding catheter, which was able to [...] was (more content not included)... Normal [facility] TYPE AND SCREENon 10-11-2020 ABO INTERPRETATION A Normal [facility] Comment on above: Performed By: #### 8 5499 #### [address] RH INTERPRETATION Positive Normal [facility] Comment on above: Performed By: #### 8 5499 #### [address] CTA ABDOMEN AND PELVISon CTA ABDOMEN AND PELVIS [facility] Department of Radiology [address] [place] [id number] Patient Name: RADHA BROWN : 1940 Sex: M Age: Race: White Pt. Location: Patient Status: D Ordered Date: 08/26/2020 12:30:00 PM Completed Date: 09/13/2020 03:02 PM Requesting Provider: ASHLEY CRAIG Attending Provider: ASHLEY CRAIG Report Copy To: [email or web address] Signs & Symptoms: I35.0 Nonrheumatic aortic (valve) stenosis I10 History: Nadia Please call Ashley [phone] PC Auth via [employer] for CPT 33491 Auth#[id number] Valid 08/30/20-02/26/21 Med Nec-Passed 08/29 *SLA Comments: [...] achievable Electronically signed: Mika Hebert. Transcribed by: [email or web address], User Resident: Electronically Signed by: MIKA HEBERT @ 09/19/2020 09:30 AM Normal [facility] Comment on above: Order Comment: No: D o not add to previous draw CTA CHESTon 09-13-2020 CTA CHEST [facility] Department of Radiology [address] [place] [id number] Patient Name: RADHA BROWN : 1940 Sex: M Age: Race: White Pt. Location: Patient Status: D Ordered Date: 08/26/2020 12:30:00 PM Completed Date: 09/13/2020 03:02 PM Requesting Provider: ASHLEY CRAIG Attending Provider: ASHLEY CRAIG Report Copy To: MARIBEL HOGAN Signs & Symptoms: I35.0 Nonrheumatic aortic (valve) stenosis I10 History: Nadia Please call Ashley [phone] PC Auth via [employer] for CPT 64197 Auth#[id number] Valid 08/30/20-02/26/21 Med Nec-Passed 08/29 *SLA Comments: [...] 3 Cusped view, anterior view and no [employer]ENDANT CAU view were also obtained in 3-D [...] E (more content not included)... Normal [facility] Comment on above: Order Comment: EKG g ated-TAVR protocol BASIC METABOLIC PANELon 05-0 Calcium [Mass/Vol] 8.6 mg/dL Normal 8.6-10.3 [facility] [place] [facility] Comment on above: Order Comment: No: D o not add to previous draw Performed By: #### 8 [id number] #### [facility] [address] [place] [address], [place] Chloride [Moles/Vol] 107 mmol/L Normal 98-107 [facility] Comment on above: Order Comment: No: D o not add to previous draw Performed By: #### 8 5499 #### [facility] [address] [place] [address], [place] CO2 [Moles/Vol] 31 mmol/L Normal 21-31 [facility] Comment on above: Order Comment: No: D o not add to previous draw Performed By: #### 8 5499 #### [facility] [address] [place] [address], [place] Creatinine [Mass/Vol] 1.36 mg/dL High 0.70-1.30 [facility] Comment on above: Order Comment: No: D o not add to previous draw Performed By: #### 8 5499 #### [facility] [address] [place] [address], [place] eGFR- non- 50 ml/min/1.73sq m Abnormal >60 [facility] Comment on above: Order Comment: No: D o not add to previous draw Result Comment: Calc ulation may not be valid for patients over 70 years Performed By: #### 8 5499 #### [facility] [address] [place] [address], [place] GFR/1.73 sq M.predicted among blacks MDRD (S/P/Bld) [Vol rate/Area] mL/min/{1.73_m2} Normal >60 [facility] Comment on above: Order Comment: No: D o not add to previous draw Result Comment: Calc ulation may not be valid for patients over 70 years Performed By: #### 8 5499 #### [facility] [address] [place] [address], [facility] Glucose [Mass/Vol] 129 mg/dL High 70-100 [facility] Comment on above: Order Comment: No: D o not add to previous draw Performed By: #### 8 5499 #### [facility] [address] [place] [address], [facility] Potassium [Moles/Vol] 3.7 mmol/L Normal 3.5-5.1 [facility] Comment on above: Order Comment: No: D o not add to previous draw Performed By: #### 8 5499 #### [facility] [address] [place] [address], [facility] Sodium [Moles/Vol] 143 mmol/L Normal 136-145 [facility] Comment on above: Order Comment: No: D o not add to previous draw Performed By: #### 8 5499 #### [facility] [address] [place] [address], [facility] Urea nitrogen [Mass/Vol] 44 mg/dL High 7-25 [facility] Comment on above: Order Comment: No: D o not add to previous draw Performed By: #### 8 5499 #### [facility] [address] [place] [id number], [facility] CBC COMPLETE BLOOD COUNTon 0 - Erythrocyte distribution width (RBC) [Ratio] 13.2 % Normal 11.5-15.0 [facility] Comment on above: Order Comment: No: D o not add to previous draw Performed By: #### 8 5499 #### [facility] [address] [place] [address], [facility] Hematocrit (Bld) [Volume fraction] 36.5 % Low 39.0-50.0 [facility] Comment on above: Order Comment: No: D o not add to previous draw Performed By: #### 8 5499 #### [facility] [address] Hemoglobin (Bld) [Mass/Vol] 11.8 g/dL Low 13.0-17.0 [facility] Comment on above: Order Comment: No: D o not add to previous draw Performed By: #### 8 5499 #### [facility] [address] [place] [id number], [facility] MCH (RBC) [Entitic mass] 31.2 pg Normal 27.0-33.0 [facility] Comment on above: Order Comment: No: D o not add to previous draw Performed By: #### 8 5499 #### [facility] [address] [place] [id number], [facility] MCHC (RBC) [Mass/Vol] 32.3 g/dL Normal 32.0-35.0 [facility] Comment on above: Order Comment: No: D o not add to previous draw Performed By: #### 8 5499 #### [facility] [address] [place] [id number], [facility] MCV (RBC) [Entitic vol] 96.6 fL Normal 82.0-98.0 [facility] Comment on above: Order Comment: No: D o not add to previous draw Performed By: #### 8 5499 #### [facility] [address] [place] [id number], [facility] Nucleated RBC/100 WBC (Bld) [Ratio] 0 % Normal 0-0 [facility] Comment on above: Order Comment: No: D o not add to previous draw Performed By: #### 8 5499 #### [facility] [address] [place] [id number], [facility] PLAT CNT 114 10*3/uL Low 150-400 [facility] Comment on above: Order Comment: No: D o not add to previous draw Performed By: #### 8 5499 #### [facility] [address] [place] [id number], [facility] RBC (Bld) [#/Vol] 3.78 10*6/uL Low 4.20-5.70 [facility] Comment on above: Order Comment: No: D o not add to previous draw Performed By: #### 8 5499 #### [facility] [address] [place] [address], [facility] WBC (Bld) [#/Vol] 7.88 10*3/uL Normal 4.00-10.60 [facility] Comment on above: Order Comment: No: D o not add to previous draw Performed By: #### 8 5499 #### [facility] [address] [place] [id number], [facility] MAGNESIUM BLOODon 08-14-2020 Magnesium [Mass/Vol] 2.4 mg/dL Normal 1.9-2.7 [facility] Comment on above: Order Comment: No: D o not add to previous draw Performed By: #### 8 5499 #### [facility] [address] [place] [address], [facility] POC GLUCOSE LABon 08-14-2020 Glucose [Mass/Vol] 175 mg/dL High 70-100 [facility] Comment on above: Performed By: #### 0 0071, 95048, 71153 #### [facility] [address] [place] [address], [facility] BASIC METABOLIC PANELon Calcium [Mass/Vol] 8.7 mg/dL Normal 8.6-10.3 [facility] Comment on above: Order Comment: No: D o not add to previous draw Performed By: #### 0 0071, 22062, 46699 #### [facility] [address] [place] [address], [facility] Chloride [Moles/Vol] 107 mmol/L Normal 98-107 [facility] Comment on above: Order Comment: No: D o not add to previous draw Performed By: #### 0 0071, 85032, 83512 #### [facility] [address] [place] [address], [place] CO2 [Moles/Vol] 30 mmol/L Normal 21-31 [facility] Comment on above: Order Comment: No: D o not add to previous draw Performed By: #### 0 0071, 02684, 81521 #### [facility] [address] [place] [address], [place] Creatinine [Mass/Vol] 1.49 mg/dL High 0.70-1.30 [facility] Comment on above: Order Comment: No: D o not add to previous draw Performed By: #### 0 0071, 14623, 75194 #### [facility] [address] [place] [address], [place] eGFR- 55 ml/min/1.73sq m Abnormal >60 [facility] Comment on above: Order Comment: No: D o not add to previous draw Result Comment: Calc ulation may not be valid for patients over 70 years Performed By: #### 0 0071, 95118, 06997 #### [facility] [address] [place] [address], [place] eGFR- non- 45 ml/min/1.73sq m Abnormal >60 [facility] Comment on above: Order Comment: No: D o not add to previous draw Result Comment: Calc ulation may not be valid for patients over 70 years Performed By: #### 0 0071, 89389, 84982 #### [facility] [address] [place] [address], [place] Glucose [Mass/Vol] 136 mg/dL High 70-100 [facility] Comment on above: Order Comment: No: D o not add to previous draw Performed By: #### 0 0071, 77596, 17326 #### [facility] [address] [place] [address], [place] Potassium [Moles/Vol] 3.9 mmol/L Normal 3.5-5.1 [facility] Comment on above: Order Comment: No: D o not add to previous draw Performed By: #### 0 0071, 01118, 65540 #### [facility] [address] [place] [id number], [facility] Sodium [Moles/Vol] 145 mmol/L Normal 136-145 [facility] Comment on above: Order Comment: No: D o not add to previous draw Performed By: #### 0 0071, 63367, 43876 #### [facility] [address] [place] [id number], [facility] Urea nitrogen [Mass/Vol] 55 mg/dL High 7-25 [facility] Comment on above: Order Comment: No: D o not add to previous draw Performed By: #### 0 0071, 31674, 26837 #### [facility] [address] [place] [address], [facility] CBC COMPLETE BLOOD COUNTon 0 - Erythrocyte distribution width (RBC) [Ratio] 13.5 % Normal 11.5-15.0 [facility] Comment on above: Order Comment: No: D o not add to previous draw Performed By: #### 1 69, 30745 #### [facility] [address] [place] [id number], [facility] Hematocrit (Bld) [Volume fraction] 35.8 % Low 39.0-50.0 [facility] Comment on above: Order Comment: No: D o not add to previous draw Performed By: #### 1 69, 08209 #### [facility] [address] [place] [id number], [facility] Hemoglobin (Bld) [Mass/Vol] 11.4 g/dL Low 13.0-17.0 [facility] Comment on above: Order Comment: No: D o not add to previous draw Performed By: #### 1 69, 66377 #### [facility] [address] [place] [address], [facility] MCH (RBC) [Entitic mass] 31.2 pg Normal 27.0-33.0 [facility] Comment on above: Order Comment: No: D o not add to previous draw Performed By: #### 1 69, 98986 #### [facility] [address] [place] [address], [facility] MCHC (RBC) [Mass/Vol] 31.8 g/dL Low 32.0-35.0 [facility] Comment on above: Order Comment: No: D o not add to previous draw Performed By: #### 1 69, 65111 #### [facility] [address] [place] [address], [facility] MCV (RBC) [Entitic vol] 98.1 fL High 82.0-98.0 [facility] Comment on above: Order Comment: No: D o not add to previous draw Performed By: #### 1 69, 22567 #### [facility] [address] [place] [address], [facility] Nucleated RBC/100 WBC (Bld) [Ratio] 0 % Normal 0-0 [facility] Comment on above: Order Comment: No: D o not add to previous draw Performed By: #### 1 69, 12220 #### [facility] [address] [facility] [place] [address], [facility] PLAT CNT 111 10*3/uL Low 150-400 [facility] Comment on above: Order Comment: No: D o not add to previous draw Performed By: #### 1 69, 93079 #### [facility] [address] [facility] [place] [address], [facility] RBC (Bld) [#/Vol] 3.65 10*6/uL Low 4.20-5.70 [facility] Comment on above: Order Comment: No: D o not add to previous draw Performed By: #### 1 0070, 98720 #### [facility] [address] [place] [address], [place] WBC (Bld) [#/Vol] 7.40 10*3/uL Normal 4.00-10.60 [facility] Comment on above: Order Comment: No: D o not add to previous draw Performed By: #### 1 0070, 40361 #### [facility] [address] [place] [address], [place] MAGNESIUM BLOODon 08-13-2020 Magnesium [Mass/Vol] 2.4 mg/dL Normal 1.9-2.7 [facility] Comment on above: Order Comment: No: D o not add to previous draw Performed By: #### 0 0071, 95857, 14900 #### [facility] [address] [place] [address], [place] PHOSPHORUS BLOODon Phosphate [Mass/Vol] 3.7 mg/dL Normal 2.5-5.0 [facility] Comment on above: Order Comment: No: D o not add to previous draw Performed By: #### 0 0071, 67017, 79475 #### [facility] [address] [place] [address], [place] POC GLUCOSE LABon 08-13-2020 Glucose [Mass/Vol] 186 mg/dL High 70-100 [facility] Comment on above: Performed By: #### 0 0071, 16133, 90013 #### [facility] [address] [place] [address], [place] Glucose [Mass/Vol] 159 mg/dL High 70-100 [facility] Comment on above: Performed By: #### 8 5499 #### [facility] [address] [place] [address], [place] Glucose [Mass/Vol] 172 mg/dL High 70-100 [facility] Comment on above: Performed By: #### 8 5499 #### [facility] [address] [place] [address], [place] Glucose [Mass/Vol] 136 mg/dL High 70-100 [facility] Comment on above: Performed By: #### 8 5499 #### [facility] [address] [place] [address], [place] Glucose [Mass/Vol] 153 mg/dL High 70-100 [facility] Comment on above: Performed By: #### 8 5499 #### [facility] [address] [place] [address], [place] BASIC METABOLIC PANELon 05-0 Calcium [Mass/Vol] 8.9 mg/dL Normal 8.6-10.3 [facility] Comment on above: Order Comment: No: D o not add to previous draw Performed By: #### 1 69, 52024 #### [facility] [address] [place] [address], [place] Chloride [Moles/Vol] 104 mmol/L Normal 98-107 [facility] Comment on above: Order Comment: No: D o not add to previous draw Performed By: #### 1 69, 33759 #### [facility] [address] [place] [address], [place] CO2 [Moles/Vol] 31 mmol/L Normal 21-31 [facility] Comment on above: Order Comment: No: D o not add to previous draw Performed By: #### 1 69, 94569 #### [facility] [address] [place] [address], [place] Creatinine [Mass/Vol] 1.73 mg/dL High 0.70-1.30 [facility] Comment on above: Order Comment: No: D o not add to previous draw Performed By: #### 1 69, 48477 #### [facility] [address] [place] [address], [place] eGFR- 46 ml/min/1.73sq m Abnormal >60 [facility] Comment on above: Order Comment: No: D o not add to previous draw Result Comment: Calc ulation may not be valid for patients over 70 years Performed By: #### 1 69, 80363 #### [facility] [address] [place] [address], [place] eGFR- non- 38 ml/min/1.73sq m Abnormal >60 [facility] Comment on above: Order Comment: No: D o not add to previous draw Result Comment: Calc ulation may not be valid for patients over 70 years Performed By: #### 1 69, 05772 #### [facility] [address] [place] [address], [place] Glucose [Mass/Vol] 168 mg/dL High 70-100 [facility] Comment on above: Order Comment: No: D o not add to previous draw Performed By: #### 1 69, 38798 #### [facility] [address] [place] [address], [place] Potassium [Moles/Vol] 3.8 mmol/L Normal 3.5-5.1 [facility] Comment on above: Order Comment: No: D o not add to previous draw Performed By: #### 1 69, 51861 #### [facility] [address] [place] [address], [place] Sodium [Moles/Vol] 145 mmol/L Normal 136-145 [facility] Comment on above: Order Comment: No: D o not add to previous draw Performed By: #### 1 69, 18819 #### [facility] [address] [place] [address], [place] Urea nitrogen [Mass/Vol] 51 mg/dL High 7-25 [facility] Comment on above: Order Comment: No: D o not add to previous draw Performed By: #### 1 69, 60275 #### [facility] [address] [place] [address], [facility] CBC COMPLETE BLOOD COUNTon 08-12-2020 Erythrocyte distribution width (RBC) [Ratio] 13.6 % Normal 11.5-15.0 [facility] Comment on above: Order Comment: No: D o not add to previous draw Performed By: #### 1 69, 91706 #### [facility] [address] [place] [id number], [facility] Hematocrit (Bld) [Volume fraction] 36.9 % Low 39.0-50.0 [facility] Comment on above: Order Comment: No: D o not add to previous draw Performed By: #### 1 69, 90548 #### [facility] [address] [place] [address], [facility] Hemoglobin (Bld) [Mass/Vol] 12.1 g/dL Low 13.0-17.0 [facility] Comment on above: Order Comment: No: D o not add to previous draw Performed By: #### 1 69, 62072 #### [facility] [address] [place] [address], [facility] MCH (RBC) [Entitic mass] 31.9 pg Normal 27.0-33.0 The [facility] Comment on above: Order Comment: No: D o not add to previous draw Performed By: #### 1 69, 17289 #### [facility] [address] [place] [address], [facility] MCHC (RBC) [Mass/Vol] 32.8 g/dL Normal 32.0-35.0 The [facility] Comment on above: Order Comment: No: D o not add to previous draw Performed By: #### 1 69, 22303 #### [facility] [address] [place] [id number], [facility] MCV (RBC) [Entitic vol] 97.4 fL Normal 82.0-98.0 The [facility] Comment on above: Order Comment: No: D o not add to previous draw Performed By: #### 1 69, 16125 #### [facility] [address] [place] [address], [facility] Nucleated RBC/100 WBC (Bld) [Ratio] 0 % Normal 0-0 The [facility] Comment on above: Order Comment: No: D o not add to previous draw Performed By: #### 1 69, 91416 #### [facility] [address] [place] [address], [facility] PLAT CNT 115 10*3/uL Low 150-400 The [facility] Comment on above: Order Comment: No: D o not add to previous draw Performed By: #### 1 69, 29555 #### [facility] [address] [place] [address], [facility] RBC (Bld) [#/Vol] 3.79 10*6/uL Low 4.20-5.70 The [facility] Comment on above: Order Comment: No: D o not add to previous draw Performed By: #### 1 69, 07858 #### [facility] [address] [facility] [place] [address], [facility] WBC (Bld) [#/Vol] 8.71 10*3/uL Normal 4.00-10.60 The [facility] Comment on above: Order Comment: No: D o not add to previous draw Performed By: #### 1 69, 90352 #### [facility] [address] [place] [address], [facility] MAGNESIUM BLOODon 08-12-2020 Magnesium [Mass/Vol] 2.4 mg/dL Normal 1.9-2.7 The [facility] Comment on above: Order Comment: No: D o not add to previous draw Performed By: #### 1 69, 07529 #### [facility] [address] [place] [id number], [facility] POC GLUCOSE LABon 08-12-2020 Glucose [Mass/Vol] 136 mg/dL High 70-100 The [facility] Comment on above: Performed By: #### 0 0071, 66631, 00864 #### [facility] [address] [place] [address], [place] Glucose [Mass/Vol] 180 mg/dL High 70-100 The [facility] Comment on above: Performed By: #### 0 0071, 76187, 67904 #### [facility] [address] [place] [address], [place] Glucose [Mass/Vol] 156 mg/dL High 70-100 The [facility] Comment on above: Performed By: #### 8 5499 #### [facility] [address] [place] [address], [place] BASIC METABOLIC PANELon Calcium [Mass/Vol] 9.4 mg/dL Normal 8.6-10.3 The [facility] Comment on above: Order Comment: No: D o not add to previous draw Performed By: #### 1 69, 91721 #### [facility] [address] [place] [address], [place] Chloride [Moles/Vol] 101 mmol/L Normal 98-107 The [facility] Comment on above: Order Comment: No: D o not add to previous draw Performed By: #### 1 69, 03550 #### [facility] [address] [place] [address], [place] CO2 [Moles/Vol] 29 mmol/L Normal 21-31 The [facility] Comment on above: Order Comment: No: D o not add to previous draw Performed By: #### 1 69, 22471 #### [facility] [address] [place] [address], [place] Creatinine [Mass/Vol] 1.63 mg/dL High 0.70-1.30 The [facility] Comment on above: Order Comment: No: D o not add to previous draw Performed By: #### 1 69, 66902 #### [facility] [address] [place] [address], [facility] eGFR- 49 ml/min/1.73sq m Abnormal >60 The [facility] Comment on above: Order Comment: No: D o not add to previous draw Result Comment: Calc ulation may not be valid for patients over 70 years Performed By: #### 1 69, 00471 #### [facility] [address] [place] [address], [place] eGFR- non- 41 ml/min/1.73sq m Abnormal >60 The [facility] Comment on above: Order Comment: No: D o not add to previous draw Result Comment: Calc ulation may not be valid for patients over 70 years Performed By: #### 1 69, 37278 #### [facility] [address] [place] [address], [place] Glucose [Mass/Vol] 198 mg/dL High 70-100 The [facility] Comment on above: Order Comment: No: D o not add to previous draw Performed By: #### 1 69, 57296 #### [facility] [address] [place] [address], [place] Potassium [Moles/Vol] 4.0 mmol/L Normal 3.5-5.1 The [facility] Comment on above: Order Comment: No: D o not add to previous draw Performed By: #### 1 69, 21416 #### [facility] [address] [place] [address], [place] Sodium [Moles/Vol] 144 mmol/L Normal 136-145 The [facility] Comment on above: Order Comment: No: D o not add to previous draw Performed By: #### 1 69, 57339 #### [facility] [address] Urea nitrogen [Mass/Vol] 38 mg/dL High 7-25 The [facility] Comment on above: Order Comment: No: D o not add to previous draw Performed By: #### 1 69, 04756 #### [facility] [address] CBC COMPLETE BLOOD COUNTon - Erythrocyte distribution width (RBC) [Ratio] 13.7 % Normal 11.5-15.0 The [facility] Comment on above: Order Comment: No: D o not add to previous draw Performed By: #### 1 69, 48228 #### [facility] [address] [address] Hematocrit (Bld) [Volume fraction] 40.0 % Normal 39.0-50.0 The [facility] Comment on above: Order Comment: No: D o not add to previous draw Performed By: #### 1 69, 06814 #### [facility] [address] Hemoglobin (Bld) [Mass/Vol] 13.1 g/dL Normal 13.0-17.0 The [facility] Comment on above: Order Comment: No: D o not add to previous draw Performed By: #### 1 69, 86729 #### [facility] [address] [place] [address], [facility] IMM PLATELET FRAC 8.4 % High 0.8-6.3 The [facility] Comment on above: Order Comment: No: D o not add to previous draw Performed By: #### 1 69, 60826 #### [facility] [address] [place] [address], [facility] MCH (RBC) [Entitic mass] 31.3 pg Normal 27.0-33.0 The [facility] Comment on above: Order Comment: No: D o not add to previous draw Performed By: #### 1 69, 34109 #### [facility] [address] [place] [address], [facility] MCHC (RBC) [Mass/Vol] 32.8 g/dL Normal 32.0-35.0 The [facility] Comment on above: Order Comment: No: D o not add to previous draw Performed By: #### 1 69, 99986 #### [facility] [address] [place] [id number], [facility] MCV (RBC) [Entitic vol] 95.7 fL Normal 82.0-98.0 [facility] Comment on above: Order Comment: No: D o not add to previous draw Performed By: #### 1 69, 54079 #### [facility] [address] [facility] [place] [address], [facility] Nucleated RBC/100 WBC (Bld) [Ratio] 0 % Normal 0-0 The [facility] Comment on above: Order Comment: No: D o not add to previous draw Performed By: #### 1 69, 18186 #### [facility] [address] [facility] [place] [address], [facility] PLAT CNT 128 10*3/uL Low 150-400 The [facility] Comment on above: Order Comment: No: D o not add to previous draw Performed By: #### 1 69, 47680 #### [facility] [address] [facility] [place] [address], [facility] RBC (Bld) [#/Vol] 4.18 10*6/uL Low 4.20-5.70 The [facility] Comment on above: Order Comment: No: D o not add to previous draw Performed By: #### 1 69, 18210 #### [facility] [address] [place] [id number], [place] WBC (Bld) [#/Vol] 10.82 10*3/uL High 4.00-10.60 The [facility] Comment on above: Order Comment: No: D o not add to previous draw Performed By: #### 1 0070, 50984 #### [place] [address], [facility] CT ABDOMEN AND PELVIS WO CON TRASTon 08-11-2020 CT ABDOMEN AND PELVIS WO CONTRAST [facility] Department of Radiology [address] [place] [id number] Patient Name: RADHA BROWN : 1940 Sex: M Age: Race: White Pt. Location: [address] [place] [address] Patient Status: I Ordered Date: 08/11/2020 10:45:00 [...] achievable Electronically signed: Radha Walter. Transcribed by: [email or web address], User Resident: Electronically Signed by: RADHA WALTER @ 08/11/2020 02:18 PM Normal [facility] Comment on above: Order Comment: No: D o not add to previous draw MAGNESIUM BLOODon 08-11-2020 Magnesium [Mass/Vol] 2.2 mg/dL Normal 1.9-2.7 The [facility] Comment on above: Order Comment: No: D o not add to previous draw Performed By: #### 1 0070, 58410 #### [facility] [address] [place] [address], [place] POC GLUCOSE LABon 08-11-2020 Glucose [Mass/Vol] 155 mg/dL High 70-100 The [facility] Comment on above: Performed By: #### 8 5499 #### [facility] [address] [place] [address], [place] Glucose [Mass/Vol] 161 mg/dL High 70-100 The [facility] Comment on above: Performed By: #### 0 0071, 20811, 39605 #### [address] [place] [address], [facility] Glucose [Mass/Vol] 206 mg/dL High 70-100 The [facility] Comment on above: Performed By: #### 0 0071, 21553, 69492 #### [address] [place] [address], [facility] Glucose [Mass/Vol] 172 mg/dL High 70-100 The [facility] Comment on above: Performed By: #### 8 5499 #### [address] [address], [facility] PORTABLE CHEST 1 VIEW PORTABLE CHEST [address] [facility] Department of Radiology [address] [place] [phone] Patient Name: RADHA BROWN : 1940 Sex: M Age: Race: White Pt. Location: [id number] Patient Status: I Ordered Date: 08/11/2020 11:10:00 [...] base. Electronically signed: Radha Walter. Transcribed by: [email or web address], User Resident: Electronically Signed by: RADHA WALTER @ 08/11/2020 12:19 PM Normal The [facility] Comment on above: Order Comment: No: D o not add to previous draw ABDOMEN SERIES W CHESTon ABDOMEN SERIES W CHEST [facility] Department of Radiology [address] [place] [id number] Patient Name: RADHA BROWN : 1940 Sex: M Age: Race: White Pt. Location: [id number] Patient Status: I Ordered Date: 08/10/2020 5:35:00 PM Completed Date: 08/10/2020 06:28 PM Requesting Provider: ROSEMARIE SALGADO Attending Provider: RO LUCAS Report Copy [...] process. Electronically signed: Jordi Frausto. Transcribed by: [email or web address], User Resident: Electronically Signed by: JORDI FRAUSTO @ 08/10/2020 06:37 PM Normal [facility] Comment on above: Order Comment: No: D o not add to previous draw BASIC METABOLIC PANELon 05-0 Calcium [Mass/Vol] 8.6 mg/dL Normal 8.6-10.3 [facility] Comment on above: Order Comment: No: D o not add to previous draw Performed By: #### 1 007, 94231 #### [facility] [address] [place] [address], [place] Chloride [Moles/Vol] 107 mmol/L Normal 98-107 [facility] Comment on above: Order Comment: No: D o not add to previous draw Performed By: #### 1 69, 12567 #### [facility] [address] [place] [address], [place] CO2 [Moles/Vol] 27 mmol/L Normal 21-31 The [facility] Comment on above: Order Comment: No: D o not add to previous draw Performed By: #### 1 0070, 72651 #### [facility] [address] [place] [address], [place] Creatinine [Mass/Vol] 1.24 mg/dL Normal 0.70-1.30 The [facility] Comment on above: Order Comment: No: D o not add to previous draw Performed By: #### 1 69, 99419 #### [facility] [address] [place] [address], [place] eGFR- non- 56 ml/min/1.73sq m Abnormal >60 [facility] Comment on above: Order Comment: No: D o not add to previous draw Result Comment: Calc ulation may not be valid for patients over 70 years Performed By: #### 1 69, 06857 #### [facility] [address] [place] [address], [place] GFR/1.73 sq M.predicted among blacks MDRD (S/P/Bld) [Vol rate/Area] mL/min/{1.73_m2} Normal >60 The [facility] Comment on above: Order Comment: No: D o not add to previous draw Result Comment: Calc ulation may not be valid for patients over 70 years Performed By: #### 1 69, 54115 #### [facility] [address] [place] [address], [place] Glucose [Mass/Vol] 108 mg/dL High 70-100 [facility] Comment on above: Order Comment: No: D o not add to previous draw Performed By: #### 1 69, 05254 #### [facility] [address] [place] [address], [place] Potassium [Moles/Vol] 3.8 mmol/L Normal 3.5-5.1 The [facility] Comment on above: Order Comment: No: D o not add to previous draw Performed By: #### 1 69, 60164 #### [facility] [address] [place] [address], [place] Sodium [Moles/Vol] 142 mmol/L Normal 136-145 The [facility] Comment on above: Order Comment: No: D o not add to previous draw Performed By: #### 1 69, 35786 #### [facility] [address] [place] [address], [facility] Urea nitrogen [Mass/Vol] 29 mg/dL High 7-25 The [facility] Comment on above: Order Comment: No: D o not add to previous draw Performed By: #### 1 69, 99331 #### [facility] [address] [place] [address], [facility] CBC W/DIFFon 08-10-2020 ABS IMM GRANS 0.0 10*3/uL Normal 0.0-0.2 [facility] Comment on above: Order Comment: No: D o not add to previous draw Performed By: #### 1 69, 13470 #### [facility] [address] [place] [address], [facility] ABS NEUTROPHILS 3.0 10*3/uL Normal 1.6-7.6 The [facility] Comment on above: Order Comment: No: D o not add to previous draw Performed By: #### 1 69, 65030 #### [facility] [address] [place] [address], [facility] Basophils (Bld) [#/Vol] 0.0 10*3/uL Normal 0.0-0.2 The [facility] Comment on above: Order Comment: No: D o not add to previous draw Performed By: #### 1 69, 03703 #### [facility] [address] [place] [address], [facility] Basophils/100 WBC (Bld) 0.4 % Normal 0.0-1.0 The [facility] Comment on above: Order Comment: No: D o not add to previous draw Performed By: #### 1 69, 50590 #### [facility] [address] [place] [address], [facility] Eosinophils (Bld) [#/Vol] 0.4 10*3/uL Normal 0.0-0.5 The [facility] Comment on above: Order Comment: No: D o not add to previous draw Performed By: #### 1 69, 06037 #### [facility] [address] [place] [address], [facility] Eosinophils/100 WBC (Bld) 7.7 % High 0.0-6.0 The [facility] Comment on above: Order Comment: No: D o not add to previous draw Performed By: #### 1 69, 79369 #### [facility] [address] [facility] [place] [address], [facility] Erythrocyte distribution width (RBC) [Ratio] 13.8 % Normal 11.5-15.0 The [facility] Comment on above: Order Comment: No: D o not add to previous draw Performed By: #### 1 69, 41849 #### [facility] [address] [facility] [place] [address], [facility] Hematocrit (Bld) [Volume fraction] 33.3 % Low 39.0-50.0 The [facility] Comment on above: Order Comment: No: D o not add to previous draw Performed By: #### 1 69, 47966 #### [facility] [address] [facility] [place] [address], [facility] Hemoglobin (Bld) [Mass/Vol] 10.9 g/dL Low 13.0-17.0 The [facility] Comment on above: Order Comment: No: D o not add to previous draw Performed By: #### 1 69, 22528 #### [facility] [address] [place] [address], [facility] IMM PLATELET FRAC 7.2 % High 0.8-6.3 The [facility] Comment on above: Order Comment: No: D o not add to previous draw Performed By: #### 1 69, 68689 #### [facility] [address] [facility] [place] [address], [facility] IMMATURE GRANS 0.2 % Normal 0.0-1.0 [facility] Comment on above: Order Comment: No: D o not add to previous draw Performed By: #### 1 69, 89896 #### [facility] [address] [facility] [place] [address], [facility] Lymphocytes (Bld) [#/Vol] 1.1 10*3/uL Low 1.2-4.0 The [facility] Comment on above: Order Comment: No: D o not add to previous draw Performed By: #### 1 69, 87353 #### [facility] [address] [facility] [place] [address], [facility] Lymphocytes/100 WBC (Bld) 21.4 % Normal 20.0-45.0 The [facility] Comment on above: Order Comment: No: D o not add to previous draw Performed By: #### 1 69, 76408 #### [facility] [address] [facility] [place] [address], [facility] MCH (RBC) [Entitic mass] 31.6 pg Normal 27.0-33.0 The [facility] Comment on above: Order Comment: No: D o not add to previous draw Performed By: #### 1 69, 08800 #### [facility] [address] [facility] [place] [address], [facility] MCHC (RBC) [Mass/Vol] 32.7 g/dL Normal 32.0-35.0 The [facility] Comment on above: Order Comment: No: D o not add to previous draw Performed By: #### 1 69, 16651 #### [facility] [address] [place] [address], [facility] MCV (RBC) [Entitic vol] 96.5 fL Normal 82.0-98.0 The [facility] Comment on above: Order Comment: No: D o not add to previous draw Performed By: #### 1 69, 87661 #### [facility] [address] [place] [address], [facility] Monocytes (Bld) [#/Vol] 0.6 10*3/uL Normal 0.1-1.0 The [facility] Comment on above: Order Comment: No: D o not add to previous draw Performed By: #### 1 69, 54848 #### [facility] [address] [place] [address], [facility] MONOS 11.8 % Normal 5.0-12.0 The [facility] Comment on above: Order Comment: No: D o not add to previous draw Performed By: #### 1 69, 20387 #### [facility] [address] [place] [id number], [facility] Neutrophils/100 WBC (Bld) 58.5 % Normal 40.0-72.0 The [facility] Comment on above: Order Comment: No: D o not add to previous draw Performed By: #### 1 69, 73132 #### [facility] [address] [facility] [place] [id number], [facility] Nucleated RBC/100 WBC (Bld) [Ratio] 0 % Normal 0-0 The [facility] Comment on above: Order Comment: No: D o not add to previous draw Performed By: #### 1 69, 70161 #### [facility] [address] [place] [id number], [place] PLAT CNT 102 10*3/uL Low 150-400 [facility] Comment on above: Order Comment: No: D o not add to previous draw Performed By: #### 1 69, 34335 #### [facility] [address] [place] [id number], [facility] RBC (Bld) [#/Vol] 3.45 10*6/uL Low 4.20-5.70 [facility] Comment on above: Order Comment: No: D o not add to previous draw Performed By: #### 1 0070, 05917 #### [facility] [address] WBC (Bld) [#/Vol] 5.09 10*3/uL Normal 4.00-10.60 [facility] Comment on above: Order Comment: No: D o not add to previous draw Performed By: #### 1 0070, 38204 #### [facility] [address] [facility] [address] Cardiovascular Lab Reporton 08-10-2020 Cardiovascular Lab Report [facility] Patient Name: Radha Brown MR #: [id number] [facility] Physician: Georges Purvis M.D. Department of Service Date: 08/09/2020 Medicine Birthdate: 1940 Division of Room #: 3AB 637378 Cardiology Adult Cardiovascular Services [place] [address] Cardiovascular Laboratory Report CARDIAC CATHETERIZATION REPORT INDICATION: [...] signed informed consent. He was brought to skilled labor in a fasting state. The right groin area was prepped and draped in usual fashion. Using micropuncture technique and ultrasound guidance, the right common femoral artery was accessed. The inner cannula angiography was performed followed by upsizing to a 6-[place] x 11 cm sheath. Access was obtained using same technique in the right common femoral vein and a 6-[place] x 11 cm sheath was placed. A 6-[place] Smalls catheter was used for heart catheterization with measurement of pressures and calculation of cardiac output using the estimated Lina method. Smalls catheter was removed. Bilateral selective coronary angiography was then performed using 6-[place] JL4 and AR2 diagnostic catheters. The AR2 diagnostic catheter was used for selectively engaging the saphenous venous graft to the PDA, saphenous venous graft to the diagonal, to the ramus, and to the OM3. Angiography was performed. Catheter was exchanged to a 6-[place] INDIGO catheter, which was used to selectively [...] by: (more content not included)... Normal The [facility] MAGNESIUM BLOODon 08-10-2020 Magnesium [Mass/Vol] 2.2 mg/dL Normal 1.9-2.7 The [facility] Comment on above: Order Comment: No: D o not add to previous draw Performed By: #### 1 [id number], [id number] #### [facility] [address] [place] [address], [place] POC GLUCOSE LABon 08-10-2020 Glucose [Mass/Vol] 163 mg/dL High 70-100 The [facility] Comment on above: Performed By: #### [id number] #### [facility] [address] [place] [address], [place] Glucose [Mass/Vol] 167 mg/dL High 70-100 The [facility] Comment on above: Performed By: #### 0 [id number], [id number], [id number] #### [facility] [address] [place] [address], [place] Glucose [Mass/Vol] 126 mg/dL High 70-100 The [facility] Comment on above: Performed By: #### [id number] #### [facility] [address] [place] [address], [place] Glucose [Mass/Vol] 113 mg/dL High 70-100 [facility] Comment on above: Performed By: #### 0 0071, [id number], [id number] #### [facility] [address] [place] [address], [place] POC GLUCOSE LABon 08-09-2020 Glucose [Mass/Vol] 163 mg/dL High 70-100 [facility] Comment on above: Performed By: #### [id number] #### [facility] [address] [place] [address], [place] Glucose [Mass/Vol] 140 mg/dL High 70-100 [facility] Comment on above: Performed By: #### [id number] #### [facility] [address] [place] [address], [place] Encounters Encounter Date Encounter Type Care Provider Facility Start: 05-01-2023 End: 05-01-2023 ambulatory [facility] Start: 03-12-2023 End: 03-12-2023 ambulatory [facility] Start: 01-18-2023 End: 01-18-2023 ambulatory [facility] Start: 09-11-2022 End: 09-11-2022 ambulatory H[facility] Start: 07-13-2022 End: 07-14-[address] MARIBEL HOGAN . Facility:[facility] Start: 06-06-2022 End: 06-06-2022 ambulatory [facility] Start: 05-07-2022 End: 05-08-[address] MARIBEL HOGAN . Facility:[facility] Start: 02-08-2022 End: 02-08-2022 ambulatory LAURA HERNANDEZ Facility:[facility] Start: 01-11-2022 End: 01-11-2022 ambulatory LAURA HERNANDEZ Facility:[facility] Start: 10-11-2021 End: 10-12-[address] GEORGES PURVIS Facility:[facility] Start: 08-04-2021 End: 08-05-[address] MARIBEL HOGAN . Facility: Start: 10-11-2020 End: 10-18-2020 Evaluation and management of inpatient PROVIDER UNKNOWN Facility:[facility] Start: 09-13-2020 End: 09-14-2020 ambulatory ASHLEY Teresa CRAIG Facility:[facility] Start: 08-09-2020 End: 08-14-2020 Evaluation and management of inpatient PROVIDER UNKNOWN Facility:[facility] Procedures Date Procedure Procedure Detail Performing Clinician Start: 07-13-[address] GEORGES PURVIS Comment on above: Performed By: #### P SASC ####[facility] [id number] [address]Dr. Pattie Torres Start: 08-04-[address] GEORGES PURVIS Comment on above: Performed By: #### P SASC ####[facility] [id number] [address]Dr. Pattie Torres Start: 10-17-2020 INSERT PACE, SINGL C HAM IN ABD SUBCU/FASCIA, OPEN HANK SMALLWOOD Start: 10-17-2020 INSERTION OF PACEMAK ER LEAD INTO R VENTRICLE, PERC APPROACH HANK SMALLWOOD Start: 10-12-2020 ULTRASONOGRAPHY OF R IGHT AND LEFT HEART, TRANSESOPHAGEAL KATHY LUA Start: 10-11-2020 Antibody screen PROVIDE R UNKNOWN Comment on above: Performed By: #### [id number] #### [facility] [address] [facility] [place] [address], [facility] Start: 10-11-2020 FLUOROSCOPY OF R LOW EXTREM ART USING L OSM CONTRAST GEORGES PURVIS Start: 10-11-2020 FLUOROSCOPY OF THORA CIC AORTA USING LOW OSMOLAR CONTRAST GEORGES PURVIS Start: 10-11-2020 MEASURE OF CARDIAC S AMPL \T\ PRESSURE, L HEART, PERC APPROACH GEORGES PURVIS Start: 10-11-2020 Performance of Cardi ac Pacing, Continuous GEORGES PURVIS Start: 10-11-2020 REPLACEMENT OF AORTI C VALVE WITH ZOOPLASTIC, PERC APPROACH CODY JACKSONROOR Start: 10-11-2020 Ultrasonography of R ight Jugular Veins, Guidance GEORGES PURVIS Start: 10-11-2020 ULTRASONOGRAPHY OF R IGHT LOWER EXTREMITY VEINS, GUIDANCE GEORGES PURVIS Start: 08-09-2020 FLUOROSCOPY OF MULT COR A GRAFT USING OTH CONTRAST GEORGES SANCHEZRBNICHOLE Start: 08-09-2020 FLUOROSCOPY OF MULTI PLE CORONARY ARTERIES USING OTH CONTRAST GEORGES SANCHEZRBNICHOLE Start: 08-09-2020 FLUOROSCOPY OF RIGHT HEART USING OTHER CONTRAST GEORGES PURVIS Start: 08-09-2020 MEASURE OF CARDIAC S AMPL \T\ PRESSURE, R HEART, PERC APPROACH GEORGES PURVIS Payers Date Payer Category Payer Medicare [id number] 1940 Unknown [id number] 2.16.8 [id number] 1940 Unknown [id number] 2.16.8 [id number] 1940 Unknown [id number] 2.16.8 [id number] 1940 Unknown [id number] 2.16.84 [id number] 1940 Unknown [id number] 2.16.84 [id number] 1940 Unknown [id number] 2.16.84 [id number] 1940 Unknown [id number] 2.16.84 [id number] 1940 Unknown [id number] 2.16.84 [id number] 1940 Unknown [id number] 2.16.84 [id number] Private Health Insurance [facility] [id number] Clinical Notes 08-15-2020 to 05-01-2023 Note Date & Type Note Facility 05-01-2023 Note [place] [facility] - [facility] Subjective Radha Brown is a 82 y.o. year old male patient being seen for 3 mo follow up pulmonary hypertension, permanent afib, and HFrEF. He was started on spironolactone and Farxiga at last apt in Jan 2023. Echo was performed last week. Denies chest pain, SOB, palpitations, and LE edema. Says he feels very well. Patient Active Problem List Diagnosis Thrombocytopenic disorder [...] procedure. On follow-up his platelet count improved. At visit of 01/18/2023, and due to elevated right-sided pressures by echocardiography I optimize medical therapy and added spironolactone 12.5 mg daily and Farxiga 10 mg daily. A follow-up BMP was performed in January 2023 that showed mild worsening renal function with a creatinine of 1.75 and a GFR of 37. His follow-up echocardiogram on 04/23/2023 showed significant improvement in right-sided pressures with a drop in RVSP from 83 to 41 mmHg. Today he reports that he has been doing well. He has no angina. He has no shortness of breath. His leg edema has been much better. He feels good. No palpitations. No bleeding issues. Review of Systems Skin: Positive for color change and dry skin. All other systems reviewed and are negative. Objective Visit Vitals BP 128/68 (BP Location: Left arm, Patient Position: Sitting) Pulse 61 Ht 1.88 m (6' 2 ) Wt 127 kg (280 lb) SpO2 99% BMI 35.95 kg/m??? Smoking Status Never BSA 2.58 m??? Physical Exam Constitutional: Appearance: He is [...] Januvia 100 mg tablet, Take 100 mg (more content not included)... [facility] 01-18-2023 Note [place] [facility] - [facility] Subjective Radha Brown is a 82 y.o. [...] Rfl: spironolactone (Aldactone) (more content not included)... 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 with yearly echo or sooner if symptoms warrant it [facility] 06-13-2022 Note Hypertension is stab le -ct medications [facility] 06-13-2022 Note CAD stable -hx CABG -no chest pain or dyspnea [facility] 06-13-2022 Note -NYHAIIb -compensated, mild LE edema bilaterally which is chronic -ct gdmt: toprol xl 100mg, irbesartan 300mg daily, hydralazine 100mg BID, isordil 20mg BID, bumex 1mg bid [facility] 06-13-2022 Note -permanent, slow paul tricular response -no episodes noted on device check 04/2022 -s/p watchmen 2019 -ct aspirin 81mg [facility] 06-13-2022 Note S/p TAVR 2020 -last echo 10/2021, normal EF, no paravalvular leak -will get repeat echo on follow up in appx 6 months [facility] 06-08-2022 Note [facility] 06-06-2022 Note [place] [facility]rophysiology Note [facility] Reason for visit: 6 month follow [...] BUN 29, creatini (more content not included)... [facility] 06-06-2022 Note Patient is here toda y for a 6 month follow up. Review of Systems All other systems reviewed and are negative. [facility] 02-08-2022 Note HISTORY AND PHYSICAL EXAMINATION Date:02/07/2022 [...] go forward with his elective procedure. [facility] 02-08-2022 Note OPERATIVE NOTE OPERATION DATE: [...] and this would be performed in a rlzjzgv-ijw-qngxmv-type fashion. All four quadrants were capable of [...] on the sulcus space. A lens model [id number], 19.0 diopters was then inserted and dialed [...] present. Due (more content not included)... [facility] 01-11-2022 Note HISTORY AND PHYSICAL EXAMINATION [...] go forward with his elective procedure. [facility] 01-11-2022 Note OPERATIVE NOTE OPERATION DATE: [...] ensuring mobility, phacoemulsification was performed in a elldfhq-udu-ilfxnw-type fashion. After all nuclear material had been [...] the following day for postoperative care. [facility] 10-19-2020 Note MR#: [id number] I [facility] Pt. Name: Radha Brown Admitted: 10/11/2020 Discharged: 10/18/2020 Date of : 1940 Physician: Lemuel Brasher M.D. DISCHARGE SUMMARY PRIMARY DIAGNOSES: Severe Aortic stenosis S/P TAVR, . SECONDARY DIAGNOSES: Afib with slow ventricular response of <40bpm. baseline LBBB, Post TAVR worsening LBBB S/P single chamber Pacemaker ([employer]). Chronic atrial fibrillation s/p watchman, chronic [...] will follow up with: 1- Dr Purvis, [place] [facility] for post TAVR f/u 2- EP [...] MD Date Trans: 10/19/2020 05:10 A/julio cesar [id number] cc: Maribel Hogan M.D. [address] [place] [address] Georges Purvis M.D. Heart Failure/ Transplant [facility] [address] [facility] [id number] [facility] 08-15-2020 Note MR#: [id number] I [facility] Pt. Name: Radha Brown Admitted: 08/09/2020 Discharged: 08/14/2020 Date of : 1940 Physician: Rosemarie Salgado MD DISCHARGE SUMMARY PRIMARY DIAGNOSES: Acute [...] working on discharge planning. Electronically Signed by: Rosemarie Salgado MD 08/24/2020 08:58 A Rosemarie Salgado MD Date Dict: 08/15/2020/02:42 P/Rosemarie Salgado MD Date Trans: 08/15/2020 03:14 P/julio cesar [id number] cc: Maribel Hogan M.D. [address] [facility] [id number] [facility] Summary Purpose Family History No Family History [...] and content) DATE CREATED AUTHOR 11/19/2020 [facility] DATE CREATED AUTHOR AUTHOR'S ORGANIZ ATION 11/23/2020 [facility] DATE CREATED AUTHOR AUTHOR'S ORGANIZ ATION 07/22/2022 [facility] DATE CREATED AUTHOR AUTHOR'S ORGANIZ ATION 05/02/2023 [facility] FOR RECORDS PERTAINING TO PATIENTS WHO ARE [...] BE BASED ON THE PRIMARY CLINICAL RECORDS. [facility] [employer] [facility] provides no warranty or guarantee of the accuracy or completeness of information in this document.
[2023-07-18 09:02] LABS: Basophils Percent Auto 0.4 % (0.2-2.0); Eosinophils Absolute Auto 0.4 10^3/uL (0.0-0.7); Eosinophils Percent Auto 4.2 % (0.9-7.0); Hematocrit 39.9 % (42.0-54.0); Hemoglobin 12.5 g/dL (14.0-18.0); Immature Granulocytes Abs Auto 0.02 10^3/uL (0.00-0.03); Immature Granulocytes Pct Auto 0.2 % (0.0-0.5); Lymphocytes Percent Auto 23.7 % (20.5-60.0); Mean Corpuscular HGB Conc 31.3 g/dL (29.9-35.2); Mean Corpuscular Hemoglobin 29.6 pg (25.9-34.0); Mean Corpuscular Volume 94.5 fL (80.0-94.0); Mean Platelet Volume 12.9 fL (9.5-13.5); Monocytes Absolute Auto 0.7 10^3/uL (0.3-0.8); Monocytes Percent Auto 7.9 % (1.7-12.0); Neutrophils Absolute Auto 5.4 10^3/uL (1.4-6.5); Neutrophils Percent Auto 63.6 % (43.0-75.0); Platelet Count 129 10^3/uL (150-450); Red Blood Count 4.22 10^6/uL (4.70-6.10); Red Cell Distribution Width 13.8 % (11.0-15.0); White Blood Count 8.6 10^3/uL (4.0-11.0)
[2023-07-18 10:25] LABS: Alanine Aminotransferase 21 U/L (16-63); Albumin Level 3.6 g/dL (3.4-5.0); Alkaline Phosphatase 67 U/L (46-116); Anion Gap 16.4; Aspartate Amino Transferase 16 U/L (15-37); BUN Creatinine Ratio 18.9; Bilirubin Total 0.8 mg/dL (0.2-1.0); Calcium 8.9 mg/dL (8.5-10.1); Carbon Dioxide 24.7 mmol/L (21.0-32.0); Chloride 105 mmol/L (98-107); Chol HDL Ratio 3.1; Cholesterol 106 mg/dL (<=200); Estimated GFR (African America 40 (>=60); Estimated GFR (Non-African Ame 33 (>=60); Free T3 2.48 pg/mL (2.18-3.98); Globulin 3.6 g/dL; Glucose 155 mg/dL (74-106); HDL Cholesterol 34 mg/dL (40-60); Potassium 4.1 mmol/L (3.5-5.1); Sodium 142 mmol/L (136-145); Thyroid Stimulating Hormone 1.231 uIU/mL (0.358-3.740); Total Protein 7.2 g/dL (6.4-8.2); Triglycerides 108 mg/dL (<=150); VLDL CHOLESTEROL 21.6 mg/dL
[2023-07-18 10:30] LABS: Estimated Average Glucose 137 mg/dL; Glycohemoglobin A1C 6.4 % (4.5-6.2)
[2023-07-18 11:00] LABS: Prostate Specific Antigen Scrn 1.34 ng/mL (<=4.00)
== END 2023-07-18 08:26 | disposition home or self-care (01) ==
LOC: LAB 08:26
PROVIDERS: PCP Family Medicine; Visit Provider Family Medicine
DX: I25.10 Atherosclerotic heart disease of native coronary artery without angina pectoris (principal); D64.9 Anemia, unspecified; I50.30 Unspecified diastolic (congestive) heart failure
CPT/HCPCS: 36415; 80053; 80061; 83036; 84436; 84443; 84481; 85025; G0103

== ENCOUNTER 2023-10-28 09:57 | Outpatient (OUT) | payer MEDICARE, SELFPAY ==
[2023-10-28 10:57] LABS: BUN Creatinine Ratio 14.1; Calcium 8.6 mg/dL (8.5-10.1); Carbon Dioxide 28.3 mmol/L (21.0-32.0); Chloride 105 mmol/L (98-107); Estimated GFR (African America 52 (>=60); Estimated GFR (Non-African Ame 43 (>=60); Glucose 180 mg/dL (74-106); Potassium 3.3 mmol/L (3.5-5.1); Sodium 143 mmol/L (136-145)
== END 2023-10-28 09:58 | disposition home or self-care (01) ==
LOC: LAB 09:59
PROVIDERS: PCP Family Medicine; Visit Provider Internal Medicine Interventional Cardiology
DX: I50.22 Chronic systolic (congestive) heart failure (principal); N18.32 Chronic kidney disease, stage 3b
CPT/HCPCS: 36415; 80048

== ENCOUNTER 2023-11-18 06:47 | Outpatient (OUT) | payer MEDICARE, SELFPAY ==
--- OUTSIDE RECORDS SUMMARY | 2023-11-18 06:52 | XMS_ITS | CCD ---
Author Organization [facility] Care Team Providers Care Sql Data Analyst Name Role Phone UNKNOWN, PROVIDER Admitting Unavailable UNKNOWN, PROVIDER Attending Unavailable MARIBEL HOGAN Referring Unavailable HOY, MARIBEL Primary Care Unavailable GA Procedure Practitioner Unavailab NADER DavisB Surgeon Unavailable GA Procedure Practitioner Unavailab HANK Garcia Surgeon Unavailable GA Procedure Practitioner Unavailab le UNKNOWN, PROVIDER Surgeon Unavailable GA Procedure Practitioner Unavailab KATHY Palma Surgeon Unavailable ASHLEY CRAIG Admitting Unavailable ASHLEY CRAIG Attending Unavailable MICKYMARIBEL Referring Unavailable HOY, MARIBEL Primary Care Unavailable UNKNOWN, PROVIDER Admitting Unavailable HOYMARIBEL Referring Unavailable HOY, MARIBEL Primary Care Unavailable RO LUCAS Attending Unavailable GA Procedure Practitioner Unavailab le UNKNOWN, PROVIDER Surgeon Unavailable YANIV, DR SU Admitting Unavailable MOHINA, DR SU Attending Unavailable HOY ., DR LÓPEZ Primary Care Unavailable MOUKAJOYEL, DR SU Consulting Unavailable HOY ., DR [...] Primary Care Unavailable LAURA HERNANDEZ Consulting Unavailable SCHUYLER, LAURA Admitting Unavailable ZAPAYAL NEGRETEHAN Attending Unavailable HOY ., DR LÓPEZ Primary Care Unavailable LAURA HERNANDEZ Consulting Unavailable HOY ., DR LÓPEZ Admitting Unavailable HOY ., DR LÓPEZ Attending Unavailable HOY ., DR LÓPEZ Primary Care Unavailable HOY ., DR LÓPEZ Consulting Unavailable GEORGES PURVIS Attending Unavailable HANK SMALLWOOD Referring Unavailable GEORGES PURVIS Attending Unavailable HANK SMALLWOOD Referring Unavailable GEORGES PURVIS Attending Unavailable Allergies Allergy Classification Reported Allergen(s) Allergy Type Date of Onset Reaction(s) Facility metFORMIN (1 source) metFORMIN Drug Allergy 09-23-2018 [facility] Repository (1 source) metFORMIN; Translations: [METFORMIN] Drug Allergy 06-06-2022 [facility] Repository Problems Active Problems Problem Classification Problem Date Documented Date Episodic/Chronic Abdominal pain (4 sources) Epigastric pain; Translations: [EPIGASTRIC PAIN] Onset: 05-07-2022 Episodic Biliary tract disease (1 source) Calculus of gallbladder without cholecystitis without obstruction; Translations: [CALCU GB W/O CHOLECYST W/O OBST] Onset: 05-09-2022 Episodic Cardiac dysrhythmias (1 source) Paroxysmal atrial fibrillation; Translations: [PAROXYSMAL ATRIAL FIBRILLATION] Onset: 07-22-2022 Chronic Cataract (8 sources) Age-related nuclear cataract, right eye; Translations: [Age-related nuclear cataract, left eye] Onset: 01-11-2022 Chronic Chronic kidney disease (2 sources) Chronic kidney disease; Translations: [Chronic kidney disease, stage 3b] Onset: 10-28-2023 Conduction disorders (5 sources) Presence of cardiac pacemaker; Translations: [Encounter for adjustment and management of automatic implantable cardiac defibrillator] Onset: 01-17-2022 Chronic Congestive heart failure; nonhypertensive (7 sources) Acute systolic (congestive) heart failure; Translations: [Unspecified diastolic (congestive) heart failure] Onset: 08-09-2021 Chronic Coronary atherosclerosis and other heart disease (1 source) Atherosclerotic heart disease of [place] coronary artery without angina pectoris; Translations: [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] Onset: 07-22-2022 Chronic Deficiency and other anemia (5 sources) Anemia, unspecified; Translations: [ANEMIA UNSPECIFIED] Onset: 08-09-2021 Episodic Diabetes mellitus with complications (1 source) Type 2 diabetes mellitus with unspecified diabetic retinopathy without macular edema; Translations: [TYPE 2 DM W/UNS DR NO MACULAR EDMA] Onset: 01-17-2022 Chronic Diabetes mellitus without complication (1 source) Type 2 diabetes mellitus without complications; Translations: [TYPE 2 DM WITHOUT COMPLICATIONS] Onset: 07-22-2022 Chronic Disorders of lipid metabolism (2 sources) Pure hypercholesterolemia, unspecified; Translations: [Hyperlipidemia, unspecified] Onset: 08-09-2021 Chronic Essential hypertension (1 source) Essential (primary) hypertension; Translations: [ESSENTIAL PRIMARY HYPERTENSION] Onset: 01-17-2022 Chronic Heart valve disorders (3 sources) Presence of prosthetic heart valve; Translations: [PRESENCE OF PROSTHETIC HEART VALVE] Onset: 01-17-2022 Chronic Hypertension with complications and secondary hypertension (1 source) Hypertensive heart disease with heart failure; Translations: [HTN HEART DISEASE W/HEART FAIL] Onset: 08-09-2021 Chronic Other circulatory disease (2 sources) Presence of other cardiac implants and grafts; Translations: [Presence of other cardiac implants and grafts] Onset: 10-28-2023 Chronic Pulmonary heart disease (2 sources) Pulmonary hypertension, unspecified; Translations: [Pulmonary hypertension, unspecified] Onset: 06-06-2022 Chronic Thyroid disorders (5 sources) Hypothyroidism, unspecified; Translations: [HYPOTHYROIDISM UNSPECIFIED] Onset: 08-04-2021 Chronic Unclassified (2 sources) Permanent atrial fibrillation; Translations: [Permanent atrial fibrillation] Onset: 06-06-2022 Past or Other Problems Problem Classification Problem Date Documented Da te Episodic/Chronic Diabetes mellitus without complication (1 source) Other abnormal glucose; Translations: [OTHER ABNORMAL GLUCOSE] Onset: 08-09-2021 Episodic Other aftercare (1 source) 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; Translations: [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] Onset: 01-17-2022 Episodic Other screening for suspected conditions (not mental disorders or infectious disease) (2 sources) Encounter for screening for malignant neoplasm of prostate; Translations: [Encounter for screening for malignant neoplasm of rectum] Onset: 08-09-2021 Episodic Results Test Name Value Interpretation Reference Range Facility Office Visiton 10-28-2023 Follow-up visit [id number] Tyler Brown 1940 M Date Provider Department Center 10/28/2023 GEORGES JONES SAWYER [facility] Family History Problem Relation Age of Onset Hypertension Mother Family Status - Relation Status Age at Mother Level of Service:07316 GA OFFICE/OUTPATIENT ESTABLISHED MOD MDM 30 MIN Normal [facility] Office Visiton 05-01-2023 Follow-up visit [id number] Tyler Brown angela Suarez 1940 M Date Provider Department Center 05/01/2023 GEORGES JONES Luis Eduardo [facility] Family History Problem Relation Age of Onset Hypertension Mother Family Status - Relation Status Age at Mother Level of Service:83367 GA OFFICE/OUTPATIENT ESTABLISHED LOW MDM 20 MIN Normal [facility] Office Visiton 01-18-2023 Follow-up visit [id number] Tyler Brown angela Suarez 1940 M Date Provider Department Center 01/18/2023 GEORGES JONES Family History Problem Relation Age of Onset Hypertension Mother Family Status - Relation Status Age at Mother Level of Service:93547 GA OFFICE/OUTPATIENT ESTABLISHED MOD MDM 30-39 MIN Reason for Visit and Comments: Valve Disorder [3372] Congestive Heart Failure [127] Pulmonary Hypertension [818] Normal [facility] INSULINon 07-14-2022 Insulin 7.9 uIU/mL Normal 2.6-24.9 [facility] Comment on above: Performed By: #### A 1C #### [facility] [address] [address] [address] Pattie Torres CBC AUTO DIFFon 07-13-2022 BASO # 0.0 103/ul Normal 0.0-0.1 [facility] Comment on above: Performed By: #### C BC ####[facility] [address] [address]DrLeticia Torres Basophils/100 WBC (Bld) 0.5 % Normal 0.2-2.0 [facility] Comment on above: Performed By: #### C BC ####[facility] [address] [place] [id number] Torres EO # 0.4 103/ul Normal 0.0-0.7 [facility] Comment on above: Performed By: #### C BC ####[facility] [address] [address]DrLeticia Torres Eosinophils/100 WBC (Bld) 5.5 % Normal 0.9-7.0 [facility] Comment on above: Performed By: #### C BC ####[facility] [address] [address]Dr. Pattie Torres Erythrocyte distribution width (RBC) [Ratio] 13.0 % Normal 11.0-15.0 [facility] Comment on above: Performed By: #### C BC ####[facility] O[address] [place], [place] [address]Dr. Pattie Torres Hematocrit (Bld) [Volume fraction] 36.1 % Critically low 42.0-54.0 [facility] Comment on above: Performed By: #### C BC ####[facility] B[address] [place], [place] [address]Dr. Pattie Torres Hemoglobin (Bld) [Mass/Vol] 11.8 g/dL Critically low 14.0-18.0 [facility] Comment on above: Performed By: #### C BC ####[facility] [address] [place], [place] [address]Dr. Pattie Torers IG # 0.02 10e3/ul Normal 0.00-0.03 [facility] Comment on above: Performed By: #### C BC ####[facility] X[address] [place], [place] [address]Dr. Pattie Torres IG % 0.3 % Normal 0.0-0.5 [facility] Comment on above: Performed By: #### C BC ####[facility] Z[address] [place], [place] [address]Dr. Pattie Torers LYMPH # 1.8 103/ul Normal 1.2-3.8 [facility] Comment on above: Performed By: #### C BC ####[facility] Khof[address]ns[address] [place], [place] [address]Dr. Pattie Torres Lymphocytes/100 WBC (Bld) 23.5 % Normal 20.5-60.0 [facility] Comment on above: Performed By: #### C BC ####[facility] Zqur[address] [place], [place] [address]Dr. Pattie Torres MANUAL DIFF REQ NO Normal [facility] Comment on above: Performed By: #### C BC ####[facility] [address] [place] [address]Dr. Pattie Torres MCH (RBC) [Entitic mass] 30.3 pg Normal 25.9-34.0 [facility] Comment on above: Performed By: #### C BC ####[facility] [address] [address]Dr. Pattie Torres MCHC (RBC) [Mass/Vol] 32.7 g/dL Normal 29.9-35.2 [facility] Comment on above: Performed By: #### C BC ####[facility] [address] [address]Dr. Pattie Brian MCV (RBC) [Entitic vol] 92.6 fL Normal 80.0-94.0 [facility] Comment on above: Performed By: #### C BC ####[facility] [address] [place], [place] [address]Dr. Merlenery Torres MONO # 0.6 103/ul Normal 0.3-0.8 [facility] Comment on above: Performed By: #### C BC ####[facility] [address] [place], [place] [address]Dr. Merlenery Torres Monocytes/100 WBC (Bld) 8.0 % Normal 1.7-12.0 [facility] Comment on above: Performed By: #### C BC ####[facility] [address] [place], [place] [address]Dr. Pattie Torres NEUT # 4.7 103/ul Normal 1.4-6.5 [facility] Comment on above: Performed By: #### C BC ####[facility] [address] [place], [place] [address]Dr. Merlenery Torres Neutrophils/100 WBC (Bld) 62.2 % Normal 43.0-75.0 [facility] Comment on above: Performed By: #### C BC ####[facility] F[address] [place], [place] [address]Dr. Pattie Torres Platelet mean volume (Bld) [Entitic vol] 12.9 fL Normal 9.5-13.5 [facility] Comment on above: Performed By: #### C BC ####[facility] [address] [place], [place] [address]Ks. Pattie Torres PLT 127 103/ul Critically low 150-450 [facility] Comment on above: Performed By: #### C BC ####[facility] T[address] [place], [place] [address]Db. Pattie Torres RBC 3.90 106/ul Critically low 4.70-6.10 [facility] Comment on above: Performed By: #### C BC ####[facility] Ieqgi[address] [place], [place] [address]Qm. Pattie Torres WBC 7.6 103/ul Normal 4.0-11.0 [facility] Comment on above: Performed By: #### C BC ####[facility] [address]17[address] [place], [place] [address]Ki. Pattie Torres FREE THYROXINE INDEX T7on FTI 3.66 Normal 1.30-4.50 [facility] Comment on above: Performed By: #### T 7, CMP, LIPID, TSH ####[facility] [address] [place] [address]Dr. Pattie Torres T3U 37.0 % Normal 33.0-40.0 [facility] Comment on above: Performed By: #### T 7, CMP, LIPID, TSH ####[facility] [address] [place] [address]Dr. Pattie Torres T4 [Mass/Vol] 9.90 ug/dL Normal 4.50-12.10 [facility] Comment on above: Performed By: #### T 7, CMP, LIPID, TSH ####[facility] [address] [place] [address]Dr. Pattie Torres GLYCOHEMOGLOBIN A1Con 2022 ADA RECOMMENDATION SEE BELOW Normal [facility] Comment on above: Result Comment: ADA RECOMMENDED LIMIT 4.0 - 6.0 ADA THERAPEUTIC TARGET < 7.0 ACTION SUGGESTED > 7.0 Performed By: #### A 1C #### [facility] [address] [address] [address] Pattie Torres Glucose [Mass/Vol] 148 mg/dL Normal [facility] Comment on above: Performed By: #### A 1C #### [facility] [id number] Pattie Torres HbA1c (Bld) [Mass fraction] 6.8 % Critically high 4.5-6.2 [facility] Comment on above: Performed By: #### A 1C #### [facility] [address] [address] [address] Pattie Torres LIPID PROFILEon 07-13-2022 CHOL-HDL RATIO NORM SEE BELOW Normal [facility] Comment on above: Result Comment: 3.3 - 4.4 LOW RISK 4.4 - 7.1 AVERAGE RISK 7.1 - 11.0 MODERATE RISK >11.0 HIGH RISK Performed By: #### T 7, CMP, LIPID, TSH ####[facility] [address] [address]DrLeticia Torres Cholesterol [Mass/Vol] 114 mg/dL Normal <=200 [facility] Comment on above: Performed By: #### T 7, CMP, LIPID, TSH ####[facility] [address] [place] [address]DrLeticia Torres Cholesterol in HDL [Mass/Vol] 32 mg/dL Critically low 40-60 [facility] Comment on above: Performed By: #### T 7, CMP, LIPID, TSH ####[facility] [address] [place] [address]DrLeticia Torres Cholesterol in LDL [Mass/Vol] 60.0 mg/dL Normal [facility] Comment on above: Performed By: #### T 7, CMP, LIPID, TSH ####[facility] [address] [place] [address]DrLeticia Torres Cholesterol.total/Cho lesterol in HDL [Mass ratio] 3.6 {ratio} Normal [facility] Comment on above: Performed By: #### T 7, CMP, LIPID, TSH ####[facility] [address] [place] [address]Dr. Pattie Torres HDL NORMAL > or = 60 mg/dl - LO W CARDIOVASCULAR RISK <40 mg/dl - HIGH CARDIOVASCULAR RISK Normal [facility] Comment on above: Performed By: #### T 7, CMP, LIPID, TSH ####[facility] [address] [address]Dr. Pattie Torres LDL CALC NORMAL SEE BELOW Normal [facility] Comment on above: Result Comment: <100 mg/dl OPTIMAL 100 - 129 mg/dl NEAR OR ABOVE OPTIMAL 130 - 159 mg/dl BORDERLINE HIGH 160 - 189 mg/dl HIGH >190 mg/dl VERY HIGH Performed By: #### T 7, CMP, LIPID, TSH ####[facility] [address] [address]Dr. Pattie Torres Triglyceride [Mass/Vol] 110 mg/dL Normal <=150 [facility] Comment on above: Performed By: #### T 7, CMP, LIPID, TSH ####[facility] [address] [address]Dr. Pattie Torres VLDL CALC 22.0 mg/dL Normal [facility] Comment on above: Performed By: #### T 7, CMP, LIPID, TSH ####[facility] [address] [address]Dr. Pattie Torres PROF 14(COMP METB)on 023 Albumin [Mass/Vol] 3.4 g/dL Normal 3.4-5.0 [facility] Comment on above: Performed By: #### T 7, CMP, LIPID, TSH ####[facility] [address] [address]Dr. Pattie Torres Albumin/Globulin [Mass ratio] 0.9 {ratio} Normal [facility] Comment on above: Performed By: #### T 7, CMP, LIPID, TSH ####[facility] [address] [address]Dr. Pattie Torres ALP [Catalytic activity/Vol] 68 U/L Normal 46-116 [facility] Comment on above: Performed By: #### T 7, CMP, LIPID, TSH ####[facility] [address] [place] [address]Dr. Pattie Torres ALT [Catalytic activity/Vol] 20 U/L Normal 16-63 [facility] Comment on above: Performed By: #### T 7, CMP, LIPID, TSH ####[facility] [address] [place] [address]Dr. Pattie Torres Anion gap [Moles/Vol] 11.0 mmol/L Normal [facility] Comment on above: Performed By: #### T 7, CMP, LIPID, TSH ####[facility] [address] [address]Dr. Pattie Torres AST [Catalytic activity/Vol] 12 U/L Critically low 15-37 [facility] Comment on above: Performed By: #### T 7, CMP, LIPID, TSH ####[facility] [address] [address]Dr. Merlenery Torres Bilirubin [Mass/Vol] 1.0 mg/dL Normal 0.2-1.0 [facility] Comment on above: Performed By: #### T 7, CMP, LIPID, TSH ####[facility] [address] [address]Dr. Pattie Torres Calcium [Mass/Vol] 8.6 mg/dL Normal 8.5-10.1 [facility] Comment on above: Performed By: #### T 7, CMP, LIPID, TSH ####[facility] [address]ryr[address] [address]Dr. Pattie Torres Chloride [Moles/Vol] 107 mmol/L Normal 98-107 [facility] Comment on above: Performed By: #### T 7, CMP, LIPID, TSH ####[facility] [address]toq[address] [place] [address]Dr. Pattie Torres CO2 [Moles/Vol] 28.6 mmol/L Normal 21.0-32.0 [facility] Comment on above: Performed By: #### T 7, CMP, LIPID, TSH ####[facility] [address] [address]Dr. Pattie Torres Creatinine [Mass/Vol] 1.25 mg/dL Normal 0.70-1.30 [facility] Comment on above: Performed By: #### T 7, CMP, LIPID, TSH ####[facility] [address]ts[address] [address]Dr. Pattie Torres EGFR-AF JAPANESE >60 Normal >=60 [facility] Comment on above: Performed By: #### T 7, CMP, LIPID, TSH ####[facility] [address] [place] [address]Dr. Pattie Torres EGFR-NON AF JAPANESE 55 mL/min/1.73m2 Critically low >=60 [facility] Comment on above: Performed By: #### T 7, CMP, LIPID, TSH ####[facility] [address] [address]Dr. Pattie Torres Globulin (S) [Mass/Vol] 3.7 g/dL Normal [facility] Comment on above: Performed By: #### T 7, CMP, LIPID, TSH ####[facility] [address] [address]Dr. Pattie Torres Glucose [Mass/Vol] 151 mg/dL Critically high 74-106 [facility] Comment on above: Performed By: #### T 7, CMP, LIPID, TSH ####[facility] [address] [address]Dr. Pattie Torres Potassium [Moles/Vol] 3.6 mmol/L Normal 3.5-5.1 [facility] Comment on above: Performed By: #### T 7, CMP, LIPID, TSH ####[facility] [address]fe[address] [address]Dr. Pattie Torres Protein [Mass/Vol] 7.1 g/dL Normal 6.4-8.2 [facility] Comment on above: Performed By: #### T 7, CMP, LIPID, TSH ####[facility] [address]kw[address] [address]Dr. Pattie Torres Sodium [Moles/Vol] 143 mmol/L Normal 136-145 [facility] Comment on above: Performed By: #### T 7, CMP, LIPID, TSH ####[facility] [address]wf60[address] [place], [place] [address]Ir. Pattie Torres Urea nitrogen [Mass/Vol] 22.0 mg/dL Critically high 7.0-18.0 [facility] Comment on above: Performed By: #### T 7, CMP, LIPID, TSH ####[facility] [address] [place], [place] [address]Nf. Pattie Torres Urea nitrogen/Creatinine [Mass ratio] 17.6 mg/mg Normal [facility] Comment on above: Performed By: #### T 7, CMP, LIPID, TSH ####[facility] Rptocgppmm0463 [place], [place] [address]Yd. Pattie Torres TSHon 07-13-2022 TSH 1.869 uIU/mL Normal 0.358-3.740 [facility] Comment on above: Performed By: #### T 7, CMP, LIPID, TSH ####[facility] [address]ib[address]ob[address] [place], [place] [address]Tk. Pattie Torres US SINGLE QUAD RT UPPERon US SINGLE [...] by: EMMY CAMARA Date: 2022-05-07 16:34 Normal [facility] ECHOCARDIO M/2D COMPLETEon 0 10-11-2021 ECHOCARDIO M/2D COMPLETE Patient: RADHA BROWN Exam Date: 10/11/2021 : 1940 Gender:M Ordering : DR GEORGES PURVIS M.D. Admission #: [id number] Family : Order #: [id number] CLICK HERE TO VIEW EXAM ECHOCARDIOGRAM REPORT [...] M.D. on 10/11/2021 at 20:32 Normal [facility] INSULINon 08-05-2021 Insulin 12.2 uIU/mL Normal 2.6-24.9 [facility] Comment on above: Performed By: #### I NSULIN ####[facility] Sxebuv[address]my[address] [place], [place] [address]RkDr. Pattie Torres BNPon 08-04-2021 Natriuretic peptide B (Bld) [Mass/Vol] 1018.0 pg/mL Normal <=1,800.0 [facility] Comment on above: Performed By: #### B RENTAL REPRESENTATIVE, URIC, TSH, T7, LIPID, CMP #### [facility] [address] [place], [place] [address] Dr. Pattie Torres CBC AUTO DIFFon 08-04-2021 BASO # 0.0 103/ul Normal 0.0-0.1 [facility] Comment on above: Performed By: #### C BC ####[facility] [address] [place] [address]Dr. Pattie Torres Basophils/100 WBC (Bld) 0.4 % Normal 0.2-2.0 [facility] Comment on above: Performed By: #### C BC ####[facility] Ox[address]chbc[address] [place], [place] [address]Dr. Pattie Torres EO # 0.5 103/ul Normal 0.0-0.7 [facility] Comment on above: Performed By: #### C BC ####[facility] Ejerqjyndw[address] [place], [place] [address]Dr. Pattie Torres Eosinophils/100 WBC (Bld) 7.1 % Critically high 0.9-7.0 [facility] Comment on above: Performed By: #### C BC ####[facility] Sefouyqlsp[address] [place], [place] [address]Dr. Pattie Torres Erythrocyte distribution width (RBC) [Ratio] 13.1 % Normal 11.0-15.0 [facility] Comment on above: Performed By: #### C BC ####[facility] [address]rv[address] [place], [place] [address]Dr. Pattie Torres Hematocrit (Bld) [Volume fraction] 39.2 % Critically low 42.0-54.0 [facility] Comment on above: Performed By: #### C BC ####[facility] [address]finvfer[address] [place], [place] [address]Dr. Pattie Torres Hemoglobin (Bld) [Mass/Vol] 12.6 g/dL Critically low 14.0-18.0 [facility] Comment on above: Performed By: #### C BC ####[facility] [address]ytzk[address] [place], [place] [address]Dr. Pattie Torres IG # 0.03 10e3/ul Normal 0.00-0.03 [facility] Comment on above: Performed By: #### C BC ####[facility] [address]ndc[address] [place], [place] [address]Dr. Pattie Torres IG % 0.4 % Normal 0.0-0.5 [facility] Comment on above: Performed By: #### C BC ####[facility] [address]mcp[address] [place] [address]Dr. Pattie Torres LYMPH # 2.3 103/ul Normal 1.2-3.8 [facility] Comment on above: Performed By: #### C BC ####[facility] [address] [place] [address]Dr. Pattie Torres Lymphocytes/100 WBC (Bld) 31.7 % Normal 20.5-60.0 [facility] Comment on above: Performed By: #### C BC ####[facility] [address]mmukk[address] [place] [address]DrLeticia Torres MANUAL DIFF REQ NO Normal [facility] Comment on above: Performed By: #### C BC ####[facility] [address]egt[address] [place] [address]Dr. Pattie Torres MCH (RBC) [Entitic mass] 30.5 pg Normal 25.9-34.0 [facility] Comment on above: Performed By: #### C BC ####[facility] [address] [place] [address]Dr. Pattie Torres MCHC (RBC) [Mass/Vol] 32.1 g/dL Normal 29.9-35.2 [facility] Comment on above: Performed By: #### C BC ####[facility] [address] [place], [place] [address]DrLeticia Torres MCV (RBC) [Entitic vol] 94.9 fL Critically high 80.0-94.0 [facility] Comment on above: Performed By: #### C BC ####[facility] [address] [place] [address]DrLeticia Torres MONO # 0.6 103/ul Normal 0.3-0.8 [facility] Comment on above: Performed By: #### C BC ####[facility] [address] [place] [address]Dr. Pattie Torres Monocytes/100 WBC (Bld) 9.0 % Normal 1.7-12.0 [facility] Comment on above: Performed By: #### C BC ####[facility] [address] [place], [place] [address]OuDr. Pattie Torres NEUT # 3.7 103/ul Normal 1.4-6.5 [facility] Comment on above: Performed By: #### C BC ####[facility] Ydbkkyeczq0964 [place], [place] [address]XjDr. Pattie Torres Neutrophils/100 WBC (Bld) 51.4 % Normal 43.0-75.0 [facility] Comment on above: Performed By: #### C BC ####[facility] [address]jb[address]kn[address] [place] [address]Dr. Pattie Torres Platelet mean volume (Bld) [Entitic vol] 12.3 fL Normal 9.5-13.5 [facility] Comment on above: Performed By: #### C BC ####[facility] [address] [place] [place] [id number]. Pattie Torres PLT 143 103/ul Critically low 150-450 [facility] Comment on above: Performed By: #### C BC ####[facility] [address] [place] [id number]. aPttie Torres RBC 4.13 106/ul Critically low 4.70-6.10 [facility] Comment on above: Performed By: #### C BC ####[facility] [address] [place] [id number]. Pattie Torres WBC 7.1 103/ul Normal 4.0-11.0 [facility] Comment on above: Performed By: #### C BC ####[facility] [address] [place], [place] [address]Dr. Pattie Torres FREE THYROXINE INDEX T7on FTI 3.33 Normal [facility] Comment on above: Performed By: #### B RENTAL REPRESENTATIVE, URIC, TSH, T7, LIPID, CMP #### [facility] [address] [place], [place] [address] Dr. Pattie Torres T3U 35.0 % Normal 23.5-40.5 [facility] Comment on above: Performed By: #### B RENTAL REPRESENTATIVE, URIC, TSH, T7, LIPID, CMP #### [facility] [address] [place] [address] [address] Pattie Torres T4 [Mass/Vol] 9.50 ug/dL Normal 4.50-12.10 [facility] Comment on above: Performed By: #### B RENTAL REPRESENTATIVE, URIC, TSH, T7, LIPID, CMP #### [facility] [address] [place] [address] [address] Pattie Torres GLYCOHEMOGLOBIN A1Con 2021 ADA RECOMMENDATION SEE BELOW Normal [facility] Comment on above: Result Comment: ADA RECOMMENDED LIMIT 4.0 - 6.0 ADA THERAPEUTIC TARGET < 7.0 ACTION SUGGESTED > 7.0 Performed By: #### A 1C #### [facility] [address] [place] [address] Dr. Pattie Torres Glucose [Mass/Vol] 140 mg/dL Normal [facility] Comment on above: Performed By: #### A 1C #### [facility] [address] [place] [address] Dr. Pattie Torres HbA1c (Bld) [Mass fraction] 6.5 % Critically high 4.5-6.2 [facility] Comment on above: Performed By: #### A 1C #### [facility] [address] [place] [address] Dr. Pattie Torres LIPID PROFILEon 08-04-2021 CHOL-HDL RATIO NORM SEE BELOW Normal [facility] Comment on above: Result Comment: 3.3 - 4.4 LOW RISK 4.4 - 7.1 AVERAGE RISK 7.1 - 11.0 MODERATE RISK >11.0 HIGH RISK Performed By: #### B RENTAL REPRESENTATIVE, URIC, TSH, T7, LIPID, CMP #### [facility] [address] [place] [address] Dr. Pattie Torres Cholesterol [Mass/Vol] 143 mg/dL Normal <=200 [facility] Comment on above: Performed By: #### B RENTAL REPRESENTATIVE, URIC, TSH, T7, LIPID, CMP #### [facility] [address] [place] [address] Dr. Pattie Torres Cholesterol in HDL [Mass/Vol] 42 mg/dL Normal 40-60 [facility] Comment on above: Performed By: #### B RENTAL REPRESENTATIVE, URIC, TSH, T7, LIPID, CMP #### [facility] [address] [place] [address] [address] Pattie Torres Cholesterol in LDL [Mass/Vol] 76.0 mg/dL Normal [facility] Comment on above: Performed By: #### B RENTAL REPRESENTATIVE, URIC, TSH, T7, LIPID, CMP #### [facility] [address] [place] [address] [address] Pattie Torres Cholesterol.total/Cho lesterol in HDL [Mass ratio] 3.4 {ratio} Normal [facility] Comment on above: Performed By: #### B RENTAL REPRESENTATIVE, URIC, TSH, T7, LIPID, CMP #### [facility] [address] [place] [address] Dr. Pattie Torres HDL NORMAL > or = 60 mg/dl - LO W CARDIOVASCULAR RISK <40 mg/dl - HIGH CARDIOVASCULAR RISK Normal [facility] Comment on above: Performed By: #### B RENTAL REPRESENTATIVE, URIC, TSH, T7, LIPID, CMP #### [facility] [address] [place] [address] [address] Pattie Torres LDL CALC NORMAL SEE BELOW Normal [facility] Comment on above: Result Comment: <100 mg/dl OPTIMAL 100 - 129 mg/dl NEAR OR ABOVE OPTIMAL 130 - 159 mg/dl BORDERLINE HIGH 160 - 189 mg/dl HIGH >190 mg/dl VERY HIGH Performed By: #### B RENTAL REPRESENTATIVE, URIC, TSH, T7, LIPID, CMP #### [facility] [address] [place] [address] [address] Pattie Torres Triglyceride [Mass/Vol] 125 mg/dL Normal <=150 [facility] Comment on above: Performed By: #### B RENTAL REPRESENTATIVE, URIC, TSH, T7, LIPID, CMP #### [facility] [address] [place] [address] [address] Pattie Torres VLDL CALC 25.0 mg/dL Normal [facility] Comment on above: Performed By: #### B RENTAL REPRESENTATIVE, URIC, TSH, T7, LIPID, CMP #### [facility] [address] [place] [address] Dr. Pattie Torres PROF 14(COMP METB)on 022 Albumin [Mass/Vol] 3.8 g/dL Normal 3.4-5.0 [facility] Comment on above: Performed By: #### B RENTAL REPRESENTATIVE, URIC, TSH, T7, LIPID, CMP #### [facility] [address] [place] [address] Dr. Pattie Torres Albumin/Globulin [Mass ratio] 1.0 {ratio} Normal [facility] Comment on above: Performed By: #### B RENTAL REPRESENTATIVE, URIC, TSH, T7, LIPID, CMP #### [facility] [address] [place] [address] Dr. Pattie Torres ALP [Catalytic activity/Vol] 86 U/L Normal 46-116 [facility] Comment on above: Performed By: #### B RENTAL REPRESENTATIVE, URIC, TSH, T7, LIPID, CMP #### [facility] [address] [place] [address] Dr. Pattie Torres ALT [Catalytic activity/Vol] 28 U/L Normal 16-63 [facility] Comment on above: Performed By: #### B RENTAL REPRESENTATIVE, URIC, TSH, T7, LIPID, CMP #### [facility] [address] [place] [address] Dr. Pattie Torres Anion gap [Moles/Vol] 8.8 mmol/L Normal [facility] Comment on above: Performed By: #### B RENTAL REPRESENTATIVE, URIC, TSH, T7, LIPID, CMP #### [facility] [address] [place] [address] Dr. Pattie Torres AST [Catalytic activity/Vol] 16 U/L Normal 15-37 [facility] Comment on above: Performed By: #### B RENTAL REPRESENTATIVE, URIC, TSH, T7, LIPID, CMP #### [facility] [address] [place] [address] Dr. Pattie Torres Bilirubin [Mass/Vol] 1.0 mg/dL Normal 0.2-1.0 [facility] Comment on above: Performed By: #### B RENTAL REPRESENTATIVE, URIC, TSH, T7, LIPID, CMP #### [facility] [address] [place] [address] Dr. Pattie Torres Calcium [Mass/Vol] 8.4 mg/dL Critically low 8.5-10.1 [facility] Comment on above: Performed By: #### B RENTAL REPRESENTATIVE, URIC, TSH, T7, LIPID, CMP #### [facility] [address] [place] [address] Dr. Pattie Torres Chloride [Moles/Vol] 101 mmol/L Normal 98-107 [facility] Comment on above: Performed By: #### B RENTAL REPRESENTATIVE, URIC, TSH, T7, LIPID, CMP #### [facility] [address] [place] [address] Dr. Pattie Torres CO2 [Moles/Vol] 31.5 mmol/L Normal 21.0-32.0 [facility] Comment on above: Performed By: #### B RENTAL REPRESENTATIVE, URIC, TSH, T7, LIPID, CMP #### [facility] [address] [place] [address] Dr. Pattie Torres Creatinine [Mass/Vol] 1.60 mg/dL Critically high 0.70-1.30 [facility] Comment on above: Performed By: #### B RENTAL REPRESENTATIVE, URIC, TSH, T7, LIPID, CMP #### [facility] [address] [place] [address] Dr. Pattie Torres EGFR-AF JAPANESE 50 mL/min/1.73m2 Critically low >=60 [facility] Comment on above: Performed By: #### B RENTAL REPRESENTATIVE, URIC, TSH, T7, LIPID, CMP #### [facility] [address] [place] [address] Dr. Pattie Torres EGFR-NON AF JAPANESE 42 mL/min/1.73m2 Critically low >=60 [facility] Comment on above: Performed By: #### B RENTAL REPRESENTATIVE, URIC, TSH, T7, LIPID, CMP #### [facility] [address] [place] [address] Dr. Pattie Torres Globulin (S) [Mass/Vol] 3.8 g/dL Normal [facility] Comment on above: Performed By: #### B RENTAL REPRESENTATIVE, URIC, TSH, T7, LIPID, CMP #### [facility] [address] [place] [address] Dr. Pattie Torres Glucose [Mass/Vol] 143 mg/dL Critically high 74-106 [facility] Comment on above: Performed By: #### B RENTAL REPRESENTATIVE, URIC, TSH, T7, LIPID, CMP #### [facility] [address] [place] [address] Dr. Pattie Torres Potassium [Moles/Vol] 4.3 mmol/L Normal 3.5-5.1 [facility] Comment on above: Performed By: #### B RENTAL REPRESENTATIVE, URIC, TSH, T7, LIPID, CMP #### [facility] [address] [place] [address] Dr. Pattie Torres Protein [Mass/Vol] 7.6 g/dL Normal 6.1-8.2 [facility] Comment on above: Performed By: #### B RENTAL REPRESENTATIVE, URIC, TSH, T7, LIPID, CMP #### [facility] [address] [place] [address] Dr. Pattie Torres Sodium [Moles/Vol] 137 mmol/L Normal 136-145 [facility] Comment on above: Performed By: #### B RENTAL REPRESENTATIVE, URIC, TSH, T7, LIPID, CMP #### [facility] [address] [place] [address] Dr. Pattie Torres Urea nitrogen [Mass/Vol] 28.0 mg/dL Critically high 7.0-18.0 [facility] Comment on above: Performed By: #### B RENTAL REPRESENTATIVE, URIC, TSH, T7, LIPID, CMP #### [facility] [address] [place] [address] Dr. Pattie Torres Urea nitrogen/Creatinine [Mass ratio] 17.5 mg/mg Normal [facility] Comment on above: Performed By: #### B RENTAL REPRESENTATIVE, URIC, TSH, T7, LIPID, CMP #### [facility] [address] [place] [address] Dr. Pattie Torres TSHon 08-04-2021 TSH 3.729 uIU/mL Normal 0.470-4.680 [facility] Comment on above: Performed By: #### B RENTAL REPRESENTATIVE, URIC, TSH, T7, LIPID, CMP #### [facility] [address] [place], [place] [address] Dr. Pattie Torres TSH RANGE SEE BELOW Normal [facility] Comment on above: Result Comment: <0.3 4 UIU/ml HYPERTHYROID 0.34-5.60 UIU/ml EUTHYROID >5.60 UIU/ml HYPOTHYROID Performed By: #### B RENTAL REPRESENTATIVE, URIC, TSH, T7, LIPID, CMP #### [facility] [address] [place], [place] [address] Dr. Pattie Torres URIC ACID SERUMon 08-04-2021 Urate [Mass/Vol] 8.3 mg/dL Normal 3.5-8.5 [facility] Comment on above: Performed By: #### B RENTAL REPRESENTATIVE, URIC, TSH, T7, LIPID, CMP #### [facility] [address] [place], [place] [address] Dr. Pattie Torres Coding Summary.on 11-22-2020 Coding Summary. CD:[id number] G h0bWw+PGhlYWQ+HT2JOPG dP14zcZTltE8EF3vCRC3H MGJLMSZCNX5WHU5jfTL9M SowX6QrlzRf LkonsXRrXJ56JIg4MFQ5e ShqERkltR7seIAvQ1t1Eb DpIH56kS05YKabESDkVdA 3LjZpbjsgbWFy S5pxBgXxoXAcNxk+PHRhY mxlIHdpZHRoPScxMDAlJy CuePcvZZ4rQz3hWSXeOAS vbGxhcHNlOiBj c0euHSZtZUdvOZ1zaPkjX 8VcdMY0AKZev3n3Io68mZ I+ZLWuURE0tPsrCOwhz24 6HgXok3wjDOZ5 yORvNYndMKA7I24jq3K7B NZwRZXnZMX5lZE7nB5yyY euyztrR6SrcIAzAxY8EFU 5uAGokY4cuXel hyydiW3fUsp+H38CYL8KH FBHMH2MXes4B3RyAbashT I+XQ49EYWzXE09nXHtjHP pu6weyZk7EuWn OHSnSSG5yCwrNUsbu2WdU KTsF48ikRDvb8T6XFOduA aabNXdQbGxpFS3tG8dERm xfiicc8yalrla Degoh0qccs45aS50I75uD IkjEBIpWWF9RZCyLFChoR zftr6qoZ8aDt6+OWgjx1t xs4etmQo9AkWg DBKlcxQdnVxnXBK6v5AwU a42X1PkqXobx1CmSxi9kl 45zJGiy5H3hER1SPwrBGD lwU2tMTdsWkK5 QSThEwShqX01sMZzYLucM c0riAujcEgqJM4hXCPozt hoBFJizU5uRYSkhJZpwFb kZG0kGLUzgaga w789QlJbPCZ2RUTplTYwA 4AbkC7vIzJqISGrTCZvB4 KvqIHvGXnrN621XGgaMkO 6ONNimfCiL8Yo QBLovAteTlC1h3R3Xl2Gq 2AnlwsiJMY4KOnvYSJ1Us V5InQeYhV8B3XlSpo3IKC uvEysIS0iO8Zc XULhqinuewcclPG4DDQmQ OCsbB76pMRqRMqnKo0qv3 B7w874KQVfBGBszQ54Gi9 udDogMTBwdCBU gS2cwhcjg5bkbmczZjVhW VCkTBc2DBf1WELmxFnoKb BlGUN5OvU4GKI1rNLhtT0 txBauiphxrR1s Oyc+L08yvN4yLDB5XPN7k kakVXSgxbLwOB15RP56W0 RyPjwvdGFibGU+PGRpdiB ovPghMQ2yGgGh i6tjr3VuZYtwG9NhMIZtA KbbJln8AXCjLVF3fVZ0cW 8uDUXaBActi5V8qRZ2J3Q owyOlli2cn7oe IUPqWSggW36dzHHrp4X5Z SQwoCX4GECxjPyhSoLeyR 93Oyc+SSByqBnxj5JfHgw kc4luc4urmSc5 PrAzDCFoivYrmUlhBQB6n 3YiRi55G04mUOuhTXKxPO IbMOKnDWSjeZhkly1qlX6 wIi8+PGNvbCB3 uJO9oU3yMETxFxS5KVcdZ 484AlEzeDHdRwrxo9stx7 jszHp8CxFeFEVkykTlsQb mUCE9h8TrJy94 E01cYBkjNYFdGRXqHAQeB SHazTsprk8qlZ7aFo3+PC 6mc3elle98zI28mSK+PHR rYPD5mSxjDIvd USOpuO5jXWuqMlN7SHCoC fKhdT22gFOcPNjbNf5ypW sdmZvhDH5lOSZqzptns65 8CdRcj9ouAZDd qLFcFHefIWA3Y82kl7I7J OWwTELpNHS1mFR2aV7zbJ lnbjogbGVmdDsgdmVydGl jEUnyCRgvU433 IHRvcDsnPlBhdGllbnQgT qEvZDp4S0SzBdp5GCKdmN icFS9eyPCqQTupGj8peYf ewCtlJD6bGWAj qpcvz699EnVng1qoNJExn QGsFZslJXL1S72xj9T6EG NoTKYwPBJ4yFP4iH6reUy nbjogbGVmdDsg zeGitUogGPlqFBfgL504H HRvcDsnPkJpcnRoIERhdG V9NE17OT07sUIev9Q1aWT 3P3XcDNOfyupg jpcgwRK1VMZdRQNljU63X l7rmUccTp0oNMRyWPZ8TN SryWWaZ3YndK3bPbGyLPZ jVELvF3HofGRu XYaxW857WSbzIoO9OYDsw gIdL9IsXFBdcMvkXqU0p6 W7Sy3QM5K4FW93RC74wZO lq8D7fUZ2T0Ct XTJtlsxiqhhinCU6MHFkI EQshR70Xs9hkQsbVa8nRZ JmACY9BHWlwDCwJ9RumE5 yOiAjMDAwMDAw Y1YjaLSjCVyvV389WSvcG eN1PRKoptIcT8WlMBMmyE shEnG4v5R8Um5HCBd2GG6 3IW74aBBna6W2 aKR8I5NpLBRbomjwzkcyg MP9BSCbQATctR10Ax7kwO wjHj6yBGMiVHU8SKScaDQ fO7BcuP5lDgRr RTPnPOQxW9IozHKwVXvwI 770CDyoMiU4LSDwymWwN0 MuBZMqnRzgVvZ5i6N2Ut7 KYFFvGM43VEI2 fRD4DQ22PD67Q3GhWuopk GFibGU+PHRhYmxlIHdpZH RoPScxMDAlJyBzdHlsZT0 hBw1cKAQcCBIa jJwcdTAcSpHvl5mqNPDgU VjpEN2drXogQ4KigJW3MX Rlb0a5Ma63J12xT9AbfEF +DIDziCP6cEM8 rU3dApYjHdQ9VCihY627R yLerTWiCmrae4hnh5gqcW p5GcZ9NACtfpDtbFfmQHM 4v5NcVr68L27m IHdpZHRoPSIxNSUiIHZhb Yjqez9hoB2bCq6+PGNvbC D5eQI9sZ1aMwVoMsC5AWl lT166WmMbaAFd Lhbkn6pfd1lyeGc9XeYeL TPufzGdvCqyULS2b1JjPj 79T3CqlEhkr7XrLka8co3 5qQVqq2X4bJR3 F2LcTEPxhljauQMrqHfcC F1sSPSmophrEKThyC9tJD WyR5h9FdNeUyR3HQclB3W pjiM3ZNZxqJXc LNpmSRE3N94vu7Z2CVAfK UCkEFK9lFU3nW9tsQmtge ogbGVmdDsgdmVydGljYWw yZUozQ591BUIp iRaaOZNixJ9pDEVilEQma PleLJ0bLLTeioqrKkLJVp DMRUQXR9BQFkN4P5IuLau 1YGNvxAgpNW3k eJEnHKooKo0hfHugjKgnV W4eTEKmhnvzKRAjyA4tCR UlpUQcgQkxEX6rBFHnppi hs238WeIsJWS0 YTIldWMaV3PehI1rHwYnC YCiDISaZ6YqwYWxRSrgJ0 67JInbQeX9AFTnpuMzZ2Y sLWFsaWduOiB0 h4L3Jx3iXH2sDO9nDXQ0C D66TE94vYMrp0X7gSZ6V8 CdAJCljmnebwucdTL4NNM kPBArjZ60tQVc GRoaHw0bt9Q8g625KCDvJ WCkfT96Fs4qpWotSLDksP ERsA0navvjb8pinoryMrV qCDAkDDa1TMc3 CGIlhWezZxMfZPW3DbV4T ZD1zKWvsU9gjAwotdkdzR 9wOyc+WKWmCPDkuzQ2A1E wBfy5WXYniKib OZ3kaREaTSayBl9cwKxlj LbsNL9sZRImzjuzEWQsnT 0sUZXgpNOqiQaxJW7cEUW pttprh371QaYe VZJ8REZlyOTdS3MzjB9tK rUrAVHxIKNqD8LchALvWC wfN613GGhiAbY1FIWqprC cU7RoAEIjyObk RwZ1u6S7Yl7ULSzxTO00C B53rNBlu1K2dCO4J1NhVJ YoapbnsononOG5MPUoDJN jvW37xPFqLKva Sr9cw4H0d504MFIcDLHiv M67Xy4wnQhsTIZimOVNmM 4eeabnm6tesqcfIbTsZHV oPUl8SSu3JXCk kJxqHiSvUWM5JcE1USX5r HGjaT4ixQtyjrscrY6nKt c+Q0Z4vIM0aMQokAhnzFL +EB03ht93T6Fo LxvgGca7EMUlKCQ1jSQ0g B4vMGHxWEdmr0P7rKM9T4 PledQpyz5au4cjETIuZHq cF99gaSTnj4Z8 JVUnsRR0BLUgsSieLqEyd G93Oyc+DQRvyIdoj9GeJv wjh7ygr0rlzLc9XdApORF gdmFsaWduPSJ0 r1CyHb73W91hJUduDBAuG YRzMIYnKSZdaLzxbx0ueC 9wIi8+JIVlqIN9tJP0fC1 sNaSaOsA6AMxg S012HcGyiOVgQjfns4ozx 9brlTt8SnDvNKNvkaMrbB qbPGF8r1AeKs15D9PlqEi ul6RpJtt2cj07 bTYia6A9qBS1N1CtWSXsd twilQAulYinYF9xSXGkpg ldBVYdoF3gKZQcO9f0LnZ gIxM0LOxuO7Rf zyH6ALPivPQqTZQwbBUWz Y3hlzizn3lodwoxJjOsBM XmREz9IZl7JBIlwItxYfQ oOFT7InM2CQL3 ePBefE3gjHzagjideJ2eB yc+LFm1b7tadSRpIM6giX I3MY13WV40uXKvw8H6yVT 5R4JfRNSmmwbx ogswaCO6OUIiBNGfvV83Q e7ziTvrIa5vVPGuJUD3TR JvyHMeQ8DfgN3tBlTlMAI dWZTgL0OnxQDv WWfrC447QGbwJmZ3JKTkh yVqO1SvHDWbtZuwEdT6q4 A7Vi2HQY28GV55DH40oIZ nm8I2yRN1X5Qu NQUwkqmlnfywmCJ1NMNyX SZnvZ31Jp0uvQejBw5gIO OzZPB4TKQdhDKfN5WpkO7 yOiAjMDAwMDAw T7VjdRGhGMbeN190HUohC jN1UENmphZoX1XrEYOhsL xiHxP4l0L4Qu6WBw60IT5 1IB47lERzo7H5 aQM3W3BoVIRadniagtiev VE4ZUSbJUNsaJ13Qb2noL wcYw6xUNHiHIP0QJSiiQA aY8KbeU7bBfSb XPCmBARfM2RkwQDrSAvjJ 333NYyeMrW2IXNfeaDaY3 EqKMNvyRbbMbE3f3W7Wr6 IWPlguqg7Y8Lz PjwvdHI+HX89ESYbND46y ZNxgYNar7efkGg8XeNhQB ExSIX9tUcyNLdnm5RvXSM rE40zxUTvl7E8 IGNv (more content not included)... Normal [facility] 11-21-2020 Consent [id number]# 1.00CD:127 [facility] Consent for Treatmenton 11-06 Consent for Treatment [id number]#1 .00CD:127 [facility] Insurance Correspondenceon 0 11-21-2020 Insurance Correspondence [id number]# 1.00CD:127 [facility] Oncology Noteon 11-21-2020 Oncology Note Oncology [employer] Office Visit/Treatment Note Current Patient Status/Reason: here for initial outpt visit with Dr. Belcher. Doing pretty well- recent inpatient stay at [facility] for several cardiac procedures. Dr Hogan is his PCP and he was seen by Dr. Marcelino while inpt at [place]. We will obtain those records. His dtr is present for visit- Treatment Plan: Follow-Up Appointment Info/Referrals: will plan to see him back in 3-4 months- he would prefer to followup in [facility] as he lives there Resources Offered: [facility] Comment on above: Result Comment: Elec tronically Signed By: Shelby MENDEZ, Marj\.br\Date and Time Signed: 11/21/20 10:16 EDT Oncology Progress Noteon Oncology Progress Note Patient: RADHA BROWN Age: 79 years Sex: Male : 1940 Associated Diagnoses: None Author: Ye ZULUAGA, Puneet Reece History of Present Illness This is a review of the medical record from [facility] admission date October 11 through October 18, 2020. He has severe aortic stenosis and underwent TAVR procedure. His platelet count worsened and his Januvia and Plavix were held. A MARAÍ ELENA ElLISA assay was sent and was [...] list: All Problems Thrombocytopenia / SNOMED CT 8806348403 / Confirmed Anemia / SNOMED CT 471948576 / Confirmed Histories Past Medical History: No [...] review: No qualifying data available . Normal [facility] Oncology Progress Note Patient: RADHA BROWN Age: 79 years Sex: Male : 1940 Associated Diagnoses: None Author: Puneet Belcher MD History of Present Illness This is very nice gentleman referred by Dr. Talat Hogan who is currently 79 years old referred here with mild anemia and thrombocytopenia. He has had a number of cardiac procedures and was at [facility] for a time recently. Available lab [...] of DVTs etc. 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 [...] Last Charted Temp Oral 36.5 DegC (NOV 21:) SBP H 168mmHg (NOV 21) DBP 85 mmHg (NOV 21) SpO2 94 % (NOV 21) Weight 134.5 kg (NOV 21:) Height 185.5 cm (NOV 21:) General: Alert [...] available . Impression and Plan Diagnosis Anemia (RMO77-AC D64.9, Working, Medical). Thrombocytopenia (ZOF23-YH D69.6, Working, Medical). The patient has very [...] in 3 to 4 months at the [facility] in [facility]. I will recommend observation only at this point.. Education and Follow-up: Discharge Planning: Puneet Belcher NO FOLLOW UP NEEDED PATIENT WILL FOLLOW UP IN [place] IN 3-4 MONTHS. Professional Services CC: Dr Hogan in [place] Normal [facility] 11-21-2020 Outside Records [id number]# 1.00CD:127 Normal [facility] 11-18-2020 Outside Labs [id number]#1 .00CD:127 Normal [facility] BASIC METABOLIC PANELon 10-06 Calcium [Mass/Vol] 8.9 mg/dL Normal 8.6-10.3 [facility] Comment on above: Order Comment: No: D o not add to previous draw Performed By: #### 0 0071, [id number], [id number] #### [facility] [address] [place] [address], [place] Chloride [Moles/Vol] 107 mmol/L Normal 98-107 [facility] Comment on above: Order Comment: No: D o not add to previous draw Performed By: #### 0 0071, [id number], [id number] #### [facility] [address] [place] [address], [place] CO2 [Moles/Vol] 26 mmol/L Normal 21-31 [facility] Comment on above: Order Comment: No: D o not add to previous draw Performed By: #### 0 0071, [id number], 56489 #### [facility] [address] [place] [address], [place] Creatinine [Mass/Vol] 0.97 mg/dL Normal 0.70-1.30 [facility] Comment on above: Order Comment: No: D o not add to previous draw Performed By: #### 0 0071, [id number], [id number] #### [facility] [address] [place] [address], [place] GFR/1.73 sq M.predicted among blacks MDRD (S/P/Bld) [Vol rate/Area] mL/min/{1.73_m2} Normal >60 [facility] Comment on above: Order Comment: No: D o not add to previous draw Result Comment: Calc ulation may not be valid for patients over 70 years Performed By: #### 0 0071, [id number], [id number] #### [facility] [address] [place] [address], [place] GFR/1.73 sq M.predicted among non-blacks MDRD (S/P/Bld) [Vol rate/Area] mL/min/{1.73_m2} Normal >60 [facility] Comment on above: Order Comment: No: D o not add to previous draw Result Comment: Calc ulation may not be valid for patients over 70 years Performed By: #### 0 0071, [id number], [id number] #### [facility] [address] [place] [address], [place] Glucose [Mass/Vol] 178 mg/dL High 70-100 [facility] Comment on above: Order Comment: No: D o not add to previous draw Performed By: #### 0 0071, [id number], [id number] #### [facility] [address] [place] [address], [place] Potassium [Moles/Vol] 3.7 mmol/L Normal 3.5-5.1 [facility] Comment on above: Order Comment: No: D o not add to previous draw Performed By: #### 0 0071, [id number], [id number] #### [facility] [address] [place] [address], [place] Sodium [Moles/Vol] 140 mmol/L Normal 136-145 [facility] Comment on above: Order Comment: No: D o not add to previous draw Performed By: #### 0 0071, [id number], [id number] #### [facility] [address] [place] [address], [place] Urea nitrogen [Mass/Vol] 25 mg/dL Normal 7-25 [facility] Comment on above: Order Comment: No: D o not add to previous draw Performed By: #### 0 0071, [id number], [id number] #### [facility] [address] [place] [address], [place] CBC COMPLETE BLOOD COUNTon 0 - Erythrocyte distribution width (RBC) [Ratio] 12.7 % Normal 11.5-15.0 [facility] Comment on above: Order Comment: No: D o not add to previous draw Performed By: #### 1 69, [id number] #### [facility] [address] [place] [id number], [place] Hematocrit (Bld) [Volume fraction] 32.9 % Low 39.0-50.0 [facility] Comment on above: Order Comment: No: D o not add to previous draw Performed By: #### 1 69, [id number] #### [facility] [address] [place] [address], [place] Hemoglobin (Bld) [Mass/Vol] 10.8 g/dL Low 13.0-17.0 [facility] Comment on above: Order Comment: No: D o not add to previous draw Performed By: #### 1 69, [id number] #### [facility] [address] [place] [address], [place] IMM PLATELET FRAC 8.3 % High 0.8-6.3 [facility] Comment on above: Order Comment: No: D o not add to previous draw Performed By: #### 1 69, [id number] #### [facility] [address] [place] [address], [place] MCH (RBC) [Entitic mass] 31.1 pg Normal 27.0-33.0 [facility] Comment on above: Order Comment: No: D o not add to previous draw Performed By: #### 1 69, [id number] #### [facility] [address] [place] [address], [place] MCHC (RBC) [Mass/Vol] 32.8 g/dL Normal 32.0-35.0 [facility] Comment on above: Order Comment: No: D o not add to previous draw Performed By: #### 1 69, #### [facility] [address] [place] [address], [place] MCV (RBC) [Entitic vol] 94.8 fL Normal 82.0-98.0 [facility] Comment on above: Order Comment: No: D o not add to previous draw Performed By: #### 1 69, #### [facility] [address] [place] [address], [place] Nucleated RBC/100 WBC (Bld) [Ratio] 0 % Normal 0-0 [facility] Comment on above: Order Comment: No: D o not add to previous draw Performed By: #### 1 69, [id number] #### [facility] [address] [place] [address], [place] PLAT CNT 80 10*3/uL Low 150-400 [facility] Comment on above: Order Comment: No: D o not add to previous draw Performed By: #### 1 69, #### [facility] [address] [place] [id number], [place] RBC (Bld) [#/Vol] 3.47 10*6/uL Low 4.20-5.70 [facility] Comment on above: Order Comment: No: D o not add to previous draw Performed By: #### 1 0070, 20224 #### [address] WBC (Bld) [#/Vol] 6.75 10*3/uL Normal 4.00-10.60 [facility] Comment on above: Order Comment: No: D o not add to previous draw Performed By: #### 1 0070, 97588 #### [facility] [address] [place], [place] [id number] [place] [address] CHEST AND LATERALon 10-19-19 CHEST AND LATERAL [facility] Department of Radiology [address] [place] [id number] Patient Name: RADHA BROWN : 1940 Sex: M Age: Race: White Pt. Location: [place] [address] Patient Status: I Ordered Date: 10/18/2020 2:00:00 [...] report. Electronically signed: Naz Mcgraw. Transcribed by: [email or web address], User Resident: KRISTEN PERSON Electronically Signed by: NAZ MCGRAW @ 10/18/2020 03:33 PM I personally read this/these film(s) with this resident Normal [facility] Comment on above: Order Comment: No: D o not add to previous draw HEPARIN PLATELET ANTIBODYon 10-18-2020 HEP PLAT ANTIB Normal [facility] Comment on above: Order Comment: Yes: Add to Previous draw if able Result Comment: POSI TIVE BY PF4/HEPARIN AKBAR METHOD. A SEROTONIN RELEASE ASSAY WILL BE SENT OUT AN ALTERNATIVE METHOD OF TESTING ON THIS PATIENT. Results called. Accurately read back by Shawn Hutchison RN at 0932 Performed By: #### 8 8669 #### [facility] [address] [place] [address], [place] MAGNESIUM BLOODon 10-18-2020 Magnesium [Mass/Vol] 2.1 mg/dL Normal 1.9-2.7 [facility] Comment on above: Order Comment: No: D o not add to previous draw Performed By: #### 0 0071, 32765, 50794 #### [facility] [address] [place] [address], [place] PHOSPHORUS BLOODon Phosphate [Mass/Vol] 2.8 mg/dL Normal 2.5-5.0 [facility] Comment on above: Order Comment: No: D o not add to previous draw Performed By: #### 0 0071, 25440, 43736 #### [facility] [address] [place] [address], [place] SEROTONIN REL ASSAY, UFH 200 5631on 10-18-2020 SEROTONIN RELEASE ASSAY UFH Negative Normal Negative [facility] MARIE UFH HIGH DOSE 0 % Normal [facility] MARIE UFH INTERP See Note Normal [facility] Comment on above: Result Comment: This [...] regarding diagnosis of HIT is available at [facility]. INTERPRETIVE INFORMATION: MARIE, Unfractionated Heparin This test was developed and its performance characteristics determined by [facility]. It has not been cleared or approved by the [place] Food and Drug Administration. This test was performed in a CLIA certified laboratory and is intended for clinical purposes. Performed By: [facility] [address] [place] [id number] [employer] Installer: Kelly Su MD [facility] UFH LOW DOSE 0 % Normal [facility] BASIC METABOLIC PANELon 10-06 Calcium [Mass/Vol] 8.5 mg/dL Low 8.6-10.3 [facility] Comment on above: Order Comment: No: D o not add to previous draw Performed By: #### 0 0071, 08997, 62661 #### [facility] [address] [place] [address], [place] Chloride [Moles/Vol] 104 mmol/L Normal 98-107 [facility] Comment on above: Order Comment: No: D o not add to previous draw Performed By: #### 0 0071, 45380, 88459 #### [facility] [address] [place] [address], [place] CO2 [Moles/Vol] 25 mmol/L Normal 21-31 [facility] Comment on above: Order Comment: No: D o not add to previous draw Performed By: #### 0 0071, 54826, 72039 #### [facility] [address] [place] [address], [place] Creatinine [Mass/Vol] 1.42 mg/dL High 0.70-1.30 [facility] Comment on above: Order Comment: No: D o not add to previous draw Performed By: #### 0 0071, 85113, 84278 #### [facility] [address] [place] [address], [place] eGFR- 58 ml/min/1.73sq m Abnormal >60 [facility] Comment on above: Order Comment: No: D o not add to previous draw Result Comment: Calc ulation may not be valid for patients over 70 years Performed By: #### 0 0071, 86290, 73679 #### [facility] [address] [place] [address], [place] eGFR- non- 48 ml/min/1.73sq m Abnormal >60 [facility] Comment on above: Order Comment: No: D o not add to previous draw Result Comment: Calc ulation may not be valid for patients over 70 years Performed By: #### 0 0071, 27552, 11290 #### [facility] [address] [place] [address], [place] Glucose [Mass/Vol] 154 mg/dL High 70-100 [facility] Comment on above: Order Comment: No: D o not add to previous draw Performed By: #### 0 0071, 70179, 61480 #### [facility] [address] [place] [address], [place] Potassium [Moles/Vol] 4.8 mmol/L Normal 3.5-5.1 [facility] Comment on above: Order Comment: No: D o not add to previous draw Performed By: #### 0 0071, 92095, 69080 #### [facility] [address] [place] [address], [place] Sodium [Moles/Vol] 139 mmol/L Normal 136-145 [facility] Comment on above: Order Comment: No: D o not add to previous draw Performed By: #### 0 0071, 82624, 67000 #### [facility] [address] [place] [id number], [place] Urea nitrogen [Mass/Vol] 34 mg/dL High 7-25 [facility] Comment on above: Order Comment: No: D o not add to previous draw Performed By: #### 0 0071, 05125, 65132 #### [facility] [address] [place] [address], [place] CBC COMPLETE BLOOD COUNTon 0 - Erythrocyte distribution width (RBC) [Ratio] 12.9 % Normal 11.5-15.0 [facility] Comment on above: Order Comment: No: D o not add to previous draw Performed By: #### 8 5499 #### [facility] [address] [place] [id number], [place] Hematocrit (Bld) [Volume fraction] 33.8 % Low 39.0-50.0 [facility] Comment on above: Order Comment: No: D o not add to previous draw Performed By: #### 8 5499 #### [facility] [address] [place] [id number], [place] Hemoglobin (Bld) [Mass/Vol] 10.8 g/dL Low 13.0-17.0 [facility] Comment on above: Order Comment: No: D o not add to previous draw Performed By: #### 8 2269 #### [facility] [address] [facility] [address], [place] IMM PLATELET FRAC 8.9 % High 0.8-6.3 [facility] Comment on above: Order Comment: No: D o not add to previous draw Performed By: #### 8 5499 #### [facility] [address] [place] [address], [place] MCH (RBC) [Entitic mass] 30.6 pg Normal 27.0-33.0 [facility] Comment on above: Order Comment: No: D o not add to previous draw Performed By: #### 8 5499 #### [facility] [address] [facility]. [address] MCHC (RBC) [Mass/Vol] 32.0 g/dL Normal 32.0-35.0 [facility] Comment on above: Order Comment: No: D o not add to previous draw Performed By: #### 8 5499 #### [facility] [address] [facility] [address], [place] MCV (RBC) [Entitic vol] 95.8 fL Normal 82.0-98.0 [facility] Comment on above: Order Comment: No: D o not add to previous draw Performed By: #### 8 5499 #### [facility] [address] [facility] [address], [place] Nucleated RBC/100 WBC (Bld) [Ratio] 0 % Normal 0-0 [facility] Comment on above: Order Comment: No: D o not add to previous draw Performed By: #### 8 5499 #### [facility] [address] [facility] [address], [place] PLAT CNT 61 10*3/uL Low 150-400 [facility] Comment on above: Order Comment: No: D o not add to previous draw Performed By: #### 8 5499 #### [facility] [address] RBC (Bld) [#/Vol] 3.53 10*6/uL Low 4.20-5.70 [facility] Comment on above: Order Comment: No: D o not add to previous draw Performed By: #### 8 5499 #### [facility] [address] [place] [address], [place] WBC (Bld) [#/Vol] 6.51 10*3/uL Normal 4.00-10.60 [facility] Comment on above: Order Comment: No: D o not add to previous draw Performed By: #### 8 5499 #### [address] Cardiovascular Lab Reporton 10-17-2020 Cardiovascular Lab Report [facility] Patient Name: Radha Brown MR #: [id number] [facility] Physician: Hank Smallwood MD Service Date: 10/17/2020 Department of Birthdate: 1940 Medicine Room #: CINDY [id number] Division of Cardiology Adult Cardiovascular Services [place] [address] Cardiovascular Laboratory Report PACEMAKER IMPLANT PROCEDURE NOTE DATE OF PROCEDURE: 10/17/2020 PERFORMING PHYSICIAN: Dr. Hank Smallwood CONSENT: Patient LOCATION: EP Lab PROCEDURE PERFORMED: 1. 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 Ultrasound guided venous access INDICATIONS: [...] using modified seldinger technique using a 5 [place] micro-puncture needle on one occasion and 0.35 wire was placed. Local infiltration of 1% Lidocaine was performed, and an incision was created in the left upper chest. Dissection was then performed using cautery down to the fascial plane above the muscle. 6 [place] Safesheath was placed over the wire. An active fixation [employer] pacing lead was then delivered through the 6Fsheath to the right ventricle. After confirmation of lead position on orthogonal views (BRICE and KOREAN) to confirm septal position, the screw was [...] immediate procedural complications were noted. Device info: [employer] Accolade MRI DR IS1 Model# L310 Serial# [id number] RV lead: Model# INGEVITY [id number] (59cms) Serial# [id number] Sensin.2mV Threshold: 0.7V@0.4ms Impedance: 562 Ohms POST [...] from discharge or sooner for any concerns. aHnk Smallwood MD Cardiac Electrophysiology Electronically Signed by: Hank Smallwood MD 10/18/2020 10:58 P Hank Smallwood MD Date Dict: 10/17/2020/02:05 P/Hank Smallwood MD Date Trans: 10/17/2020 03:06 P/julio cesar [id number] cc: Maribel Hogan M.D. [address] Joe Rapp (more content not included)... Normal [facility] MAGNESIUM BLOODon 10-17-2020 Magnesium [Mass/Vol] 2.1 mg/dL Normal 1.9-2.7 [facility] Comment on above: Order Comment: No: D o not add to previous draw Performed By: #### 0 0071, 98921, 76264 #### [facility] [address] PHOSPHORUS BLOODon Phosphate [Mass/Vol] 3.9 mg/dL Normal 2.5-5.0 [facility] Comment on above: Order Comment: No: D o not add to previous draw Performed By: #### 0 0071, 60468, 67061 #### [facility] [address] [place] [address], [place] BASIC METABOLIC PANELon 10-06 Calcium [Mass/Vol] 8.8 mg/dL Normal 8.6-10.3 [facility] Comment on above: Order Comment: No: D o not add to previous draw Performed By: #### 4 1000, 13542, 50287 #### [facility] [address] [place] [address], [place] Chloride [Moles/Vol] 106 mmol/L Normal 98-107 [facility] Comment on above: Order Comment: No: D o not add to previous draw Performed By: #### 4 1000, 18158, 67948 #### [facility] [address] [place] [address], [place] CO2 [Moles/Vol] 26 mmol/L Normal 21-31 [facility] Comment on above: Order Comment: No: D o not add to previous draw Performed By: #### 4 1000, 83966, 17432 #### [facility] [address] [place] [address], [place] Creatinine [Mass/Vol] 1.20 mg/dL Normal 0.70-1.30 [facility] Comment on above: Order Comment: No: D o not add to previous draw Performed By: #### 4 1000, 52634, 62826 #### [facility] [address] [place] [address], [place] eGFR- non- 58 ml/min/1.73sq m Abnormal >60 [facility] Comment on above: Order Comment: No: D o not add to previous draw Result Comment: Calc ulation may not be valid for patients over 70 years Performed By: #### 4 1000, 25632, 37211 #### [facility] [address] [place] [address], [place] GFR/1.73 sq M.predicted among blacks MDRD (S/P/Bld) [Vol rate/Area] mL/min/{1.73_m2} Normal >60 [facility] Comment on above: Order Comment: No: D o not add to previous draw Result Comment: Calc ulation may not be valid for patients over 70 years Performed By: #### 4 1000, 89370, 02478 #### [facility] [address] [place] [address], [place] Glucose [Mass/Vol] 162 mg/dL High 70-100 [facility] Comment on above: Order Comment: No: D o not add to previous draw Performed By: #### 4 1000, 20680, 95860 #### [facility] [address] [place] [address], [place] Potassium [Moles/Vol] 3.8 mmol/L Normal 3.5-5.1 [facility] Comment on above: Order Comment: No: D o not add to previous draw Performed By: #### 4 1000, , 68891 #### [facility] [address] [place] [address], [place] Sodium [Moles/Vol] 140 mmol/L Normal 136-145 [facility] Comment on above: Order Comment: No: D o not add to previous draw Performed By: #### 4 1000, 92932, 36896 #### [facility] [address] [place] [address], [place] Urea nitrogen [Mass/Vol] 29 mg/dL High 7-25 [facility] Comment on above: Order Comment: No: D o not add to previous draw Performed By: #### 4 1000, 02384, 94091 #### [facility] [address] [place] [address], [place] CBC COMPLETE BLOOD COUNTon 0 - Erythrocyte distribution width (RBC) [Ratio] 12.9 % Normal 11.5-15.0 [facility] Comment on above: Order Comment: No: D o not add to previous draw Performed By: #### 8 5499 #### [facility] [address] [place] [address], [place] Hematocrit (Bld) [Volume fraction] 32.2 % Low 39.0-50.0 [facility] Comment on above: Order Comment: No: D o not add to previous draw Performed By: #### 8 5499 #### [facility] [address] [place] [address], [place] Hemoglobin (Bld) [Mass/Vol] 10.6 g/dL Low 13.0-17.0 [facility] Comment on above: Order Comment: No: D o not add to previous draw Performed By: #### 8 5499 #### [facility] [address] [place] [id number], [place] IMM PLATELET FRAC 8.2 % High 0.8-6.3 [facility] Comment on above: Order Comment: No: D o not add to previous draw Performed By: #### 8 5499 #### [facility] [address] [place] [address], [place] MCH (RBC) [Entitic mass] 31.4 pg Normal 27.0-33.0 [facility] Comment on above: Order Comment: No: D o not add to previous draw Performed By: #### 8 5499 #### [facility] [address] [place] [address], [place] MCHC (RBC) [Mass/Vol] 32.9 g/dL Normal 32.0-35.0 [facility] Comment on above: Order Comment: No: D o not add to previous draw Performed By: #### 8 5499 #### [facility] [address] [place] [address], [place] MCV (RBC) [Entitic vol] 95.3 fL Normal 82.0-98.0 [facility] Comment on above: Order Comment: No: D o not add to previous draw Performed By: #### 8 5499 #### [facility] [address] [place] [address], [place] Nucleated RBC/100 WBC (Bld) [Ratio] 0 % Normal 0-0 [facility] Comment on above: Order Comment: No: D o not add to previous draw Performed By: #### 8 5499 #### [facility] [address] [place] [address], [place] PLAT CNT 80 10*3/uL Low 150-400 [facility] Comment on above: Order Comment: No: D o not add to previous draw Result Comment: pre 82 Performed By: #### 8 5499 #### [facility] [address] [facility] [address], [place] RBC (Bld) [#/Vol] 3.38 10*6/uL Low 4.20-5.70 [facility] Comment on above: Order Comment: No: D o not add to previous draw Performed By: #### 8 5499 #### [facility] [address] [place] [address], [place] WBC (Bld) [#/Vol] 7.04 10*3/uL Normal 4.00-10.60 [facility] Comment on above: Order Comment: No: D o not add to previous draw Performed By: #### 8 5499 #### [facility] [address] [facility] [address], [place] MAGNESIUM BLOODon 10-16-2020 Magnesium [Mass/Vol] 2.0 mg/dL Normal 1.9-2.7 [facility] Comment on above: Order Comment: No: D o not add to previous draw Performed By: #### 8 5499 #### [facility] [address] [place] [address], [place] PHOSPHORUS BLOODon Phosphate [Mass/Vol] 3.4 mg/dL Normal 2.5-5.0 [facility] Comment on above: Order Comment: No: D o not add to previous draw Performed By: #### 4 999, 67925, 63152 #### [facility] [address] [place] [address], [place] BASIC METABOLIC PANELon 07- Calcium [Mass/Vol] 8.6 mg/dL Normal 8.6-10.3 [facility] Comment on above: Order Comment: No: D o not add to previous draw Performed By: #### 1 69, 90167 #### [facility] [address] [place] [address], [place] Chloride [Moles/Vol] 106 mmol/L Normal 98-107 [facility] Comment on above: Order Comment: No: D o not add to previous draw Performed By: #### 1 69, 68437 #### [facility] [address] [place] [address], [place] CO2 [Moles/Vol] 27 mmol/L Normal 21-31 [facility] Comment on above: Order Comment: No: D o not add to previous draw Performed By: #### 1 69, 47202 #### [facility] [address] [place] [address], [place] Creatinine [Mass/Vol] 1.33 mg/dL High 0.70-1.30 [facility] Comment on above: Order Comment: No: D o not add to previous draw Performed By: #### 1 69, 34508 #### [facility] [address] [place] [address], [place] eGFR- non- 52 ml/min/1.73sq m Abnormal >60 [facility] Comment on above: Order Comment: No: D o not add to previous draw Result Comment: Calc ulation may not be valid for patients over 70 years Performed By: #### 1 69, 90777 #### [facility] [address] [place] [id number], [place] GFR/1.73 sq M.predicted among blacks MDRD (S/P/Bld) [Vol rate/Area] mL/min/{1.73_m2} Normal >60 [facility] Comment on above: Order Comment: No: D o not add to previous draw Result Comment: Calc ulation may not be valid for patients over 70 years Performed By: #### 1 69, 88172 #### [facility] [address] [place] [address], [place] Glucose [Mass/Vol] 166 mg/dL High 70-100 [facility] Comment on above: Order Comment: No: D o not add to previous draw Performed By: #### 1 69, 37678 #### [facility] [address] [place] [address], [place] Potassium [Moles/Vol] 3.8 mmol/L Normal 3.5-5.1 [facility] Comment on above: Order Comment: No: D o not add to previous draw Performed By: #### 1 69, 49896 #### [facility] [address] [place] [address], [place] Sodium [Moles/Vol] 140 mmol/L Normal 136-145 [facility] Comment on above: Order Comment: No: D o not add to previous draw Performed By: #### 1 69, 40447 #### [facility] [address] [place] [address], [place] Urea nitrogen [Mass/Vol] 29 mg/dL High 7-25 [facility] Comment on above: Order Comment: No: D o not add to previous draw Performed By: #### 1 69, 05194 #### [facility] [address] [place] [address], [place] CBC COMPLETE BLOOD COUNTon 0 - Erythrocyte distribution width (RBC) [Ratio] 13.0 % Normal 11.5-15.0 [facility] Comment on above: Order Comment: No: D o not add to previous draw Performed By: #### 8 5499 #### [facility] [address] [place] [address], [place] Hematocrit (Bld) [Volume fraction] 33.6 % Low 39.0-50.0 [facility] Comment on above: Order Comment: No: D o not add to previous draw Performed By: #### 8 5499 #### [facility] [address] [place] [address], [place] Hemoglobin (Bld) [Mass/Vol] 11.0 g/dL Low 13.0-17.0 [facility] Comment on above: Order Comment: No: D o not add to previous draw Performed By: #### 8 5499 #### [facility] [address] [place] [id number], [place] IMM PLATELET FRAC 9.8 % High 0.8-6.3 [facility] Comment on above: Order Comment: No: D o not add to previous draw Performed By: #### 8 5499 #### [facility] [address] [place] [address], [place] MCH (RBC) [Entitic mass] 31.1 pg Normal 27.0-33.0 [facility] Comment on above: Order Comment: No: D o not add to previous draw Performed By: #### 8 5499 #### [facility] [address] [place] [address], [place] MCHC (RBC) [Mass/Vol] 32.7 g/dL Normal 32.0-35.0 [facility] Comment on above: Order Comment: No: D o not add to previous draw Performed By: #### 8 5499 #### [facility] [address] [place] [address], [place] MCV (RBC) [Entitic vol] 94.9 fL Normal 82.0-98.0 [facility] Comment on above: Order Comment: No: D o not add to previous draw Performed By: #### 8 5499 #### [facility] [address] [place] [address], [place] Nucleated RBC/100 WBC (Bld) [Ratio] 0 % Normal 0-0 [facility] Comment on above: Order Comment: No: D o not add to previous draw Performed By: #### 8 5499 #### [facility] [address] [place] [id number], [place] PLAT CNT 82 10*3/uL Low 150-400 [facility] Comment on above: Order Comment: No: D o not add to previous draw Performed By: #### 8 5499 #### [facility] [address] [facility] [address], [place] RBC (Bld) [#/Vol] 3.54 10*6/uL Low 4.20-5.70 [facility] Comment on above: Order Comment: No: D o not add to previous draw Performed By: #### 8 5499 #### [facility] [address] [place] [address], [place] WBC (Bld) [#/Vol] 6.50 10*3/uL Normal 4.00-10.60 [facility] Comment on above: Order Comment: No: D o not add to previous draw Performed By: #### 8 5499 #### [facility] [address] [facility] [address], [place] MAGNESIUM BLOODon 10-15-2020 Magnesium [Mass/Vol] 2.1 mg/dL Normal 1.9-2.7 [facility] Comment on above: Order Comment: No: D o not add to previous draw Performed By: #### 1 0070, 42606 #### [facility] [address] [facility] [address], [place] PHOSPHORUS BLOODon Phosphate [Mass/Vol] 3.7 mg/dL Normal 2.5-5.0 [facility] Comment on above: Order Comment: No: D o not add to previous draw Performed By: #### 1 69, 56157 #### [facility] [address] [place] [address], [place] BASIC METABOLIC PANELon 07-0 Calcium [Mass/Vol] 8.8 mg/dL Normal 8.6-10.3 [facility] Comment on above: Order Comment: No: D o not add to previous draw Performed By: #### 1 69, 08775 #### [facility] [address] [place] [address], [place] Chloride [Moles/Vol] 105 mmol/L Normal 98-107 [facility] Comment on above: Order Comment: No: D o not add to previous draw Performed By: #### 1 69, 72924 #### [facility] [address] [place] [address], [place] CO2 [Moles/Vol] 26 mmol/L Normal 21-31 [facility] Comment on above: Order Comment: No: D o not add to previous draw Performed By: #### 1 69, 49514 #### [facility] [address] [place] [address], [place] Creatinine [Mass/Vol] 1.15 mg/dL Normal 0.70-1.30 [facility] Comment on above: Order Comment: No: D o not add to previous draw Performed By: #### 1 69, 73526 #### [facility] [address] [place] [id number], [place] GFR/1.73 sq M.predicted among blacks MDRD (S/P/Bld) [Vol rate/Area] mL/min/{1.73_m2} Normal >60 [facility] Comment on above: Order Comment: No: D o not add to previous draw Result Comment: Calc ulation may not be valid for patients over 70 years Performed By: #### 1 69, 66291 #### [facility] [address] [place] [address], [place] GFR/1.73 sq M.predicted among non-blacks MDRD (S/P/Bld) [Vol rate/Area] mL/min/{1.73_m2} Normal >60 [facility] Comment on above: Order Comment: No: D o not add to previous draw Result Comment: Calc ulation may not be valid for patients over 70 years Performed By: #### 1 69, 14318 #### [facility] [address] [place] [address], [place] Glucose [Mass/Vol] 144 mg/dL High 70-100 [facility] Comment on above: Order Comment: No: D o not add to previous draw Performed By: #### 1 69, 12848 #### [facility] [address] [place] [id number], [place] Potassium [Moles/Vol] 4.1 mmol/L Normal 3.5-5.1 [facility] Comment on above: Order Comment: No: D o not add to previous draw Performed By: #### 1 69, 18802 #### [facility] [address] [place] [id number], [place] Sodium [Moles/Vol] 139 mmol/L Normal 136-145 [facility] Comment on above: Order Comment: No: D o not add to previous draw Performed By: #### 1 69, 01091 #### [facility] [address] [place] [address], [place] Urea nitrogen [Mass/Vol] 17 mg/dL Normal 7-25 [facility] Comment on above: Order Comment: No: D o not add to previous draw Performed By: #### 1 69, 83613 #### [facility] [address] [place] [id number], [place] CBC W/DIFFon 10-13-2020 ABS IMM GRANS 0.0 10*3/uL Normal 0.0-0.2 [facility] Comment on above: Order Comment: No: D o not add to previous draw Performed By: #### 1 69, 93824 #### [facility] [address] [place] [id number], [place] ABS NEUTROPHILS 5.0 10*3/uL Normal 1.6-7.6 The [facility] Comment on above: Order Comment: No: D o not add to previous draw Performed By: #### 1 69, 32268 #### [facility] [address] [place] [id number], [place] Basophils (Bld) [#/Vol] 0.0 10*3/uL Normal 0.0-0.2 [facility] Comment on above: Order Comment: No: D o not add to previous draw Performed By: #### 1 69, #### [facility] [address] [place] [id number], [place] Basophils/100 WBC (Bld) 0.3 % Normal 0.0-1.0 [facility] Comment on above: Order Comment: No: D o not add to previous draw Performed By: #### 1 69, #### [facility] [address] [address], [place] Eosinophils (Bld) [#/Vol] 0.3 10*3/uL Normal 0.0-0.5 [facility] Comment on above: Order Comment: No: D o not add to previous draw Performed By: #### 1 69, 25745 #### [facility] [address] [place] [id number], [place] Eosinophils/100 WBC (Bld) 4.2 % Normal 0.0-6.0 [facility] Comment on above: Order Comment: No: D o not add to previous draw Performed By: #### 1 69, 31760 #### [facility] [address] [place] [id number], [place] Erythrocyte distribution width (RBC) [Ratio] 13.0 % Normal 11.5-15.0 [facility] Comment on above: Order Comment: No: D o not add to previous draw Performed By: #### 1 69, 88873 #### [facility] [address] [place] [address], [place] Hematocrit (Bld) [Volume fraction] 33.0 % Low 39.0-50.0 [facility] Comment on above: Order Comment: No: D o not add to previous draw Performed By: #### 1 69, 76449 #### [facility] [address] [place] [address], [place] Hemoglobin (Bld) [Mass/Vol] 11.0 g/dL Low 13.0-17.0 [facility] Comment on above: Order Comment: No: D o not add to previous draw Performed By: #### 1 69, 95761 #### [facility] [address] [place] [address], [place] IMM PLATELET FRAC 7.2 % High 0.8-6.3 [facility] Comment on above: Order Comment: No: D o not add to previous draw Performed By: #### 1 69, 10289 #### [facility] [address] [place] [address], [place] IMMATURE GRANS 0.3 % Normal 0.0-1.0 [facility] Comment on above: Order Comment: No: D o not add to previous draw Performed By: #### 1 69, 10449 #### [facility] [address] [place] [address], [place] Lymphocytes (Bld) [#/Vol] 1.4 10*3/uL Normal 1.2-4.0 [facility] Comment on above: Order Comment: No: D o not add to previous draw Performed By: #### 1 69, 52224 #### [facility] [address] [place] [address], [place] Lymphocytes/100 WBC (Bld) 18.3 % Low 20.0-45.0 [facility] Comment on above: Order Comment: No: D o not add to previous draw Performed By: #### 1 69, 85229 #### [facility] [address] [place] [address], [place] MCH (RBC) [Entitic mass] 31.3 pg Normal 27.0-33.0 [facility] Comment on above: Order Comment: No: D o not add to previous draw Performed By: #### 1 69, 17185 #### [facility] [address] MCHC (RBC) [Mass/Vol] 33.3 g/dL Normal 32.0-35.0 [facility] Comment on above: Order Comment: No: D o not add to previous draw Performed By: #### 1 69, 67318 #### [facility] [address] MCV (RBC) [Entitic vol] 94.0 fL Normal 82.0-98.0 [facility] Comment on above: Order Comment: No: D o not add to previous draw Performed By: #### 1 69, 99535 #### [facility] [address] Monocytes (Bld) [#/Vol] 0.7 10*3/uL Normal 0.1-1.0 [facility] Comment on above: Order Comment: No: D o not add to previous draw Performed By: #### 1 69, 65678 #### [facility] [address] [facility]. [address] MONOS 10.0 % Normal 5.0-12.0 [facility] Comment on above: Order Comment: No: D o not add to previous draw Performed By: #### 1 69, 04036 #### [facility] [address] Neutrophils/100 WBC (Bld) 66.9 % Normal 40.0-72.0 [facility] Comment on above: Order Comment: No: D o not add to previous draw Performed By: #### 1 69, 89550 #### [facility] [address] [place] [address], [place] Nucleated RBC/100 WBC (Bld) [Ratio] 0 % Normal 0-0 [facility] Comment on above: Order Comment: No: D o not add to previous draw Performed By: #### 1 69, 95685 #### [facility] [address] [place] [address], [place] PLAT CNT 95 10*3/uL Low 150-400 [facility] Comment on above: Order Comment: No: D o not add to previous draw Performed By: #### 1 69, 13712 #### [facility] [address] [place] [address], [place] RBC (Bld) [#/Vol] 3.51 10*6/uL Low 4.20-5.70 [facility] Comment on above: Order Comment: No: D o not add to previous draw Performed By: #### 1 69, 10237 #### [facility] [address] [address], [place] WBC (Bld) [#/Vol] 7.39 10*3/uL Normal 4.00-10.60 [facility] Comment on above: Order Comment: No: D o not add to previous draw Performed By: #### 1 69, 78225 #### [facility] [address] [place] [id number], [place] MAGNESIUM BLOODon 10-13-2020 Magnesium [Mass/Vol] 2.5 mg/dL Normal 1.9-2.7 [facility] Comment on above: Order Comment: No: D o not add to previous draw Performed By: #### 1 69, 46104 #### [facility] [address] [place] [address], [place] PHOSPHORUS BLOODon Phosphate [Mass/Vol] 2.6 mg/dL Normal 2.5-5.0 [facility] Comment on above: Order Comment: No: D o not add to previous draw Performed By: #### 1 69, 84270 #### [facility] [address] [place] [address], [place] CBC COMPLETE BLOOD COUNTon 0 10-12-2020 Erythrocyte distribution width (RBC) [Ratio] 13.0 % Normal 11.5-15.0 [facility] Comment on above: Order Comment: No: D o not add to previous draw Performed By: #### 1 69, 32473 #### [facility] [address] [place] [address], [place] Hematocrit (Bld) [Volume fraction] 32.4 % Low 39.0-50.0 [facility] Comment on above: Order Comment: No: D o not add to previous draw Performed By: #### 1 69, 44894 #### [facility] [address] [place] [address], [place] Hemoglobin (Bld) [Mass/Vol] 10.6 g/dL Low 13.0-17.0 [facility] Comment on above: Order Comment: No: D o not add to previous draw Performed By: #### 1 69, 08827 #### [facility] [address] [place] [address], [place] MCH (RBC) [Entitic mass] 31.3 pg Normal 27.0-33.0 [facility] Comment on above: Order Comment: No: D o not add to previous draw Performed By: #### 1 69, 85010 #### [facility] [address] [place] [address], [place] MCHC (RBC) [Mass/Vol] 32.7 g/dL Normal 32.0-35.0 [facility] Comment on above: Order Comment: No: D o not add to previous draw Performed By: #### 1 69, 14341 #### [facility] [address] [place] [address], [place] MCV (RBC) [Entitic vol] 95.6 fL Normal 82.0-98.0 [facility] Comment on above: Order Comment: No: D o not add to previous draw Performed By: #### 1 69, 28332 #### [facility] [address] [place] [address], [place] Nucleated RBC/100 WBC (Bld) [Ratio] 0 % Normal 0-0 [facility] Comment on above: Order Comment: No: D o not add to previous draw Performed By: #### 1 69, 89946 #### [facility] [address] [place] [address], [place] PLAT CNT 104 10*3/uL Low 150-400 [facility] Comment on above: Order Comment: No: D o not add to previous draw Performed By: #### 1 69, 77230 #### [facility] [address] [place] [address], [place] RBC (Bld) [#/Vol] 3.39 10*6/uL Low 4.20-5.70 [facility] Comment on above: Order Comment: No: D o not add to previous draw Performed By: #### 1 69, 30358 #### [facility] [address] [place] [id number], [place] WBC (Bld) [#/Vol] 8.55 10*3/uL Normal 4.00-10.60 [facility] Comment on above: Order Comment: No: D o not add to previous draw Performed By: #### 1 69, 94154 #### [facility] [address] [place] [id number], [place] COMP METABOLIC PANELon 10-12 Albumin [Mass/Vol] 3.5 g/dL Normal 3.5-5.7 [facility] Comment on above: Order Comment: No: D o not add to previous draw Performed By: #### 1 69, 62875 #### [facility] [address] [place] [address], [place] ALKALINE PHOSPH 61 IU/L Normal 34-104 [facility] Comment on above: Order Comment: No: D o not add to previous draw Performed By: #### 1 69, 14660 #### [facility] [address] [place] [address], [place] ALT [Catalytic activity/Vol] 9 U/L Normal 7-52 [facility] Comment on above: Order Comment: No: D o not add to previous draw Performed By: #### 1 69, 38985 #### [facility] [address] [place] [address], [place] AST [Catalytic activity/Vol] 12 U/L Low 13-39 [facility] Comment on above: Order Comment: No: D o not add to previous draw Performed By: #### 1 69, 84944 #### [facility] [address] [place] [address], [place] Bilirubin [Mass/Vol] 1.0 mg/dL Normal 0.3-1.0 [facility] Comment on above: Order Comment: No: D o not add to previous draw Performed By: #### 1 69, 19288 #### [facility] [address] [place] [address], [place] Calcium [Mass/Vol] 8.6 mg/dL Normal 8.6-10.3 [facility] Comment on above: Order Comment: No: D o not add to previous draw Performed By: #### 1 69, 31247 #### [facility] [address] [place] [address], [place] Chloride [Moles/Vol] 106 mmol/L Normal 98-107 [facility] Comment on above: Order Comment: No: D o not add to previous draw Performed By: #### 1 0, 62455 #### [facility] [address] [place] [address], [place] CO2 [Moles/Vol] 26 mmol/L Normal 21-31 [facility] Comment on above: Order Comment: No: D o not add to previous draw Performed By: #### 1 0, 65191 #### [facility] [address] [place] [address], [place] Creatinine [Mass/Vol] 1.19 mg/dL Normal 0.70-1.30 [facility] Comment on above: Order Comment: No: D o not add to previous draw Performed By: #### 1 69, 84359 #### [facility] [address] [place] [address], [place] eGFR- non- 59 ml/min/1.73sq m Abnormal >60 [facility] Comment on above: Order Comment: No: D o not add to previous draw Result Comment: Calc ulation may not be valid for patients over 70 years Performed By: #### 1 69, 31567 #### [facility] [address] [place] [address], [place] GFR/1.73 sq M.predicted among blacks MDRD (S/P/Bld) [Vol rate/Area] mL/min/{1.73_m2} Normal >60 [facility] Comment on above: Order Comment: No: D o not add to previous draw Result Comment: Calc ulation may not be valid for patients over 70 years Performed By: #### 1 0, 99824 #### [facility] [address] [place] [address], [place] Glucose [Mass/Vol] 157 mg/dL High 70-100 [facility] Comment on above: Order Comment: No: D o not add to previous draw Performed By: #### 1 69, 16117 #### [facility] [address] [place] [address], [place] Potassium [Moles/Vol] 3.8 mmol/L Normal 3.5-5.1 [facility] Comment on above: Order Comment: No: D o not add to previous draw Performed By: #### 1 69, 41004 #### [facility] [address] [place] [address], [place] Protein [Mass/Vol] 5.9 g/dL Low 6.0-8.3 [facility] Comment on above: Order Comment: No: D o not add to previous draw Performed By: #### 1 69, 56536 #### [facility] [address] [place] [address], [place] Sodium [Moles/Vol] 140 mmol/L Normal 136-145 [facility] Comment on above: Order Comment: No: D o not add to previous draw Performed By: #### 1 69, 28928 #### [facility] [address] [place] [address], [place] Urea nitrogen [Mass/Vol] 19 mg/dL Normal 7-25 [facility] Comment on above: Order Comment: No: D o not add to previous draw Performed By: #### 1 69, 28312 #### [facility] [address] [place] [address], [place] MAGNESIUM BLOODon 10-12-2020 Magnesium [Mass/Vol] 2.1 mg/dL Normal 1.9-2.7 [facility] Comment on above: Order Comment: No: D o not add to previous draw Performed By: #### 1 69, 99401 #### [facility] [address] [place] [address], [place] Operative Reporton 1 Operative Report MR#: [id number] [facility] Pt. Name: Radha Brown Room #: CINDY [id number] Discharge Date: Birthdate: 1940 OPERATIVE REPORT DATE [...] artery after infiltrating 0.25% Marcaine locally. A 6-[place] sheath was entered through the left radial artery and an 8-[place] sheath was introduced in right femoral artery. Through the radial artery, a pigtail catheter was inserted into the ascending aorta and root angiogram was performed. Through the right femoral artery, a Lunderquist wire was inserted through the pigtail catheter. The patient was heparinized and the sheath was upsized over the Lunderquist wire to a 16-[place]izen [place] German sheath. Through the sheath, a GR [...] Cody Castaneda MD Date Dict: 10/11/2020/03:11 P/Cody aCstaneda MD Date Trans: 10/12/2020 12:21 A/mmo [id number] cc: Maribel Hogan M.D. [address], [facility] [phone] Normal [facility] CBC COMPLETE BLOOD COUNTon 0 10-11-2020 Erythrocyte distribution width (RBC) [Ratio] 13.1 % Normal 11.5-15.0 [facility] Comment on above: Performed By: #### 1 007, 09782 #### [facility] [address] Hematocrit (Bld) [Volume fraction] 37.7 % Low 39.0-50.0 [facility] Comment on above: Performed By: #### 1 69, 40794 #### [facility] [address] [facility]. [address] Hemoglobin (Bld) [Mass/Vol] 12.3 g/dL Low 13.0-17.0 [facility] Comment on above: Performed By: #### 1 0, 49491 #### [facility] [address] [place] [address], [place] MCH (RBC) [Entitic mass] 31.0 pg Normal 27.0-33.0 [facility] Comment on above: Performed By: #### 1 0, 96521 #### [facility] [address] [place] [address], [place] MCHC (RBC) [Mass/Vol] 32.6 g/dL Normal 32.0-35.0 [facility] Comment on above: Performed By: #### 1 69, 07607 #### [facility] [address] [place] [address], [place] MCV (RBC) [Entitic vol] 95.0 fL Normal 82.0-98.0 [facility] Comment on above: Performed By: #### 1 69, 02336 #### [facility] [address] [place] [address], [place] Nucleated RBC/100 WBC (Bld) [Ratio] 0 % Normal 0-0 [facility] Comment on above: Performed By: #### 1 69, 74373 #### [facility] [address] [place] [address], [place] PLAT CNT 132 10*3/uL Low 150-400 [facility] Comment on above: Performed By: #### 1 69, 15370 #### [facility] [address] [facility] [address], [place] RBC (Bld) [#/Vol] 3.97 10*6/uL Low 4.20-5.70 [facility] Comment on above: Performed By: #### 1 69, 69236 #### [facility] [address] [facility] [address], [place] WBC (Bld) [#/Vol] 7.96 10*3/uL Normal 4.00-10.60 [facility] Comment on above: Performed By: #### 1 69, 39973 #### [facility] [address] [place] [address], [place] Cardiovascular Lab Reporton 10-11-2020 Cardiovascular Lab Report [facility] Patient Name: Radha Brown MR #: [id number] [facility] Physician: Georges Purvis M.D. Department of Service Date: 10/11/2020 Medicine Birthdate: 1940 Division of Room #: 3AB [id number] Cardiology Adult Cardiovascular Services [facility] [address] [facility] [place] [address] Cardiovascular Laboratory Report INDICATION: The patient is [...] the right common femoral artery using two 6-[place] ProGlide devices. INTERVENTIONAL CARDIOLOGY PICCOLOIST: Georges Purvis M.D. CARDIAC SURGERY PICCOLOIST: Cody Castaneda MD. METHODS: Procedure was explained to the patient with risks and benefits. He signed informed consent. He was brought to laboratory analyst in a fasting state. The left wrist area was prepped and draped in usual fashion. Using micropuncture technique and ultrasound guidance, access was obtained in the left radial artery and a 6-[place] x 11 cm Hydrophilic sheath was advanced. Verapamil was given through the sheath. The right neck area was prepped and draped in usual fashion. Using ultrasound guidance and micropuncture technique, the right internal jugular vein was accessed and a 6-[place] x 11 cm introducer sheath was secured in place. Using micropuncture technique and ultrasound guidance, access was obtained in the right common femoral artery. Inner cannula angiography confirmed access at a good location, this was upsized to a 6-[place] x 11 cm sheath. Initial heparin 2000 units were administered intravenously. Note that the procedure was performed under conscious sedation in the cardiac laboratory analyst. Preclosure was performed in the right common femoral artery using 2 crossing 6-[place] ProGlide devices and the access was upsized to a 10-[place] x 11 cm sheath. Full heparinization was given and therapeutic ACT confirmed during the rest of the procedure. A 6-[place] angled pigtail catheter was advanced over a Avendano wire from the left radial artery into the ascending aorta and aortic root angiography was performed in the coplanar view. A 5-[place]izen [place] balloon tipped temporary pacemaker wire was advanced through the internal jugular vein access and into the right ventricular cavity and positioned across the apical right ventricular septum was confirmed by fluoroscopy in different views. Adequate capture was confirmed with threshold of about 1 milliamps. Pacing was then put as backup at 20 milliamps. A 6-[place] multipurpose catheter was advanced over a J-tipped wire to the descending aorta and used to place a Lunderquist wire over which the right common femoral access was upsized serially to the 16-[place]izen [place] German eSheath, which was secured in place. The aortic valve was then crossed initially using an AL1 diagnostic catheter and a straight Glidewire, however, due to the height of the patient, the AL1 catheter could not reach into the ventricular cavity. Therefore, we exchanged it to a 125 cm 6-[place] JR4 guiding catheter, which was able to [...] was (more content not included)... Normal [facility] TYPE AND SCREENon 10-11-2020 ABO INTERPRETATION A Normal [facility] Comment on above: Performed By: #### 8 5499 #### [facility] [address] [place] [address], [place] RH INTERPRETATION Positive Normal [facility] Comment on above: Performed By: #### 8 5499 #### [address] [place] [address], [place] CTA ABDOMEN AND PELVISon CTA ABDOMEN AND PELVIS [facility] Department of Radiology [address] [place] [phone] Patient Name: RADHA BROWN : 1940 Sex: M Age: Race: White Pt. Location: Patient Status: D Ordered Date: 08/26/2020 12:30:00 PM Completed Date: 09/13/2020 03:02 PM Requesting Provider: ASHLEY CRAIG Attending Provider: ASHLEY CRAIG Report Copy To: MARIBEL HOGAN Signs & Symptoms: I35.0 Nonrheumatic aortic (valve) stenosis I10 History: [place] Please call Ashley [phone] Auth via [employer] for CPT 04149 Auth#[id number] Valid 08/30/20-02/26/21 Med Nec-Passed 08/29 *SLA Comments: [...] achievable Electronically signed: Mika Hebert. Transcribed by: [email or web address], User Resident: Electronically Signed by: MIKA HEBERT @ 09/19/2020 09:30 AM Normal [facility] Comment on above: Order Comment: No: D o not add to previous draw CTA CHESTon 09-13-2020 CTA CHEST [facility] Department of Radiology [address] [place] [phone] Patient Name: RADHA BROWN : 1940 Sex: M Age: Race: White Pt. Location: Patient Status: D Ordered Date: 08/26/2020 12:30:00 PM Completed Date: 09/13/2020 03:02 PM Requesting Provider: ASHLEY CRAIG Attending Provider: ASHLEY CRAIG Report Copy To: MARIBEL HOGAN Signs & Symptoms: I35.0 Nonrheumatic aortic (valve) stenosis I10 History: [place] Please call Ashley [phone] PC Auth via [employer] for CPT 51408 Auth#[id number] Valid 08/30/20-02/26/21 Med Nec-Passed 08/29 *SLA Comments: [...] 3 Cusped view, anterior view and no CLIPPER COUNTERS CAU view were also obtained in 3-D [...] E (more content not included)... Normal [facility] Comment on above: Order Comment: EKG g ated-TAVR protocol BASIC METABOLIC PANELon 05-0 Calcium [Mass/Vol] 8.6 mg/dL Normal 8.6-10.3 [facility] Comment on above: Order Comment: No: D o not add to previous draw Performed By: #### 8 5499 #### [facility] [address] [place] [address], [place] Chloride [Moles/Vol] 107 mmol/L Normal 98-107 [facility] Comment on above: Order Comment: No: D o not add to previous draw Performed By: #### 8 5499 #### [facility] [address] [place] [address], [place] CO2 [Moles/Vol] 31 mmol/L Normal 21-31 [facility] Comment on above: Order Comment: No: D o not add to previous draw Performed By: #### 8 5499 #### [facility] [address] [place] [address], [place] Creatinine [Mass/Vol] 1.36 mg/dL High 0.70-1.30 [facility] Comment on above: Order Comment: No: D o not add to previous draw Performed By: #### 8 5499 #### [facility] [address] [place] [address], [place] eGFR- non- 50 ml/min/1.73sq m Abnormal >60 [facility] Comment on above: Order Comment: No: D o not add to previous draw Result Comment: Calc ulation may not be valid for patients over 70 years Performed By: #### 8 5499 #### [facility] [facility] [address] [place] [address], [place] GFR/1.73 sq M.predicted among blacks MDRD (S/P/Bld) [Vol rate/Area] mL/min/{1.73_m2} Normal >60 [facility] Comment on above: Order Comment: No: D o not add to previous draw Result Comment: Calc ulation may not be valid for patients over 70 years Performed By: #### 8 [id number] #### [facility] [address] [place] [address], [place] Glucose [Mass/Vol] 129 mg/dL High 70-100 [facility] Comment on above: Order Comment: No: D o not add to previous draw Performed By: #### 8 5499 #### [facility] [address] [place] [address], [place] Potassium [Moles/Vol] 3.7 mmol/L Normal 3.5-5.1 [facility] Comment on above: Order Comment: No: D o not add to previous draw Performed By: #### 8 5499 #### [facility] [address] [place] [address], [place] Sodium [Moles/Vol] 143 mmol/L Normal 136-145 [facility] Comment on above: Order Comment: No: D o not add to previous draw Performed By: #### 8 5499 #### [facility] [address] [place] [address], [place] Urea nitrogen [Mass/Vol] 44 mg/dL High 7-25 [facility] Comment on above: Order Comment: No: D o not add to previous draw Performed By: #### 8 5499 #### [facility] [address] [place] [address], [place] CBC COMPLETE BLOOD COUNTon - Erythrocyte distribution width (RBC) [Ratio] 13.2 % Normal 11.5-15.0 [facility] Comment on above: Order Comment: No: D o not add to previous draw Performed By: #### 8 5499 #### [facility] [address] [place] [id number], [place] Hematocrit (Bld) [Volume fraction] 36.5 % Low 39.0-50.0 [facility] Comment on above: Order Comment: No: D o not add to previous draw Performed By: #### 8 5499 #### [facility] [address] [place] [address], [place] Hemoglobin (Bld) [Mass/Vol] 11.8 g/dL Low 13.0-17.0 [facility] Comment on above: Order Comment: No: D o not add to previous draw Performed By: #### 8 5499 #### [facility] [address] [place] [address], [place] MCH (RBC) [Entitic mass] 31.2 pg Normal 27.0-33.0 [facility] Comment on above: Order Comment: No: D o not add to previous draw Performed By: #### 8 5499 #### [facility] [address] [place] [address], [place] MCHC (RBC) [Mass/Vol] 32.3 g/dL Normal 32.0-35.0 [facility] Comment on above: Order Comment: No: D o not add to previous draw Performed By: #### 8 5499 #### [facility] [address] [place] [address], [place] MCV (RBC) [Entitic vol] 96.6 fL Normal 82.0-98.0 [facility] Comment on above: Order Comment: No: D o not add to previous draw Performed By: #### 8 5499 #### [facility] [address] [place] [address], [place] Nucleated RBC/100 WBC (Bld) [Ratio] 0 % Normal 0-0 [facility] Comment on above: Order Comment: No: D o not add to previous draw Performed By: #### 8 5499 #### [facility] [address] [address], [place] PLAT CNT 114 10*3/uL Low 150-400 [facility] Comment on above: Order Comment: No: D o not add to previous draw Performed By: #### 8 5499 #### [facility] [address] [facility] [address], [place] RBC (Bld) [#/Vol] 3.78 10*6/uL Low 4.20-5.70 [facility] Comment on above: Order Comment: No: D o not add to previous draw Performed By: #### 8 5499 #### [facility] [address] [facility] [address], [place] WBC (Bld) [#/Vol] 7.88 10*3/uL Normal 4.00-10.60 [facility] Comment on above: Order Comment: No: D o not add to previous draw Performed By: #### 8 5499 #### [facility] [address] [facility] [address], [place] MAGNESIUM BLOODon 08-14-2020 Magnesium [Mass/Vol] 2.4 mg/dL Normal 1.9-2.7 [facility] Comment on above: Order Comment: No: D o not add to previous draw Performed By: #### 8 5499 #### [facility] [address] [place] [address], [place] POC GLUCOSE LABon 08-14-2020 Glucose [Mass/Vol] 175 mg/dL High 70-100 [facility] Comment on above: Performed By: #### 0 0071, 58257, 88215 #### [facility] [address] [place] [address], [place] BASIC METABOLIC PANELon Calcium [Mass/Vol] 8.7 mg/dL Normal 8.6-10.3 [facility] Comment on above: Order Comment: No: D o not add to previous draw Performed By: #### 0 0071, 12102, 79670 #### [facility] [address] [place] [address], [place] Chloride [Moles/Vol] 107 mmol/L Normal 98-107 [facility] Comment on above: Order Comment: No: D o not add to previous draw Performed By: #### 0 0071, 29363, 13387 #### [facility] [address] [place] [address], [place] CO2 [Moles/Vol] 30 mmol/L Normal 21-31 [facility] Comment on above: Order Comment: No: D o not add to previous draw Performed By: #### 0 0071, 53310, 54358 #### [facility] [address] [place] [address], [place] Creatinine [Mass/Vol] 1.49 mg/dL High 0.70-1.30 [facility] Comment on above: Order Comment: No: D o not add to previous draw Performed By: #### 0 0071, 77927, 78182 #### [facility] [address] [place] [address], [place] eGFR- 55 ml/min/1.73sq m Abnormal >60 [facility] Comment on above: Order Comment: No: D o not add to previous draw Result Comment: Calc ulation may not be valid for patients over 70 years Performed By: #### 0 0071, 77127, 40049 #### [facility] [address] [place] [address], [place] eGFR- non- 45 ml/min/1.73sq m Abnormal >60 [facility] Comment on above: Order Comment: No: D o not add to previous draw Result Comment: Calc ulation may not be valid for patients over 70 years Performed By: #### 0 0071, 56573, 85253 #### [facility] [address] [place] [address], [place] Glucose [Mass/Vol] 136 mg/dL High 70-100 [facility] Comment on above: Order Comment: No: D o not add to previous draw Performed By: #### 0 0071, 13923, 15692 #### [facility] [address] [place] [address], [place] Potassium [Moles/Vol] 3.9 mmol/L Normal 3.5-5.1 [facility] Comment on above: Order Comment: No: D o not add to previous draw Performed By: #### 0 0071, 92615, 79688 #### [facility] [address] [place] [address], [place] Sodium [Moles/Vol] 145 mmol/L Normal 136-145 [facility] Comment on above: Order Comment: No: D o not add to previous draw Performed By: #### 0 0071, 88611, 86868 #### [facility] [address] [place] [address], [place] Urea nitrogen [Mass/Vol] 55 mg/dL High 7-25 [facility] Comment on above: Order Comment: No: D o not add to previous draw Performed By: #### 0 0071, 88929, 10425 #### [facility] [address] CBC COMPLETE BLOOD COUNTon 0 08-13-2020 Erythrocyte distribution width (RBC) [Ratio] 13.5 % Normal 11.5-15.0 [facility] Comment on above: Order Comment: No: D o not add to previous draw Performed By: #### 1 69, 68772 #### [facility] [address] [address], [place] Hematocrit (Bld) [Volume fraction] 35.8 % Low 39.0-50.0 [facility] Comment on above: Order Comment: No: D o not add to previous draw Performed By: #### 1 69, 02581 #### [facility] [address] [place] [address], [place] Hemoglobin (Bld) [Mass/Vol] 11.4 g/dL Low 13.0-17.0 [facility] Comment on above: Order Comment: No: D o not add to previous draw Performed By: #### 1 69, 88842 #### [facility] [address] [place] [address], [place] MCH (RBC) [Entitic mass] 31.2 pg Normal 27.0-33.0 [facility] Comment on above: Order Comment: No: D o not add to previous draw Performed By: #### 1 69, 93178 #### [facility] [address] [place] [address], [place] MCHC (RBC) [Mass/Vol] 31.8 g/dL Low 32.0-35.0 [facility] Comment on above: Order Comment: No: D o not add to previous draw Performed By: #### 1 69, 20095 #### [facility] [address] [place] [address], [place] MCV (RBC) [Entitic vol] 98.1 fL High 82.0-98.0 [facility] Comment on above: Order Comment: No: D o not add to previous draw Performed By: #### 1 0, 18097 #### [facility] [address] [place] [address], [place] Nucleated RBC/100 WBC (Bld) [Ratio] 0 % Normal 0-0 [facility] Comment on above: Order Comment: No: D o not add to previous draw Performed By: #### 1 69, 70677 #### [facility] [address] [place] [address], [place] PLAT CNT 111 10*3/uL Low 150-400 [facility] Comment on above: Order Comment: No: D o not add to previous draw Performed By: #### 1 69, 62733 #### [facility] [address] [place] [address], [place] RBC (Bld) [#/Vol] 3.65 10*6/uL Low 4.20-5.70 [facility] Comment on above: Order Comment: No: D o not add to previous draw Performed By: #### 1 69, 65342 #### [facility] [address] [facility] [address], [place] WBC (Bld) [#/Vol] 7.40 10*3/uL Normal 4.00-10.60 [facility] Comment on above: Order Comment: No: D o not add to previous draw Performed By: #### 1 69, 35873 #### [facility] [address] [place] [address], [place] MAGNESIUM BLOODon 08-13-2020 Magnesium [Mass/Vol] 2.4 mg/dL Normal 1.9-2.7 [facility] Comment on above: Order Comment: No: D o not add to previous draw Performed By: #### 0 0071, 19537, 81085 #### [facility] [address] [place] [address], [place] PHOSPHORUS BLOODon Phosphate [Mass/Vol] 3.7 mg/dL Normal 2.5-5.0 [facility] Comment on above: Order Comment: No: D o not add to previous draw Performed By: #### 0 0071, 70166, 64536 #### [facility] [address] [place] [address], [place] POC GLUCOSE LABon 08-13-2020 Glucose [Mass/Vol] 186 mg/dL High 70-100 [facility] Comment on above: Performed By: #### 0 0071, 73377, 86156 #### [facility] [address] [place] [address], [place] Glucose [Mass/Vol] 159 mg/dL High 70-100 [facility] Comment on above: Performed By: #### 8 5499 #### [facility] [address] [place] [address], [place] Glucose [Mass/Vol] 172 mg/dL High 70-100 [facility] Comment on above: Performed By: #### 8 5499 #### [facility] [address] [place] [address], [place] Glucose [Mass/Vol] 136 mg/dL High 70-100 [facility] Comment on above: Performed By: #### 8 5499 #### [facility] [address] [place] [address], [place] Glucose [Mass/Vol] 153 mg/dL High 70-100 [facility] Comment on above: Performed By: #### 8 5499 #### [facility] [address] [place] [address], [place] BASIC METABOLIC PANELon Calcium [Mass/Vol] 8.9 mg/dL Normal 8.6-10.3 [facility] Comment on above: Order Comment: No: D o not add to previous draw Performed By: #### 1 0070, 08396 #### [facility] [address] [place] [address], [place] Chloride [Moles/Vol] 104 mmol/L Normal 98-107 [facility] Comment on above: Order Comment: No: D o not add to previous draw Performed By: #### 1 69, 10453 #### [facility] [address] [place] [address], [place] CO2 [Moles/Vol] 31 mmol/L Normal 21-31 [facility] Comment on above: Order Comment: No: D o not add to previous draw Performed By: #### 1 69, 48366 #### [facility] [address] [place] [address], [place] Creatinine [Mass/Vol] 1.73 mg/dL High 0.70-1.30 [facility] Comment on above: Order Comment: No: D o not add to previous draw Performed By: #### 1 69, 09378 #### [facility] [address] [place] [address], [place] eGFR- 46 ml/min/1.73sq m Abnormal >60 [facility] Comment on above: Order Comment: No: D o not add to previous draw Result Comment: Calc ulation may not be valid for patients over 70 years Performed By: #### 1 69, 41740 #### [facility] [address] [place] [address], [place] eGFR- non- 38 ml/min/1.73sq m Abnormal >60 [facility] Comment on above: Order Comment: No: D o not add to previous draw Result Comment: Calc ulation may not be valid for patients over 70 years Performed By: #### 1 69, 04739 #### [facility] [address] [place] [address], [place] Glucose [Mass/Vol] 168 mg/dL High 70-100 [facility] Comment on above: Order Comment: No: D o not add to previous draw Performed By: #### 1 69, 83581 #### [facility] [address] [place] [address], [place] Potassium [Moles/Vol] 3.8 mmol/L Normal 3.5-5.1 [facility] Comment on above: Order Comment: No: D o not add to previous draw Performed By: #### 1 69, 95725 #### [facility] [address] [place] [address], [place] Sodium [Moles/Vol] 145 mmol/L Normal 136-145 [facility] Comment on above: Order Comment: No: D o not add to previous draw Performed By: #### 1 69, 65203 #### [facility] [address] [place] [address], [place] Urea nitrogen [Mass/Vol] 51 mg/dL High 7-25 [facility] Comment on above: Order Comment: No: D o not add to previous draw Performed By: #### 1 69, 64108 #### [facility] [address] [place] [address], [place] CBC COMPLETE BLOOD COUNTon - Erythrocyte distribution width (RBC) [Ratio] 13.6 % Normal 11.5-15.0 [facility] Comment on above: Order Comment: No: D o not add to previous draw Performed By: #### 1 69, 88659 #### [facility] [address] [place] [address], [place] Hematocrit (Bld) [Volume fraction] 36.9 % Low 39.0-50.0 [facility] Comment on above: Order Comment: No: D o not add to previous draw Performed By: #### 1 69, 89315 #### [facility] [address] [place] [address], [place] Hemoglobin (Bld) [Mass/Vol] 12.1 g/dL Low 13.0-17.0 [facility] Comment on above: Order Comment: No: D o not add to previous draw Performed By: #### 1 69, 88369 #### [facility] [address] [facility] [address], [place] MCH (RBC) [Entitic mass] 31.9 pg Normal 27.0-33.0 [facility] Comment on above: Order Comment: No: D o not add to previous draw Performed By: #### 1 69, 38538 #### [facility] [address] [place] [address], [place] MCHC (RBC) [Mass/Vol] 32.8 g/dL Normal 32.0-35.0 [facility] Comment on above: Order Comment: No: D o not add to previous draw Performed By: #### 1 69, 85013 #### [facility] [address] [place] [address], [place] MCV (RBC) [Entitic vol] 97.4 fL Normal 82.0-98.0 [facility] Comment on above: Order Comment: No: D o not add to previous draw Performed By: #### 1 69, 98889 #### [facility] [address] [place] [address], [place] Nucleated RBC/100 WBC (Bld) [Ratio] 0 % Normal 0-0 [facility] Comment on above: Order Comment: No: D o not add to previous draw Performed By: #### 1 69, 20543 #### [facility] [address] [facility] [address], [place] PLAT CNT 115 10*3/uL Low 150-400 [facility] Comment on above: Order Comment: No: D o not add to previous draw Performed By: #### 1 69, 04681 #### [facility] [address] [place] [address], [place] RBC (Bld) [#/Vol] 3.79 10*6/uL Low 4.20-5.70 [facility] Comment on above: Order Comment: No: D o not add to previous draw Performed By: #### 1 0, 97957 #### [facility] [address] [place] [address], [place] WBC (Bld) [#/Vol] 8.71 10*3/uL Normal 4.00-10.60 [facility] Comment on above: Order Comment: No: D o not add to previous draw Performed By: #### 1 0, 43464 #### [facility] [address] [place] [address], [place] MAGNESIUM BLOODon 08-12-2020 Magnesium [Mass/Vol] 2.4 mg/dL Normal 1.9-2.7 [facility] Comment on above: Order Comment: No: D o not add to previous draw Performed By: #### 1 0, 49148 #### [facility] [address] [place] [address], [place] POC GLUCOSE LABon 08-12-2020 Glucose [Mass/Vol] 136 mg/dL High 70-100 [facility] Comment on above: Performed By: #### 0 0071, 58931, 64304 #### [facility] [address] [place] [address], [place] Glucose [Mass/Vol] 180 mg/dL High 70-100 [facility] Comment on above: Performed By: #### 0 0071, 26894, 57036 #### [facility] [address] [place] [address], [place] Glucose [Mass/Vol] 156 mg/dL High 70-100 [facility] Comment on above: Performed By: #### 8 5499 #### [facility] [address] [place] [address], [place] BASIC METABOLIC PANELon Calcium [Mass/Vol] 9.4 mg/dL Normal 8.6-10.3 [facility] Comment on above: Order Comment: No: D o not add to previous draw Performed By: #### 1 69, 38405 #### [facility] [address] [place] [address], [place] Chloride [Moles/Vol] 101 mmol/L Normal 98-107 [facility] Comment on above: Order Comment: No: D o not add to previous draw Performed By: #### 1 69, 80662 #### [facility] [address] [place] [address], [place] CO2 [Moles/Vol] 29 mmol/L Normal 21-31 [facility] Comment on above: Order Comment: No: D o not add to previous draw Performed By: #### 1 69, 56029 #### [facility] [address] [place] [address], [place] Creatinine [Mass/Vol] 1.63 mg/dL High 0.70-1.30 [facility] Comment on above: Order Comment: No: D o not add to previous draw Performed By: #### 1 69, 51749 #### [facility] [address] [place] [id number], [place] eGFR- 49 ml/min/1.73sq m Abnormal >60 [facility] Comment on above: Order Comment: No: D o not add to previous draw Result Comment: Calc ulation may not be valid for patients over 70 years Performed By: #### 1 69, 22634 #### [facility] [address] [place] [address], [place] eGFR- non- 41 ml/min/1.73sq m Abnormal >60 [facility] Comment on above: Order Comment: No: D o not add to previous draw Result Comment: Calc ulation may not be valid for patients over 70 years Performed By: #### 1 69, 74602 #### [facility] [address] [place] [address], [place] Glucose [Mass/Vol] 198 mg/dL High 70-100 [facility] Comment on above: Order Comment: No: D o not add to previous draw Performed By: #### 1 69, 32167 #### [facility] [address] [place] [address], [place] Potassium [Moles/Vol] 4.0 mmol/L Normal 3.5-5.1 [facility] Comment on above: Order Comment: No: D o not add to previous draw Performed By: #### 1 69, #### [facility] [address] [place] [address], [place] Sodium [Moles/Vol] 144 mmol/L Normal 136-145 [facility] Comment on above: Order Comment: No: D o not add to previous draw Performed By: #### 1 69, 00913 #### [facility] [address] [place] [address], [place] Urea nitrogen [Mass/Vol] 38 mg/dL High 7-25 [facility] Comment on above: Order Comment: No: D o not add to previous draw Performed By: #### 1 69, #### [facility] [address] [place] [address], [place] CBC COMPLETE BLOOD COUNTon - Erythrocyte distribution width (RBC) [Ratio] 13.7 % Normal 11.5-15.0 [facility] Comment on above: Order Comment: No: D o not add to previous draw Performed By: #### 1 69, 11110 #### [facility] [address] [place] [address], [place] Hematocrit (Bld) [Volume fraction] 40.0 % Normal 39.0-50.0 [facility] Comment on above: Order Comment: No: D o not add to previous draw Performed By: #### 1 69, 28933 #### [facility] [address] [place] [id number], [place] Hemoglobin (Bld) [Mass/Vol] 13.1 g/dL Normal 13.0-17.0 [facility] Comment on above: Order Comment: No: D o not add to previous draw Performed By: #### 1 69, 40947 #### [facility] [address] [place] [address], [place] IMM PLATELET FRAC 8.4 % High 0.8-6.3 [facility] Comment on above: Order Comment: No: D o not add to previous draw Performed By: #### 1 69, 10548 #### [facility] [address] [place] [address], [place] MCH (RBC) [Entitic mass] 31.3 pg Normal 27.0-33.0 [facility] Comment on above: Order Comment: No: D o not add to previous draw Performed By: #### 1 69, 59392 #### [facility] [address] [place] [address], [place] MCHC (RBC) [Mass/Vol] 32.8 g/dL Normal 32.0-35.0 [facility] Comment on above: Order Comment: No: D o not add to previous draw Performed By: #### 1 69, 93249 #### [facility] [address] [facility] [address], [place] MCV (RBC) [Entitic vol] 95.7 fL Normal 82.0-98.0 [facility] Comment on above: Order Comment: No: D o not add to previous draw Performed By: #### 1 69, 68082 #### [facility] [address] [place] [address], [place] Nucleated RBC/100 WBC (Bld) [Ratio] 0 % Normal 0-0 [facility] Comment on above: Order Comment: No: D o not add to previous draw Performed By: #### 1 0, 73708 #### [facility] [address] [place] [address], [place] PLAT CNT 128 10*3/uL Low 150-400 [facility] Comment on above: Order Comment: No: D o not add to previous draw Performed By: #### 1 0070, 48434 #### [facility] [address] [place] [address], [place] RBC (Bld) [#/Vol] 4.18 10*6/uL Low 4.20-5.70 [facility] Comment on above: Order Comment: No: D o not add to previous draw Performed By: #### 1 0070, 30938 #### [facility] [address] [place] [address], [place] WBC (Bld) [#/Vol] 10.82 10*3/uL High 4.00-10.60 [facility] Comment on above: Order Comment: No: D o not add to previous draw Performed By: #### 1 0, 98796 #### [facility] [address] ABDOMEN AND PELVIS WO CON TRASTon 08-11-2020 CT ABDOMEN AND PELVIS WO CONTRAST [facility] Department of Radiology [address] [place] [id number] Patient Name: RADHA BROWN : 1940 Sex: M Age: Race: White Pt. Location: [id number] Patient Status: I Ordered Date: 08/11/2020 10:45:00 [...] achievable Electronically signed: Radha Walter. Transcribed by: [email or web address], User Resident: Electronically Signed by: RADHA WALTER @ 08/11/2020 02:18 PM Normal [facility] Comment on above: Order Comment: No: D o not add to previous draw MAGNESIUM BLOODon 08-11-2020 Magnesium [Mass/Vol] 2.2 mg/dL Normal 1.9-2.7 [facility] Comment on above: Order Comment: No: D o not add to previous draw Performed By: #### 1 0070, 71665 #### [facility] [address] [facility] [address], [place] POC GLUCOSE LABon 08-11-2020 Glucose [Mass/Vol] 155 mg/dL High 70-100 [facility] Comment on above: Performed By: #### 8 5499 #### [facility] [address] [place] [address], [place] Glucose [Mass/Vol] 161 mg/dL High 70-100 [facility] Comment on above: Performed By: #### 0 0071, 04263, 67982 #### [facility] [address] [place] [address], [place] Glucose [Mass/Vol] 206 mg/dL High 70-100 [facility] Comment on above: Performed By: #### 0 0071, [id number], [id number] #### [facility] [address] [place] [address], [place] Glucose [Mass/Vol] 172 mg/dL High 70-100 [facility] Comment on above: Performed By: #### 8 5499 #### [facility] [address] [place] [address], [place] PORTABLE CHEST 1 VIEWon PORTABLE CHEST 1 VIEW [facility] Department of Radiology [address] [place] [phone] Patient Name: RADHA BROWN : 1940 Sex: M Age: Race: White Pt. Location: [id number] Patient Status: I Ordered Date: 08/11/2020 11:10:00 [...] base. Electronically signed: Radha Walter. Transcribed by: [email or web address], User Resident: Electronically Signed by: RADHA WALTER @ 08/11/2020 12:19 PM Normal [facility] Comment on above: Order Comment: No: D o not add to previous draw ABDOMEN SERIES W CHESTon ABDOMEN SERIES W CHEST [facility] Department of Radiology [address] [place] [phone] Patient Name: RADHA BROWN : 1940 Sex: M Age: Race: White Pt. Location: [id number] Patient Status: I Ordered Date: 08/10/2020 5:35:00 [...] process. Electronically signed: Jordi Frausto. Transcribed by: [id number], User Resident: Electronically Signed by: JORDI FRAUSTO @ 08/10/2020 06:37 PM Normal [facility] Comment on above: Order Comment: No: D o not add to previous draw BASIC METABOLIC PANELon Calcium [Mass/Vol] 8.6 mg/dL Normal 8.6-10.3 [facility] Comment on above: Order Comment: No: D o not add to previous draw Performed By: #### 1 69, [id number] #### [facility] [address] [place] [address], [place] Chloride [Moles/Vol] 107 mmol/L Normal 98-107 [facility] Comment on above: Order Comment: No: D o not add to previous draw Performed By: #### 1 69, 86543 #### [facility] [address] [place] [address], [place] CO2 [Moles/Vol] 27 mmol/L Normal 21-31 [facility] Comment on above: Order Comment: No: D o not add to previous draw Performed By: #### 1 69, 41234 #### [facility] [address] [place] [address], [place] Creatinine [Mass/Vol] 1.24 mg/dL Normal 0.70-1.30 [facility] Comment on above: Order Comment: No: D o not add to previous draw Performed By: #### 1 69, 20457 #### [facility] [address] [place] [address], [place] eGFR- non- 56 ml/min/1.73sq m Abnormal >60 [facility] Comment on above: Order Comment: No: D o not add to previous draw Result Comment: Calc ulation may not be valid for patients over 70 years Performed By: #### 1 69, 61582 #### [facility] [address] [place] [address], [place] GFR/1.73 sq M.predicted among blacks MDRD (S/P/Bld) [Vol rate/Area] mL/min/{1.73_m2} Normal >60 [facility] Comment on above: Order Comment: No: D o not add to previous draw Result Comment: Calc ulation may not be valid for patients over 70 years Performed By: #### 1 69, 97429 #### [facility] [address] [place] [address], [place] Glucose [Mass/Vol] 108 mg/dL High 70-100 [facility] Comment on above: Order Comment: No: D o not add to previous draw Performed By: #### 1 69, 30121 #### [facility] [address] [place] [id number], [place] Potassium [Moles/Vol] 3.8 mmol/L Normal 3.5-5.1 [facility] Comment on above: Order Comment: No: D o not add to previous draw Performed By: #### 1 69, 43256 #### [facility] [address] [place] [address], [place] Sodium [Moles/Vol] 142 mmol/L Normal 136-145 [facility] Comment on above: Order Comment: No: D o not add to previous draw Performed By: #### 1 69, 10169 #### [facility] [address] [place] [id number], [place] Urea nitrogen [Mass/Vol] 29 mg/dL High 7-25 [facility] Comment on above: Order Comment: No: D o not add to previous draw Performed By: #### 1 69, 62318 #### [facility] [address] [place] [id number], [place] CBC W/DIFFon 08-10-2020 ABS IMM GRANS 0.0 10*3/uL Normal 0.0-0.2 [facility] Comment on above: Order Comment: No: D o not add to previous draw Performed By: #### 1 0070, 16216 #### [facility] [address] [place] [id number], [place] ABS NEUTROPHILS 3.0 10*3/uL Normal 1.6-7.6 The [facility] Comment on above: Order Comment: No: D o not add to previous draw Performed By: #### 1 69, 86121 #### [facility] [address] [place] [id number], [place] Basophils (Bld) [#/Vol] 0.0 10*3/uL Normal 0.0-0.2 [facility] Comment on above: Order Comment: No: D o not add to previous draw Performed By: #### 1 69, 67754 #### [facility] [address] [place] [address], [place] Basophils/100 WBC (Bld) 0.4 % Normal 0.0-1.0 [facility] Comment on above: Order Comment: No: D o not add to previous draw Performed By: #### 1 69, 14772 #### [facility] [address] [place] [address], [place] Eosinophils (Bld) [#/Vol] 0.4 10*3/uL Normal 0.0-0.5 [facility] Comment on above: Order Comment: No: D o not add to previous draw Performed By: #### 1 69, 89700 #### [facility] [address] [place] [address], [place] Eosinophils/100 WBC (Bld) 7.7 % High 0.0-6.0 [facility] Comment on above: Order Comment: No: D o not add to previous draw Performed By: #### 1 69, 77789 #### [facility] [address] [place] [address], [place] Erythrocyte distribution width (RBC) [Ratio] 13.8 % Normal 11.5-15.0 [facility] Comment on above: Order Comment: No: D o not add to previous draw Performed By: #### 1 69, 84746 #### [facility] [address] [place] [address], [place] Hematocrit (Bld) [Volume fraction] 33.3 % Low 39.0-50.0 [facility] Comment on above: Order Comment: No: D o not add to previous draw Performed By: #### 1 69, 79585 #### [facility] [address] [place] [address], [place] Hemoglobin (Bld) [Mass/Vol] 10.9 g/dL Low 13.0-17.0 [facility] Comment on above: Order Comment: No: D o not add to previous draw Performed By: #### 1 69, 45333 #### [facility] [address] [place] [address], [place] IMM PLATELET FRAC 7.2 % High 0.8-6.3 [facility] Comment on above: Order Comment: No: D o not add to previous draw Performed By: #### 1 69, 09633 #### [facility] [address] [facility] [address], [place] IMMATURE GRANS 0.2 % Normal 0.0-1.0 [facility] Comment on above: Order Comment: No: D o not add to previous draw Performed By: #### 1 69, 68406 #### [facility] [address] [place] [address], [place] Lymphocytes (Bld) [#/Vol] 1.1 10*3/uL Low 1.2-4.0 [facility] Comment on above: Order Comment: No: D o not add to previous draw Performed By: #### 1 69, 19589 #### [facility] [address] [place] [address], [place] Lymphocytes/100 WBC (Bld) 21.4 % Normal 20.0-45.0 [facility] Comment on above: Order Comment: No: D o not add to previous draw Performed By: #### 1 69, 90688 #### [facility] [address] [place] [address], [place] MCH (RBC) [Entitic mass] 31.6 pg Normal 27.0-33.0 [facility] Comment on above: Order Comment: No: D o not add to previous draw Performed By: #### 1 69, 29933 #### [facility] [address] [place] [address], [place] MCHC (RBC) [Mass/Vol] 32.7 g/dL Normal 32.0-35.0 [facility] Comment on above: Order Comment: No: D o not add to previous draw Performed By: #### 1 69, #### [facility] [address] [place] [address], [place] MCV (RBC) [Entitic vol] 96.5 fL Normal 82.0-98.0 [facility] Comment on above: Order Comment: No: D o not add to previous draw Performed By: #### 1 69, #### [facility] [address] [place] [address], [place] Monocytes (Bld) [#/Vol] 0.6 10*3/uL Normal 0.1-1.0 [facility] Comment on above: Order Comment: No: D o not add to previous draw Performed By: #### 1 69, #### [facility] [address] [place] [address], [place] MONOS 11.8 % Normal 5.0-12.0 [facility] Comment on above: Order Comment: No: D o not add to previous draw Performed By: #### 1 69, #### [facility] [address] [place] [address], [place] Neutrophils/100 WBC (Bld) 58.5 % Normal 40.0-72.0 [facility] Comment on above: Order Comment: No: D o not add to previous draw Performed By: #### 1 69, 51552 #### [facility] [address] [address], [place] Nucleated RBC/100 WBC (Bld) [Ratio] 0 % Normal 0-0 [facility] Comment on above: Order Comment: No: D o not add to previous draw Performed By: #### 1 69, 62729 #### [facility] [address] [place] [address], [place] PLAT CNT 102 10*3/uL Low 150-400 [facility] Comment on above: Order Comment: No: D o not add to previous draw Performed By: #### 1 69, 12600 #### [facility] [address] [facility] [address], [place] RBC (Bld) [#/Vol] 3.45 10*6/uL Low 4.20-5.70 The [facility] Comment on above: Order Comment: No: D o not add to previous draw Performed By: #### 1 69, 22624 #### [facility] [address] [address], [place] WBC (Bld) [#/Vol] 5.09 10*3/uL Normal 4.00-10.60 The [facility] Comment on above: Order Comment: No: D o not add to previous draw Performed By: #### 1 69, 14140 #### [facility] [address] Cardiovascular Lab Reporton 08-10-2020 Cardiovascular Lab Report [facility] Patient Name: Radha Brown MR #: [id number] [facility] Physician: Georges Purvis M.D. Department of Service Date: 08/09/2020 Medicine Birthdate: 1940 Division of Room #: 3AB 804462 Cardiology Adult Cardiovascular Services [facility] [address] [place], [place] [address] Cardiovascular Laboratory Report CARDIAC CATHETERIZATION REPORT INDICATION: [...] signed informed consent. He was brought to laboratory analyst in a fasting state. The right groin area was prepped and draped in usual fashion. Using micropuncture technique and ultrasound guidance, the right common femoral artery was accessed. The inner cannula angiography was performed followed by upsizing to a 6[place] x 11 cm sheath. Access was obtained using same technique in the right common femoral vein and a 6[place] x 11 cm sheath was placed. A 6-[place] Smalls catheter was used for heart catheterization with measurement of pressures and calculation of cardiac output using the estimated Lina method. Smalls catheter was removed. Bilateral selective coronary angiography was then performed using 6-[place] JL4 and AR2 diagnostic catheters. The AR2 diagnostic catheter was used for selectively engaging the saphenous venous graft to the PDA, saphenous venous graft to the diagonal, to the ramus, and to the OM3. Angiography was performed. Catheter was exchanged to a 6-[place]izen [place] INDIGO catheter, which was used to selectively [...] by: (more content not included)... Normal [facility] MAGNESIUM BLOODon 08-10-2020 Magnesium [Mass/Vol] 2.2 mg/dL Normal 1.9-2.7 [facility] Comment on above: Order Comment: No: D o not add to previous draw Performed By: #### 1 0070, 48856 #### [facility] [address] [place] [address], [place] POC GLUCOSE LABon 08-10-2020 Glucose [Mass/Vol] 163 mg/dL High 70-100 [facility] Comment on above: Performed By: #### 8 5499 #### [facility] [address] [place] [address], [place] Glucose [Mass/Vol] 167 mg/dL High 70-100 [facility] Comment on above: Performed By: #### 0 0071, 86687, 70838 #### [facility] [address] [place] [address], [place] Glucose [Mass/Vol] 126 mg/dL High 70-100 [facility] Comment on above: Performed By: #### 8 5499 #### [facility] [address] [place] [address], [place] Glucose [Mass/Vol] 113 mg/dL High 70-100 [facility] Comment on above: Performed By: #### 0 0071, 92956, 40555 #### [facility] [address] [place] [address], [place] POC GLUCOSE LABon 08-09-2020 Glucose [Mass/Vol] 163 mg/dL High 70-100 [facility] Comment on above: Performed By: #### 8 5499 #### [facility] [address] [place] [address], [place] Glucose [Mass/Vol] 140 mg/dL High 70-100 [facility] Comment on above: Performed By: #### 8 5499 #### [facility] [address] [place] [address], [place] Encounters Encounter Date Encounter Type Care Provider Facility Start: 10-28-2023 End: 10-28-2023 ambulatory [facility] Start: 10-22-2023 End: 10-22-2023 ambulatory [facility] Start: 05-01-2023 End: 05-01-2023 ambulatory [facility] Start: 03-12-2023 End: 03-12-2023 ambulatory [facility] Start: 01-18-2023 End: 01-18-2023 ambulatory [facility] Start: 07-13-2022 End: 07-14-[address] MARIBEL HOGAN . Facility: Start: 05-07-2022 End: 05-08-[address] MARIBEL HOGAN . Facility: Start: 02-08-2022 End: 02-08-2022 ambulatory LAURA HERNANDEZ Facility: Start: 01-11-2022 End: 01-11-2022 ambulatory LAURA HERNANDEZ Facility: Start: 10-11-2021 End: 10-12-[address] GEORGES PURVIS Facility: Start: 08-04-2021 End: 08-05-[address] MARIBEL HOGAN . Facility: Start: 10-11-2020 End: 10-18-2020 Evaluation and management of inpatient PROVIDER UNKNOWN Facility:[facility] Start: 09-13-2020 End: 09-14-2020 ambulatory ASHLEY CRAIG Facility:[facility] Start: 08-09-2020 End: 08-14-2020 Evaluation and management of inpatient PROVIDER UNKNOWN Facility:[facility] Procedures Date Procedure Procedure Detail Performing Clinician Start: 07-13-[address] GEORGES PURVIS Comment on above: Performed By: #### P SASC ####[facility] [id number] [place] [address]DrLeticia [place] Start: 08-04-[address] GEORGES PURVIS Comment on above: Performed By: #### P SASC ####[facility] [id number] [place] [address]Dr. Pattie [place] Start: 10-17-2020 INSERT ADRIEN BRUNNER IN ABD SUBCU/FASCIA, OPEN HANK SMALLWOOD Start: 10-17-2020 INSERTION OF PACEMAK ER LEAD INTO R VENTRICLE, PERC APPROACH HANK SMALLWOOD Start: 10-12-2020 ULTRASONOGRAPHY OF R IGHT AND LEFT HEART, TRANSESOPHAGEAL SAMER Teresa LUA Start: 10-11-2020 Antibody screen PROVIDE R UNKNOWN Comment on above: Performed By: #### 8 5499 #### [facility] [address] [place] [address], [place] Start: 10-11-2020 FLUOROSCOPY OF R LOW EXTREM ART USING L OSM CONTRAST GEORGES Garnica MOUKARBEL Start: 10-11-2020 FLUOROSCOPY OF THORA CIC AORTA USING LOW OSMOLAR CONTRAST GEORGES Garnica MOUKARBEL Start: 10-11-2020 MEASURE OF CARDIAC S AMPL \T\ PRESSURE, L HEART, PERC APPROACH GEORGES Nahun MOUKARBEL Start: 10-11-2020 Performance of Cardi ac Pacing, Continuous GEORGES SANCHEZRBEL Start: 10-11-2020 REPLACEMENT OF AORTI C VALVE WITH ZOOPLASTIC, PERC APPROACH CODY CASTANEDA Start: 10-11-2020 Ultrasonography of R ight Jugular Veins, Guidance GEORGES Garnica MOUKARBEL Start: 10-11-2020 ULTRASONOGRAPHY OF R IGHT LOWER EXTREMITY VEINS, GUIDANCE GEORGES Garnica MOUKARBEL Start: 08-09-2020 FLUOROSCOPY OF MULT COR A GRAFT USING OTH CONTRAST GEORGES Garnica MOUKARBEL Start: 08-09-2020 FLUOROSCOPY OF MULTI PLE CORONARY ARTERIES USING OTH CONTRAST GEORGES Garnica MOUKARBEL Start: 08-09-2020 FLUOROSCOPY OF RIGHT HEART USING OTHER CONTRAST GEORGES SANCHEZRBEL Start: 08-09-2020 MEASURE OF CARDIAC S AMPL \T\ PRESSURE, R HEART, PERC APPROACH GEORGES V MOUKARBEL Payers Date Payer Category Payer Medicare [id number] 1940 Unknown [id number] 2.16.8 [id number] 1940 Unknown [id number] 2.16.8 [id number] 1940 Unknown [id number] 2.16.8 [id number] 1940 Unknown [id number] 2.16.84 [id number] 1940 Unknown [id number] 2.16.84 [id number] 1940 Unknown [id number] 2.16.84 [id number] 1940 Unknown [id number] 2.16.84 [id number] 1940 Unknown [id number] 2.16.84 [id number] 1940 Unknown [id number] 2.16.84 [id number] Private Health Insurance [facility] [id number] Progress note 10-28-2023 Note Date & Type Note Facility 10-28-2023 Note [facility] Subjective Radha Brown is a 82 y.o. year old male patient being seen for 6 mo follow up s/p TAVR, afib, and pulmonary hypertension. Had device check last week, and routine labs w/ lipid profile in July 2023. Still denies chest pain, SOB, palpitations, and lightheadedness/syncope. Doing very well. Patient Active Problem List Diagnosis [...] heart failure with mildly reduced ejection fraction. In addition to the above he had history [...] in RVSP from 83 to 41 mmHg. Recent blood testing in July 2023 showed EGFR of 33. Today he reports that he has been doing well. He has no angina. He has no shortness of breath. His leg edema has been much better. He feels good. No palpitations. No bleeding issues. Review of Systems Skin: Positive for color change and dry skin. All other systems reviewed and are negative. Objective Visit Vitals BP 138/66 (BP Location: Left arm, Patient Position: Sitting) Pulse 62 Ht 1.88 m (6' 2 ) Wt 122 kg (270 lb) SpO2 99% BMI 34.67 kg/m??? Smoking Status Never BSA 2.52 m??? Physical Exam Constitutional: Appearance: He is [...] mouth in the morning., Disp: , Rfl: Januvia 100 mg tablet, Take 100 mg by mouth in the morning., Disp: , Rfl: levothyroxine (Synthroid, Levoxyl) 1 (more content not included)... [facility] Progress note 05-01-2023 Note Date & Type Note Facility 05-01-2023 Note [facility] Subjective Radha Brown is [...] Take 100 mg (more content not included)... [facility] Progress note 10-13-2023 Note Date & Type Note Facility 01-18-2023 Note [facility] Subjective Radha Brown is [...] Rfl: spironolactone (Aldactone) (more content not included)... [facility] Clinical Note 02-08-2022 Note Date & Type Note Facility 02-08-2022 Note HISTORY AND PHYSICAL EXAMINATION Date:02/07/2022 [...] go forward with his elective procedure. [facility] Clinical Note 02-08-2022 Note Date & Type Note Facility 02-08-2022 Note OPERATIVE NOTE OPERATION DATE: 02/08/2022 [...] and this would be performed in a crxleul-ylm-msoexl-type fashion. All four quadrants were capable of [...] on the sulcus space. A lens model [id number], 19.0 diopters was then inserted and dialed [...] present. Due (more content not included)... [facility] Clinical Note 01-11-2022 Note Date & Type Note Facility 01-11-2022 Note HISTORY AND PHYSICAL EXAMINATION Date:01/10/2022 [...] go forward with his elective procedure. [facility] Clinical Note 01-11-2022 Note Date & Type Note Facility 01-11-2022 Note OPERATIVE NOTE OPERATION DATE: 01/11/2022 [...] ensuring mobility, phacoemulsification was performed in a fqpfuzj-tzc-farbzk-type fashion. After all nuclear material had been [...] the following day for postoperative care. [facility] Discharge summary note 10-19-2020 Note Date & Type Note Facility 10-19-2020 Note MR#: [id number] Pt. Name: Radha Brown Admitted: 10/11/2020 Discharged: 10/18/2020 Date of : 1940 Physician: Lemuel Brasher M.D. DISCHARGE SUMMARY PRIMARY DIAGNOSES: Severe Aortic stenosis S/P TAVR, . SECONDARY DIAGNOSES: Afib with slow ventricular response of <40bpm. baseline LBBB, Post TAVR worsening LBBB S/P single chamber Pacemaker ([employer]). Chronic atrial fibrillation s/p watchman, chronic [...] MD Date Trans: 10/19/2020 05:10 A/julio cesar [id number] cc: Maribel Hogan M.D. [place] [id number] [facility] [place] [address] Georges Purvis M.D. Heart Failure/ Transplant Mailstop [address] [facility] [address] [facility] Discharge summary note 08-15-2020 Note Date & Type Note Facility 08-15-2020 Note MR#: [id number] Pt. Name: Radha Brown Admitted: 08/09/2020 [...] MD Date Trans: 08/15/2020 03:14 P/julio cesar [id number] cc: Maribel Hogan M.D. [address], [facility] [address] [facility] Summary Purpose Family History No Family [...] section and content) DATE CREATED AUTHOR 11/19/2020 [facility] DATE CREATED AUTHOR AUTHOR'S ORGANIZ ATION 11/23/2020 [facility] DATE CREATED AUTHOR AUTHOR'S ORGANIZ ATION 07/22/2022 [facility] DATE CREATED AUTHOR AUTHOR'S ORGANIZ ATION 10/30/2023 [facility] FOR RECORDS PERTAINING TO PATIENTS WHO [...] BE BASED ON THE PRIMARY CLINICAL RECORDS. [employer] provides no warranty or guarantee of the accuracy or completeness of information in this document.
[2023-11-18 07:16] LABS: Anion Gap 13.4; BUN Creatinine Ratio 13.7; Calcium 8.6 mg/dL (8.5-10.1); Carbon Dioxide 26.9 mmol/L (21.0-32.0); Chloride 106 mmol/L (98-107); Estimated GFR (African America 59 (>=60); Estimated GFR (Non-African Ame 49 (>=60); Glucose 141 mg/dL (74-106); Potassium 4.3 mmol/L (3.5-5.1); Sodium 142 mmol/L (136-145)
== END 2023-11-18 06:48 | disposition home or self-care (01) ==
LOC: LAB 06:50
PROVIDERS: PCP Family Medicine; Visit Provider Internal Medicine Interventional Cardiology
DX: E87.5 Hyperkalemia (principal)
CPT/HCPCS: 36415; 80048

== ENCOUNTER 2024-04-15 08:04 | Outpatient (OUT) | payer MEDICARE, SELFPAY ==
--- NOTE | 2024-04-15 08:09 | CA_ITS ---
Patient Name: RADHA WISE MR#: [id number] : 1940 Exam Date: 04/15/2024 Ordering Doctor: DR GEORGES PURVIS M.D. ECHOCARDIOGRAM REPORT PROCEDURE: CA ECHO DOPPLER COMPLETE INDICATIONS: S/P TAVR, Heart failure w/mildly reduced EF COMPARISON: None. DESCRIPTION: COMPLETE ECHOCARDIOGRAM Real-time transthoracic echocardiography with 2D, M-mode, spectral and color flow Doppler performed. QUALITY: Technical quality was good. LEFT VENTRICLE: Normal chamber size. Mild concentric left ventricular hypertrophy. LV EF: Global left ventricular systolic function is mildly decreased. Visually estimated ejection fraction is 45 to 50%. Calculated left ventricular ejection fraction is 46%. Abnormal septal motion may be related to underlying paced rhythm. DIASTOLIC: Not adequately assessed due to heart rhythm. ATRIAL SEPTUM: Inadequately seen. LEFT ATRIUM: Severe dilatation. RIGHT ATRIUM: Moderate dilatation. RIGHT VENTRICLE: Moderate dilatation. Normal right ventricular systolic function. Pacer wire present. TRICUSPID VALVE: Normal mobility and thickness. Moderate regurgitation. Moderate pulmonary hypertension. RVSP 50mmHg MITRAL VALVE: Mildly thickened with normal mobility. No evidence of mitral valve stenosis. Mitral annular calcification. Trivial mitral regurgitation. AORTIC VALVE: Bio-Prosthetic valve appears well seated in the aortic position with normal Doppler flow. No significant valvular or paravalvular aortic regurgitation. Documented jet appears to be arising from the mitral apparatus. AORTIC ROOT: Normal diameter and appearance. PULMONIC VALVE: Normal thickness and mobility. No stenosis. Trivial regurgitation. PERICARDIUM: No evidence of pericardial effusion. IVC: Collapses with inspirations. Moderate dilatation measuring 2.7cm. CONCLUSION: 1. Global left ventricular systolic function is mildly reduced; visually estimated ejection fraction is 45 to 50% 2. Mild left ventricular hypertrophy 3. The right ventricle is moderately dilated with preserved systolic function 4. Biatrial dilatation 5. Moderate tricuspid regurgitation 6. Moderately elevated right ventricular systolic pressure; RVSP 50 mmHg 7. A bioprosthetic aortic valve is seen with normal Doppler flow; no significant valvular or paravalvular regurgitation Adult Echocardiography Procedure Report Left Ventricle LVEDD (3.7 - 5.6 cm): 5.69 cm LVESD (2.2 - 4.0 cm): 4.36 cm LVIVS thickness (0.6 - 1.2 cm): 1.25 cm LVPW thickness (0.5 - 1.0 cm): 1.15 cm e': 0.12 m/s E - e': 10.75 LVOT Max Gradient: 4.78 mm[Hg] LVOT Area (cm2): 1.09 m/s Peak Velocity (LVOT): 1.09 m/s Mean Velocity (LVOT): 0.71 m/s LVOT Diameter 2.27 cm Left Ventricular Ejection Fraction: 45.87 % Left Atrium LA Volume Index (2D A2C): 54.95 ml/m2 Left Atrium Systolic Dimension: 5.70 cm Mitral Valve Mitral Valve E-Wave Peak Velocity: 1.30 m/s Right Ventricle RV Internal Diastolic Dimension: 5.04 cm Aorta AO Root Diam: 3.27 cm Ascending Ao Diam: 3.11 cm Aortic Valve AoV Area (Peak Kristian): 2.06 cm2, 2.05 cm2 AoV Area (VTI): 2.19 cm2, 2.19 cm2 Deceleration Schley: 0.87 m/s2 Pressure Half-Time: 1.03 s Peak Velocity(Antegrade Flow): 2.16 m/s, 2.13 m/s Peak Gradient(Antegrade Flow): 18.73 mm[Hg], 18.17 mm[Hg] Mean Velocity(Antegrade Flow): 1.44 m/s, 1.41 m/s Mean Gradient(Antegrade Flow): 9.48 mm[Hg], 9.14 mm[Hg] Velocity Time Integral: 44.50 cm, 44.42 cm Tricuspid Valve Peak Velocity (Regurgitant Flow): 2.68 m/s, 2.86 m/s, 3.23 m/s Pulmonic Valve Mean Gradient: 3.33 mm[Hg], 2.11 mm[Hg] Mean Velocity: 0.83 m/s, 0.65 m/s Peak Velocity: 1.26 m/s Peak Gradient: 7.50 mm[Hg], 5.33 mm[Hg] Right Atrium Right Atrium Systolic Pressure: 89.45 ml, 89.45 ml Dictated by: Antoni De Luna M.D. on 04/15/2024 at 10:16 Approved by: Antoni De Luna M.D. on 04/15/2024 at 10:26
== END 2024-04-15 08:05 | disposition home or self-care (01) ==
LOC: CARD 08:04
PROVIDERS: PCP Family Medicine; Visit Provider Internal Medicine Interventional Cardiology
DX: I50.22 Chronic systolic (congestive) heart failure (principal); Z95.2 Presence of prosthetic heart valve
CPT/HCPCS: 93306

== ENCOUNTER 2024-08-11 06:57 | Outpatient (OUT) | payer MEDICARE, SELFPAY ==
[2024-08-11 07:20] LABS: Basophils Percent Auto 0.5 % (0.2-2.0); Eosinophils Absolute Auto 0.4 10^3/uL (0.0-0.7); Eosinophils Percent Auto 4.7 % (0.9-7.0); Hematocrit 41.1 % (42.0-54.0); Hemoglobin 13.8 g/dL (14.0-18.0); Immature Granulocytes Abs Auto 0.02 10^3/uL (0.00-0.03); Immature Granulocytes Pct Auto 0.2 % (0.0-0.5); Lymphocytes Absolute Auto 2.1 10^3/uL (1.2-3.8); Lymphocytes Percent Auto 26.4 % (20.5-60.0); Mean Corpuscular HGB Conc 33.6 g/dL (29.9-35.2); Mean Corpuscular Hemoglobin 30.9 pg (25.9-34.0); Mean Corpuscular Volume 92.2 fL (80.0-94.0); Mean Platelet Volume 12.4 fL (9.5-13.5); Monocytes Absolute Auto 0.7 10^3/uL (0.3-0.8); Monocytes Percent Auto 8.3 % (1.7-12.0); Neutrophils Absolute Auto 4.8 10^3/uL (1.4-6.5); Neutrophils Percent Auto 59.9 % (43.0-75.0); Platelet Count 139 10^3/uL (150-450); Red Blood Count 4.46 10^6/uL (4.70-6.10); White Blood Count 8.1 10^3/uL (4.0-11.0)
[2024-08-11 07:31] LABS: Estimated Average Glucose 128 mg/dL; Glycohemoglobin A1C 6.1 % (4.5-6.2)
[2024-08-11 07:47] LABS: Alanine Aminotransferase 18 U/L (16-63); Albumin Globulin Ratio 1.1; Albumin Level 3.6 g/dL (3.4-5.0); Alkaline Phosphatase 71 U/L (46-116); Anion Gap 14.7; Aspartate Amino Transferase 17 U/L (15-37); Bilirubin Total 1.2 mg/dL (0.2-1.0); Calcium 8.9 mg/dL (8.5-10.1); Carbon Dioxide 25.5 mmol/L (21.0-32.0); Chloride 108 mmol/L (98-107); Chol HDL Ratio 2.5; Cholesterol 97 mg/dL (<=200); Estimated GFR (African America 59 (>=60 mL/min/1.73m^2); Estimated GFR (Non-African Ame 49 (>=60 mL/min/1.73m^2); Free T3 2.41 pg/mL (2.18-3.98); Globulin 3.4 g/dL; Glucose 108 mg/dL (74-106); HDL Cholesterol 39 mg/dL (40-60); Potassium 4.2 mmol/L (3.5-5.1); Sodium 144 mmol/L (136-145); Thyroid Stimulating Hormone 1.385 uIU/mL (0.358-3.740); Triglycerides 84 mg/dL (<=150); VLDL CHOLESTEROL 16.8 mg/dL
[2024-08-11 08:23] LABS: Prostate Specific Antigen Scrn 1.61 ng/mL (<=4.00)
== END 2024-08-11 06:58 | disposition home or self-care (01) ==
LOC: LAB 07:00
PROVIDERS: PCP Family Medicine; Visit Provider Family Medicine
DX: E78.00 Pure hypercholesterolemia, unspecified (principal); E66.01 Morbid (severe) obesity due to excess calories; E08.00 Diabetes mellitus due to underlying condition with hyperosmolarity without nonketotic hyperglycemic-hyperosmolar coma (NKHHC); I50.30 Unspecified diastolic (congestive) heart failure; Z12.5 Encounter for screening for malignant neoplasm of prostate; I11.0 Hypertensive heart disease with heart failure
CPT/HCPCS: 36415; 80053; 80061; 83036; 83880; 84436; 84443; 84481; 85025; G0103